=== PATIENT | male | born 1955 | race Caucasian/White ===

== ENCOUNTER → 2016-10-26 | Outpatient (CLI) | payer OTHER ==
[2016-10-26 08:48] LABS: CH 30.7; HCT 38.7 % (39.0-53.0); HDW 3.86; HGB 12.8 gm/dL (13.0-17.5); MCHC 33.1 g/dL (31.0-37.0); MCV 90.8 fL (80.0-100.0); Poikilocytosis Slight; RBC 4.26 m/uL (4.30-5.90); RDW 14.7 % (11.5-15.5); WBC 6.6 k/uL (3.8-10.6)
[2016-10-26 09:04] LABS: ALT 47 U/L (21-72); AST 26 U/L (17-59); Alkaline Phosphatase 46 U/L (38-126); Anion Gap 11 mmol/L; Blood Urea Nitrogen 10 mg/dL (9-20); Calcium 9.3 mg/dL (8.4-10.2); Carbon Dioxide 33 mmol/L (22-30); Chloride 95 mmol/L (98-107); Glucose 134 mg/dL (74-99); INR 1.1 (<1.1); Non-African American GFR(MDRD) >60 (>60 ml/min/1.73 sqM); Partial Thromboplastin Time 26.1 sec (22.0-30.0); Potassium 3.7 mmol/L (3.5-5.1); Prothrombin Time 10.8 sec (9.0-12.0); Sodium 139 mmol/L (137-145); Total Bilirubin 0.7 mg/dL (0.2-1.3); Total Protein 7.4 g/dL (6.3-8.2)
== END | disposition home or self-care (01) ==
LOC: LABWHC1 08:24
PROVIDERS: ATTEND Registered Nurse Critical Care Medicine
DX: Z01.812 Encounter for preprocedural laboratory examination (principal); I35.0 Nonrheumatic aortic (valve) stenosis
CPT/HCPCS: 36415; 80053; 83880; 85027; 85610; 85730

== ENCOUNTER 2016-11-22 06:26 | Day surgery (SDC) | payer OTHER ==
[~2016-11-22 06:26] MED LIST: ALPRAZolam 0.25 MG TAB PO PRN; ALPRAZolam 0.5 MG TAB PO PRN; ASPIRIN 325 MG TAB PO STA; ATORVASTATIN 80 MG TAB PO STA; NITROGLYCERIN SL TABS 0.4 MG TAB SUBLINGUAL PRN; SODIUM CHLORIDE 0.9% 1,000 ML in EMPTY BAG 1 BAG IV ONE
[2016-11-22] MEDS ORDERED: LIDOCAINE 2% INJ 20 MG/ML SQ ONE (08:10)
[2016-11-22] MEDS ORDERED: MIDAZOLAM 2 MG/2 ML VIAL IVP ONE (08:10)
[2016-11-22] MEDS ORDERED: BIVALIRUDIN BOLUS 250 MG/50 ML IV ONE (08:22)
[2016-11-22] MEDS ORDERED: BIVALIRUDIN 250 MG in SODIUM CHLORIDE 0.9% 50 ML IV ONE ×2 (08:22→08:43)
[2016-11-22] MEDS: MIDAZOLAM 2 MG/2 ML VIAL IVP ONE ×2 (09:02→09:31)
[2016-11-22] MEDS ORDERED: NITROGLYCERIN 1000MCG/10ML SYRINGE INTRACORON ONE (09:36)
[2016-11-22] MEDS ORDERED: PRASUGREL 10 MG TAB PO ONE (09:38)
[2016-11-22] MEDS ORDERED: IOHEXOL 350 MG/ML 100 ML BOTTLE INJ ONE (09:49)
[2016-11-22] MEDS ORDERED: ATROPINE SULFATE 0.1 MG/ML 10ML SYRINGE IV PRN (09:54)
[2016-11-22] MEDS ORDERED: ZOLPIDEM 5 MG TAB PO PRN (09:54)
[2016-11-22] MEDS ORDERED: RX INFO: IV CONTRAST WAS GIVEN 1 EACH MISC MISCELLANE PRN (09:54)
[2016-11-22] MEDS ORDERED: NITROGLYCERIN SL TABS 0.4 MG TAB SUBLINGUAL PRN (09:54)
[2016-11-22] MEDS ORDERED: MAG HYDROX/AL HYDROX/SIMETH 30 ML CUP PO PRN (09:54)
[2016-11-22] MEDS ORDERED: SODIUM CHLORIDE 0.9% 1,000 ML IV SCH (10:00)
--- NOTE | 2016-11-22 10:39 | PTCA ---
DATE OF SERVICE: 11/22/2016 PERFORMING PHYSICIAN: Alex Chavez, Broadcast Systems Engineer. PROCEDURE PERFORMED: 1. Selective right coronary angiogram. 2. An atherectomy of the right coronary artery using the CSI orbital atherectomy device. 3. Successful stenting of the right coronary artery using 3.0 x 38 mm Xience JUAN with a good angiographic results. 4. Selective right common femoral artery angiogram. INDICATION: This is a pleasant 61-year-old gentleman who was diagnosed recently with severe aortic stenosis and he was going to have transcutaneous aortic valve replacement. A heart catheterization was performed before the procedure and showed heavy calcified right coronary artery system with critical lesion involving the proximal and mid RCA which was eccentric and calcified. He was brought today to undergo percutaneous coronary intervention on the RCA before the TAVR procedure. APPROACH: Right common femoral artery. COMPLICATIONS: None. LEVEL OF SEDATION: Moderate with a length of sedation of 2 hours. PROCEDURE DESCRIPTION: After obtaining an informed consent, the patient was brought to the Cardiac Health Advisor. Right common femoral artery was cannulated using micropuncture technique. The micropuncture wire passed easily, then I placed a 6 Kyrgyz sheath in the right common femoral artery. Subsequently, I did selective right and left coronary angiogram. Subsequently, anticoagulation was initiated using Angiomax. Then I took a JR4 guide and the right coronary artery was engaged. I wired the right coronary artery using a Whisper wire and then I tried to advance 1.2 mm x 8 mm balloon and I was unable to cross the proximal right coronary artery. I did wire the right coronary artery using a niall wire with another Whisper wire and I was unable to cross the balloon. Then I tried to cross using one of the catheters which was a fine cross catheter, and I was unable to cross the proximal RCA lesion. At that point, I decided to wire the right coronary artery using the Viper atherectomy wire. The wire was advanced to the distal right coronary artery. Subsequently, I did atherectomy of the right coronary artery using the orbital CSI atherectomy device where I did atherectomize the proximal and mid RCA. Then I did balloon angioplasty using 2.5 x 15 mm balloon which was inflated in the mid and proximal RCA under 14 atmospheres for 30 seconds each time. Subsequently, I did stenting of the right coronary artery using 3.0 x 38 mm Xience JUAN, where the stent was positioned under fluoroscopy guidance, then it was deployed under for a 16 atmospheres for 20 seconds. Subsequently, I did post dilatation of the lesion in the proximal portion, where I was able to see some contrast behind the stent struts, which I decided to post-dilate, so I postdilated using 3.0 x 15 mm NC balloon which was inflated under 18 atmospheres for 30 seconds. The following angiogram showed good angiographic result with a good flow in the right coronary artery. The procedure was completed without any complication. Postprocedure management: 1. Dual antiplatelet therapy. 2. Risk factor modifications. 3. Will follow up with the patient.
[2016-11-22 16:24] VITALS: RESP 16
[2016-11-22 17:06] VITALS: BMI 46.9
[2016-11-23 06:34] LABS: Basophils % (A) 0 %; CH 30.5; Eosinophils # (A) 0.1 k/uL (0-0.7); Eosinophils % (A) 2 %; HCT 36.3 % (39.0-53.0); HDW 3.73; HGB 11.8 gm/dL (13.0-17.5); Luc # (Auto) 0.13; Luc % (Auto) 3; Lymphocytes # (A) 1.9 k/uL (1.0-4.8); Lymphocytes % (A) 36 %; MCH 29.4 pg (25.0-35.0); MCHC 32.6 g/dL (31.0-37.0); Mean Platelet Volume 6.8; Monocytes # (A) 0.3 k/uL (0-1.0); Monocytes % (A) 5 %; Neutrophils # (A) 2.9 k/uL (1.3-7.7); Neutrophils % (A) 55 %; Poikilocytosis Slight; RBC 4.03 m/uL (4.30-5.90); WBC 5.3 k/uL (3.8-10.6); WBC (Perox) 5.65
[2016-11-23 06:51] LABS: Anion Gap 10 mmol/L; Blood Urea Nitrogen 12 mg/dL (9-20); Calcium 8.7 mg/dL (8.4-10.2); Carbon Dioxide 32 mmol/L (22-30); Chloride 96 mmol/L (98-107); Glucose 125 mg/dL (74-99); Non-African American GFR(MDRD) >60 (>60 ml/min/1.73 sqM); Potassium 3.1 mmol/L (3.5-5.1); Sodium 138 mmol/L (137-145)
[2016-11-23 08:33] VITALS: BP 109/63; PULSE 95; TEMP 97.4
[2016-11-23] MEDS ORDERED: PRASUGREL 10 MG TAB PO SCH (09:00)
[2016-11-23] MEDS ORDERED: ATENOLOL 50 MG TAB PO SCH (09:00)
[2016-11-23] MEDS ORDERED: HYDROCHLOROTHIAZIDE 25 MG TAB PO SCH (09:00)
[2016-11-23] MEDS ORDERED: ASPIRIN 81 MG CHEW PO SCH (09:00)
[2016-11-23] MEDS ORDERED: ATORVASTATIN 80 MG TAB PO SCH (21:00)
--- NOTE | 2016-11-23 21:14 | DS ---
DATE OF ADMISSION: 11/22/2016 DATE OF DISCHARGE: 11/23/2016 BRIEF HISTORY: This is a pleasant 61-year-old gentleman with known severe aortic stenosis, hypertension, dyslipidemia, and known severe coronary artery disease with critical disease involving the proximal and mid right coronary artery. He was admitted to the hospital yesterday and underwent successful atherectomy and balloon angioplasty as well as stenting of the right coronary artery with placement of 3.0 x 38 mm Xience JUAN with good angiographic results. On followup with the patient today, he is doing well. He denies having any chest pain or discomfort. The right groin is soft and nontender and without any bruises. The patient is going to be discharged home on dual antiplatelet therapy as well as a statin. He is going to be seen in the office next week for followup. After that the patient will be referred back to have his TAVR procedure at [facility].
== END 2016-11-23 10:43 | disposition home or self-care (01) ==
LOC: CATHCVL 06:26 → 6SEL 09:45 → CATHCVL 11-23 10:43
PROVIDERS: ATTEND Internal Medicine Interventional Cardiology
DX: I25.10 Atherosclerotic heart disease of native coronary artery without angina pectoris (principal); I10 Essential (primary) hypertension; I35.0 Nonrheumatic aortic (valve) stenosis; E78.5 Hyperlipidemia, unspecified; Z68.41 Body mass index [BMI] 40.0-44.9, adult; E66.3 Overweight; Z82.49 Family history of ischemic heart disease and other diseases of the circulatory system; Z79.899 Other long term (current) drug therapy
CPT/HCPCS: 80048; 85025; 99152; 99153 ×6; C9602; C1769 ×8; C1760; C1887 ×2; C1725 ×3; C1894; C1874; C1714; J2001; J2250; Q9967; J0583

== ENCOUNTER → 2020-04-12 | Outpatient (CLI) | payer OTHER ==
[2020-04-12 10:44] LABS: Anisocytosis Slight; HCT 31.2 % (39.0-53.0); HGB 10.6 gm/dL (13.0-17.5); Hypochromasia Slight; MCH 31.7 pg (25.0-35.0); MCHC 33.8 g/dL (31.0-37.0); MCV 93.7 fL (80.0-100.0); Mean Platelet Volume 11.2; Poikilocytosis Slight; RBC 3.33 m/uL (4.30-5.90); RDW 19.2 % (11.5-15.5); WBC 3.8 k/uL (3.8-10.6)
[2020-04-12 10:51] LABS: African American GFR (CKD) >90 (>60 ml/min/1.73 sqM); Anion Gap 8 mmol/L; Blood Urea Nitrogen 12 mg/dL (9-20); Carbon Dioxide 32 mmol/L (22-30); Chloride 97 mmol/L (98-107); Non-African American GFR(CKD) >90 (>60 ml/min/1.73 sqM); Sodium 137 mmol/L (137-145)
[2020-04-12 12:08] LABS: Platelet Count 119 k/uL (150-450)
== END | disposition home or self-care (01) ==
LOC: LABWHC1 09:30
PROVIDERS: ATTEND Internal Medicine Interventional Cardiology
DX: Z01.818 Encounter for other preprocedural examination (principal); I25.10 Atherosclerotic heart disease of native coronary artery without angina pectoris
CPT/HCPCS: 36415; 80051; 82565; 84520; 85027

== ENCOUNTER 2020-04-15 08:48 | Day surgery (SDC) | payer OTHER ==
[2020-04-13 16:07] VITALS: BMI 47.7
[~2020-04-15 08:48] MED LIST changes: +ASPIRIN 325 MG TAB PO ONE; -ASPIRIN 325 MG TAB PO STA; +ATORVASTATIN 80 MG TAB PO ONE; -ATORVASTATIN 80 MG TAB PO STA
[2020-04-15] MEDS ORDERED: SODIUM CHLORIDE 0.9% 1,000 ML IV ONE (09:21)
[2020-04-15 09:24] VITALS: RESP 16; TEMP 97.9
[2020-04-15] MEDS ORDERED: LIDOCAINE 1% INJ 10MG/ML (20 ML MDV) ONE (10:18)
[2020-04-15] MEDS ORDERED: MIDAZOLAM 2 MG/2 ML VIAL IVP ONE ×2 (10:30→10:46)
[2020-04-15] MEDS ORDERED: LIDOCAINE 1% INJ 10MG/ML (20 ML MDV) SQ ONE (10:35)
[2020-04-15] MEDS ORDERED: fentaNYL (PF) 50 MCG/ML 2 ML AMP ONE (10:38)
[2020-04-15] MEDS ORDERED: fentaNYL (PF) 50 MCG/ML 2 ML AMP IVP ONE (10:41)
[2020-04-15] MEDS ORDERED: IOPAMIDOL-370 100ML BTL INJ ONE (11:00)
[2020-04-15] MEDS ORDERED: RX INFO: IV CONTRAST WAS GIVEN 1 EACH MISC MISCELLANE PRN (11:10)
[2020-04-15] MEDS ORDERED: SODIUM CHLORIDE 0.9% 1,000 ML IV SCH (11:15)
--- NOTE | 2020-04-15 11:31 | CC ---
CARDIAC CATHETERIZATION REPORT DATE OF SERVICE: 04/15/2020. PERFORMING PHYSICIAN: Markell Arellano MD. PROCEDURE PERFORMED: Selective right and left coronary angiogram. INDICATION: This is a very pleasant 64-year-old gentleman with history of aortic valve replacement using TAVR as well as coronary artery disease and prior atherectomy and balloon angioplasty of the right coronary artery, who was experiencing symptoms of chest discomfort with exertion as well as shortness of breath with exertion concerning for severe underlying coronary artery disease. Because of that, a heart catheterization was advised. Given his history as well as his multiple risk factors. APPROACH: Right common femoral artery. COMPLICATION: None. LEVEL OF SEDATION: Moderate with sedation length of 23 minutes. PROCEDURE DESCRIPTION: After obtaining an informed consent, the patient was brought to the cardiac open hearth laborer. The right common femoral artery was cannulated using micropuncture technique, the micropuncture wire passed easily, then I placed a 6-Yakut sheath at the right common femoral artery. After that, I did selective right and left coronary angiogram. Selective right coronary angiogram was performed using JR4 catheter and selective left coronary angiogram was performed using JL4 catheter. The procedure was completed without any complication. SELECTIVE CORONARY ANGIOGRAM: 1. The right coronary artery is a large caliber vessel and a dominant vessel. The RCA has in the proximal portion a plaque appeared to be in the range of 40% to 50%. seems to be slightly worse compared to before. The mid RCA is stented and the stent is patent and the RCA distally is normal and bifurcates into PDA and PLV branches both appeared to be angiographically normal. 2. The left main has a plaque, the plaque is eccentric and calcified within the range of 30% to 40%. was better seen on the GREEK cranial view. The left main after that bifurcates into LCX and LAD. 3. The LCX is a large caliber vessel, it is a nondominant vessel and appeared to be angiographically normal. It gives rise into first and second obtuse marginal branches, both appeared to be angiographically normal. 4. The LAD, the LAD is angiographically normal. In the proximal portion, it gives rise into a large diagonal branch. CONCLUSION: 1. Calcified right and left coronary system. 2. Patent stent in the mid RCA. Intermediate disease involving the very proximal RCA. 3. Eccentric calcified plaque involving the mid shaft of the left main appeared to be in the range of 30% to 40%.. 4. Normal left circumflex coronary system. 5. Normal left anterior descending artery system. POSTPROCEDURE MANAGEMENT: 1. I did recommend maximized medical treatment at this point. 2. Aggressive cholesterol control. 3. The patient continues to be symptomatic, I would consider doing an intravascular ultrasound IVUS of the left main as well as RCA. TERESSA / ALEXANDERN: [id number] /
[2020-04-15 17:11] VITALS: BP 120/58; PULSE 81
== END 2020-04-15 18:20 | disposition home or self-care (01) ==
LOC: CATHCVL 08:48
PROVIDERS: ATTEND Internal Medicine Interventional Cardiology
DX: I25.110 Atherosclerotic heart disease of native coronary artery with unstable angina pectoris (principal); R07.89 Other chest pain; R06.02 Shortness of breath; I10 Essential (primary) hypertension; E78.5 Hyperlipidemia, unspecified; E78.00 Pure hypercholesterolemia, unspecified; I08.1 Rheumatic disorders of both mitral and tricuspid valves; I27.20 Pulmonary hypertension, unspecified; R60.0 Localized edema; E66.3 Overweight; Z68.42 Body mass index [BMI] 45.0-49.9, adult; Z95.2 Presence of prosthetic heart valve; Z95.5 Presence of coronary angioplasty implant and graft; Z79.82 Long term (current) use of aspirin; Z79.899 Other long term (current) drug therapy; Z82.49 Family history of ischemic heart disease and other diseases of the circulatory system
CPT/HCPCS: 93454; C1894; C1887; C1769 ×2; J2250; J2001; J3010; Q9967

== ENCOUNTER 2020-05-14 05:55 | Inpatient (IN) | payer OTHER ==
[2020-05-14] MEDS ORDERED: SODIUM CHLORIDE 0.9% 1,000 ML IV STA ×2 (06:05)
[2020-05-14] MEDS ORDERED: NITROGLYCERIN SL TABS 0.4 MG TAB SUBLINGUAL STA (06:05)
[2020-05-14] MEDS ORDERED: ASPIRIN 81 MG PO STA (06:05)
[2020-05-14] MEDS ORDERED: MORPHINE SULFATE 4 MG/ML SYRINGE IVP STA (06:06)
[2020-05-14] MEDS ORDERED: HEPARIN SODIUM,PORCINE 5,000 UNIT/ML 1 ML VIAL IV ONE (06:11)
--- NOTE | 2020-05-14 06:13 | ED ---
Chest Pain HPI - General Chief Complaint: Chest Pain Stated Complaint: chest pain Time Seen by Provider: 05/14/20 05:57 Source: RN notes reviewed, old records reviewed - History of Present Illness Initial Comments: This patient's a 64-year-old male with a history of hypertension, coronary disease and a history of aortic stenosis with Swetha. He presents to emergency department today with onset of chest pain, tightness discomfort starting this morning when he woke up. Patient states this woke him from sleep. Patient had a cardiac cath on April 15. At that time he received a stent in the right aretha nary artery. Patient reports that he was told her 30-40% stenosis in the LAD. Patient states that he is not sure if he is on blood thinning medication at this time. Patient states that he is somewhat fatigued denies any significant shortness of breath or coughing. He did not take his at home medication at this time. - Related Data Home Medications Medication Instructions Recorded Confirmed Aspirin [Adult Low Dose Aspirin EC] 81 mg PO DAILY 11/21/16 04/15/20 Atorvastatin Calcium [Lipitor] 80 mg PO HS 11/21/16 04/15/20 Furosemide [Lasix] 40 mg PO DAILY 04/13/20 04/15/20 Metoprolol Tartrate [Lopressor] 50 mg PO BID 04/13/20 04/15/20 lisinopriL [Zestril] 5 mg PO DAILY 04/13/20 04/15/20 Allergies Allergy/AdvReac Type Severity Reaction Status Date / Time No Known Allergies Allergy Verified 05/14/20 06:10 Review of Systems ROS Statement: Those systems with pertinent positive or pertinent negative responses have been documented in the HPI. ROS Other: All systems not noted in ROS Statement are negative. EKG Findings - EKG Comments: EKG Findings:: EKG performed showed sinus tachycardia with ST depression considering sub-endocardial injury. Ventricular rate of 10 9 bpm. Intervals 166 most seconds. QRS duration is 94 ms. QT QTc is 358/482 ms. 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 GATO Past Anesthesia/Blood Transfusion Reactions: Motion Sickness Past Psychological History: No Psychological Hx Reported Past Alcohol Use History: Daily Additional Past Alcohol Use History / Comment(s): drinks 2 beers per day Past Drug Use History: None Reported - Past Family History Father Family Medical History: Myocardial Infarction ([place]) Sister(s) Family Medical History: Cancer Additional Family Medical History / Comment(s): Sister with brain tumor General Exam - General Exam Comments Initial Comments: 64-year-old male. Patient appears in mild to moderate discomfort. Laying in bed. Diaphoresis. General appearance: alert, in no apparent distress Head exam: Present: atraumatic, normocephalic, normal inspection Eye exam: Present: normal appearance, PERRL, EOMI. Absent: scleral icterus, conjunctival injection, periorbital swelling ENT exam: Present: normal exam, mucous membranes moist Neck exam: Present: normal inspection. Absent: tenderness, meningismus, lymphadenopathy Respiratory exam: Present: normal lung sounds bilaterally. Absent: respiratory distress, wheezes, rales, rhonchi, stridor Cardiovascular Exam: Present: tachycardia. Absent: regular rate GI/Abdominal exam: Present: soft, normal bowel sounds. Absent: distended, tenderness, guarding, rebound, rigid Extremities exam: Present: normal inspection, full ROM, normal capillary refill. Absent: tenderness, pedal edema, joint swelling, calf tenderness Back exam: Present: normal inspection Neurological exam: Present: alert, oriented X3, CN II-XII intact Psychiatric exam: Present: normal affect, normal mood Skin exam: Present: warm, dry, intact, normal color. Absent: rash Course Vital Signs 05/14/20 05/14/20 05/14/20 06:06 06:38 07:18 Temperature 98.4 F 98.7 F Pulse Rate 118 H 103 H 108 H Respiratory 20 18 18 Rate Blood Pressure 146/73 130/62 135/65 O2 Sat by Pulse 96 97 100 Oximetry - Reevaluation(s) Reevaluation #1: 05/14/20 07:09 Reevaluated. Patient at this time discussed findings with . I discussed doing further troponin level to return. I asked Patient for his pain milliseconds and 8. He reports initial relief after a dose of nitro but now it is came back, 8/10. Patient will be given nitropaste Chest Pain MDM - [facility] Patient 64-year-old male with onset of chest pain this morning. Had recent cardiac cath. He does have a history of hypertension and hyperlipidemia. Review patient's recent cardiac cath on April 15 conclusions calcified right and left coronary system. Patient stent in the right RCA. His intermittent disease involving the proximal right RCA. His eccentric calcified plaque in the midshaft of the left main appear to be in the range of 34%. Normal circumflex coronary artery system. The left anterior descending artery system. This is reported by Dr. Arellano. Patient reports his pain is a pressure 8 out of 10. He was given nitro and aspirin. He reported initial relief of his pain with nitro. Blood pressures remain stable. EKG did show some changes of ST depression on the lateral leads. Patient's EKG was initially reviewed with Dr. Boateng. Patient was started on heparin Patient is a continued have chest pain when the initial nitroglycerin pill wore off. He was started on heparin. His troponin is noted the elevated at 0.106. Patient's case then discussed with Dr. Armendariz discussed the case with Dr. Landaverde, whom will be in ED to evaluate patient. Critical Care Time Critical Care Time: Yes Total Critical Care Time: 35 Critical Care Time: 35 minutes of critical care time is managing Patient interpreting lab results, and treating patient's chest pain reviewing previous records, and consulting specialist cardiology. Disposition Clinical Impression: NSTEMI (non-ST elevated myocardial infarction), Acute electrocardiogram changes Disposition: ADMITTED IP TO THIS HOSP Condition: Stable Is patient prescribed a controlled substance at d/c from ED?: No Referrals: Adithya Mckeon MD [Primary Care Provider] - 1-2 days Time of Disposition: 07:44
[2020-05-14] MEDS ORDERED: HEPARIN SOD,PORK IN 0.45% NACL 25,000 UNIT in 0.45% NACL 1 250ML.BAG IV SCH (06:15)
[2020-05-14 06:28] LABS: Anisocytosis Slight; Basophils % (A) 1 %; Eosinophils # (A) 0.1 k/uL (0-0.7); Eosinophils % (A) 2 %; HCT 35.5 % (39.0-53.0); HGB 11.8 gm/dL (13.0-17.5); Hypochromasia Slight; Lymphocytes # (A) 3.2 k/uL (1.0-4.8); Lymphocytes % (A) 54 %; MCH 30.7 pg (25.0-35.0); MCHC 33.2 g/dL (31.0-37.0); MCV 92.5 fL (80.0-100.0); Mean Platelet Volume 10.7; Monocytes # (A) 0.3 k/uL (0-1.0); Monocytes % (A) 5 %; Neutrophils % (A) 35 %; Platelet Count 141 k/uL (150-450); Poikilocytosis Moderate; RBC 3.83 m/uL (4.30-5.90); RDW 19.4 % (11.5-15.5); WBC 5.9 k/uL (3.8-10.6)
[2020-05-14 06:35] LABS: Partial Thromboplastin Time 23.1 sec (22.0-30.0); Prothrombin Time 10.3 sec (9.0-12.0)
[2020-05-14 06:37] LABS: ALT 20 U/L (4-49); AST 26 U/L (17-59); African American GFR (CKD) >90 (>60 ml/min/1.73 sqM); Albumin 4.5 g/dL (3.5-5.0); Alkaline Phosphatase 84 U/L (38-126); Anion Gap 14 mmol/L; Blood Urea Nitrogen 11 mg/dL (9-20); Carbon Dioxide 24 mmol/L (22-30); Chloride 99 mmol/L (98-107); Glucose 171 mg/dL (74-99); Magnesium 1.8 mg/dL (1.6-2.3); Non-African American GFR(CKD) >90 (>60 ml/min/1.73 sqM); Potassium 3.2 mmol/L (3.5-5.1); Sodium 137 mmol/L (137-145); Total Bilirubin 1.4 mg/dL (0.2-1.3); Total Protein 7.1 g/dL (6.3-8.2)
[2020-05-14] MEDS ORDERED: NITROGLYCERIN OINT 1 INCH/GM PACKET TOPICAL STA (07:08)
--- NOTE | 2020-05-14 07:34 | XR ---
EXAM: XR Chest, 2 Views CLINICAL HISTORY: Chest pain TECHNIQUE: Frontal and lateral views of the chest. COMPARISON: No relevant prior studies available. FINDINGS: Lungs: No focal consolidation. Generalized prominence of vascular interstitial markings. Pleural space: Unremarkable. No pneumothorax. No pleural fluid. Heart: Stent graft in the region of the aortic valve. Mediastinum: Unremarkable. Bones/joints: Unremarkable. No acute abnormalities. IMPRESSION: Mild generalized prominence of vascular interstitial markings which may represent early pulmonary edema.
[2020-05-14] MEDS ORDERED: NITROGLYCERIN-D5W PMX 50 MG in DEXTROSE/WATER 1 250ML.BAG IV ONE (07:37)
--- NOTE | 2020-05-14 08:41 | P.CRDCN ---
History of Present Illness Consult date: 05/14/20 Requesting physician: Jade Bolanos Consult reason: non-Q-wave [place] Chief complaint: Chest pain History of present illness: History of present illness: This is a 64-year-old male patient of Dr. Arellano with past medical history of coronary artery disease, hypertension, severe aortic stenosis, and status post transcutaneous aortic valve replacement done 3 years ago at [facility]. 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 Prior to TAVR, Dr. Arellano performed performed atherectomy of the right coronary artery and successful stenting of the right coronary artery. Because patient was experiencing shortness of breath with associated chest discomfort with exertion, patient was brought back to [facility] with Dr. Arellano and underwent heart catheterization that revealed calcified right and left coronary system. Patent stent in the mid RCA. Intermediate disease in the very proximal RCA. A centric calcified plaque involving the mid shaft of the left main in the range of 30-40%. Normal circumflex and normal LAD. He recommended medical management if patient continued to be symptomatic we'll recommend intravascular ultrasound IVUS of the left main as well as RCA. Echocardiogram, 03/08/2020, revealed normal LV function, normally functioning transcatheter aortic valve with mild MR, mild TR, severe pulmonary hypertension. Patient presents with chest pain mostly in the left mid chest but across his entire front chest with radiation to the shoulder blades and into his jaw. He states he has been having this pain occasionally since recent heart catheterization but usually with activity. Today he woke up and was resting in bed and developed chest pain. He also complains of some involvement of his arms bilaterally but with some numbness as well. Patient has increased shortness of breath with talking. He did not take any medication at home. He presented to [facility] emergency center where he was found to have a tr oponin of 0.106. Hemoglobin 11.8, creatinine 0.61, potassium 3.2. White count was normal. EKG was a sinus tachycardia with some ST depression. Chest x-ray showed mild generalized prominent vascular interstitial markings possible pulmonary edema. He was given sublingual nitro, aspirin which was reported as some improvement by the ER staff. Patient states nitroglycerin has not really helped. He was also placed on Nitropaste and started on heparin drip and nitroglycerin drip. Social history Patient has been a lifelong nonsmoker. Occasional beer. No street drug or marijuana use. Review Of Systems: Constitutional: No fever, no chills. No weakness, reports generalized fatigue. EENT: No headache. No dizziness. Lungs: Reports shortness of breath, no cough, no sputum production. No wheezing. Cardiovascular: Reports No chest pain, reports lower extremity edema. No palpitations. No paroxysmal nocturnal dyspnea. No orthopnea. No lightheadedness or dizziness. No syncopal episodes. Abdominal: No abdominal pain. No nausea, vomiting. No diarrhea. No constipation. No bloody or tarry stools.. No loss of appetite. Genitourinary: No dysuria, increased frequency, urgency. No urinary retention. Musculoskeletal: No myalgias. No muscle weakness, no gait dysfunction, no frequent falls. No back pain. No neck pain. Integumentary: No wounds, no lesions. No rash or pruritus. No unusual bruising. Neurologic: No aphasia. No facial droop. No change in mentation. No head injury. No headache. No paralysis. No paresthesia. Psychiatric: No depression. No anxiety. Endocrine: No abnormal blood sugars. Physical examination: Gen: This is a 64-year-old male. He is resting in bed and appears to be comfortable. Patient noted to be dyspneic with talking in full sentences. VS: Afebrile, heart rate 108, blood pressure 135/65, pulse ox 100% on 2 L nasal cannula. HEENT: Head is atraumatic, normocephalic. Pupils equal, round. Sclerae is anicteric. NECK: Supple. No JVD. No lymphadenopathy. No thyromegaly. LUNGS: Diminished bilateral bases. Clear to auscultation. No wheezes or rhonchi. Accessory muscle usage with talking. HEART: Regular rate and rhythm. Systolic murmur. Tachycardic ABDOMEN: Soft. Bowel sounds are present. No masses. No tenderness. EXTREMITIES: Trace bilateral pedal edema. No calf tenderness. Dorsalis pedis +1 bilaterally. NEUROLOGICAL: Patient is awake, alert and oriented x3. Cranial nerves 2 through 12 are grossly intact. Assessment: Non-ST elevated myocardial infarction History of coronary artery disease Hypertension Aortic stenosis status post transcutaneous aortic valve replacement Severe pulmonary hypertension Plan: Continue heparin drip and nitroglycerin drip Continue aspirin, resume Lipitor 80 mg at bedtime, Lopressor 50 mg twice daily and lisinopril 5 mg daily Obtain 2-D echocardiogram and Doppler study to assess cardiac structure and function Serial troponins and lipid panel Discussed option of heart catheterization and patient is agreeable to proceed Further recommendations to follow based upon clinical course Thank you kindly for this consultation Nurse practitioner note has been reviewed, I agree with documented findings and plan of care. Patient was seen and examined. 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 GATO Past Anesthesia/Blood Transfusion Reactions: Motion Sickness Past Psychological History: No Psychological Hx Reported Past Alcohol Use History: Daily Additional Past Alcohol Use History / Comment(s): drinks 2 beers per day Past Drug Use History: None Reported - Past Family History Father Family Medical History: Myocardial Infarction ([place]) Sister(s) Family Medical History: Cancer Additional Family Medical History / Comment(s): Sister with brain tumor Medications and Allergies Home Medications Medication Instructions Recorded Confirmed Type Aspirin [Adult Low Dose Aspirin EC] 81 mg PO DAILY 11/21/16 04/15/20 History Atorvastatin Calcium [Lipitor] 80 mg PO HS 11/21/16 04/15/20 History Furosemide [Lasix] 40 mg PO DAILY 04/13/20 04/15/20 History Metoprolol Tartrate [Lopressor] 50 mg PO BID 04/13/20 04/15/20 History lisinopriL [Zestril] 5 mg PO DAILY 04/13/20 04/15/20 History Allergies Allergy/AdvReac Type Severity Reaction Status Date / Time No Known Allergies Allergy Verified 05/14/20 06:10 Physical Exam Vitals: Vital Signs Temp Pulse Resp BP Pulse Ox 05/14/20 07:18 98.7 F 108 H 18 135/65 100 05/14/20 06:38 103 H 18 130/62 97 05/14/20 06:06 98.4 F 118 H 20 146/73 96 Intake and Output 05/13/20 05/14/20 05/14/20 22:59 06:59 14:59 Other: Weight 136.078 kg Results 05/14/20 06:17 05/14/20 06:17 Cardiac Enzymes 05/14/20 05/14/20 Range/Units 06:17 06:17 AST 26 (17-59) U/L Troponin I 0.106 H* (0.000-0.034) ng/mL Coagulation 05/14/20 Range/Units 06:17 PT 10.3 (9.0-12.0) sec APTT 23.1 (22.0-30.0) sec CBC 05/14/20 Range/Units 06:17 WBC 5.9 (3.8-10.6) k/uL RBC 3.83 L (4.30-5.90) m/uL Hgb 11.8 L (13.0-17.5) gm/dL Hct 35.5 L (39.0-53.0) % Plt Count 141 L (150-450) k/uL Comprehensive Metabolic Panel 05/14/20 Range/Units 06:17 Sodium 137 (137-145) mmol/L Potassium 3.2 L (3.5-5.1) mmol/L Chloride 99 (98-107) mmol/L Carbon Dioxide 24 (22-30) mmol/L BUN 11 (9-20) mg/dL Creatinine 0.63 L (0.66-1.25) mg/dL Glucose 171 H (74-99) mg/dL Calcium 9.0 (8.4-10.2) mg/dL AST 26 (17-59) U/L ALT 20 (4-49) U/L Alkaline Phosphatase 84 (38-126) U/L Total Protein 7.1 (6.3-8.2) g/dL Albumin 4.5 (3.5-5.0) g/dL Current Medications Generic Name Dose Route Start Last Admin Trade Name Freq PRN Reason Stop Dose Admin Aspirin 325 mg 05/15/20 09:00 Aspirin PO DAILY JAY Sodium Chloride 1,000 mls @ 100 mls/hr 05/14/20 06:05 05/14/20 07:47 Saline 0.9% IV 05/14/20 16:04 100 mls/hr .Q10H STA Administration Heparin Sodium/Sodium Chloride 250 mls @ 10.006 mls/hr 05/14/20 06:15 05/14/20 06:44 25,000 unit/ Sodium Chloride IV 7.353 units/kg/hr .Q24H JAY 10.006 mls/hr Administration Protocol 7.353 UNITS/KG/HR Nitroglycerin/Dextrose 50 mg/ 250 mls @ 1.5 mls/hr 05/14/20 07:37 05/14/20 07:55 IV Solution IV 05/15/20 07:36 5 mcg/min .Q24H ONE 1.5 mls/hr Administration Protocol 5 MCG/MIN Intake and Output 05/13/20 05/14/20 05/14/20 22:59 06:59 14:59 Other: Weight 136.078 kg 05/14/20 06:17 05/14/20 06:17
[2020-05-14] MEDS ORDERED: ATORVASTATIN 80 MG TAB PO STA (08:50)
[2020-05-14] MEDS ORDERED: ALPRAZolam 0.5 MG TAB PO PRN (08:50)
[2020-05-14] MEDS ORDERED: NITROGLYCERIN SL TABS 0.4 MG TAB SUBLINGUAL PRN ×2 (08:50→17:12)
[2020-05-14] MEDS ORDERED: ALPRAZolam 0.25 MG TAB PO PRN (08:50)
[2020-05-14] MEDS ORDERED: SODIUM CHLORIDE 0.9% 1,000 ML in EMPTY BAG 1 BAG IV ONE (08:50)
[2020-05-14] MEDS: METOPROLOL TARTRATE 50 MG TAB PO SCH ×2 (10:11→20:26)
[2020-05-14] MEDS: lisinopriL 5 MG TAB PO SCH (10:11)
[2020-05-14] MEDS ORDERED: ASPIRIN 325 MG TAB PO ONE (10:30)
[2020-05-14] MEDS ORDERED: IV FLUID CONTINUATION 1,000 ML IV ONE (11:00)
[2020-05-14] MEDS ORDERED: VERAPAMIL 2.5 MG/ML 2 ML AMP ONE (11:03)
[2020-05-14] MEDS ORDERED: LIDOCAINE 1% INJ 10MG/ML (20 ML MDV) ONE ×2 (11:03→11:34)
[2020-05-14] MEDS ORDERED: fentaNYL (PF) 50 MCG/ML 2 ML AMP ONE (11:11)
[2020-05-14] MEDS ORDERED: fentaNYL (PF) 50 MCG/ML 2 ML AMP IV ONE (11:12)
[2020-05-14] MEDS: MIDAZOLAM 2 MG/2 ML VIAL IV ONE ×2 (11:12→12:08)
[2020-05-14] MEDS: LIDOCAINE 1% INJ 10MG/ML (20 ML MDV) SQ ONE ×2 (11:14→11:45)
[2020-05-14] MEDS ORDERED: VERAPAMIL SYRINGE (5 MG/10 ML) INTRAARTER ONE (11:19)
[2020-05-14] MEDS ORDERED: HEPARIN SODIUM 1,000 UN/ML (10ML VL) ONE ×2 (11:20→13:25)
[2020-05-14] MEDS ORDERED: LIDOCAINE 1% INJ 10MG/ML (20 ML MDV) SQ ONE (11:40)
[2020-05-14] MEDS ORDERED: IOPAMIDOL-370 125ML BTL INJ ONE (12:19)
[2020-05-14] MEDS ORDERED: TICAGRELOR 90 MG TAB ONE (12:47)
[2020-05-14] MEDS ORDERED: TICAGRELOR 90 MG TAB PO ONE (12:50)
[2020-05-14] MEDS: NITROGLYCERIN 1000MCG/10ML SYRINGE INTRACORON ONE ×2 (12:56→13:16)
[2020-05-14] MEDS ORDERED: IOPAMIDOL-370 100ML BTL INJ ONE ×2 (13:08→13:22)
[2020-05-14] MEDS ORDERED: ONDANSETRON 4 MG/2 ML VIAL IVP ONE (13:30)
[2020-05-14] MEDS ORDERED: ONDANSETRON 4 MG/2 ML VIAL ONE (13:39)
--- NOTE | 2020-05-14 14:49 | HP ---
HISTORY AND PHYSICAL CHIEF COMPLAINT: Chest pain. HISTORY OF PRESENT ILLNESS: This is another admission for this 64-year-old white male. He is alert and he has a long-standing history of cardiac disease. Several years ago he underwent a TAVR replacement of his aortic valve. He subsequently developed angina and underwent a right coronary artery angioplasty. He recently saw Cardiology and underwent another cardiac cath which demonstrated occlusion above his previous RCA stent and another lesion and possibly in the circumflex. He woke up at 5:00 this morning with fairly severe anterior crushing chest pain radiating into the arms and into the back. He was short of breath and diaphoretic. He was not nauseated. He came to emergency room where his EKG showed some changes and his first troponin was elevated. He is still a little bit short of breath. Pain has subsided. REVIEW OF SYSTEMS: He has had no syncope, neurologic signs or symptoms, change in vision or hearing, cough, hemoptysis, fever, chills, abdominal pain, melena, hematochezia, jaundice, hepatitis, renal failure, frequency, urgency, nocturia, dysuria, or diabetes. Past medical history, family history and personal and social history reveal he is not allergic to any medication. MEDICATIONS: Include isosorbide mononitrate 30 mg once a day, lisinopril 2.5 once a day, vitamin D 50,000 units a month, furosemide 40 mg once a day, aspirin 81 mg a day, atorvastatin 80 mg once a day, metoprolol 50 mg twice a day. He has never been a smoker. He drinks beer occasionally. 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 PHYSICAL EXAMINATION: Blood pressure is 142/58 with a pulse of 88, respirations of 18, he is afebrile. In general, appeared to be slightly overweight and in no acute distress but he was slightly uncomfortable. Skin color was normal. Skin was dry. Head, ears, eyes, nose, mouth, and throat were normal and neck veins are not distended. Carotids normal. Chest is clear. No rales. Cardiac exam demonstrated a faint grade 1/6 systolic murmur probably related to his prosthetic valve. He was in sinus rhythm. The abdomen is soft and slightly protuberant. There are no masses or visceromegaly. Extremities are normal. Neurologically he was intact. He was admitted to the hospital with diagnoses: 1. Acute ST elevation myocardial infarction.. 2. Previous history of coronary artery disease. 3. Previous history of aortic valve replacement with TAVR. 4. History of hypertension. PLAN: 1. Bed rest. 2. IV fluids. 3. Heparin. 4. Analgesia. 5. Cardiology consult. TERESSA / KASSANDRA: [id number] /
[2020-05-14] MEDS: FUROSEMIDE 40 MG TAB PO SCH (15:03)
[2020-05-14] MEDS ORDERED: ATROPINE SULFATE 0.1 MG/ML 10ML SYRINGE IV PRN (17:12)
[2020-05-14] MEDS ORDERED: ZOLPIDEM 5 MG TAB PO PRN (17:12)
[2020-05-14] MEDS ORDERED: MAG HYDROX/AL HYDROX/SIMETH 30 ML CUP PO PRN (17:12)
[2020-05-14] MEDS ORDERED: RX INFO: IV CONTRAST WAS GIVEN 1 EACH MISC MISCELLANE PRN (17:12)
[2020-05-14] MEDS: ATORVASTATIN 80 MG TAB PO SCH (20:26)
[2020-05-14] MEDS: TICAGRELOR 90 MG TAB PO SCH (20:26)
--- NOTE | 2020-05-14 23:12 | P.CARDCATH ---
Date of Procedure: 05/14/20 Preoperative Diagnosis: Non STEMI Postoperative Diagnosis: Non-STEMI Procedure(s) Performed: Bilateral coronary angiography, right radial and left femoral access, PCI of proximal and mid RCA, iFR of RCA Anesthesia: local Condition: stable Description of Procedure: HISTORY: Patient is a pleasant 64-year-old male who routinely sees Dr. Arellano in the office with a past medical history of hypertension, benign mass of his chest status post removal and radiation therapy to his chest, severe aortic stenosis status post Evolute TAVR 3 years ago and coronary artery disease with prior PCI of his proximal to mid RCA who presents to the hospital with chest pain similar to his prior angina. He does admit to chronic angina over the past 6 months which is worse with activities and mowing his lawn. He did have prior heart catheterization 1 month ago which showed moderate left main disease at 30-40%, moderate RCA disease and the decision was made to attempt to optimize his medical therapy. He does have a history of prior radiation to his chest and 3 years ago he was not felt to be the best of surgical candidates for his severe aortic stenosis secondary to prior radiation. He presented this morning with chest pain and EKG showing diffuse ST depressions and mild aVR elevation. He was having persistent chest pain despite nitroglycerin drip and his troponins were noted to be elevated. Therefore the decision was made to take him to the catheterization lab. PROCEDURE: After the risks, benefits and alternatives of the above mentioned procedure explained in detail with the patient, informed consent was obtained. Patient was taken to the catheterization lab and prepped and draped in usual fashion. 1% lidocaine was used to anesthetize the right radial artery. A 6-Nigerien sheath was placed in the right radial artery using modified Seldinger technique. Due to patient's angulation of his aorta including a short aorta and the angulation of the TAVR valve either RCA or left main cannulation was possible with numerous catheters. Therefore the decision was made to go from femoral access. Right femoral access was attempted, 2% Xylocaine was used to anesthetize the area, however venous access was obtained and a 6-Nigerien sheath was placed. Access was switched to the left femoral area and using ultrasound guidance a 6-Nigerien sheath was placed to left femoral artery using modified Seldinger technique. Cannulation was attempted again however patient was noted to have extreme angulation of his abdominal aorta and therefore the left femoral sheath was exchanged for a 25 cm long 6-Nigerien sheath. Next left coronary angiography was performed with a 6-Nigerien JL 4.0 catheter in various views. Next using a 6-Nigerien FR 3.5 guide right coronary angiography was performed in various views. The images appeared similar to patient's prior catheterization for one month prior and therefore the decision was made to iFR the right coronary artery. An iFR wire was advanced into the right coronary artery at the end of the catheter and this was zeroed. The wire was then advanced into the mid to distal RCA, 2 cm distal to the mid RCA lesion. iFR measurement was obtained at 0.61. Both the proximal and mid RCA lesions were predilated with a 3.0 x 15 mm balloon. Next a 3.5 x 15 mm stent was placed in the mid RCA, overlapping with the prior stent. Next a 3.5 x 23 mm Xience stent was placed in the proximal RCA. Both the proximal and mid stents were postdilated with a 3.75 x 12 noncompliant balloon. Final angiograms were performed which showed improvement from pre-60-70% stenosis of both lesions to a post-0% stenosis of both lesions with JELANI-3 flow. A left femoral angiogram was performed which showed access unsuitable for vascular closure device and therefore the sheath was left in place for manual pull. During patient repositioning after the procedure, the sheath was slightly removed and a hematoma began to form and therefore pressure was held. This sheath would not drop back and therefore sheath was removed and pressure was held. The right radial sheath was pulled and a TR band was placed with hemostasis achieved. The patient tolerated the p rocedure well. Patient was transferred to the post catheterization holding area in stable condition. Conscious Sedation: Patient was monitored under the direct supervision of vision of myself for conscious sedation using 2 mg Versed and 50 mcg fentanyl for a total duration of 137 minutes. HEMODYNAMICS: Aortic pressure of 110/65 rate of 80 SELECTIVE CORONARY ARTERIOGRAPHY: LEFT MAIN: The left main is a large caliber vessel which bifurcates into LAD and circumflex. There is a distal 30-40% LEFT ANTERIOR DESCENDING CORONARY ARTERY: LAD is a large caliber vessel which gives off 1 moderate-caliber diagonal branch. There is a mid LAD 40% stenosis. LEFT CIRCUMFLEX CORONARY ARTERY: the left circumflex is a moderate caliber vessel which gives off 2 obtuse marginal branches without significant stenosis RIGHT CORONARY ARTERY: right coronary artery is a large-caliber dominant vessel. It bifurcates into the PLV and PDA. There is a proximal to mid 35mm stent. Just prior to the stent there is a 60-70% ulcerated lesion followed by a 30-40% stenosis at the level of the proximal edge of the stent. At the distal edge of the stent there is a 60-70% stenosis. iFR of the RCA was 0.61 FINAL IMPRESSION: 1. Multivessel coronary artery disease as described above including relatively unchanged left-sided disease with left main distal 30-40% stenosis, mid LAD 40% stenosis. Right coronary artery 60-70% proximal and mid stenosis with iFR of 0.61. Status post PCI of the proximal RCA lesion with a 3.5 x 23 mm Xience drug-eluting stent and the mid RCA with a 3.5 x 15 mm Xience drug-eluting stent. 2. Non-STEMI with culprit vessel RCA PLAN: Patient is left-sided system appears similar to prior catheterization. Monitor patient's symptoms after his intervention to his RCA. Continue dual antiplatelets for 12 months. Check 2-D echo.
[2020-05-15 06:31] LABS: Anisocytosis Slight; HCT 25.1 % (39.0-53.0); Hypochromasia Slight; MCH 30.5 pg (25.0-35.0); MCHC 32.7 g/dL (31.0-37.0); MCV 93.4 fL (80.0-100.0); Macrocytosis Slight; Platelet Count 124 k/uL (150-450); Poikilocytosis Slight; RBC 2.68 m/uL (4.30-5.90); RDW 19.8 % (11.5-15.5); WBC 5.7 k/uL (3.8-10.6)
[2020-05-15 06:53] LABS: HGB 8.2 gm/dL (13.0-17.5)
[2020-05-15 06:56] LABS: ALT 22 U/L (4-49); AST 73 U/L (17-59); African American GFR (CKD) >90 (>60 ml/min/1.73 sqM); Albumin 3.3 g/dL (3.5-5.0); Alkaline Phosphatase 46 U/L (38-126); Anion Gap 10 mmol/L; Blood Urea Nitrogen 16 mg/dL (9-20); Calcium 7.8 mg/dL (8.4-10.2); Carbon Dioxide 25 mmol/L (22-30); Chloride 100 mmol/L (98-107); Cholesterol 79 mg/dL (<200); Glucose 134 mg/dL (74-99); HDL Cholesterol 25 mg/dL (40-60); LDL Cholesterol,Calculated 38 mg/dL (0-99); Non-African American GFR(CKD) >90 (>60 ml/min/1.73 sqM); Potassium 3.9 mmol/L (3.5-5.1); Sodium 135 mmol/L (137-145); Total Bilirubin 1.6 mg/dL (0.2-1.3); Total Protein 5.5 g/dL (6.3-8.2); Triglycerides 82 mg/dL (<150)
[2020-05-15] MEDS: METOPROLOL TARTRATE 50 MG TAB PO SCH ×2 (08:01→21:30)
[2020-05-15] MEDS: ASPIRIN 81 MG PO SCH (08:01)
[2020-05-15] MEDS: TICAGRELOR 90 MG TAB PO SCH ×2 (08:02→21:31)
[2020-05-15] MEDS ORDERED: ASPIRIN 325 MG TAB PO SCH (09:00)
--- NOTE | 2020-05-15 11:05 | P.PN ---
<Anila Burgess - Last Filed: 05/15/20 13:27> Subjective Progress Note Date: 05/15/20 History of present illness: This is a 64-year-old male patient of Dr. Arellano with past medical history of coronary artery disease, hypertension, severe aortic stenosis, and status post transcutaneous aortic valve replacement done 3 years ago at [facility]. 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 Prior to TAVR, Dr. Arellano performed performed atherectomy of the right coronary artery and successful stenting of the right coronary artery. Because patient was experiencing shortness of breath with associated chest discomfort with exertion, patient was brought back to [facility] with Dr. Arellano and underwent heart catheterization that revealed calcified right and left coronary system. Patent stent in the mid RCA. Intermediate disease in the very proximal RCA. A centric calcified plaque involving the mid shaft of the left main in the range of 30-40%. Normal circumflex and normal LAD. He recommended medical management if patient continued to be symptomatic we'll recommend intr avascular ultrasound IVUS of the left main as well as RCA. Echocardiogram, 03/08/2020, revealed normal LV function, normally functioning transcatheter aortic valve with mild MR, mild TR, severe pulmonary hypertension. Patient presents with chest pain mostly in the left mid chest but across his entire front chest with radiation to the shoulder blades and into his jaw. He states he has been having this pain occasionally since recent heart catheterization but usually with activity. Today he woke up and was resting in bed and developed chest pain. He also complains of some involvement of his arms bilaterally but with some numbness as well. Patient has increased shortness of breath with talking. He did not take any medication at home. He presented to [facility] emergency center where he was found to have a troponin of 0.106. Hemoglobin 11.8, creatinine 0.61, potassium 3.2. White count was normal. EKG was a sinus tachycardia with some ST depression. Chest x-ray showed mild generalized prominent vascular interstitial markings possible pulmonary edema. He was given sublingual nitro, aspirin which was reported as some improvement by the ER staff. Patient states nitroglycerin has not really helped. He was also placed on Nitropaste and started on heparin drip and nitroglycerin drip. 05/15: Patient underwent heart catheterization yesterday that found multi-vessel coronary artery disease with unchanged left-sided disease with left main distal 30-40% stenosis, mid LAD 40% stenosis. Right coronary artery 60-70% proximal and mid stenosis with iFR of 0.61. Status post PCI of the proximal RCA lesion with a 3.5 x 23 mm Xience drug-eluting stent and the mid RCA with a 3.5 x 15 mm Xience drug-eluting stent. Patient is seen today in follow-up. He denies hav ing any chest pain or shortness of breath. No lightheadedness or dizziness. Blood pressures have been soft this morning and Lasix and lisinopril were held. Patient is asymptomatic with a low blood pressure. Currently 96/52, pulse ox 94% on room air, heart rate 96, afebrile. Patient has ecchymosis to the left groin site. Hemoglobin has dropped to 8.2. She has been started on Brilinta 90 mg twice daily and continued on aspirin 81 mg daily. Physical examination: Gen: This is a 64-year-old male. He is resting in bed and appears to be comfortable. HEENT: Head is atraumatic, normocephalic. Pupils equal, round. Sclerae is anicteric. NECK: Supple. No JVD. No lymphadenopathy. No thyromegaly. LUNGS: Clear to auscultation. No wheezes or rhonchi. HEART: Regular rate and rhythm. Systolic murmur. ABDOMEN: Soft. Bowel sounds are present. No masses. No tenderness. EXTREMITIES: Trace bilateral pedal edema. No calf tenderness. Dorsalis pedis +1 bilaterally. Ecchymosis to the left groin. Right groin is soft, no ecchymosis. right wrist site is clean and dry, no hematoma or ecchymosis. NEUROLOGICAL: Patient is awake, alert and oriented x3. Cranial nerves 2 through 12 are grossly intact. Assessment: Non-ST elevated myocardial infarction History of coronary artery disease Hypertension Aortic stenosis status post transcutaneous aortic valve replacement Severe pulmonary hypertension Anemia, possible acute blood loss anemia secondary to ecchymosis left groin Plan: Continue Lipitor 80 mg at bedtime, Lopressor 50 mg twice daily Hold lisinopril for today and resume tomorrow at 2.5 mg daily Continue Brilinta 90 mg twice daily, aspirin 81 mg daily Obtain repeat CBC this afternoon and tomorrow morning Echocardiogram report is pending Further recommendations to follow based upon clinical course Anticipate discharge home tomorrow Thank you kindly for this consultation Nurse practitioner note has been reviewed, I agree with documented findings and plan of care. Patient was seen and examined. Objective - Vital Signs Vital signs: Vital Signs Temp 98.7 F 05/15/20 08:00 Pulse 96 05/15/20 08:00 Resp 16 05/15/20 08:00 BP 96/52 05/15/20 08:00 Pulse Ox 94 L 05/15/20 08:00 Intake & Output 05/14/20 05/15/20 05/15/20 18:59 06:59 18:59 Intake Total 740 720 Output Total 100 Balance 640 720 Weight 136.078 kg 135.8 kg Intake: IV 500 Oral 240 720 Output: Urine 100 Other: Voiding Method Toilet Toilet # Voids 1 - Labs CBC & Chem 7: 05/15/20 05:52 05/15/20 05:52 Labs: Abnormal Lab Results - Last 24 Hours (Table) 05/15/20 05/15/20 Range/Units 05:52 05:52 RBC 2.68 L (4.30-5.90) m/uL Hgb 8.2 L D (13.0-17.5) gm/dL Hct 25.1 L (39.0-53.0) % RDW 19.8 H (11.5-15.5) % Plt Count 124 L (150-450) k/uL Sodium 135 L (137-145) mmol/L Creatinine 0.54 L (0.66-1.25) mg/dL Glucose 134 H (74-99) mg/dL Calcium 7.8 L (8.4-10.2) mg/dL Total Bilirubin 1.6 H (0.2-1.3) mg/dL AST 73 H (17-59) U/L Total Protein 5.5 L (6.3-8.2) g/dL Albumin 3.3 L (3.5-5.0) g/dL HDL Cholesterol 25 L (40-60) mg/dL <Anton Landaverde - Last Filed: 08/23/20 16:16> Subjective Patient seen and examined. Patient did admit to an episode of feeling somewhat lightheaded this morning. Patient has had borderline low blood pressures and lisinopril will be held. Patient also admits to some dyspnea. Echo showed preserved ejection fraction with mild inferior hypokinesis. Dyspnea may be related to Brilinta however we will continue to monitor patient and this may be changed outpatient if need be. He does have ecchymosis of the left femoral site however no significant hematoma. Continue to monitor hemoglobin. Hopeful discharge tomorrow if remains stable. Continue with Lopressor for a blockade. Anton Landaverde D.O. Objective - Vital Signs Vital signs: Vital Signs Temp 98.2 F 05/15/20 12:00 Pulse 83 05/15/20 12:00 Resp 16 05/15/20 12:00 BP 97/48 05/15/20 12:00 Pulse Ox 96 05/15/20 12:00 Intake & Output 05/14/20 05/15/20 05/15/20 18:59 06:59 18:59 Intake Total 740 1080 Output Total 100 Balance 640 1080 Weight 136.078 kg 135.8 kg 135.8 kg Intake: IV 500 Oral 240 1080 Output: Urine 100 Other: Voiding Method Toilet Toilet # Voids 1 - Labs CBC & Chem 7: 05/15/20 14:52 05/15/20 05:52 Labs: Abnormal Lab Results - Last 24 Hours (Table) 05/15/20 05/15/20 05/15/20 Range/Units 05:52 05:52 14:52 RBC 2.68 L 2.64 L (4.30-5.90) m/uL Hgb 8.2 L D 8.0 L (13.0-17.5) gm/dL Hct 25.1 L 24.5 L (39.0-53.0) % RDW 19.8 H 20.0 H (11.5-15.5) % Plt Count 124 L 116 L (150-450) k/uL Sodium 135 L (137-145) mmol/L Creatinine 0.54 L (0.66-1.25) mg/dL Glucose 134 H (74-99) mg/dL Calcium 7.8 L (8.4-10.2) mg/dL Total Bilirubin 1.6 H (0.2-1.3) mg/dL AST 73 H (17-59) U/L Total Protein 5.5 L (6.3-8.2) g/dL Albumin 3.3 L (3.5-5.0) g/dL HDL Cholesterol 25 L (40-60) mg/dL
[2020-05-15] MEDS: FUROSEMIDE 40 MG TAB PO SCH (12:27)
[2020-05-15 12:32] VITALS: BMI 46.8
[2020-05-15] MEDS: lisinopriL 5 MG TAB PO SCH (12:40)
[2020-05-15 15:04] LABS: Anisocytosis Slight; HCT 24.5 % (39.0-53.0); Hypochromasia Slight; MCH 30.5 pg (25.0-35.0); MCHC 32.9 g/dL (31.0-37.0); MCV 92.7 fL (80.0-100.0); Mean Platelet Volume 10.6; Platelet Count 116 k/uL (150-450); Poikilocytosis Slight; RBC 2.64 m/uL (4.30-5.90); WBC 5.7 k/uL (3.8-10.6)
[2020-05-15 17:28] VITALS: RESP 18
[2020-05-15] MEDS: ATORVASTATIN 80 MG TAB PO SCH (21:30)
--- NOTE | 2020-05-15 23:02 | PN ---
PROGRESS NOTE DATE OF SERVICE: 05/15/2020 CHIEF COMPLAINT: Acute myocardial infarction. HISTORY OF PRESENT ILLNESS: This gentleman is much more comfortable. He had 2 stents inserted in the right coronary yesterday. He has noticed he is having a little shortness of breath when he is up to the bathroom. He has had no fever, chills, cough, hemoptysis, etc. PHYSICAL EXAMINATION: Chest is clear. Cardiac exam demonstrates his usual aortic murmur. Abdomen is soft and slightly protuberant. IMPRESSION: 1. Acute ST-elevation myocardial infarction. 2. Coronary artery disease. 3. History of hypertension. 4. Shortness of breath. PLAN: Probably home tomorrow, even though he has had some hypotension today along with shortness of breath. MMODL / IJN: [id number] /
[2020-05-16 06:48] LABS: Anisocytosis Slight; HCT 23.6 % (39.0-53.0); HGB 7.6 gm/dL (13.0-17.5); Hypochromasia Slight; MCH 30.4 pg (25.0-35.0); MCHC 32.4 g/dL (31.0-37.0); MCV 93.9 fL (80.0-100.0); Macrocytosis Slight; Mean Platelet Volume 10.4; Platelet Count 103 k/uL (150-450); Poikilocytosis Slight; RBC 2.51 m/uL (4.30-5.90); RDW 19.8 % (11.5-15.5); WBC 5.6 k/uL (3.8-10.6)
[2020-05-16] MEDS: TICAGRELOR 90 MG TAB PO SCH ×2 (08:14→20:54)
[2020-05-16] MEDS: ASPIRIN 81 MG PO SCH (08:14)
[2020-05-16] MEDS: FUROSEMIDE 40 MG TAB PO SCH (08:14)
[2020-05-16] MEDS: METOPROLOL TARTRATE 50 MG TAB PO SCH ×2 (08:14→20:54)
[2020-05-16] MEDS: SPIRONOLACTONE 25 MG TAB PO SCH (10:37)
--- NOTE | 2020-05-16 12:40 | P.PN ---
Subjective Progress Note Date: 05/16/20 CHIEF COMPLAINT: Chest pain HISTORY OF PRESENT ILLNESS: Patient is status post cardiac cath revealing multi-vessel coronary artery disease with unchanged left-sided disease with left main distal 30-40% stenosis, mid LAD 40% stenosis. Right coronary artery 60-70% proximal and mid stenosis with iFR of 0.61. Status post PCI of the proximal RCA lesion with a 3.5 x 23 mm Xience drug-eluting stent and the mid RCA with a 3.5 x 15 mm Xience drug-eluting stent. Patient examined this morning at the bedside. He denies chest pain. He reports becoming short of breath easily when walking to the bathroom. He continues to have some lower extremity edema. Hemoglobin today is 7.6, down from 8.0 yesterday. PHYSICAL EXAM: VITAL SIGNS: Reviewed. GENERAL: Well-developed in no acute distress. NECK: Supple. No JVD or thyromegaly LUNGS: Respirations even and unlabored. Lungs essentially clear to auscultation bilaterally. HEART: Regular rate and rhythm. S1 and S2 heard. EXTREMITIES: Normal range of motion. No clubbing or cyanosis. Peripheral pulses intact. 2+ lower extremity edema ASSESSMENT: Non-ST elevated myocardial infarction History of coronary artery disease Hypertension Aortic stenosis status post transcutaneous aortic valve replacement Severe pulmonary hypertension Anemia PLAN: -Increase lisinopril to 5 mg daily -Add Aldactone 25 mg daily -Continue additional cardiac medications including Lipitor, metoprolol, brilinta, and aspirin -Repeat hemoglobin in a.m. -Echocardiogram has been completed. Await results -Possible discharge home tomorrow Nurse practitioner note has been reviewed by physician. Signing provider agrees with the documented findings, assessment, and plan of care. Objective - Vital Signs Vital signs: Vital Signs Temp 98.4 F 05/16/20 08:16 Pulse 92 05/16/20 08:16 Resp 18 05/16/20 08:16 BP 120/56 05/16/20 08:16 Pulse Ox 96 05/16/20 08:16 Intake & Output 05/15/20 05/16/20 05/16/20 18:59 06:59 18:59 Intake Total 1800 660 Output Total 100 700 Balance 1800 -100 -40 Weight 135.8 kg 135.1 kg Intake: Oral 1800 660 Output: Urine 100 700 Other: Voiding Method Toilet Toilet # Voids 1 1 # Bowel Movements 1 - Labs CBC & Chem 7: 05/16/20 06:28 05/15/20 05:52 Labs: Abnormal Lab Results - Last 24 Hours (Table) 05/15/20 05/16/20 Range/Units 14:52 06:28 RBC 2.64 L 2.51 L (4.30-5.90) m/uL Hgb 8.0 L 7.6 L (13.0-17.5) gm/dL Hct 24.5 L 23.6 L (39.0-53.0) % RDW 20.0 H 19.8 H (11.5-15.5) % Plt Count 116 L 103 L (150-450) k/uL
--- NOTE | 2020-05-16 14:15 | PN ---
PROGRESS NOTE 05/16/2020. CHIEF COMPLAINT: Acute STEMI status post angioplasty. HISTORY OF PRESENT ILLNESS: This gentleman is doing fairly well, but he has noticed some exertional shortness of breath and his hemoglobin has been dropping. It is now down to 7.6. There has been no signs of blood loss in terms of melena, hematochezia, hematuria, etc. There is some swelling in the groin where his catheter was placed. PHYSICAL EXAMINATION: His chest is clear and the cardiac exam demonstrates his usual murmur. Abdomen is soft, nontender. Extremities are normal. IMPRESSION: 1. Acute STEMI. 2. Coronary artery disease. 3. Status post aortic valve replacement. 4. History of hypertension. 5. Anemia. PLAN: He will be watched for any further drop in hemoglobin and any further difficulties will be addressed by Cardiology. MMODL / ALEXANDERN: [id number] /
--- NOTE | 2020-05-16 15:38 | CDI ---
Documentation Clarification Form Date: 05/16/2020 02:40:00 PM From: Aracelis Mccord RN, CCDS Admit Date: 05/14/2020 07:45:00 AM Patient Name: Rafi Haque Visit Number: [id number] Discharge Date: ATTENTION: The Clinical Documentation Specialists (CDI) and [facility] Coding Staff appreciate your assistance in clarifying documentation. Please respond to the clarification below the line at the bottom and electronically sign. The CDI & [facility] Coding staff will review the response and follow-up if needed. Please note: Queries are made part of the Legal Health Record. If you have any questions, please contact the author of this message via ITS. Dr. Adithya Mckeon Conflicting documentation has been found in the medical record: 05/14 Cardiology consultation and subsequent progress notes: non-STEMI. 05/14 H&P and subsequent progress notes: Acute ST elevation myocardial infarction. History/Risk Factors: Coronary artery disease, Hypertension, Aortic Valve replacement with TAVR Clinical Indicators: 64-year-old male present with onset of chest pain. He had a recent cardiac cath on April 15,conclusions calcified right and left coronary system. Patient stent in the right RCA.. His troponin noted to be elevated at 0.106. 05/14 EKG: changes of ST depression on the lateral leads. Treatment: Left heart Cath PTCA JUAN stent proximal and mid RCA, iFR of RCA Heparin drip Nitroglycerin SL then NTG paste, changed to NTG drip ASA 81 mg po daily Lipitor 80 mg hs Lopressor 50 mg daily Lisinopril 2.5 m daily ECHO pending Brilinta 90 mg po bid In your opinion, what is the most clinically appropriate diagnosis for this patient? Non-STEMI Acute STEMI Other explanation of clinical findings Unable to determine (no explanation for clinical findings) (Last Revision: December 2017) MTDD
--- NOTE | 2020-05-16 16:08 | CDI ---
Documentation Clarification Form Date: 05/16/2020 03:41:00 PM From: Aracelis Mccord RN, CCDS Admit Date: 05/14/2020 07:45:00 AM Patient Name: Rafi Haque Visit Number: [id number] Discharge Date: ATTENTION: The Clinical Documentation Specialists (CDI) and [facility] Coding Staff appreciate your assistance in clarifying documentation. Please respond to the clarification below the line at the bottom and electronically sign. The CDI & [facility] Coding staff will review the response and follow-up if needed. Please note: Queries are made part of the Legal Health Record. If you have any questions, please contact the author of this message via ITS. Dr. Anton Landaverde Anemia, possible acute blood loss anemia secondary to ecchymosis left groin. Please provide further clarification of the patient's anemia. Patients Admitting Diagnosis: Non-STEMI Post-Operative Diagnosis: Same Procedure performed: Bilateral coronary angiograph, right radial and left femoral access, PCI of proximal and mid RCA, iFR of RCA. History/Risk Factors: Coronary artery disease, Hypertension, Aortic Valve replacement with TAVR Clinical Indicators: 64-year-old male who on 05/15 is one day post heart catheterization, PTCA drug-eluting stent to proximal RCA and mid RCA. 05/15 Vital signs 96/52 96 18 pulse ox 94% room air. Patient has ecchymosis to the left groin site. His hemoglobin has dropped to 8.2. Treatment: Lipitor 80 mg at hs, Lopressor 50 mg bid Hold Lisinopril 05/15 and resume 05/16 at 2.5 mg daily Continue Brilinta 90 bid daily ASA 81 mg daily 05/15 repeat CBC this after noon and in morning 05/16 In order to accurately reflect this patients severity of illness, please clarify anemia, possible acute blood loss: -is a complication of surgical procedure -is an expected outcome of the surgical procedure -is related to co-morbid condition(s) of specify -Other please specify -Unable to determine (Last Revision: October 2019) Is an unexpected outcome of procedure MTDD
[2020-05-16] MEDS: ATORVASTATIN 80 MG TAB PO SCH (20:54)
[2020-05-17 07:09] LABS: Anisocytosis Moderate; Basophils % (A) 0 %; Eosinophils # (A) 0.1 k/uL (0-0.7); Eosinophils % (A) 1 %; HCT 25.3 % (39.0-53.0); HGB 8.1 gm/dL (13.0-17.5); Hypochromasia Slight; Lymphocytes # (A) 2.1 k/uL (1.0-4.8); Lymphocytes % (A) 34 %; MCH 30.3 pg (25.0-35.0); MCHC 31.9 g/dL (31.0-37.0); MCV 94.9 fL (80.0-100.0); Macrocytosis Slight; Mean Platelet Volume 11.3; Monocytes # (A) 0.3 k/uL (0-1.0); Monocytes % (A) 5 %; Neutrophils # (A) 3.6 k/uL (1.3-7.7); Neutrophils % (A) 57 %; Platelet Count 135 k/uL (150-450); Poikilocytosis Slight; RBC 2.66 m/uL (4.30-5.90); RDW 20.1 % (11.5-15.5); WBC 6.2 k/uL (3.8-10.6)
[2020-05-17 08:41] LABS: Large Platelets Present; Polychromasia Present
[2020-05-17 08:42] LABS: Ovalocytes Present
[2020-05-17 08:50] VITALS: TEMP 98.1
[2020-05-17] MEDS ORDERED: lisinopriL 5 MG TAB PO SCH (09:00)
[2020-05-17] MEDS: METOPROLOL TARTRATE 50 MG TAB PO SCH (09:19)
[2020-05-17] MEDS: ASPIRIN 81 MG PO SCH (09:19)
[2020-05-17] MEDS: TICAGRELOR 90 MG TAB PO SCH (09:19)
[2020-05-17] MEDS: FUROSEMIDE 40 MG TAB PO SCH (09:20)
[2020-05-17] MEDS: SPIRONOLACTONE 25 MG TAB PO SCH (09:20)
--- NOTE | 2020-05-17 11:17 | MISC ---
MISCELLANOUS REPORT QUERY: NSTEMI. MMODL / IJN: [id number] /
--- NOTE | 2020-05-17 13:20 | P.PN ---
Subjective Progress Note Date: 05/17/20 CHIEF COMPLAINT: Chest pain HISTORY OF PRESENT ILLNESS: Patient is status post cardiac cath revealing multi-vessel coronary artery disease with unchanged left-sided disease with left main distal 30-40% stenosis, mid LAD 40% stenosis. Right coronary artery 60-70% proximal and mid stenosis with iFR of 0.61. Status post PCI of the proximal RCA lesion with a 3.5 x 23 mm Xience drug-eluting stent and the mid RCA with a 3.5 x 15 mm Xience drug-eluting stent. Patient examined this morning at the bedside. He denies chest pain or shortness of breath. Hemoglobin remains stable. He is anxious to be discharged home today. PHYSICAL EXAM: VITAL SIGNS: Reviewed. GENERAL: Well-developed in no acute distress. NECK: Supple. No JVD or thyromegaly LUNGS: Respirations even and unlabored. Lungs essentially clear to auscultation bilaterally. HEART: Regular rate and rhythm. S1 and S2 heard. EXTREMITIES: Normal range of motion. No clubbing or cyanosis. Peripheral pulses intact. 2+ lower extremity edema ASSESSMENT: Non-ST elevated myocardial infarction History of coronary artery disease Hypertension Aortic stenosis status post transcutaneous aortic valve replacement Severe pulmonary hypertension Anemia PLAN: Continue current medications including Aldactone, Brilinta, Lipitor, aspirin, lisinopril, Lasix, and Lopressor. Patient is stable for discharge home today from a cardiac standpoint. He is to have a BMP drawn on Saturday. Follow up with Dr. Arellano next week. Nurse practitioner note has been reviewed by physician. Signing provider agrees with the documented findings, assessment, and plan of care. Objective - Vital Signs Vital signs: Vital Signs Temp 98.1 F 05/17/20 08:00 Pulse 90 05/17/20 08:00 Resp 18 05/17/20 08:00 BP 108/61 05/17/20 08:00 Pulse Ox 98 05/17/20 08:00 Intake & Output 05/16/20 05/17/20 05/17/20 18:59 06:59 18:59 Intake Total 780 480 Output Total 700 300 Balance 80 180 Intake: Oral 780 480 Output: Urine 700 300 Other: Voiding Method Toilet # Voids 1 2 # Bowel Movements 1 - Labs CBC & Chem 7: 05/17/20 05:57 05/15/20 05:52 Labs: Abnormal Lab Results - Last 24 Hours (Table) 05/17/20 Range/Units 05:57 RBC 2.66 L (4.30-5.90) m/uL Hgb 8.1 L (13.0-17.5) gm/dL Hct 25.3 L (39.0-53.0) % RDW 20.1 H (11.5-15.5) % Plt Count 135 L (150-450) k/uL
[2020-05-17 13:26] VITALS: PULSE 83
[2020-05-17 13:29] VITALS: BP 107/49
--- NOTE | 2020-05-17 16:48 | ECHOF ---
Referral Reason:LVF MEASUREMENTS -------- HEIGHT: 170.2 cm WEIGHT: 136.1 kg BP: 135/65 IVSd: 1.5 cm (0.6 - 1.1) LVIDd: 5.4 cm (3.9 - 5.3) LVPWd: 1.5 cm (0.6 - 1.1) EDV(Teich): 139 ml IVSs: 2.0 cm LVIDs: 3.9 cm LVPWs: 1.8 cm %IVS Thck: 38 % ESV(Teich): 66 ml EF(Teich): 52 % %FS: 27 % SV(Teich): 73 ml LA Diam: 4.5 cm (2.7 - 3.8) RVIDd: 3.9 cm (< 3.3) LALs A4C: 5.6 cm LAAs A4C: 24.6 cm LAESV A-L A4C: 92 ml LAESV MOD A4C: 86 ml LALs A2C: 5.2 cm LAAs A2C: 19.6 cm LAESV A-L A2C: 62 ml LAESV MOD A2C: 58 ml LAESV(A-L): 78 ml LAESV Index (A-L): 32.51 ml/m Ao Diam: 2.9 cm (2.0 - 3.7) EPSS: 1.7 cm MV DecT: 139 ms MV PHT: 44 ms MVA By PHT: 5.0 cm MV Vmax: 1.91 m/s MV Vmean: 0.96 m/s MV maxP.75 mmHg MV meanP.25 mmHg MV VTI: 37.8 cm LVOT Vmax: 1.18 m/s LVOT maxP.55 mmHg LVOT Vmax: 1.24 m/s LVOT Vmean: 0.87 m/s LVOT maxP.15 mmHg LVOT meanP.37 mmHg LVOT Env.Ti: 314 ms LVOT VTI: 27.2 cm AV Vmax: 1.60 m/s AV maxP.28 mmHg AV Vmax: 1.65 m/s AV Vmean: 1.02 m/s AV maxP.84 mmHg AV meanP.81 mmHg AV Env.Ti: 268 ms AV VTI: 27.2 cm TR Vmax: 3.82 m/s TR maxP.28 mmHg RAP: 5.00 mmHg RVSP: 63.28 mmHg MV EF SLOPE: 52.54 mm/s (70 - 150) MV EXCURSION: 12.49 mm (> 18.000) FINDINGS -------- Resting tachycardia (HR>100bpm). This was a technically difficult study with suboptimal views. The left ventricular size is normal. There is moderate concentric left ventricular hypertrophy. O verall left ventricular systolic function is low-normal with, an EF between 50 - 55 %. Basal inferi or LV wall motion is hypokinetic. Basal inferoseptal LV wall motion is hypokinetic. The right ventricle is mildly enlarged. LA is midly dilated 29-33ml/m2. The right atrium is normal in size. Lumason used Interatrial and interventricular septum intact. Peak/mean gradient across the Aortic Valve is 10.84mmHg / 4.81mmHg. Normally functioning bioprosthe tic valve. TAVR procedure in 2017. The mitral valve leaflets are moderately thickened. Moderate mitral annular calcification present. Mild mitral regurgitation is present. Mild tricuspid regurgitation present. There is severe pulmonary hypertension. The right ventricul ar systolic pressure, as measured by Doppler, is 63.28mmHg. Trace/mild (physiologic) pulmonic regurgitation. The aortic root size is normal. IVC Not well visulized. There is no pericardial effusion. CONCLUSIONS -------- 1. Resting tachycardia (HR>100bpm). 2. This was a technically difficult study with suboptimal views. 3. The left ventricular size is normal. 4. There is moderate concentric left ventricular hypertrophy. 5. Basal inferior LV wall motion is hypokinetic. 6. Basal inferoseptal LV wall motion is hypokinetic. 7. LA is midly dilated 29-33ml/m2. 8. TAVR procedure in 2017 9. Moderate mitral annular calcification present. 10. Lumason used 11. Peak/mean gradient across the Aortic Valve is 10.84mmHg / 4.81mmHg. 12. Normally functioning bioprosthetic valve. 13. Mild mitral regurgitation is present. 14. Mild tricuspid regurgitation present. 15. There is severe pulmonary hypertension. 16. The right ventricular systolic pressure, as measured by Doppler, is 63.28mmHg. 17. Trace/mild (physiologic) pulmonic regurgitation. 18. There is no pericardial effusion. DINING ROOM SERVER: Ingrid Caballero RDCS
--- NOTE | 2020-05-18 16:05 | PN ---
PROGRESS NOTE DATE OF SERVICE: 05/17/2020 CHIEF COMPLAINT: Chest pain. HISTORY OF PRESENT ILLNESS: This gentleman is doing well and expects to go home today. PHYSICAL EXAMINATION: Chest is clear. Cardiac exam is normal. Abdomen is soft, nontender. IMPRESSION: 1. Acute myocardial infarction. 2. Status post angiography and stenting of the right coronary. PLAN: Possibly home today. MMODL / IJN: [id number] /
--- NOTE | 2020-05-18 17:02 | DS ---
DISCHARGE SUMMARY DATE OF SERVICE: 05/16/2020. CHIEF COMPLAINT: NSTEMI. HISTORY OF PRESENT ILLNESS HISTORY AND PHYSICAL EXAM: Details of this man's history and physical can be found in the initial workup. LABORATORY STUDY: While he was in a hospital, he had laboratory studies, details of which can be found in the laboratory section of his chart. COURSE IN THE HOSPITAL: After admission, he was placed on bedrest and started on intravenous fluids and troponins were elevated. He was taken to the [facility] where he received two individual stents to the right coronary. After that, he did well and he had no further chest pain, shortness of breath, etc. It was felt he could go home. He will be discharged and follow up in the office in several days. FINAL DIAGNOSES: 1. Acute non-ST elevation myocardial infarction. 2. History of coronary artery disease. 3. History of aortic valve replacement. 4. Hypertension. 5. Obesity. OPERATIONS: Cardiac cath and stenting of the RCA. CONSULTATION: Cardiology. He is improved. MMODL / ALEXANDERN: [id number] /
== END 2020-05-17 19:08 | disposition home or self-care (01) | DRG 247 ==
LOC: EC 05:55 → 3SCARD 07:45
PROVIDERS: ADMIT Family Medicine; ATTEND Family Medicine
PROC: 4A023N7 Measurement of Cardiac Sampling and Pressure, Left Heart, Percutaneous Approach (ICD-10-PCS; principal; 2020-05-14 10:32)
PROC: 027035Z Dilation of Coronary Artery, One Artery with Two Drug-eluting Intraluminal Devices, Percutaneous Approach (ICD-10-PCS; principal; 2020-05-14 10:32)
PROC: B2111ZZ Fluoroscopy of Multiple Coronary Arteries using Low Osmolar Contrast (ICD-10-PCS; principal; 2020-05-14 10:32)
PROC: 4A033BC Measurement of Arterial Pressure, Coronary, Percutaneous Approach (ICD-10-PCS; principal; 2020-05-14 10:32)
DX: I21.4 Non-ST elevation (NSTEMI) myocardial infarction (principal); D62 Acute posthemorrhagic anemia; I27.20 Pulmonary hypertension, unspecified; I11.9 Hypertensive heart disease without heart failure; I25.118 Atherosclerotic heart disease of native coronary artery with other forms of angina pectoris; E66.9 Obesity, unspecified; I25.84 Coronary atherosclerosis due to calcified coronary lesion; I08.1 Rheumatic disorders of both mitral and tricuspid valves; E78.5 Hyperlipidemia, unspecified; Z79.82 Long term (current) use of aspirin; Z79.899 Other long term (current) drug therapy; Z95.5 Presence of coronary angioplasty implant and graft; Z87.898 Personal history of other specified conditions; Z87.442 Personal history of urinary calculi; Z95.2 Presence of prosthetic heart valve; Z86.79 Personal history of other diseases of the circulatory system; Z92.3 Personal history of irradiation; Z98.890 Other specified postprocedural states; Z68.42 Body mass index [BMI] 45.0-49.9, adult; Z71.3 Dietary counseling and surveillance; Z82.49 Family history of ischemic heart disease and other diseases of the circulatory system; Z80.8 Family history of malignant neoplasm of other organs or systems
CPT/HCPCS: 36415; 71046; 80053; 80061; 82272; 83735; 83880; 84484; 85025; 85027; 85347; 85610; 85730; 93005; 93306; 93454; 93571; 96365; 96366; 96368; 96375; 96376; 99291

== ENCOUNTER 2020-05-18 01:00 | Observation (INO) | payer OTHER ==
[2020-05-18 01:36] LABS: ALT 20 U/L (4-49); AST 29 U/L (17-59); African American GFR (CKD) >90 (>60 ml/min/1.73 sqM); Albumin 3.8 g/dL (3.5-5.0); Alkaline Phosphatase 63 U/L (38-126); Anion Gap 10 mmol/L; Blood Urea Nitrogen 18 mg/dL (9-20); Calcium 8.7 mg/dL (8.4-10.2); Carbon Dioxide 28 mmol/L (22-30); Chloride 99 mmol/L (98-107); Glucose 144 mg/dL (74-99); Non-African American GFR(CKD) >90 (>60 ml/min/1.73 sqM); Potassium 3.3 mmol/L (3.5-5.1); Sodium 137 mmol/L (137-145); Total Protein 6.2 g/dL (6.3-8.2)
[2020-05-18] MEDS ORDERED: POTASSIUM CHLORIDE ER 20 MEQ TAB.ER PO STA (01:57)
[2020-05-18 01:58] LABS: Anisocytosis Moderate; Basophils % (A) 0 %; Eosinophils # (A) 0.1 k/uL (0-0.7); Eosinophils % (A) 2 %; HCT 22.9 % (39.0-53.0); HGB 7.4 gm/dL (13.0-17.5); Hypochromasia Slight; Lymphocytes # (A) 1.5 k/uL (1.0-4.8); Lymphocytes % (A) 25 %; MCH 30.5 pg (25.0-35.0); MCHC 32.5 g/dL (31.0-37.0); MCV 94.1 fL (80.0-100.0); Macrocytosis Slight; Mean Platelet Volume 10.5; Monocytes # (A) 0.2 k/uL (0-1.0); Monocytes % (A) 4 %; Neutrophils % (A) 67 %; Platelet Count 121 k/uL (150-450); Poikilocytosis Moderate; RBC 2.43 m/uL (4.30-5.90); RDW 20.3 % (11.5-15.5)
--- NOTE | 2020-05-18 01:59 | ED ---
General Adult HPI - General Chief complaint: Syncope Stated complaint: near syncope Time Seen by Provider: 05/18/20 01:04 Source: patient, EMS Mode of arrival: EMS Limitations: no limitations - History of Present Illness Initial comments: Rafi is a 64-year-old male with extensive past medical history most significant for recent NSTEMI for which the patient underwent cardiac catheterization with stenting 2 on Saturday, May 14, patient's postinter vention course was complicated by a large femoral hematoma at the femoral artery access site. Patient had some post intervention anemia and was monitored in the hospital until Saturday morning, anemia improved and he was discharged home with a hemoglobin of 8.1. Patient reports that he is feeling fine at home he was in bed he got up and used the restroom he urinated and did not strain at all, upon walking back towards his bed he got very lightheaded and his vision dimmed. Patient reports he realized he was going to pass out and he did not want to fall to the ground so he lowered himself to the ground but most of lost consciousness, he had an episode of bladder incontinence. His witnessed this states that he did not fall did not hit his head but she immediately called 911. Upon waking up patient states that he was drenched in sweat and felt somewhat lightheaded laying on the ground but had no chest pain or palpitations. - Related Data Home Medications Medication Instructions Recorded Confirmed Aspirin [Adult Low Dose Aspirin EC] 81 mg PO DAILY 11/21/16 05/18/20 Atorvastatin Calcium [Lipitor] 80 mg PO HS 11/21/16 05/18/20 Furosemide [Lasix] 40 mg PO DAILY 04/13/20 05/18/20 Metoprolol Tartrate [Lopressor] 50 mg PO BID 04/13/20 05/18/20 lisinopriL [Zestril] 5 mg PO DAILY 04/13/20 05/18/20 Ergocalciferol [Vitamin D2] 50,000 unit PO Q30D 05/14/20 05/18/20 Previous Rx's Medication Instructions Recorded Nitroglycerin Sl Tabs [Nitrostat] 0.4 mg SUBLINGUAL Q5M PRN #30 tab 05/17/20 Spironolactone [Aldactone] 25 mg PO DAILY #30 tab 05/17/20 Ticagrelor [Brilinta] 90 mg PO BID #60 tab 05/17/20 Allergies Allergy/AdvReac Type Severity Reaction Status Date / Time No Known Allergies Allergy Verified 05/18/20 01:07 Review of Systems ROS Statement: Those systems with pertinent positive or pertinent negative responses have been documented in the HPI. ROS Other: All systems not noted in ROS Statement are negative. 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 GATO Past Anesthesia/Blood Transfusion Reactions: Motion Sickness Date of Last Stent Placement:: 11/22/16 Past Psychological History: No Psychological Hx Reported Smoking Status: Never smoker Past Alcohol Use History: Daily Past Drug Use History: None Reported - Past Family History Sister(s) Additional Family Medical History / Comment(s): Sister with brain tumor Mother Family Medical History: COPD, Diabetes Mellitus General Exam - General Exam Comments Initial Comments: Physical Exam GENERAL: Patient is well-developed and well-nourished. Patient is nontoxic and well-hydrated and is in no distress. HENT: Normocephalic, Atraumatic. EYES: PERRL, EOMI Conjunctival pallor PULMONARY: Unlabored respirations. No audible rales rhonchi or wheezing was noted. CARDIOVASCULAR: There is a regular rate and rhythm without any murmurs gallops or rubs. ABDOMEN: Soft and nontender with normal bowel sounds. SKIN: Significant bruising over the right groin from below the umbilicus to the mid thigh including the testicles consistent with postintervention hemorrhage after femoral access : Hematoma noted at testicles NEUROLOGIC: Patient is alert and oriented x3. Moving all extremities spontaneously MUSCULOSKELETAL: Normal extremities with adequate strength and full range of motion. No lower extremity swelling or edema. No calf tenderness. PSYCHIATRIC: Normal psychiatric evaluation. Limitations: no limitations Course Vital Signs 05/18/20 05/18/20 01:01 02:30 Temperature 98.6 F Pulse Rate 82 84 Respiratory 18 20 Rate Blood Pressure 103/47 118/52 O2 Sat by Pulse 98 98 Oximetry EKG Findings - EKG Comments: EKG Findings:: EKG was obtained due to complaint of syncope, EKG was obtained at 1:05 AM, rate is 81 rhythm is sinus there is normal axis, W[place] is 172, QRS 96, QTC prolonged at 471 there are no acute ST elevations, mild ST depressions are noted in V2 through V6. No evidence of acute infarction. Medical Decision Making - Medical Decision Making The patient was seen and evaluated, history is obtained from the patient and review of medical record Patient suffering from post intervention anemia had a syncopal episode without any falls or trauma In addition patient is on multiple oral antihypertensives and diuretics Labs and imaging were obtained, patient's mildly hypokalemic oral potassium replacement was ordered Patient noted to have recurrent worsening anemia, given his recent operative status, worsening anemia, known cardiac disease I do feel the patient would benefit from transfusion, this plan was discussed with the patient who states that he does not have any bleeding systems that would prevent him from receiving transfusion he is agreeable to transfusion. He states that he had spoken briefly with his primary about transfusion during his previous hospitalization but they felt he was improving and it was not necessary. Patient care was discussed with Dr. Mckeon who agrees that at this time the patient does warrant transfusion. 2 unit transfusion was ordered patient will be admitted for further observation and consult to cardiology - Lab Data Result diagrams: 05/18/20 01:41 05/18/20 01:09 Lab Results 05/18/20 05/18/20 05/18/20 Range/Units 01:09 01:15 01:41 WBC 6.0 (3.8-10.6) k/uL RBC 2.43 L (4.30-5.90) m/uL Hgb 7.4 L (13.0-17.5) gm/dL Hct 22.9 L (39.0-53.0) % MCV 94.1 (80.0-100.0) fL MCH 30.5 (25.0-35.0) pg MCHC 32.5 (31.0-37.0) g/dL RDW 20.3 H (11.5-15.5) % Plt Count 121 L (150-450) k/uL Neutrophils % 67 % Lymphocytes % 25 % Monocytes % 4 % Eosinophils % 2 % Basophils % 0 % Neutrophils # 4.0 (1.3-7.7) k/uL Lymphocytes # 1.5 (1.0-4.8) k/uL Monocytes # 0.2 (0-1.0) k/uL Eosinophils # 0.1 (0-0.7) k/uL Basophils # 0.0 (0-0.2) k/uL Manual Slide Review Performed Large Platelets Present Hypochromasia Slight Poikilocytosis Moderate Anisocytosis Moderate Macrocytosis Slight Sodium 137 (137-145) mmol/L Potassium 3.3 L (3.5-5.1) mmol/L Chloride 99 (98-107) mmol/L Carbon Dioxide 28 (22-30) mmol/L Anion Gap 10 mmol/L BUN 18 (9-20) mg/dL Creatinine 0.63 L (0.66-1.25) mg/dL Est GFR (CKD-EPI)AfAm >90 (>60 ml/min/1.73 sqM) Est GFR (CKD-EPI)NonAf >90 (>60 ml/min/1.73 sqM) Glucose 144 H (74-99) mg/dL Calcium 8.7 (8.4-10.2) mg/dL Total Bilirubin 2.0 H (0.2-1.3) mg/dL AST 29 (17-59) U/L ALT 20 (4-49) U/L Alkaline Phosphatase 63 (38-126) U/L Total Protein 6.2 L (6.3-8.2) g/dL Albumin 3.8 (3.5-5.0) g/dL Blood Type A Positive Blood Type Recheck A Pos Bld Type Recheck Status No Antibody Screen NEGATIVE Crossmatch See Detail Spec Expiration Date 05/21/20202314 Disposition Clinical Impression: Postoperative anemia, Syncope and collapse Disposition: ADMITTED IP TO THIS [facility] Condition: Stable Is patient prescribed a controlled substance at d/c from ED?: No
[2020-05-18 02:08] LABS: Large Platelets Present
[2020-05-18] MEDS ORDERED: NALOXONE 0.4 MG/ML 1 ML VIAL IV PRN (02:33)
[2020-05-18] MEDS: FUROSEMIDE 40 MG TAB PO SCH (08:26)
[2020-05-18] MEDS: METOPROLOL TARTRATE 50 MG TAB PO SCH ×2 (08:26→20:22)
[2020-05-18] MEDS: TICAGRELOR 90 MG TAB PO SCH ×2 (08:26→20:21)
[2020-05-18] MEDS: ASPIRIN 81 MG PO SCH (08:26)
[2020-05-18] MEDS: SPIRONOLACTONE 25 MG TAB PO SCH (08:26)
[2020-05-18] MEDS: lisinopriL 5 MG TAB PO SCH (08:26)
[2020-05-18 12:30] LABS: Appearance,Urine Clear (Clear); Bilirubin,Urine Negative (Negative); Blood,Urine Trace (Negative); Color,Urine Yellow; Glucose,Urine (UA) Negative (Negative); Hyaline Casts,Urine 1 /lpf (0-2); Ketones,Urine Negative (Negative); Leukocyte Esterase,Urine Negative (Negative); Mucus,Urine Occasional /hpf; Nitrite,Urine Negative (Negative); Protein,Urine Negative (Negative); RBC,Urine 3 /hpf (0-5); Specific Gravity,Urine 1.013 (1.001-1.035); Urobilinogen,Urine <2.0 mg/dL (<2.0); WBC,Urine 1 /hpf (0-5)
--- NOTE | 2020-05-18 13:24 | P.CRDCN ---
History of Present Illness Consult date: 05/18/20 History of present illness: CHIEF COMPLAINT: Anemia with syncope post cardiac cath HISTORY OF PRESENT ILLNESS: 64 -year-old male who was discharged from the hospital yesterday after undergoing a cardiac cath revealing multi-vessel coronary artery disease with unchanged left-sided disease with left main distal 30-40% stenosis, mid LAD 40% stenosis. Right coronary artery 60-70% proximal and mid stenosis with iFR of 0.61. Status post PCI of the proximal RCA lesion with a 3.5 x 23 mm Xience drug-eluting stent and the mid RCA with a 3.5 x 15 mm Xience drug-eluting stent. Patient was discharged home in stable condition on dual antiplatelet therapy. Patient states he was laying in bed yesterday and got up to use the restroom. On his weight back to bed he states he started feeling sweaty and dizzy and off balance. Patient states he got back into his bed and tried to sit up and then he passed out. He reports that his called EMS. Patient examined as per the bedside. Patient states he is feeling tired today. Denies chest pain. Denies shortness of breath. Patient's hemoglobin was 8.1 on discharge. Hemoglobin upon arrival to the emergency room was found to be 7.4. He is currently receiving RBC transfusion. DIAGNOSTICS: EKG reveals sinus rhythm. Heart rate 81 Laboratory data: WBC 6.0. Hemoglobin 7.4. Platelet count 121. Sodium 137. Potassium 3.3. BUN 18. Creatinine 0.63. Current home cardiac medications include lisinopril 5 mg daily, Nye 90 mg twice a day, Aldactone 25 mg daily, Lopressor 50 mA twice a day, Lasix 40 mg daily, Lipitor 80 mg daily, aspirin 81 mg daily REVIEW OF SYSTEMS: CONSTITUTIONAL: Denies fever or chills. HEENT: Denies blurred vision, vision changes, or eye pain. Denies hemoptysis CARDIOVASCULAR: Denies chest pain, orthopnea, PND or palpitations. Reports syncopal episode at home. RESPIRATORY: No shortness of breath. GASTROINTESTINAL: Denies abdominal pain. Denies nausea or vomiting. HEMATOLOGIC: Denies bleeding disorders. GENITOURINARY: Denies any blood in urine. SKIN: Denies pruitis. Denies rash. PHYSICAL EXAM: VITAL SIGNS: Reviewed. GENERAL: Well-developed in no acute distress. HEENT: Head is normocephalic. Pupils are equal, round. Sclerae anicteric. Mucous membranes of the mouth are moist. Neck supple. No JVD or thyromegaly LUNGS: Respirations even and unlabored. Lungs essentially clear to auscultation bilaterally. HEART: Regular rate and rhythm. S1 and S2 heard. ABDOMEN: Soft. Nontender. EXTREMITIES: Normal range of motion. No clubbing or cyanosis. Peripheral pul ses intact. Trace bilateral lower extremity edema. Patient with ecchymosis to left groin. No palpable hematoma noted. NEUROLOGIC: Awake and alert. Oriented x 3. ASSESSMENT: 1. Anemia 2. Syncope 3. Recent hospitalization secondary to non-ST elevated myocardial infarction, status post cardiac cath with stent placement 4. Coronary artery disease 5. Hypertension 6. Aortic stenosis status post transcutaneous aortic valve replacement 7. Severe pulmonary hypertension PLAN: -Patient receiving RBC transfusion. Monitor hemoglobin -Continue current cardiac medications -Obtain orthostatic pressures -Obtain ultrasound of left groin Nurse practitioner note has been reviewed by physician. Signing provider agrees with the documented findings, assessment, and plan of care. 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 GATO Past Anesthesia/Blood Transfusion Reactions: Motion Sickness Date of Last Stent Placement:: 11/22/16 Past Psychological History: No Psychological Hx Reported Smoking Status: Never smoker Past Alcohol Use History: Daily Past Drug Use History: None Reported - Past Family History Sister(s) Additional Family Medical History / Comment(s): Sister with brain tumor Mother Family Medical History: COPD, Diabetes Mellitus Medications and Allergies Home Medications Medication Instructions Recorded Confirmed Type Aspirin [Adult Low Dose Aspirin EC] 81 mg PO DAILY 11/21/16 05/18/20 History Atorvastatin Calcium [Lipitor] 80 mg PO HS 11/21/16 05/18/20 History Furosemide [Lasix] 40 mg PO DAILY 04/13/20 05/18/20 History Metoprolol Tartrate [Lopressor] 50 mg PO BID 04/13/20 05/18/20 History lisinopriL [Zestril] 5 mg PO DAILY 04/13/20 05/18/20 History Ergocalciferol [Vitamin D2] 50,000 unit PO Q30D 05/14/20 05/18/20 History Nitroglycerin Sl Tabs [Nitrostat] 0.4 mg SUBLINGUAL Q5M PRN #30 tab 05/17/20 05/18/20 Rx Spironolactone [Aldactone] 25 mg PO DAILY #30 tab 05/17/20 05/18/20 Rx Ticagrelor [Brilinta] 90 mg PO BID #60 tab 05/17/20 05/18/20 Rx Allergies Allergy/AdvReac Type Severity Reaction Status Date / Time No Known Allergies Allergy Verified 05/18/20 09:01 Physical Exam Vitals: Vital Signs Temp Pulse Pulse Pulse Resp BP BP 05/18/20 11:31 98.3 F 85 18 140/76 05/18/20 09:00 98.4 F 85 18 106/51 05/18/20 08:30 97.8 F 89 18 120/61 05/18/20 08:28 98.7 F 88 18 111/77 05/18/20 08:20 98.3 F 88 18 111/77 05/18/20 05:46 97.8 F 76 18 104/56 05/18/20 05:16 98.1 F 76 18 112/47 05/18/20 05:15 76 18 05/18/20 05:06 98.1 F 77 16 114/52 05/18/20 05:00 98.1 F 83 18 133/67 05/18/20 04:00 98.4 F 81 18 106/59 05/18/20 02:30 84 20 118/52 05/18/20 01:01 98.6 F 82 18 103/47 Pulse Ox 05/18/20 11:31 98 05/18/20 09:00 05/18/20 08:30 97 05/18/20 08:28 98 05/18/20 08:20 05/18/20 05:46 97 05/18/20 05:16 97 05/18/20 05:15 05/18/20 05:06 96 05/18/20 05:00 99 05/18/20 04:00 97 05/18/20 02:30 98 08/26/20 01:01 98 Intake and Output 05/17/20 05/18/20 05/18/20 22:59 06:59 14:59 Intake Total 0 310 Output Total 600 Balance 0 -290 Intake: Blood Product 0 310 Rc As-1 Unit 0 310 [id number] Rc As-1 Unit 0 [id number] Output: Urine 600 Other: Voiding Method Toilet Toilet Urinal Urinal # Voids 0 1 Weight 113.8 kg Results 05/18/20 01:41 05/18/20 01:09 Cardiac Enzymes 05/18/20 Range/Units 01:09 AST 29 (17-59) U/L CBC 05/18/20 Range/Units 01:41 WBC 6.0 (3.8-10.6) k/uL RBC 2.43 L (4.30-5.90) m/uL Hgb 7.4 L (13.0-17.5) gm/dL Hct 22.9 L (39.0-53.0) % Plt Count 121 L (150-450) k/uL Comprehensive Metabolic Panel 05/18/20 Range/Units 01:09 Sodium 137 (137-145) mmol/L Potassium 3.3 L (3.5-5.1) mmol/L Chloride 99 (98-107) mmol/L Carbon Dioxide 28 (22-30) mmol/L BUN 18 (9-20) mg/dL Creatinine 0.63 L (0.66-1.25) mg/dL Glucose 144 H (74-99) mg/dL Calcium 8.7 (8.4-10.2) mg/dL AST 29 (17-59) U/L ALT 20 (4-49) U/L Alkaline Phosphatase 63 (38-126) U/L Total Protein 6.2 L (6.3-8.2) g/dL Albumin 3.8 (3.5-5.0) g/dL Current Medications Generic Name Dose Route Start Last Admin Trade Name Freq PRN Reason Stop Dose Admin Aspirin 81 mg 05/18/20 09:00 05/18/20 08:26 Aspirin PO 81 mg DAILY JAY Administration Atorvastatin Calcium 80 mg 05/18/20 21:00 Lipitor PO HS [facility] Furosemide 40 mg 05/18/20 09:00 05/18/20 08:26 Lasix PO 40 mg DAILY JAY Administration Lisinopril 5 mg 05/18/20 09:00 05/18/20 08:26 Zestril PO 5 mg DAILY JAY Administration Metoprolol Tartrate 50 mg 05/18/20 09:00 05/18/20 08:26 Lopressor PO 50 mg BID JAY Administration Naloxone HCl 0.2 mg 05/18/20 02:33 Narcan IV Q2M PRN Opioid Reversal Spironolactone 25 mg 05/18/20 09:00 05/18/20 08:26 Aldactone PO 25 mg DAILY JAY Administration Ticagrelor 90 mg 05/18/20 09:00 05/18/20 08:26 Brilinta PO 90 mg BID JAY Administration Intake and Output 05/17/20 05/18/20 05/18/20 22:59 06:59 14:59 Intake Total 0 310 Output Total 600 Balance 0 -290 Intake: Blood Product 0 310 Rc As-1 Unit 0 310 [id number] Rc As-1 Unit 0 [id number] Output: Urine 600 Other: Voiding Method Toilet Toilet Urinal Urinal # Voids 0 1 Weight 113.8 kg 05/18/20 01:41 05/18/20 01:09
[2020-05-18 13:25] LABS: Anisocytosis Slight; Basophils % (A) 0 %; Eosinophils # (A) 0.1 k/uL (0-0.7); Eosinophils % (A) 2 %; HCT 28.6 % (39.0-53.0); Hypochromasia Slight; Lymphocytes # (A) 1.4 k/uL (1.0-4.8); Lymphocytes % (A) 29 %; MCH 30.7 pg (25.0-35.0); MCHC 33.3 g/dL (31.0-37.0); MCV 92.4 fL (80.0-100.0); Mean Platelet Volume 11.3; Monocytes # (A) 0.3 k/uL (0-1.0); Monocytes % (A) 6 %; Neutrophils % (A) 61 %; Platelet Count 127 k/uL (150-450); Poikilocytosis Slight; RBC 3.09 m/uL (4.30-5.90); RDW 19.2 % (11.5-15.5); WBC 4.9 k/uL (3.8-10.6)
[2020-05-18 13:31] LABS: African American GFR (CKD) >90 (>60 ml/min/1.73 sqM); Anion Gap 7 mmol/L; Blood Urea Nitrogen 15 mg/dL (9-20); Calcium 8.6 mg/dL (8.4-10.2); Carbon Dioxide 29 mmol/L (22-30); Chloride 100 mmol/L (98-107); Glucose 134 mg/dL (74-99); HGB 9.5 gm/dL (13.0-17.5); Non-African American GFR(CKD) >90 (>60 ml/min/1.73 sqM); Potassium 3.7 mmol/L (3.5-5.1); Sodium 136 mmol/L (137-145)
[2020-05-18 13:40] LABS: INR 1.1 (<1.2); Partial Thromboplastin Time 21.5 sec (22.0-30.0); Prothrombin Time 11.1 sec (9.0-12.0)
[2020-05-18] MEDS ORDERED: NITROGLYCERIN SL TABS 0.4 MG TAB SUBLINGUAL PRN (13:59)
--- NOTE | 2020-05-18 15:40 | HP ---
HISTORY AND PHYSICAL DATE OF ADMISSION: 05/18/2020 CHIEF COMPLAINT: Syncope. HISTORY OF PRESENT ILLNESS: This is another admission for this 64-year-old white male. He just had a myocardial infarction and had two stents placed in the RCA and went home. He was getting ready to go to bed, went into the bedroom and felt lightheaded and then wound up on the floor. He had no symptoms before this happened, including lightheadedness, chest pain, dizziness, palpitations, shortness of breath, abdominal pain, etc. He woke up immediately and he had no focal neurologic deficits, headache, confusion, etc. He was incontinent of urine. His witnessed this, and there were no tonic-clonic movements. He came to the emergency room, where his hemoglobin was down to around 7.5 again, which was probably related to oozing from the left groin site for his catheterization. He will be readmitted for observation, enzymes, EKGs and cardiac evaluation before he is discharged. REVIEW OF SYSTEMS: He has had no headaches, confusion, neurologic signs or symptoms, change in the vision or the hearing, chest pain, cough, hemoptysis, pleurisy, palpitations, abdominal pain, nausea, vomiting, hematemesis, melena, hematochezia, renal failure, dysuria, frequency, urgency, incontinence, etc. Past medical history, family history, and personal and social histories are all otherwise unremarkable or unchanged. PHYSICAL EXAMINATION: Blood pressure is 101/62 with a pulse of 68, respirations of 15, and he is afebrile. In general, he appears to be slightly pale and in no acute distress. Skin is dry. Head, ears, eyes, nose, mouth and throat are normal and neck veins are not distended. Thyroid is not enlarged. Chest is clear and the cardiac exam is normal. The only abnormality is his usual murmur. The abdomen is protuberant, soft and nontender. Extremities are normal. Neurologically he is intact. He is admitted to the hospital with the diagnoses: 1. Syncopal episode, etiology unknown, but probably related to hypotension and anemia. 2. Coronary artery disease. 3. Status post aortic valve replacement. PLAN: 1. Bed rest. 2. IV fluids. 3. Transfuse. 4. Consult Cardiology. 5. Rule out arrhythmia. MMODL / IJN: [id number] /
--- NOTE | 2020-05-18 18:38 | P.GSCN ---
History of Present Illness Consult date: 05/18/20 Reason for Consult: Urethral bleeding Requesting physician: Jenna Alaniz History of present illness: The patient is a 64-year-old white male who recently underwent PTCA with stenting. He was discharged home on dual antiplatelet therapy. He passed out last night and was incontinent of urine. He therefore returned to the hospital and was readmitted. His hemoglobin level was 7.4, down from 8.1 at the time of his recent discharge. He was transfused earlier today and feels much better. He was noted to have urethral bleeding. I'm consulted for this reason. The patient denies pain at the urethra or meatus. He states that the blood was bright red. He has not noted gross hematuria. Urinalysis obtained at the time of admission showed 3 RBC/hpf. He had an episode of kidney stone several years ago, which did not require treatment. He denies any prior history of UTIs or urolithiasis. He has no history of BPH. 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 GATO Past Anesthesia/Blood Transfusion Reactions: Motion Sickness Date of Last Stent Placement:: 11/22/16 Past Psychological History: No Psychological Hx Reported Smoking Status: Never smoker Past Alcohol Use History: Daily Past Drug Use History: None Reported - Past Family History Sister(s) Additional Family Medical History / Comment(s): Sister with brain tumor Mother Family Medical History: COPD, Diabetes Mellitus Medications and Allergies Home Medications Medication Instructions Recorded Confirmed Type Aspirin [Adult Low Dose Aspirin EC] 81 mg PO DAILY 11/21/16 05/18/20 History Atorvastatin Calcium [Lipitor] 80 mg PO HS 11/21/16 05/18/20 History Furosemide [Lasix] 40 mg PO DAILY 04/13/20 05/18/20 History Metoprolol Tartrate [Lopressor] 50 mg PO BID 04/13/20 05/18/20 History lisinopriL [Zestril] 5 mg PO DAILY 04/13/20 05/18/20 History Ergocalciferol [Vitamin D2] 50,000 unit PO Q30D 05/14/20 05/18/20 History Nitroglycerin Sl Tabs [Nitrostat] 0.4 mg SUBLINGUAL Q5M PRN #30 tab 05/17/20 05/18/20 Rx Spironolactone [Aldactone] 25 mg PO DAILY #30 tab 05/17/20 05/18/20 Rx Ticagrelor [Brilinta] 90 mg PO BID #60 tab 05/17/20 05/18/20 Rx Allergies Allergy/AdvReac Type Severity Reaction Status Date / Time No Known Allergies Allergy Verified 05/18/20 09:01 Surgical - Exam Vital Signs Temp Pulse Resp BP Pulse Ox 98.6 F 82 18 103/47 98 05/18/20 01:01 05/18/20 01:01 05/18/20 01:01 05/18/20 01:01 05/18/20 01:01 - General well developed, well nourished, no distress - Respiratory normal respiratory effort - Abdomen Abdomen: soft, non tender, no guarding, no rigid, no rebound - Genitourinary Ecchymosis of the left groin is noted, extending onto the phallus and scrotum. The penis appears normal, as does urethral meatus. No blood is seen at the me atus. The testes are normal. A moderate-sized right hydrocele is noted. - Psychiatric oriented to time, oriented to person, oriented to place, speech is normal, memory intact Results - Labs 05/18/20 12:53 05/18/20 12:53 Abnormal Lab Results - Last 24 Hours (Table) 05/18/20 05/18/20 05/18/20 Range/Units 01:04 01:09 01:15 RBC (4.30-5.90) m/uL Hgb (13.0-17.5) gm/dL Hct (39.0-53.0) % RDW (11.5-15.5) % Plt Count (150-450) k/uL APTT (22.0-30.0) sec Sodium (137-145) mmol/L Potassium 3.3 L (3.5-5.1) mmol/L Creatinine 0.63 L (0.66-1.25) mg/dL Glucose 144 H (74-99) mg/dL Total Bilirubin 2.0 H (0.2-1.3) mg/dL Total Protein 6.2 L (6.3-8.2) g/dL Urine Blood Trace H (Negative) Urine Mucus Occasional H (None) /hpf Crossmatch See Detail 05/18/20 05/18/20 05/18/20 Range/Units 01:41 12:53 12:53 RBC 2.43 L 3.09 L (4.30-5.90) m/uL Hgb 7.4 L 9.5 L D (13.0-17.5) gm/dL Hct 22.9 L 28.6 L (39.0-53.0) % RDW 20.3 H 19.2 H (11.5-15.5) % Plt Count 121 L 127 L (150-450) k/uL APTT 21.5 L (22.0-30.0) sec Sodium (137-145) mmol/L Potassium (3.5-5.1) mmol/L Creatinine (0.66-1.25) mg/dL Glucose (74-99) mg/dL Total Bilirubin (0.2-1.3) mg/dL Total Protein (6.3-8.2) g/dL Urine Blood (Negative) Urine Mucus (None) /hpf Crossmatch 05/18/20 Range/Units 12:53 RBC (4.30-5.90) m/uL Hgb (13.0-17.5) gm/dL Hct (39.0-53.0) % RDW (11.5-15.5) % Plt Count (150-450) k/uL APTT (22.0-30.0) sec Sodium 136 L (137-145) mmol/L Potassium (3.5-5.1) mmol/L Creatinine 0.60 L (0.66-1.25) mg/dL Glucose 134 H (74-99) mg/dL Total Bilirubin (0.2-1.3) mg/dL Total Protein (6.3-8.2) g/dL Urine Blood (Negative) Urine Mucus (None) /hpf Crossmatch Diabetes panel 05/18/20 05/18/20 Range/Units 01: 12:53 Sodium 137 136 L (137-145) mmol/L Potassium 3.3 L 3.7 (3.5-5.1) mmol/L Chloride 99 100 (98-107) mmol/L Carbon Dioxide 28 29 (22-30) mmol/L BUN 18 15 (9-20) mg/dL Creatinine 0.63 L 0.60 L (0.66-1.25) mg/dL Glucose 144 H 134 H (74-99) mg/dL Calcium 8.7 8.6 (8.4-10.2) mg/dL AST 29 (17-59) U/L ALT 20 (4-49) U/L Alkaline Phosphatase 63 (38-126) U/L Total Protein 6.2 L (6.3-8.2) g/dL Albumin 3.8 (3.5-5.0) g/dL Calcium panel 05/18/20 05/18/20 Range/Units 01: 12:53 Calcium 8.7 8.6 (8.4-10.2) mg/dL Albumin 3.8 (3.5-5.0) g/dL Pituitary panel 05/18/20 05/18/20 Range/Units 01: 12:53 Sodium 137 136 L (137-145) mmol/L Potassium 3.3 L 3.7 (3.5-5.1) mmol/L Chloride 99 100 (98-107) mmol/L Carbon Dioxide 28 29 (22-30) mmol/L BUN 18 15 (9-20) mg/dL Creatinine 0.63 L 0.60 L (0.66-1.25) mg/dL Glucose 144 H 134 H (74-99) mg/dL Calcium 8.7 8.6 (8.4-10.2) mg/dL Adrenal panel 05/18/20 05/18/20 Range/Units 01:09 12:53 Sodium 137 136 L (137-145) mmol/L Potassium 3.3 L 3.7 (3.5-5.1) mmol/L Chloride 99 100 (98-107) mmol/L Carbon Dioxide 28 29 (22-30) mmol/L BUN 18 15 (9-20) mg/dL Creatinine 0.63 L 0.60 L (0.66-1.25) mg/dL Glucose 144 H 134 H (74-99) mg/dL Calcium 8.7 8.6 (8.4-10.2) mg/dL Total Bilirubin 2.0 H (0.2-1.3) mg/dL AST 29 (17-59) U/L ALT 20 (4-49) U/L Alkaline Phosphatase 63 (38-126) U/L Total Protein 6.2 L (6.3-8.2) g/dL Albumin 3.8 (3.5-5.0) g/dL Assessment and Plan (1) Bleeding from urethra in male Current Visit: Yes Status: Acute Code(s): N36.8 - OTHER SPECIFIED DISORDERS OF URETHRA SNOMED Code(s): 032659686 Plan: The patient is asymptomatic and there is no active bleeding. I reassured him that the likelihood of underlying pathology is low. He will be given an appointment to follow up with me upon discharge to confirm that the urethral bleeding has resolved, and that there is no evidence of microhematuria. Regarding the right hydrocele, he is essentially asymptomatic and thus declines treatment for the hydrocele at this time.
[2020-05-18] MEDS ORDERED: ATORVASTATIN 80 MG TAB PO SCH (21:00)
[2020-05-19 06:49] LABS: Anisocytosis Slight; HCT 28.4 % (39.0-53.0); HGB 9.5 gm/dL (13.0-17.5); Hypochromasia Slight; MCH 31.1 pg (25.0-35.0); MCHC 33.4 g/dL (31.0-37.0); MCV 92.9 fL (80.0-100.0); Macrocytosis Slight; Mean Platelet Volume 11.5; Platelet Count 120 k/uL (150-450); Poikilocytosis Moderate; RBC 3.06 m/uL (4.30-5.90); RDW 19.7 % (11.5-15.5); WBC 5.4 k/uL (3.8-10.6)
[2020-05-19 07:01] LABS: African American GFR (CKD) >90 (>60 ml/min/1.73 sqM); Anion Gap 5 mmol/L; Blood Urea Nitrogen 16 mg/dL (9-20); Calcium 8.6 mg/dL (8.4-10.2); Carbon Dioxide 29 mmol/L (22-30); Chloride 99 mmol/L (98-107); Glucose 123 mg/dL (74-99); Non-African American GFR(CKD) >90 (>60 ml/min/1.73 sqM); Potassium 3.6 mmol/L (3.5-5.1); Sodium 133 mmol/L (137-145)
[2020-05-19 07:18] LABS: Band Neutrophils % 2 %; Eosinophils # (M) 0.16 k/uL (0-0.7); Lymphocytes # (M) 1.13 k/uL (1.0-4.8); Monocytes # (M) 0.22 k/uL (0-1.0); Neutrophils % (M) 70 %; Nucleated Red Blood Cells 0 /100 WBC (0-0); Total Cells Counted 100
[2020-05-19 07:19] LABS: Large Platelets Present; Ovalocytes Present
[2020-05-19 07:20] LABS: Basophilic Stippling Present; Polychromasia Present
--- NOTE | 2020-05-19 07:23 | US ---
EXAMINATION TYPE: US lower ext pseudo artery LT DATE OF EXAM: 05/18/2020 COMPARISON: NONE CLINICAL HISTORY: 64-year-old male s/p cath, bruising, possible hematoma. Left groin approach heart c ath 4 days ago EXAM PERFORMED: Grayscale and color Doppler duplex imaging performed of the groin, post cardiac margy ter to assess for pseudoaneurysm. SIDE PERFORMED: left FINDINGS: Color and Waveform Doppler performed to assess for the presence of pseudoaneurysm; Is there ultrasound evidence of a pseudoaneurysm: no Is there evidence of AV shunting: no Is there a fluid collection present: no IMPRESSION: No sonographic evidence for pseudoaneurysm at the left groin.
[2020-05-19] MEDS: TICAGRELOR 90 MG TAB PO SCH (09:49)
[2020-05-19] MEDS: FUROSEMIDE 40 MG TAB PO SCH (09:49)
[2020-05-19] MEDS: SPIRONOLACTONE 25 MG TAB PO SCH (09:49)
[2020-05-19] MEDS: METOPROLOL TARTRATE 50 MG TAB PO SCH (09:49)
[2020-05-19] MEDS: lisinopriL 5 MG TAB PO SCH ×2 (09:49→09:53)
[2020-05-19] MEDS: ASPIRIN 81 MG PO SCH (09:49)
[2020-05-19 10:06] VITALS: BP 107/54; RESP 20; TEMP 97.8
[2020-05-19 11:20] VITALS: PULSE 83
--- NOTE | 2020-05-19 13:05 | P.PN ---
Subjective Progress Note Date: 05/19/20 CHIEF COMPLAINT: Anemia with syncope post cardiac cath HISTORY OF PRESENT ILLNESS: Patient examined this morning at the bedside. Patient denies chest pain or shortness of breath. Left groin ultrasound was negative for pseudoaneurysm. Orthostatic blood pressures were within normal limits. Patient's hemoglobin is 9.5. He received RBC transfusion yesterday. No further episodes of hematuria. PHYSICAL EXAM: VITAL SIGNS: Reviewed. GENERAL: Well-developed in no acute distress. HEENT: Head is normocephalic. Pupils are equal, round. Sclerae anicteric. Mucous membranes of the mouth are moist. Neck supple. No JVD or thyromegaly LUNGS: Respirations even and unlabored. Lungs essentially clear to auscultation bilaterally. HEART: Regular rate and rhythm. S1 and S2 heard. ABDOMEN: Soft. Nontender. EXTREMITIES: Normal range of motion. No clubbing or cyanosis. Peripheral pulses intact. Trace bilateral lower extremity edema. Patient with ecchymosis to left groin. No palpable hematoma noted. NEUROLOGIC: Awake and alert. Oriented x 3. ASSESSMENT: 1. Anemia 2. Syncope 3. Recent hospitalization secondary to non-ST elevated myocardial infarction, status post cardiac cath with stent placement 4. Coronary artery disease 5. Hypertension 6. Aortic stenosis status post transcutaneous aortic valve replacement 7. Severe pulmonary hypertension PLAN: -Continue current cardiac medications -Monitor hemoglobin -Patient stable for discharge home today from a cardiac standpoint Nurse practitioner note has been reviewed by physician. Signing provider agrees with the documented findings, assessment, and plan of care. Objective - Vital Signs Vital signs: Vital Signs Temp 97.8 F 05/19/20 08:00 Pulse 87 05/19/20 08:00 Resp 20 05/19/20 08:00 BP 107/54 05/19/20 08:00 Pulse Ox 94 L 05/19/20 08:00 Intake & Output 05/18/20 05/19/20 05/19/20 18:59 06:59 18:59 Intake Total 550 320 236 Output Total 1100 Balance -550 320 236 Intake: Oral 240 320 236 Blood Product 310 Rc As-1 Unit 310 [id number] Rc As-1 Unit 0 [id number] Output: Urine 1100 Other: Voiding Method Toilet Urinal # Voids 2 1 1 - Labs CBC & Chem 7: 05/19/20 06:23 05/19/20 06:23 Labs: Abnormal Lab Results - Last 24 Hours (Table) 05/18/20 05/18/20 05/18/20 Range/Units 01:04 01:15 12:53 RBC (4.30-5.90) m/uL Hgb (13.0-17.5) gm/dL Hct (39.0-53.0) % RDW (11.5-15.5) % Plt Count (150-450) k/uL APTT 21.5 L (22.0-30.0) sec Sodium (137-145) mmol/L Creatinine (0.66-1.25) mg/dL Glucose (74-99) mg/dL Urine Blood Trace H (Negative) Urine Mucus Occasional H (None) /hpf Crossmatch See Detail 05/18/20 05/18/20 05/19/20 Range/Units 12:53 12:53 06:23 RBC 3.09 L 3.06 L (4.30-5.90) m/uL Hgb 9.5 L D 9.5 L (13.0-17.5) gm/dL Hct 28.6 L 28.4 L (39.0-53.0) % RDW 19.2 H 19.7 H (11.5-15.5) % Plt Count 127 L 120 L (150-450) k/uL APTT (22.0-30.0) sec Sodium 136 L (137-145) mmol/L Creatinine 0.60 L (0.66-1.25) mg/dL Glucose 134 H (74-99) mg/dL Urine Blood (Negative) Urine Mucus (None) /hpf Crossmatch 05/19/20 Range/Units 06:23 RBC (4.30-5.90) m/uL Hgb (13.0-17.5) gm/dL Hct (39.0-53.0) % RDW (11.5-15.5) % Plt Count (150-450) k/uL APTT (22.0-30.0) sec Sodium 133 L (137-145) mmol/L Creatinine 0.62 L (0.66-1.25) mg/dL Glucose 123 H (74-99) mg/dL Urine Blood (Negative) Urine Mucus (None) /hpf Crossmatch
--- NOTE | 2020-05-20 00:15 | DS ---
DISCHARGE SUMMARY CHIEF COMPLAINT: Syncope. HISTORY OF PRESENT ILLNESS AND PHYSICAL EXAM: Details of this man's history and physical can be found in the initial workup. LABORATORY STUDIES: While he was in the hospital he had laboratory studies, details of which can be found in the laboratory section of his chart. COURSE IN THE HOSPITAL: After admission he was placed on bedrest, started on intravenous fluids. He was transfused. He had no evidence of any coronary artery insufficiency, chest pain, shortness of breath, orthopnea, palpitations, arrhythmias, melena, hematochezia, etc. He did well. It was felt he could be discharged on the and he will be followed closely as an outpatient. He will come into the office in several days and we will recheck his hemoglobin. FINAL DIAGNOSES: 1. Syncopal episode. 2. Hypotension. 3. Dehydration. 4. Blood loss anemia. 5. Coronary artery disease. OPERATIONS: None. CONSULTATION: Cardiology. He is improved. MMELVIN / ALEXANDERN: [id number] /
== END 2020-05-19 13:22 | disposition home or self-care (01) ==
LOC: EC 01:00 → 1SOBS 02:36 → 3SCARD 04:44
PROVIDERS: ADMIT Family Medicine; ATTEND Family Medicine
DX: R55 Syncope and collapse (principal); E86.0 Dehydration; I25.10 Atherosclerotic heart disease of native coronary artery without angina pectoris; I35.8 Other nonrheumatic aortic valve disorders; E87.6 Hypokalemia; I27.20 Pulmonary hypertension, unspecified; E78.5 Hyperlipidemia, unspecified; D50.0 Iron deficiency anemia secondary to blood loss (chronic); I10 Essential (primary) hypertension; Z87.442 Personal history of urinary calculi; Z95.5 Presence of coronary angioplasty implant and graft; Z98.890 Other specified postprocedural states; Z80.8 Family history of malignant neoplasm of other organs or systems; Z83.3 Family history of diabetes mellitus; Z82.5 Family history of asthma and other chronic lower respiratory diseases; I25.2 Old myocardial infarction; N36.8 Other specified disorders of urethra; Z79.82 Long term (current) use of aspirin; Z79.02 Long term (current) use of antithrombotics/antiplatelets; Z79.899 Other long term (current) drug therapy
CPT/HCPCS: 93005 ×2; 99285; 36415; 86900; 86901; 80053; 80048; 83735; 85025 ×2; 85610; 85730; 86850; 86920; 81001; 93975; 93926; G0378 ×3; P9016

== ENCOUNTER 2020-06-20 15:25 | Observation (INO) | payer OTHER ==
--- NOTE | 2020-06-20 16:02 | XR ---
EXAMINATION TYPE: XR chest 2V DATE OF EXAM: 06/20/2020 COMPARISON: Chest x-ray May 14, 2020. Chest CT 2016. HISTORY: Shortness of breath with some chest pain. TECHNIQUE: Frontal and lateral views of the chest are obtained. FINDINGS: Low lung volumes and mild chronic parenchymal changes bilaterally are redemonstrated. There is no suspicious new focal air space opacity, pleural effusion, or pneumothorax seen. The cardiac s ilhouette size remains within normal limits. Metallic stent graft in the aortic root redemonstrated. Atherosclerotic change in the thoracic aortic knob redemonstrated The osseous structures are intact. IMPRESSION: Chronic changes without new acute pulmonary process.
[2020-06-20] MEDS ORDERED: NITROGLYCERIN SL TABS 0.4 MG TAB SUBLINGUAL PRN (16:28)
--- NOTE | 2020-06-20 16:28 | ED ---
Chest Pain HPI - General Chief Complaint: Chest Pain Stated Complaint: sent by Time Seen by Provider: 06/20/20 15:40 Source: patient, family, RN notes reviewed Mode of arrival: ambulatory Limitations: no limitations - History of Present Illness Initial Comments: This is a 65-year-old male history of coronary artery disease status post stent placement in the past as well as aortic valve repair who presents from his doctor's office with complaints of intermittent episodes of chest pain with exertional dyspnea for the past several days. He currently is pain-free right now he did take nitroglycerin when the pain was occurring get relief from it. Currently is pain-free symptom free no fevers chills nausea vomiting sweats no other reported problems at this time. MD Complaint: chest pain, other - Related Data Home Medications Medication Instructions Recorded Confirmed Aspirin [Adult Low Dose Aspirin EC] 81 mg PO DAILY 11/21/16 05/18/20 Atorvastatin Calcium [Lipitor] 80 mg PO HS 11/21/16 05/18/20 Furosemide [Lasix] 40 mg PO DAILY 04/13/20 05/18/20 Metoprolol Tartrate [Lopressor] 50 mg PO BID 04/13/20 05/18/20 lisinopriL [Zestril] 2.5 mg PO DAILY 04/13/20 05/19/20 Ergocalciferol [Vitamin D2 50,000 unit PO Q30D 05/14/20 05/18/20 (DRISDMARIZA)] Previous Rx's Medication Instructions Recorded Nitroglycerin Sl Tabs [Nitrostat] 0.4 mg SUBLINGUAL Q5M PRN #30 tab 05/17/20 Spironolactone [Aldactone] 25 mg PO DAILY #30 tab 05/17/20 Ticagrelor [Brilinta] 90 mg PO BID #60 tab 05/17/20 Allergies Allergy/AdvReac Type Severity Reaction Status Date / Time No Known Allergies Allergy Verified 05/18/20 09:01 Review of Systems ROS Statement: Those systems with pertinent positive or pertinent negative responses have been documented in the HPI. ROS Other: All systems not noted in ROS Statement are negative. EKG Findings - EKG Results: EKG: interpreted by ERMFouzia, sinus rhythm (Normal sinus rhythm a 72. 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 GATO Past Anesthesia/Blood Transfusion Reactions: Motion Sickness Date of Last Stent Placement:: 11/22/16 Past Psychological History: No Psychological Hx Reported Smoking Status: Never smoker Past Alcohol Use History: Daily Past Drug Use History: None Reported - Past Family History Sister(s) Additional Family Medical History / Comment(s): Sister with brain tumor Mother Family Medical History: COPD, Diabetes Mellitus General Exam - General Exam Comments Initial Comments: This a well-developed well-nourished awake alert oriented 3 male Limitations: no limitations General appearance: alert, in no apparent distress Head exam: Present: atraumatic, normocephalic, normal inspection Eye exam: Present: normal appearance, PERRL, EOMI. Absent: scleral icterus, conjunctival injection, periorbital swelling ENT exam: Present: normal exam, mucous membranes moist Neck exam: Present: normal inspection. Absent: tenderness, meningismus, lymphadenopathy Respiratory exam: Present: normal lung sounds bilaterally. Absent: respiratory distress, wheezes, rales, rhonchi, stridor Cardiovascular Exam: Present: regular rate, normal rhythm, normal heart sounds. Absent: systolic murmur, diastolic murmur, rubs, gallop, clicks GI/Abdominal exam: Present: soft, normal bowel sounds. Absent: distended, tenderness, guarding, rebound, rigid Extremities exam: Present: normal inspection, full ROM, normal capillary refill. Absent: tenderness, pedal edema, joint swelling, calf tenderness Back exam: Present: normal inspection Neurological exam: Present: alert, oriented X3, CN II-XII intact Psychiatric exam: Present: normal affect, normal mood Skin exam: Present: warm, dry, intact, normal color. Absent: rash Course Vital Signs 06/20/20 15:43 Temperature 97.9 F Pulse Rate 82 Respiratory 20 Rate Blood Pressure 122/70 O2 Sat by Pulse 98 Oximetry Chest Pain MDM - MDM The patient's case is discussed with him and his family as well as with Dr. Tamez and previously with Dr. Martinez. Patient be admitted for further evaluation of chest pain. Disposition Clinical Impression: Chest pain, Unstable angina pectoris Disposition: ADMITTED IP TO THIS HOSP Condition: Stable Referrals: Adithya Mckeon MD [Primary Care Provider] - 1-2 days
[2020-06-20 17:05] LABS: ALT 18 U/L (4-49); AST 24 U/L (17-59); African American GFR (CKD) >90 (>60 ml/min/1.73 sqM); Alkaline Phosphatase 62 U/L (38-126); Anion Gap 6 mmol/L; Blood Urea Nitrogen 14 mg/dL (9-20); Calcium 8.9 mg/dL (8.4-10.2); Carbon Dioxide 29 mmol/L (22-30); Chloride 101 mmol/L (98-107); Creatine Kinase 37 U/L (55-170); Glucose 118 mg/dL (74-99); Magnesium 1.8 mg/dL (1.6-2.3); Non-African American GFR(CKD) >90 (>60 ml/min/1.73 sqM); Potassium 3.5 mmol/L (3.5-5.1); Sodium 136 mmol/L (137-145); Total Bilirubin 1.4 mg/dL (0.2-1.3); Total Protein 6.5 g/dL (6.3-8.2)
[2020-06-20 17:10] LABS: D-Dimer 0.47 mg/L FEU (<0.60); INR 1.1 (<1.2); Partial Thromboplastin Time 24.6 sec (22.0-30.0)
[2020-06-20 17:20] LABS: Anisocytosis Moderate; HGB 9.9 gm/dL (13.0-17.5); Hypochromasia Slight; MCH 30.8 pg (25.0-35.0); MCV 93.4 fL (80.0-100.0); Macrocytosis Slight; Mean Platelet Volume 10.9; Platelet Count 128 k/uL (150-450); Poikilocytosis Slight; RBC 3.21 m/uL (4.30-5.90); RDW 20.9 % (11.5-15.5); WBC 4.3 k/uL (3.8-10.6)
[2020-06-20 17:46] LABS: Anisocytosis (M) Present; Eosinophils # (M) 0.04 k/uL (0-0.7); Lymphocytes # (M) 1.29 k/uL (1.0-4.8); Monocytes # (M) 0.17 k/uL (0-1.0); Neutrophils % (M) 65 %; Nucleated Red Blood Cells 0 /100 WBC (0-0); Ovalocytes Present; Poikilocytosis (M) Present; Total Cells Counted 100
[2020-06-20] MEDS: SODIUM CHLORIDE 0.9% 1,000 ML IV SCH (18:31)
[2020-06-20] MEDS: ATORVASTATIN 80 MG TAB PO SCH (21:24)
[2020-06-20] MEDS: METOPROLOL TARTRATE 50 MG TAB PO SCH (21:25)
[2020-06-20] MEDS: TICAGRELOR 90 MG TAB PO SCH (21:25)
[2020-06-21 03:06] LABS: Cholesterol 80 mg/dL (<200); HDL Cholesterol 27 mg/dL (40-60); LDL Cholesterol,Calculated 36 mg/dL (0-99); Triglycerides 83 mg/dL (<150)
[2020-06-21] MEDS ORDERED: SODIUM CHLORIDE 0.9% 1,000 ML in EMPTY BAG 1 BAG IV ONE (08:37)
[2020-06-21] MEDS ORDERED: NITROGLYCERIN SL TABS 0.4 MG TAB SUBLINGUAL PRN (08:37)
[2020-06-21] MEDS ORDERED: ALPRAZolam 0.5 MG TAB PO PRN (08:37)
[2020-06-21] MEDS ORDERED: ALPRAZolam 0.25 MG TAB PO PRN (08:37)
[2020-06-21] MEDS ORDERED: ATORVASTATIN 80 MG TAB PO STA (08:37)
[2020-06-21] MEDS ORDERED: ASPIRIN 325 MG TAB PO STA (08:37)
[2020-06-21] MEDS ORDERED: NON FORMULARY DRUG (Aspirin [Adult Low Dose Aspirin Ec] 81 MG Tablet.Dr) PO SCH (09:00)
[2020-06-21] MEDS: METOPROLOL TARTRATE 50 MG TAB PO SCH ×2 (09:04→23:09)
[2020-06-21] MEDS: FUROSEMIDE 40 MG TAB PO SCH (09:04)
[2020-06-21] MEDS: ASPIRIN 81 MG PO SCH (09:07)
[2020-06-21] MEDS: TICAGRELOR 90 MG TAB PO SCH ×2 (09:07→20:43)
--- NOTE | 2020-06-21 10:20 | P.CRDCN ---
History of Present Illness Consult date: 06/21/20 Consult reason: chest pain Chief complaint: Chest pain History of present illness: This is a 65-year-old gentleman with documented history of hypertension, hyperlipidemia, severe aortic stenosis status post TAVR, patient also has a documented history of coronary artery disease with prior stenting of the right coronary artery, most recent stenting was performed on May [address] Landaverde. Patient follows with Dr. Martinez in the office. Subsequent to that patient did have an admission with anemia and received a blood transfusion. He had a large hematoma at that time as well. He presents to the hospital on this occasion with symptoms of chest discomfort. According to the patient he's Been experiencing chest pressure and tightness since Saturday, he states that he took a sublingual nitroglycerin with relief of symptoms. On Saturday he overall felt well. Saturday he again developed the same pressure and tightness with associated diaphoresis and shortness of breath. Patient does get exertional shortness of breath, however the symptoms are much worse, he gets the associated tightness and pressure with exertion and also diaphoresis. He went to see Dr. Martinez in the office, and was advised to come to the hospital for further evaluation and treatment. His initial EKG on presentation here showed normal sinus rhythm with no acute changes. His chest x-ray did not show any acute changes. Blood p ressure on arrival 98/50, heart rate in the 80s, respirations 18. White blood cell count 4.3, hemoglobin 9.9, platelet count 128. D-dimer 0.47 sodium 136, potassium 3.5, chloride 101, CO2 29, BUN 14, creatinine 0.6. Magnesium 1.8, BNP 1820, troponin 0.0 2.02 and 0.02. Patient was seen and examined by Dr. Oliver and recommended to undergo cardiac catheterization today by Dr. Martinez. Further recommendations will be based on those findings and the patient's overall clinical course. 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 GATO, aortic valve via TAVR Past Anesthesia/Blood Transfusion Reactions: Motion Sickness Date of Last Stent Placement:: 05/14/2020 Past Psychological History: No Psychological Hx Reported Smoking Status: Never smoker Past Alcohol Use History: None Reported Past Drug Use History: None Reported - Past Family History Sister(s) Additional Family Medical History / Comment(s): Sister with brain tumor Mother Family Medical History: COPD, Diabetes Mellitus Medications and Allergies Home Medications Medication Instructions Recorded Confirmed Type Aspirin [Adult Low Dose Aspirin EC] 81 mg PO DAILY 11/21/16 06/20/20 History Atorvastatin Calcium [Lipitor] 80 mg PO HS 11/21/16 06/20/20 History Furosemide [Lasix] 40 mg PO DAILY 04/13/20 06/20/20 History Metoprolol Tartrate [Lopressor] 50 mg PO BID 04/13/20 06/20/20 History lisinopriL [Zestril] 2.5 mg PO DAILY 04/13/20 06/20/20 History Ergocalciferol [Vitamin D2 50,000 unit PO Q30D 05/14/20 06/20/20 History (DRISDOL)] Nitroglycerin Sl Tabs [Nitrostat] 0.4 mg SUBLINGUAL Q5M PRN #30 tab 05/17/20 06/20/20 Rx Spironolactone [Aldactone] 25 mg PO DAILY #30 tab 05/17/20 06/20/20 Rx Ticagrelor [Brilinta] 90 mg PO BID #60 tab 05/17/20 06/20/20 Rx Allergies Allergy/AdvReac Type Severity Reaction Status Date / Time No Known Allergies Allergy Verified 06/20/20 17:14 Physical Exam Vitals: Vital Signs Temp Pulse Pulse Resp BP BP Pulse Ox 06/21/20 08:50 98.3 F 74 18 117/58 95 06/21/20 03:58 98.1 F 84 17 98/56 95 06/21/20 00:00 98.2 F 78 18 112/63 97 06/20/20 21:05 98.5 F 79 16 127/58 97 06/20/20 17:47 73 18 103/58 95 06/20/20 16:50 71 18 111/57 96 06/20/20 15:43 97.9 F 82 20 122/70 98 Intake and Output 06/20/20 06/21/2020 22:59 06:59 14:59 Output Total 540 0 Balance -540 0 Output: Urine 540 0 Other: Voiding Method Toilet # Voids 2 0 Weight 102.058 kg 132.9 kg PHYSICAL EXAMINATION: GENERAL: 65-year-old gentleman in no acute distress at the time of my examination HEENT: Head is atraumatic, normocephalic. Pupils equal, round. Sclera anicteric. Conjunctiva are clear. Mucous membranes of the mouth are moist. Neck is supple. There is no elevated jugular venous pressure. No carotid bruit is heard. HEART EXAMINATION: Heart S1, S2 normal. No murmur or gallop heard. CHEST EXAMINATION: Lungs are clear to auscultation and precussion. No chest wall tenderness is noted on palpation or with deep breathing. ABDOMEN: Soft, nontender. Bowel sounds are heard. No organomegaly noted. EXTREMITIES: 2+ peripheral pulses with no evidence of peripheral edema and no calf tenderness noted. NEUROLOGIC patient is awake, alert and oriented 3 . Results 06/20/20 16:38 06/20/20 16:38 Cardiac Enzymes 06/20/20 06/20/20 06/20/20 Range/Units 16:38 16:38 19:49 AST 24 (17-59) U/L Troponin I 0.024 0.023 (0.000-0.034) ng/mL 06/20/20 Range/Units 22:16 AST (17-59) U/L Troponin I 0.023 (0.000-0.034) ng/mL Coagulation 06/20/20 Range/Units 16:38 PT 11.0 (9.0-12.0) sec APTT 24.6 (22.0-30.0) sec Lipids 06/20/20 Range/Units 16:38 Triglycerides 83 (<150) mg/dL Cholesterol 80 (<200) mg/dL HDL Cholesterol 27 L (40-60) mg/dL CBC 06/20/20 Range/Units 16:38 WBC 4.3 (3.8-10.6) k/uL RBC 3.21 L (4.30-5.90) m/uL Hgb 9.9 L (13.0-17.5) gm/dL Hct 30.0 L (39.0-53.0) % Plt Count 128 L (150-450) k/uL Comprehensive Metabolic Panel 06/20/20 Range/Units 16:38 Sodium 136 L (137-145) mmol/L Potassium 3.5 (3.5-5.1) mmol/L Chloride 101 (98-107) mmol/L Carbon Dioxide 29 (22-30) mmol/L BUN 14 (9-20) mg/dL Creatinine 0.63 L (0.66-1.25) mg/dL Glucose 118 H (74-99) mg/dL Calcium 8.9 (8.4-10.2) mg/dL AST 24 (17-59) U/L ALT 18 (4-49) U/L Alkaline Phosphatase 62 (38-126) U/L Total Protein 6.5 (6.3-8.2) g/dL Albumin 4.0 (3.5-5.0) g/dL Current Medications Generic Name Dose Route Start Last Admin Trade Name Freq PRN Reason Stop Dose Admin Alprazolam 0.25 mg 06/21/20 08:37 Alprazolam 0.25 Mg Tab PO Q6HR PRN Mild Anxiety Alprazolam 0.5 mg 06/21/20 08:37 Alprazolam 0.5 Mg Tab PO Q6HR PRN Moderate Anxiety Aspirin 81 mg 06/21/20 09:00 06/21/20 09:07 Aspirin 81 Mg PO Not Given DAILY JAY Atorvastatin Calcium 80 mg 06/20/20 21:00 06/20/20 21:24 Atorvastatin 80 Mg Tab PO 80 mg HS JAY Administration Ergocalciferol 50,000 unit 06/23/20 09:00 Ergocalciferol 50,000 Unit Cap PO Q30D JAY Furosemide 40 mg 06/21/20 09:00 06/21/20 09:04 Furosemide 40 Mg Tab PO 40 mg DAILY JAY Administration Sodium Chloride 1,000 mls @ 20 mls/hr 06/20/20 16:30 06/20/20 18:31 Saline 0.9% IV Not Given .Q24H JAY Sodium Chloride 1,000 ml/ IV 1,000 mls @ 132.9 mls/hr 06/21/20 08:37 Solution IV 06/21/20 16:08 .Q7H32M ONE 1 ML/KG/HR Lisinopril 2.5 mg 06/21/20 09:00 06/21/20 09:04 Lisinopril 2.5 Mg Tab PO 2.5 mg DAILY JAY Administration Metoprolol Tartrate 50 mg 06/20/20 21:00 06/21/20 09:04 Metoprolol Tartrate 50 Mg Tab PO 50 mg BID JAY Administration Nitroglycerin 0.4 mg 06/21/20 08:37 Nitroglycerin Sl Tabs 0.4 Mg Tab SUBLINGUAL Q5M PRN Chest Pain Spironolactone 25 mg 06/21/20 09:00 Spironolactone 25 Mg Tab PO DAILY JAY Ticagrelor 90 mg 06/20/20 21:00 06/21/20 09:07 Ticagrelor 90 Mg Tab PO 90 mg BID JAY Administration Intake and Output 06/20/20 06/21/20 06/21/20 22:59 06:59 14:59 Output Total 540 0 Balance -540 0 Output: Urine 540 0 Other: Voiding Method Toilet # Voids 2 0 Weight 102.058 kg 132.9 kg 06/20/20 16:38 06/20/20 16:38 EKG Interpretations (text) EKG shows normal sinus rhythm with no acute changes. Assessment and Plan Plan: Assessment and plan #1 symptoms of exertional chest tightness and pressure with associated diaphoresis, shortness of breath. Possible unstable angina. #2 recent hospitalization with non-STEMI and RCA stenting #3 hypertension #4 hyperlipidemia #5 severe aortic stenosis status post TAVR. #6 admission in April following his PCI with anemia and blood transfusion Plan Patient has been advised to undergo cardiac catheterization, the risks and the benefits again were explained to the patient in detail. This will be performed today by Dr. Martinez. We will continue the dual antiplatelet therapy as well as the statin, beta hector and RAF inhibitor. Further recommendations to follow. DNP note has been reviewed, I agree with a documented findings and plan of care. Patient was seen and examined.
[2020-06-21] MEDS: SPIRONOLACTONE 25 MG TAB PO SCH (11:07)
[2020-06-21 12:10] LABS: African American GFR (CKD) >90 (>60 ml/min/1.73 sqM); Anion Gap 7 mmol/L; Blood Urea Nitrogen 14 mg/dL (9-20); Calcium 8.7 mg/dL (8.4-10.2); Carbon Dioxide 29 mmol/L (22-30); Chloride 102 mmol/L (98-107); Glucose 117 mg/dL (74-99); Magnesium 1.9 mg/dL (1.6-2.3); Non-African American GFR(CKD) >90 (>60 ml/min/1.73 sqM); Potassium 4.3 mmol/L (3.5-5.1); Sodium 138 mmol/L (137-145)
[2020-06-21 12:19] LABS: Anisocytosis Moderate; Basophils % (A) 0 %; Eosinophils # (A) 0.1 k/uL (0-0.7); Eosinophils % (A) 3 %; HCT 27.4 % (39.0-53.0); Hypochromasia Slight; Lymphocytes # (A) 1.3 k/uL (1.0-4.8); Lymphocytes % (A) 39 %; MCH 31.2 pg (25.0-35.0); MCHC 32.8 g/dL (31.0-37.0); MCV 94.9 fL (80.0-100.0); Macrocytosis Slight; Mean Platelet Volume 10.5; Monocytes # (A) 0.2 k/uL (0-1.0); Monocytes % (A) 5 %; Neutrophils # (A) 1.8 k/uL (1.3-7.7); Neutrophils % (A) 51 %; Platelet Count 120 k/uL (150-450); Poikilocytosis Slight; RBC 2.89 m/uL (4.30-5.90); RDW 20.8 % (11.5-15.5); WBC 3.4 k/uL (3.8-10.6)
[2020-06-21] MEDS ORDERED: HEPARIN SODIUM 1,000 UN/ML (10ML VL) ONE (12:44)
[2020-06-21] MEDS ORDERED: fentaNYL (PF) 50 MCG/ML 2 ML AMP ONE (12:44)
[2020-06-21] MEDS ORDERED: MIDAZOLAM 2 MG/2 ML VIAL IVP ONE ×2 (12:58→13:37)
[2020-06-21] MEDS ORDERED: LIDOCAINE 1% INJ 10MG/ML (20 ML MDV) SQ ONE ×2 (13:00→13:03)
[2020-06-21 13:01] LABS: Ovalocytes Present; Poikilocytosis (M) Present; Polychromasia Present
[2020-06-21] MEDS ORDERED: IV FLUID CONTINUATION 1,000 ML IV ONE (13:01)
[2020-06-21] MEDS ORDERED: LIDOCAINE 1% INJ 10MG/ML (20 ML MDV) ONE (13:01)
[2020-06-21] MEDS ORDERED: fentaNYL (PF) 50 MCG/ML 2 ML AMP IVP ONE (13:04)
[2020-06-21] MEDS ORDERED: BIVALIRUDIN BOLUS 250 MG/50 ML IV ONE (13:37)
[2020-06-21] MEDS ORDERED: BIVALIRUDIN 250 MG in SODIUM CHLORIDE 0.9% 50 ML IV ONE (13:37)
[2020-06-21] MEDS ORDERED: IOPAMIDOL-370 125ML BTL INJ ONE (13:38)
[2020-06-21] MEDS ORDERED: IOPAMIDOL-370 100ML BTL INJ ONE (13:55)
[2020-06-21] MEDS ORDERED: ATROPINE SULFATE 0.1 MG/ML 10ML SYRINGE IV PRN (14:24)
[2020-06-21] MEDS ORDERED: RX INFO: IV CONTRAST WAS GIVEN 1 EACH MISC MISCELLANE PRN (14:24)
[2020-06-21] MEDS ORDERED: MAG HYDROX/AL HYDROX/SIMETH 30 ML CUP PO PRN (14:24)
[2020-06-21] MEDS ORDERED: ZOLPIDEM 5 MG TAB PO PRN (14:24)
[2020-06-21] MEDS ORDERED: SODIUM CHLORIDE 0.9% 1,000 ML IV SCH (14:30)
--- NOTE | 2020-06-21 18:23 | HP ---
HISTORY AND PHYSICAL CHIEF COMPLAINT: Extreme exertional shortness of breath. 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 He was just in the hospital recently with chest pain and underwent cardiac cath with stenting. He went home and was apparently doing fairly well until he came into the office on the day of admission saying that he suddenly had absolutely no exercise tolerance. Walking even a few steps made him very short of breath. He denied any chest pain. He has had no arrhythmias and he has had no fever, chills, nausea, vomiting, diarrhea, bleeding, etc. He was seen in the office and was referred over to Cardiology, and they made the determination that he should be admitted. REVIEW OF SYSTEMS: Otherwise unremarkable. He has had no syncope, focal neurologic deficits, difficulty with vision or hearing, urinary complaints, etc. Past medical history, family history, and personal and social histories are all otherwise unremarkable and unchanged from his recent admission. He does not smoke. PHYSICAL EXAMINATION: Blood pressure 120/60, pulse 68 and regular, respirations of 38 and he is afebrile. In general he appeared to be obese. He was slightly pale. Head, ears, eyes, nose, mouth and throat were normal and neck veins were not distended. Thyroid was not enlarged. Chest was quite clear. There were no significant rales or rhonchi. Cardiac exam demonstrated sinus rhythm and no murmurs or extra sounds. The abdomen was protuberant, soft and nontender. Bowel sounds were present. Extremities were normal. Neurologically he was intact. IMPRESSION: 1. Severe exertional shortness of breath. 2. Coronary artery disease. 3. Status post recent stent placement. 4. Possible occluded stent. PLAN: 1. Bed rest. 2. Serial EKGs and enzymes. 3. BNP. 4. Consult Cardiology. MMODL / IJN: [id number] /
--- NOTE | 2020-06-21 18:29 | PN ---
PROGRESS NOTE DATE OF SERVICE: 06/21/2020 CHIEF COMPLAINT: Chest pain, coronary artery disease and CHF. HISTORY OF PRESENT ILLNESS: This gentleman is comfortable. He has had no pain. Cardiology is planning another cardiac cath today. PHYSICAL EXAMINATION: His chest is clear. Cardiac exam is normal. Abdomen is soft, nontender. IMPRESSION: 1. Coronary artery disease. 2. Acute exertional dyspnea. 3. Rule out new coronary artery occlusion. 4. Congestive heart failure. 5. Hypertension. PLAN: Cardiac cath today. MMODL / IJN: [id number] /
[2020-06-21] MEDS: SODIUM CHLORIDE 0.9% 1,000 ML IV SCH (18:49)
--- NOTE | 2020-06-21 19:52 | CC ---
CARDIAC CATHETERIZATION REPORT DATE OF SERVICE: 06/21/2020 PERFORMING PHYSICIAN: Markell Arellano M.D. PROCEDURES PERFORMED: 1. Selective right and left coronary angiogram. 2. Intravascular ultrasound (IVUS) of the left main coronary artery. INDICATION: This is a 65-year-old gentleman with aortic valve disease and status post transcutaneous aortic valve replacement that was performed about 3 years ago at [facility] as well as coronary artery disease and status post multiple stenting of the right coronary artery. He was seen in the office yesterday complaining of symptoms of chest pain and shortness of breath concerning for severe underlying coronary artery disease. He was admitted to the hospital directly through the emergency department. Because his symptoms were concerning for severe CAD, he was scheduled to undergo a heart catheterization today. APPROACH: Right common femoral artery. COMPLICATIONS: None. LEVEL OF SEDATION: Moderate, with sedation length of 51 minutes. PROCEDURE DESCRIPTION: After obtaining informed consent, the patient was brought to the cardiac medical lab tech instructor. The right common femoral artery was cannulated using micropuncture technique. The micropuncture wire passed easily. Then I placed a 23 cm 6-[place] sheath at the right groin. I did predilatation using 5-[place] and 7-[place] dilators before I placed the sheath because the groin was quite fibrotic. Selective right and left coronary angiogram was performed using JR4 and JL4 catheters. Left heart catheterization was not performed. After that I did intravascular ultrasound (IVUS) of the left main coronary artery. Please see separate paragraph for that. SELECTIVE CORONARY ANGIOGRAM: 1. The right coronary artery is a large-caliber vessel and it is a super dominant vessel. The right coronary artery is stented in multiple segments, and all stents seem to be open. The RCA distally is angiographically normal and bifurcates into PDA and PLV branches. Both appeared to be angiographically normal. 2. The left main. The distal left main has eccentric plaque and seems to be extremely calcified and involving the takeoff of the circumflex and LAD. The plaque appeared to be in the range of 60%. We did intravascular ultrasound and that showed minimal luminal area of 5.2 cm and an area of stenosis of 75%. 3. The left circumflex is a medium-caliber vessel. It is a nondominant vessel. The ostial left circumflex is involved in the plaque from the left main. The proximal left circumflex appeared to be angiographically normal and gives rise to the first OM branch which is a small-caliber vessel and seems to be normal. The mid left circumflex is normal and gives rise to a second OM branch which seems to be normal. The circumflex continues after that as a medium-caliber vessel in the AV groove. 4. The ramus intermedius is a large-caliber vessel and appeared to be also involved in the plaque from the left main. 5. The LAD. The ostial LAD appeared to be also involved in the plaque from the left main. The proximal LAD appeared to be calcified with mild disease only and gives rise to the first diagonal branch which seems to be angiographically normal. The mid LAD appeared to have mild disease only and the LAD distally appeared to have mild disease only as well. IVUS OF THE LEFT MAIN: Anticoagulation was achieved with Angiomax. Subsequently after that I did engage the left main using JL4 guide. I did wire the left main all the way to the LAD. I did after that intravascular ultrasound using manual pullback. The intravascular ultrasound revealed a minimal luminal area of 5.2 mm2 with an area stenosis of about 74%. CONCLUSION: 1. Patent stent in the right coronary artery. 2. Intermediate to severe disease involving the distal left main coronary artery. IVUS was done and revealed a minimal luminal area of 5.2 mm2 and an area of stenosis of 74%. POST-PROCEDURE MANAGEMENT: 1. The patient will be scheduled to be seen by a cardiothoracic surgeon. 2. Further recommendations to follow that. MMODL / IJN: [id number] /
[2020-06-21] MEDS: ATORVASTATIN 80 MG TAB PO SCH (20:43)
[2020-06-22 02:18] VITALS: RESP 18
[2020-06-22 08:21] LABS: African American GFR (CKD) >90 (>60 ml/min/1.73 sqM); Non-African American GFR(CKD) >90 (>60 ml/min/1.73 sqM)
[2020-06-22] MEDS: FUROSEMIDE 40 MG TAB PO SCH (09:02)
[2020-06-22] MEDS: TICAGRELOR 90 MG TAB PO SCH (09:02)
[2020-06-22] MEDS: METOPROLOL TARTRATE 50 MG TAB PO SCH (09:02)
[2020-06-22] MEDS: ASPIRIN 81 MG PO SCH (09:02)
[2020-06-22] MEDS: SPIRONOLACTONE 25 MG TAB PO SCH (09:03)
[2020-06-22] MEDS ORDERED: ISOSORBIDE MONONITRATE ER 30 MG TAB.ER.24H PO SCH (09:15)
[2020-06-22 10:58] VITALS: BMI 44.4
--- NOTE | 2020-06-22 12:01 | PN ---
PROGRESS NOTE Mr. Haque is a 65-year-old male with a known history of coronary artery disease who presented with symptoms of chest discomfort, underwent cardiac catheterization by Dr. Arellano yesterday, was found to have patent stent to the RCA with disease in the left main, underwent IVUS evaluation that showed significant left main disease. He is feeling well this morning. He is ambulating without difficulty. He denies any chest pain. No dizziness. No palpitation. No nausea. He continues to be at this time on aspirin once a day, Lipitor 80 mg daily, furosemide 40 mg daily, lisinopril 2.5 mg daily, metoprolol tartrate 50 mg twice a day, spironolactone 25 mg daily and Brilinta 90 mg twice a day. PHYSICAL EXAMINATION: Blood pressure 111/50 with a heart rate in the 80s. LUNGS: Clear. HEART: Regular rate and rhythm. S1, S2. No S3 with a systolic ejection murmur, no diastolic murmur, no rub. ABDOMEN: Soft, nontender, obese. EXTREMITIES: No edema, right groin no hematoma. LAB DATA: Revealed creatinine of 0.65. IMPRESSION: 1. Symptoms of angina pectoris with obstructive disease in left main document by IVUS. 2. Status post stenting of the RCA. 3. Status post TAVR. 4. Hypertension. 5. Hyperlipidemia. RECOMMENDATION: Patient will be discharged home today and followed as an outpatient with Dr. Arellano to further evaluate his left main and make a decision about the next step. In the meantime, I will start him on isosorbide mononitrate 30 mg daily. Depending on his progress, further recommendations will be made. MMODL / IJN: [id number] /
[2020-06-22 13:52] VITALS: BP 99/51; PULSE 72; TEMP 98.2
[2020-06-23] MEDS ORDERED: ERGOCALCIFEROL 50,000 UNIT CAP PO SCH (09:00)
--- NOTE | 2020-06-24 08:44 | DS ---
DISCHARGE SUMMARY CHIEF COMPLAINT: Shortness of breath with exertion and chest pain. HISTORY OF PRESENT ILLNESS AND PHYSICAL EXAMINATION: Details of this man's history and physical can be found in the initial workup. LABORATORY STUDIES: While he was in a hospital he had laboratory studies, details of which can be found in the laboratory section of his chart. COURSE IN THE HOSPITAL: After admission, he was placed on bedrest and had serial EKGs and enzymes and was diuresed. He was seen by Cardiology. He was taken back to the quality assurance/r&d lab technician where his right carotid artery stent was wide open. He was found to have new lesions at the junction of the left main and the LAD and also involving the circumflex. It was felt that this probably would require open-heart surgery. It was planned that he would go home and then see Cardiac Surgery as an outpatient to make preparations for the bypass. FINAL DIAGNOSIS: 1. Acute congestive heart failure. 2. Acute coronary syndrome. 3. Recent placement of a TAVR. 4. Obesity. OPERATIONS: Cardiac cath. CONSULTATIONS: Cardiology. He is improved. MMODL / IJN: [id number] /
== END 2020-06-22 16:07 | disposition home or self-care (01) ==
LOC: EC 15:25 → 3SCARD 16:29
PROVIDERS: ADMIT Family Medicine; ATTEND Family Medicine
DX: I25.110 Atherosclerotic heart disease of native coronary artery with unstable angina pectoris (principal); I25.84 Coronary atherosclerosis due to calcified coronary lesion; I11.0 Hypertensive heart disease with heart failure; I50.9 Heart failure, unspecified; I24.9 Acute ischemic heart disease, unspecified; E66.9 Obesity, unspecified; Z68.41 Body mass index [BMI] 40.0-44.9, adult; E78.00 Pure hypercholesterolemia, unspecified; I25.2 Old myocardial infarction; Z95.2 Presence of prosthetic heart valve; Z95.5 Presence of coronary angioplasty implant and graft; E78.5 Hyperlipidemia, unspecified; Z87.442 Personal history of urinary calculi; Z98.890 Other specified postprocedural states; Z80.8 Family history of malignant neoplasm of other organs or systems; Z83.3 Family history of diabetes mellitus; Z82.5 Family history of asthma and other chronic lower respiratory diseases; Z79.02 Long term (current) use of antithrombotics/antiplatelets; Z79.82 Long term (current) use of aspirin; Z79.899 Other long term (current) drug therapy
CPT/HCPCS: 93005 ×3; 99285; 36415; 92978; 93458; 85379; 83880; 80061; 80053; 80048; 82565; 82550; 83735 ×2; 84484; 85025 ×2; 85610; 85730; 71046; G0378 ×3; C1887; C1769 ×3; C1894 ×2; C1753; J2250; J2001; J3010; J0583; Q9967 ×2

== ENCOUNTER → 2020-07-20 | Outpatient (CLI) | payer OTHER ==
--- NOTE | 2020-07-20 10:28 | CT ---
EXAMINATION TYPE: CT chest wo/w con DATE OF EXAM: 07/20/2020 COMPARISON: Prior chest CT September 21, 2016. HISTORY: Pericarditis and aortic calcification. CT DLP: 1307.2 mGycm. Automated Exposure Control for Dose Reduction was Utilized. TECHNIQUE: CT scan of the thorax is performed following without and with IV Contrast, patient inject ed with 100 mL of Isovue 300. FINDINGS: LUNGS: [id number] parenchymal fibrotic changes greatest in the lower lungs is redemonstrated wi th some progression from 2016 study. No suspicious focal consolidation. No pleural effusion or pneumo thorax seen bilaterally. No suspicious nodules or masses. MEDIASTINUM: There are no greater than 1 cm hilar or mediastinal lymph nodes. No cardiomegaly or pe ricardial effusion is seen. No pericardial calcifications. There is new metallic stent graft in the ascending aorta, patency is identified. Bovine type arch is seen which is normal variant. Right-sided coronary artery stent there is redemonstrated. Some calcification of the mitral annulus redemonstrat ed. No intramural hematoma on noncontrast images. OTHER: Asymmetric left-sided flame-shaped subareolar gynecomastia redemonstrated. [id number] multilevel anterior and lateral spurring in the mid to lower thoracic spine. Some colonic diverticula centered near the hepatic flexure. IMPRESSION: New ascending aortic stent graft which is patent. No acute pulmonary process.
== END | disposition home or self-care (01) ==
LOC: RADCTMAIN 08:57
PROVIDERS: ATTEND Thoracic Surgery (Cardiothoracic Vascular Surgery)
DX: I31.1 Chronic constrictive pericarditis (principal); I70.0 Atherosclerosis of aorta; Z95.828 Presence of other vascular implants and grafts
CPT/HCPCS: 71270; Q9967

== ENCOUNTER → 2020-08-09 | Outpatient (CLI) | payer OTHER ==
[2020-08-09 10:01] LABS: Anisocytosis Slight; HCT 30.7 % (39.0-53.0); HGB 10.1 gm/dL (13.0-17.5); Hypochromasia Slight; MCH 31.1 pg (25.0-35.0); MCHC 33.1 g/dL (31.0-37.0); MCV 93.9 fL (80.0-100.0); Macrocytosis Slight; Mean Platelet Volume 10.7; Platelet Count 118 k/uL (150-450); Poikilocytosis Slight; RBC 3.26 m/uL (4.30-5.90); RDW 19.8 % (11.5-15.5); WBC 3.7 k/uL (3.8-10.6)
[2020-08-09 10:26] LABS: Chloride 99 mmol/L (98-107); Potassium 3.5 mmol/L (3.5-5.1); Sodium 137 mmol/L (137-145)
[2020-08-09 10:28] LABS: INR 1.1 (<1.2); Partial Thromboplastin Time 25.6 sec (22.0-30.0); Prothrombin Time 10.8 sec (9.0-12.0)
[2020-08-09 11:06] LABS: ALT 17 U/L (4-49); AST 22 U/L (17-59); African American GFR (CKD) >90 (>60 ml/min/1.73 sqM); Alkaline Phosphatase 68 U/L (38-126); Anion Gap 4 mmol/L; Blood Urea Nitrogen 11 mg/dL (9-20); Calcium 8.5 mg/dL (8.4-10.2); Carbon Dioxide 34 mmol/L (22-30); Cholesterol 77 mg/dL (<200); Glucose 199 mg/dL (74-99); HDL Cholesterol 29 mg/dL (40-60); LDL Cholesterol,Calculated 29 mg/dL (0-99); Magnesium 1.7 mg/dL (1.6-2.3); Non-African American GFR(CKD) >90 (>60 ml/min/1.73 sqM); Total Bilirubin 1.3 mg/dL (0.2-1.3); Total Protein 6.7 g/dL (6.3-8.2); Triglycerides 97 mg/dL (<150)
[2020-08-09 11:14] LABS: Appearance,Urine Clear (Clear); Bilirubin,Urine Negative (Negative); Blood,Urine Negative (Negative); Color,Urine Light Yellow; Glucose,Urine (UA) Negative (Negative); Ketones,Urine Negative (Negative); Leukocyte Esterase,Urine Negative (Negative); Nitrite,Urine Negative (Negative); Protein,Urine 1+ (Negative); RBC,Urine <1 /hpf (0-5); Specific Gravity,Urine 1.009 (1.001-1.035); Squamous Epithelial Cell,Urine <1 /hpf (0-4); Urobilinogen,Urine <2.0 mg/dL (<2.0); WBC,Urine <1 /hpf (0-5)
--- NOTE | 2020-08-09 12:38 | US ---
EXAMINATION TYPE: US carotid duplex BILAT DATE OF EXAM: 08/09/2020 COMPARISON: NONE CLINICAL HISTORY: OPEN HEART. EXAM MEASUREMENTS: RIGHT: Peak Systolic Velocity (PSV) cm/sec ----- Right CCA: 80.8 ----- Right ICA: 74.4 ----- Right ECA: 54.9 ICA/CCA ratio: 0.9 RIGHT: End Diastole cm/sec ----- Right CCA: 16.2 ----- Right ICA: 22.7 ----- Right ECA: 0.0 LEFT: Peak Systolic Velocity (PSV) cm/sec ----- Left CCA: 91.4 ----- Left ICA: 78.4 ----- Left ECA: 57.0 ICA/CCA ratio: 0.9 LEFT: End Diastole cm/sec ----- Left CCA: 13.7 ----- Left ICA: 14.2 ----- Left ECA: 0.0 VERTEBRALS (direction of flow): Right Vertebral: Antegrade Left Vertebral: Antegrade Rhythm: Normal Large thick neck technically difficult study. No significant stenosis seen. IMPRESSION: 1. No significant flow-limiting stenosis based on ultrasound velocities. Criteria for Assigning % of Stenosis / Diameter reduction (Estimation based on the indirect measurements of the internal carotid artery velocities (ICA PSV). 1. Normal (no stenosis)=ICA PSV < 125 cm/s: ratio < 2.0: ICA EDV<40 cm/s. 2. Less than 50% stenosis=ICA PSV < 125 cm/s: ratio < 2.0: ICA EDV<40 cm/s. 3. 50 to 69% stenosis=ICA PSV of 125 to 230 cm/s: ration 2.0 ? 4.0: ICA EDV 40-100 cm/s. 4. Greater than 70% stenosis to near occlusion= ICA PSV > 230 cm/s: ratio > 4.0: ICA EDV > 100 cm/s. 5. Near occlusion= ICA PSV velocities may be low or undetectable: variable ratio and ICA EDV. 6. Total occlusion=unable to detect flow.
[2020-08-09 17:25] LABS: Hemoglobin A1C 5.7 % (4.0-6.0)
[2020-08-09 17:28] LABS: Hepatitis A Antibody IgM Non-Reactive (Non-Reactive); Hepatitis B Core IgM Non-Reactive (Non-Reactive); Hepatitis B Surface Antigen Non-Reactive (Non-Reactive); Hepatitis C IgG Antibody Non-Reactive (Non-Reactive)
--- NOTE | 2020-08-10 10:56 | P.ARTDOP ---
Arterial Doppler LOWER EXTREMITY ARTERIAL DOPPLER: DATE OF SERVICE: 08/09/2020 Reason for study: Preop CABG. Doppler waveforms: Multiphasic bilaterally throughout. Pulse volume recording: []. Pressure gradients: None. Ankle-brachial indices: Greater than 1 bilaterally. Toe brachial indices: [] on the right, [] on the left Impression: Normal study.
--- NOTE | 2020-08-10 10:58 | P.VSCSTY ---
Greater Saphenous Vein Mapping This is bilateral lower extremity greater saphenous vein mapping. Date of service: 08/09/2020 Vein quality and ultrasound appearance: We see no intraluminal thrombus or wall changes. Vein size groin right : 5.7 x 5.2 groin left: 8.3 x 8.0 High thigh right: 5.4 x 5.5 high thigh left: 8.0 x 5.5 Mid thigh right: 5.5 x 5.1 mid thigh left: 6.5 x 4.6 Above-knee right: 5.1 x 4.7 above-knee left: 4.0 x 3.5 Below knee right: 5.7 x 4.6 below-knee left: 3.4 x 2.8 Mid calf right: 4.1 x 2.6 mid calf left: 1.9 x 1.6 Ankle right: 4.2 x 2.9 ankle left: 1.9 x 1.3 Impression: Usable bilateral greater saphenous vein. The right is more consistent. The left mid calf and below is probably too small for use..
== END | disposition home or self-care (01) ==
LOC: LABPAT 08:41
PROVIDERS: ATTEND Thoracic Surgery (Cardiothoracic Vascular Surgery)
DX: Z01.818 Encounter for other preprocedural examination (principal); I25.110 Atherosclerotic heart disease of native coronary artery with unstable angina pectoris; Z20.828 Contact with and (suspected) exposure to other viral communicable diseases
CPT/HCPCS: 80061; 80053; 80074; 84443; 83735; 85027; 85610; 85730; 81001; 87070; 87086; 83036; 93970; 93922; 93880; 93005; 36415; U0003; C9803; 93923

== ENCOUNTER 2020-08-16 05:38 | Inpatient (IN) | payer OTHER ==
[~2020-08-16 05:38] MED LIST changes: +ALBUMIN HUMAN 25% 50 ML IV ONE; +ALBUMIN HUMAN 5% 500 ML IVPB ONE; -ALPRAZolam 0.25 MG TAB PO PRN; -ALPRAZolam 0.5 MG TAB PO PRN; +ATORVASTATIN 10 MG TAB PO ONE; -ATORVASTATIN 80 MG TAB PO ONE; +CALCIUM CHLORIDE 100 MG/ML 10 ML SYRINGE IV ONE; +CHLORHEXIDINE GLUCONATE 15 ML CUP MUCOUS MEM ONE; +CLEVIDIPINE BUTYRATE 25 MG in EMPTY BAG 1 BAG IV ONE; +DEXTROSE 5% IN WATER 1,000 ML with POTASSIUM CHLORIDE 110 MEQ, MAGNESIUM SULFATE 16 MEQ... IV ONE; +DEXTROSE 5% IN WATER 1,000 ML with POTASSIUM CHLORIDE 25 MEQ, SODIUM CHLORIDE 2.5MEQ/ML... IRRIGATION ONE; +HEPARIN SODIUM 1,000 UN/ML (10ML VL) IV ONE; +HEPARIN SODIUM,PORCINE 5,000 UNIT in SODIUM CHLORIDE 0.9% 500 ML 500 ML IV ONE; +INSULIN REGULAR 100 UNIT in SODIUM CHLORIDE 0.9% 100 ML IV ONE; +LACTATED RINGERS 1,000 ML IV ONE; +MAGNESIUM SULFATE MG 500 MG/ML IV ONE; +MANNITOL 25% 12.5 GM/50 ML VIAL IV ONE; +METOPROLOL TARTRATE 12.5 MG TAB PO ONE; -NITROGLYCERIN SL TABS 0.4 MG TAB SUBLINGUAL PRN; +NITROGLYCERIN-D5W PMX 25 MG/250 ML BTL IV ONE; +NITROGLYCERIN-D5W PMX 50 MG in DEXTROSE/WATER 1 250ML.BAG IV ONE; +NOREPINEPHRINE 4 MG in SODIUM CHLORIDE 0.9% 250 ML IV ONE; +PAPAVERINE 360 MG in SODIUM CHLORIDE 0.9% 90 ML IV ONE; +PHENYLEPHRINE 10 MG/ML VIAL IV ONE; +PHENYLEPHRINE 40 MG in SODIUM CHLORIDE 0.9% 250 ML IV ONE; +PROTAMINE SULFATE 10 MG/ML 25 ML VIAL IV ONE; +PROTAMINE SULFATE 250 MG in EMPTY BAG 1 BAG IV ONE; +SODIUM BICARB 8.4% 50 ML SYR (1 MEQ/ML) IV ONE; +SODIUM CHLORIDE 0.9% 1,000 ML IV ONE; -SODIUM CHLORIDE 0.9% 1,000 ML in EMPTY BAG 1 BAG IV ONE; +TRANEXAMIC ACID 2,000 MG in SODIUM CHLORIDE 0.9% 80 ML IV ONE; +ceFAZolin 3 GM in SODIUM CHLORIDE 0.9% 30 ML IVPB ONE; +propofoL 1,000 MG/100 ML VIAL IV ONE
[2020-08-16] MEDS ORDERED: LIDOCAINE 1% (10MG/ML) FOR IV START INTRADERMA ONE (06:32)
--- NOTE | 2020-08-16 07:13 | P.PN ---
Progress Note - Text Progress Note Date: 08/16/20 5 M walk test completed this morning, time 1: 3.30 seconds, time 2: 3.39 seconds, time 3: 3.87 seconds.
[2020-08-16] MEDS ORDERED: PROPOFOL 10 MG/ML 20 ML VIAL IV ONE (07:51)
[2020-08-16] MEDS ORDERED: HEPARIN SODIUM,PORCINE 10,000 UNIT/ML 1 ML VIAL ONE (07:51)
[2020-08-16] MEDS ORDERED: SODIUM CHLORIDE 0.9% IRRIG 1,000 ML BTL IRRIGATION ONE (07:51)
[2020-08-16] MEDS ORDERED: MIDAZOLAM 2 MG/2 ML VIAL ONE (07:51)
[2020-08-16] MEDS ORDERED: fentaNYL (PF) 50 MCG/ML 2 ML AMP ONE (07:51)
[2020-08-16] MEDS ORDERED: SUCCINYLCHOLINE CHLORIDE VIAL 200 MG/10 ML VIAL IV ONE (07:51)
[2020-08-16] MEDS ORDERED: CALCIUM CHLORIDE 100 MG/ML 10 ML SYRINGE ONE (07:51)
[2020-08-16] MEDS ORDERED: fentaNYL (PF) 50 MCG/ML 50 ML VIAL ONE (07:51)
[2020-08-16] MEDS ORDERED: VECURONIUM 10 MG VIAL IV ONE (07:51)
[2020-08-16] MEDS ORDERED: NITROGLYCERIN-D5W PMX 50 MG/250 ML BOTTLE IV ONE (07:51)
[2020-08-16] MEDS ORDERED: VASOPRESSIN 20 UNIT/ML 1 ML VIAL ONE (07:51)
[2020-08-16] MEDS ORDERED: ALBUMIN HUMAN 5% (25gm) 500 ML VIAL IVPB ONE (07:51)
[2020-08-16] MEDS ORDERED: PROTAMINE SULFATE 10 MG/ML 5 ML VIAL IV ONE (07:51)
[2020-08-16 09:18] LABS: ABG Base Excess 1.5 mmol/L; ABG Glucose Whole Blood 180 mg/dL (75-99); ABG HCO3 28 mmol/L (21-25); ABG Hematocrit 28 % (34.0-46.0); ABG Ionized Calcium 4.6 mg/dL (4.5-5.3); ABG Lactic Acid Whole Blood 1.2 mmol/L (0.5-1.6); ABG PCO2 51 mmHg (35-45); ABG PH 7.35 (7.35-7.45); ABG PO2 297 mmHg (83-108); ABG Potassium Whole Blood 4.3 mmol/L (3.4-4.5); ABG Sodium Whole Blood 139 mmol/L (135-146); ABG TCO2 29 mmol/L (19-24)
[2020-08-16 11:01] LABS: ABG Base Excess 2.2 mmol/L; ABG Glucose Whole Blood 158 mg/dL (75-99); ABG HCO3 28 mmol/L (21-25); ABG Ionized Calcium 4.5 mg/dL (4.5-5.3); ABG Lactic Acid Whole Blood 1.9 mmol/L (0.5-1.6); ABG Oxygen Saturation 99.9 % (94-97); ABG PCO2 51 mmHg (35-45); ABG PH 7.35 (7.35-7.45); ABG PO2 302 mmHg (83-108); ABG Potassium Whole Blood 4.2 mmol/L (3.4-4.5); ABG Sodium Whole Blood 142 mmol/L (135-146); ABG TCO2 30 mmol/L (19-24)
[2020-08-16 11:44] LABS: ABG Base Excess -0.3 mmol/L; ABG Glucose Whole Blood 194 mg/dL (75-99); ABG HCO3 25 mmol/L (21-25); ABG Ionized Calcium 4.2 mg/dL (4.5-5.3); ABG PCO2 46 mmHg (35-45); ABG PH 7.35 (7.35-7.45); ABG PO2 400 mmHg (83-108); ABG Potassium Whole Blood 4.2 mmol/L (3.4-4.5); ABG Sodium Whole Blood 139 mmol/L (135-146); ABG TCO2 27 mmol/L (19-24)
[2020-08-16 12:16] LABS: ABG Base Excess -0.6 mmol/L; ABG Glucose Whole Blood 179 mg/dL (75-99); ABG HCO3 27 mmol/L (21-25); ABG Ionized Calcium 4.7 mg/dL (4.5-5.3); ABG Oxygen Saturation 99.5 % (94-97); ABG PCO2 57 mmHg (35-45); ABG PH 7.27 (7.35-7.45); ABG PO2 171 mmHg (83-108); ABG Potassium Whole Blood 4.2 mmol/L (3.4-4.5); ABG Sodium Whole Blood 139 mmol/L (135-146); ABG TCO2 28 mmol/L (19-24)
[2020-08-16] MEDS ORDERED: Phosphorus Replacement Protoco 1 EACH MISC MISCELLANE PRN (13:05)
[2020-08-16] MEDS ORDERED: AMIODARONE 360 MG in DEXTROSE 5% IN WATER 200 ML IV PRN ×2 (13:05)
[2020-08-16] MEDS ORDERED: BENZOCAINE/MENTHOL LOZENG 1 EACH LOZENGE MUCOUS MEM PRN (13:05)
[2020-08-16] MEDS ORDERED: Magnesium Replacement Protocol 1 EACH MISC MISCELLANE PRN ×2 (13:05→15:19)
[2020-08-16] MEDS ORDERED: DEXTROSE 5% IN WATER 100 ML with AMIODARONE 150 MG IV PRN (13:05)
[2020-08-16] MEDS ORDERED: hydrALAZINE HCL 20 MG/ML 1 ML VIAL IVP PRN (13:05)
[2020-08-16] MEDS ORDERED: AMIODARONE 300 MG in DEXTROSE 5% IN WATER 250 ML IV PRN ×2 (13:05)
[2020-08-16] MEDS ORDERED: CALCIUM GLUCONATE 2 GM in SODIUM CHLORIDE 0.9% 100 ML IVPB PRN (13:05)
[2020-08-16] MEDS ORDERED: ALBUMIN HUMAN 5% 250 ML in EMPTY BAG 1 BAG IVPB PRN (13:05)
[2020-08-16] MEDS ORDERED: ONDANSETRON 4 MG/2 ML VIAL IVP PRN (13:05)
[2020-08-16] MEDS ORDERED: IPRATROPIUM-ALBUTEROL 3 ML NEB INHALATION PRN (13:05)
[2020-08-16] MEDS ORDERED: Potassium Replacement Protocol 1 EACH MISC MISCELLANE PRN (13:05)
[2020-08-16] MEDS ORDERED: CLEVIDIPINE BUTYRATE 25 MG in EMPTY BAG 1 BAG IV SCH (13:05)
[2020-08-16 13:08] LABS: ABG Hematocrit 24 % (34.0-46.0)
[2020-08-16 13:09] LABS: ABG Hematocrit 23 % (34.0-46.0); ABG Lactic Acid Whole Blood 2.6 mmol/L (0.5-1.6)
[2020-08-16 13:09] LABS: ABG Lactic Acid Whole Blood 2.1 mmol/L (0.5-1.6)
[2020-08-16 13:10] LABS: ABG Hematocrit 22 % (34.0-46.0)
[2020-08-16] MEDS ORDERED: NITROGLYCERIN-D5W PMX 50 MG in DEXTROSE/WATER 1 250ML.BAG IV SCH (13:30)
[2020-08-16] MEDS ORDERED: DEXMEDETOMIDINE/0.9% NACL(PMX) 400 MCG in EMPTY BAG 1 BAG IV SCH (14:00)
[2020-08-16 14:09] LABS: Anisocytosis Slight; Basophils % (A) 0 %; Eosinophils % (A) 0 %; HCT 20.6 % (39.0-53.0); Hypochromasia Slight; Lymphocytes # (A) 0.8 k/uL (1.0-4.8); Lymphocytes % (A) 14 %; MCV 94.1 fL (80.0-100.0); Mean Platelet Volume 11.9; Monocytes # (A) 0.3 k/uL (0-1.0); Monocytes % (A) 5 %; Neutrophils # (A) 4.4 k/uL (1.3-7.7); Neutrophils % (A) 79 %; Poikilocytosis Slight; RBC 2.19 m/uL (4.30-5.90); RDW 18.8 % (11.5-15.5); WBC 5.6 k/uL (3.8-10.6)
[2020-08-16 14:12] LABS: ABG HCO3 24 mmol/L (21-25); ABG PCO2 55 mmHg (35-45); ABG PH 7.26 (7.35-7.45); ABG PO2 309 mmHg (83-108); ABG TCO2 26 mmol/L (19-24)
[2020-08-16 14:13] LABS: Allen Test Performed? no
[2020-08-16 14:16] LABS: Platelet Count 108 k/uL (150-450)
[2020-08-16 14:27] LABS: INR 1.4 (<1.2); Partial Thromboplastin Time 28.1 sec (22.0-30.0); Prothrombin Time 13.5 sec (9.0-12.0)
[2020-08-16 14:29] LABS: Ionized Calcium 4.4 mg/dL (4.5-5.3)
[2020-08-16] MEDS ORDERED: MILRINONE-D5W PMX 20 MG in DEXTROSE/WATER 1 100ML.BAG IV SCH (14:30)
[2020-08-16] MEDS: MILRINONE-D5W PMX 20 MG in DEXTROSE/WATER 1 100ML.BAG IV SCH (14:35)
[2020-08-16] MEDS: LACTATED RINGERS 1,000 ML IV SCH (14:37)
[2020-08-16 14:38] LABS: ALT 13 U/L (4-49); AST 19 U/L (17-59); African American GFR (CKD) >90 (>60 ml/min/1.73 sqM); Albumin 3.1 g/dL (3.5-5.0); Alkaline Phosphatase 41 U/L (38-126); Anion Gap 7 mmol/L; Blood Urea Nitrogen 16 mg/dL (9-20); Carbon Dioxide 24 mmol/L (22-30); Chloride 105 mmol/L (98-107); Glucose 184 mg/dL (74-99); Magnesium 1.6 mg/dL (1.6-2.3); Non-African American GFR(CKD) >90 (>60 ml/min/1.73 sqM); Potassium 4.5 mmol/L (3.5-5.1); Sodium 136 mmol/L (137-145); Total Bilirubin 1.8 mg/dL (0.2-1.3)
[2020-08-16] MEDS: NOREPINEPHRINE 4 MG in SODIUM CHLORIDE 0.9% 250 ML IV SCH (14:39)
--- NOTE | 2020-08-16 15:07 | XR ---
EXAMINATION TYPE: XR chest 1V portable DATE OF EXAM: 08/16/2020 Comparison: 06/20/2020 Clinical History: 65-year-old male Post Operative Cardiac Surgery Findings: Median sternotomy wires are present. Heart borderline in size. Mediastinal drain. ET tube tip estimat ed at 2.8 cm from the boni. NG tube courses below the diaphragm. Left basilar and left apical chest tubes are present. No appreciable pneumothorax. Interstitial densities. The left costophrenic angle is excluded from view. Impression: Correlate for mild pulmonary vascular congestion. The left costophrenic angle is cut off on the image .
[2020-08-16] MEDS: METOCLOPRAMIDE 5 MG/ML 2 ML VIAL IVP PRN (15:12)
[2020-08-16 15:49] LABS: Glucose,Whole Blood 225 mg/dL (75-99)
[2020-08-16 15:49] LABS: Glucose,Whole Blood 164 mg/dL (75-99)
[2020-08-16 15:52] LABS: ABG Base Excess -2.4 mmol/L; ABG HCO3 24 mmol/L (21-25); ABG PCO2 49 mmHg (35-45); ABG PO2 164 mmHg (83-108); ABG TCO2 26 mmol/L (19-24)
[2020-08-16 15:54] LABS: Allen Test Performed? no
[2020-08-16 15:58] LABS: Glucose,Whole Blood 213 mg/dL (75-99)
[2020-08-16] MEDS: INSULIN REGULAR 100 UNIT in SODIUM CHLORIDE 0.9% 100 ML IV SCH (15:59)
[2020-08-16] MEDS: MAGNESIUM SULFATE-D5W PMX 1 GM in DEXTROSE/WATER 1 100ML.BAG IVPB SCH ×2 (16:00→16:47)
[2020-08-16] MEDS ORDERED: IPRATROPIUM-ALBUTEROL 3 ML NEB INHALATION SCH (16:00)
--- NOTE | 2020-08-16 16:01 | OP ---
OPERATIVE REPORT DATE OF THE OPERATION: 08/16/2020 ATTENDING SURGEON: Dr. Greta Mendoza. ASSIST: Munir Panchal and Maximo Matias. PREOPERATIVE DIAGNOSIS: Left main coronary arterial disease with history of mediastinal radiation. POSTOPERATIVE DIAGNOSIS: Left main coronary arterial disease with history of mediastinal radiation. PROCEDURE: Coronary bypass grafting x1 with left internal mammary artery to left anterior descending artery off pump with intraoperative GATO and extensive lysis of radiation caused adhesions. ANESTHESIA: General. BLOOD LOSS: About 1000 mL. SUMMARY: The patient brought to the operating room, placed in the supine position. From gnosticism of general endotracheal anesthetic, placement of a [place] catheter arterial line, adequate IV access, Cadet catheter, patient carefully prepped and draped in normal sterile fashion using chlorhexidine paint and sterile towels. A midline incision in the chest made, the sternum was divided. There was extensive scar tissue and venous bleeding from all areas. Extensive amount of time was taken to take down the adhesions from both sides of the sternum as well as control the venous bleeding. Left pleural space was then opened, left internal mammary artery harvested as a pedicle from the xiphoid to the left subclavian vein. It was of 2 mm quality with excellent flow. The patient was then heparinized and ACT of greater than 300. The stay sutures were placed in the pericardium and anterior wall of the heart and the left anterior descending artery was exposed by manipulating the stay sutures. At this point, the SIMS was beveled. The left internal mammary artery in its midportion was opened. A 1.5 mm shunt was placed intracoronary and the anastomosis between the SIMS and the LAD was performed using 8-0 Prolene running suture. At the end, the shunt was removed. The suture tied down and there was no evidence of any bleeding. At this point hemostasis was maintained. Two mediastinal chest tubes, a 36-Thai straight and 36- Thai right angle as well as a 32-Thai left pleural chest tube were placed. The sternum was then closed with three #6 sternal wires and three [id number] [place] sternal cable closure devices. Skin, subcutaneous tissue, fascia closed in 3 layers. No complications. Patient tolerated the procedure well and was taken to the cardiovascular intensive care unit in critical but stable condition. MMODL / IJN: [id number] /
[2020-08-16] MEDS: ceFAZolin 3 GM in SODIUM CHLORIDE 0.9% 100 ML IVPB SCH ×2 (16:51→23:54)
[2020-08-16 17:04] LABS: Glucose,Whole Blood 185 mg/dL (75-99)
[2020-08-16 17:07] LABS: Anisocytosis Slight; Basophils % (A) 0 %; Eosinophils % (A) 0 %; HCT 23.7 % (39.0-53.0); HGB 7.9 gm/dL (13.0-17.5); Hypochromasia Slight; Lymphocytes # (A) 0.9 k/uL (1.0-4.8); Lymphocytes % (A) 12 %; MCH 31.2 pg (25.0-35.0); MCHC 33.6 g/dL (31.0-37.0); MCV 93.1 fL (80.0-100.0); Mean Platelet Volume 10.8; Monocytes # (A) 0.3 k/uL (0-1.0); Monocytes % (A) 4 %; Neutrophils # (A) 6.2 k/uL (1.3-7.7); Neutrophils % (A) 84 %; Platelet Count 109 k/uL (150-450); Poikilocytosis Slight; RBC 2.54 m/uL (4.30-5.90); RDW 18.7 % (11.5-15.5); WBC 7.4 k/uL (3.8-10.6)
[2020-08-16] MEDS: ACETAMINOPHEN IV (For NPO) 1,000 MG in EMPTY BAG 1 BAG IVPB SCH ×2 (17:21→23:12)
[2020-08-16 17:22] LABS: Ovalocytes Present; Poikilocytosis (M) Present
--- NOTE | 2020-08-16 17:30 | P.CNPUL ---
History of Present Illness Consult date: 08/16/20 Requesting physician: Anjel Mendoza Reason for consult: other Chief complaint: Coronary artery disease History of present illness: This is a 55-year-old white male patient with history of hypertension, hyperlipidemia, severe aortic stenosis status post TAPVR in the 2017, CAD with previous stenting of the RCA, the most recent one performed on 05/14/[address] Landaverde. Patient had been experiencing chest pressure and tightness on and off, and shortness of breath. Had a recent non-ST elevated myocardial infarction and RCA stenting in April 2020. Patient underwent cardiac catheterization on 06/12/2020 which showed distal left main eccentric plaque, calcification, urinalysis was in the range of 60%. His RCA was stented and multiple segments and all statins were open. LAD had mild disease. His echocardiogram from April 2020 showed the EF between 50-55%, normally functioning bioprosthetic aortic valve, mild mitral regurgitation, severe pulmonary hypertension, with mild tricuspid regurgitation, PA pressure of was 63 mmHg. Surgical intervention was recommended, and today on 08/16/2020 patient underwent a single-vessel bypass grafting with SIMS to the LAD and this was done off pump. 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 He seen in the postoperative period in the intensive care unit, he is sedated, intubated on mechanical ventilator current vent settings are assist control mode of ventilation with the rate of 16, tidal lungs 500, FiO2 is 50% and PEEP of 5. Postoperative blood gases were reviewed, necessary adjustments were made. Patient is hemodynamically stable, he had some mild bleeding Intra-Op, he received 2 units of packed red blood cells, 1 units of fresh frozen plasma and 1 unit of platelets, she is on small amount of norepinephrine currently at 0.08 mics per kilo per minute, lactated Ringer's at 50 ML per hour, Precedex is a 0.4 mics per kilo per minute, nitroglycerin at 5 mics per kilo per minute and insulin drip is at 3 units per hour. In his him, with a rate of 86, PA pressures 54/29, CVP is 27, cardiac output is 4.9, and 2.1 respectively. Mediastianal chest tubes with a total of 140 ML of sanguinous output in the Pleur-evac, no evidence of air leak, left pleural chest tube with 30 mL of sanguinous output. Patient is calm and comfortable, resting comfortably on the ventilator. Postoperative chest x-ray shows a mild pulmonary vascular congestion. Catheters and ET tube in appropriate positions. Review of Systems All systems: negative Constitutional: Denies chills, Denies fever Eyes: denies blurred vision, denies pain Ears, nose, mouth and throat: Denies headache, Denies sore throat Cardiovascular: Reports chest pain, Denies shortness of breath Respiratory: Reports dyspnea, Denies cough Gastrointestinal: Denies abdominal pain, Denies diarrhea, Denies nausea, Denies vomiting Musculoskeletal: Denies myalgias Integumentary: Denies pruritus, Denies rash Neurological: Denies numbness, Denies weakness Psychiatric: Denies anxiety, Denies depression Endocrine: Denies fatigue, Denies weight change Past Medical History Past Medical History: Coronary Artery Disease (CAD), Chest Pain / Angina, Hyperlipidemia, Hypertension Additional Past Medical History / Comment(s): hx kidney stones, had blood transfusion after cardiac cath done end april, 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 anemia, hx. 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 GATO, aortic valve replaced via TAVR Past Anesthesia/Blood Transfusion Reactions: Motion Sickness Additional Past Anesthesia/Blood Transfusion Reaction / Comment(s): no blood transfusion reactions Date of Last Stent Placement:: 05/14/2020 Smoking Status: Never smoker - Past Family History Father Family Medical History: Myocardial Infarction ([place]) Sister(s) Family Medical History: Cancer Additional Family Medical History / Comment(s): Sister with brain tumor Mother Family Medical History: COPD, Diabetes Mellitus Medications and Allergies Home Medications Medication Instructions Recorded Confirmed Type Aspirin [Adult Low Dose Aspirin EC] 81 mg PO DAILY 11/21/16 08/16/20 History Atorvastatin Calcium [Lipitor] 80 mg PO HS 11/21/16 08/16/20 History Furosemide [Lasix] 40 mg PO DAILY 04/13/20 08/16/20 History Metoprolol Tartrate [Lopressor] 50 mg PO BID 04/13/20 08/16/20 History lisinopriL [Zestril] 2.5 mg PO DAILY 04/13/20 08/16/20 History Nitroglycerin Sl Tabs [Nitrostat] 0.4 mg SUBLINGUAL Q5M PRN #30 tab 05/17/20 08/16/20 Rx Spironolactone [Aldactone] 25 mg PO DAILY #30 tab 05/17/20 08/16/20 Rx Ticagrelor [Brilinta] 90 mg PO BID #60 tab 05/17/20 08/16/20 Rx Isosorbide Mononitrate ER [Imdur] 30 mg PO DAILY #30 tab.er.24h 06/22/20 08/16/20 Rx Allergies Allergy/AdvReac Type Severity Reaction Status Date / Time No Known Allergies Allergy Verified 08/16/20 06:21 Physical Exam Vitals: Vital Signs Temp Pulse Pulse Resp BP BP BP 08/16/20 17:00 80 20 99/58 08/16/20 16:45 83 21 101/60 08/16/20 16:30 84 18 08/16/20 16:20 87 19 99/60 08/16/20 16:10 85 19 99/59 08/16/20 16:00 85 18 08/16/20 15:50 88 16 95/58 08/16/20 15:40 87 16 100/61 08/16/20 15:30 93 10 L 08/16/20 15:20 85 16 83/54 08/16/20 15:13 82 08/16/20 15:10 81 16 08/16/20 15:03 37.0 F L 86 16 95/46 08/16/20 15:00 87 16 08/16/20 14:50 90 16 93/61 08/16/20 14:40 87 16 104/66 08/16/20 14:30 89 16 08/16/20 14:20 84 16 93/57 08/16/20 14:10 79 12 103/53 08/16/20 14:00 80 12 84/48 08/16/20 13:50 76 12 80/46 08/16/20 13:40 97.7 F 77 12 95/61 08/16/20 13:32 73 14 08/16/20 13:31 37 F L 85 16 92/46 11/24/20 12:56 36.6 F L 79 12 85/58 08/16/20 12:24 98.4 F 76 12 78/62 08/16/20 06:05 97.0 F L 82 16 114/63 144/70 Pulse Ox 08/16/20 17:00 96 08/16/20 16:45 96 08/16/20 16:30 96 08/16/20 16:20 96 08/16/20 16:10 96 08/16/20 16:00 97 08/16/20 15:50 98 08/16/20 15:40 98 08/16/20 15:30 98 08/16/20 15:20 98 08/16/20 15:13 08/16/20 15:10 99 08/16/20 15:03 99 08/16/20 15:00 98 08/16/20 14:50 97 08/16/20 14:40 97 08/16/20 14:30 99 08/16/20 14:20 100 08/16/20 14:10 100 08/16/20 14:00 99 08/16/20 13:50 99 08/16/20 13:40 99 08/16/20 13:32 08/16/20 13:31 99 08/16/20 12:56 99 08/16/20 12:24 99 08/16/20 06:05 96 Intake and Output 08/16/20 08/16/20 08/16/20 06:59 14:59 22:59 Intake Total 100 1636 1093.666 Output Total 2295 147 Balance 100 -659 946.666 Intake: IV 677 400 7469 Albumin Human 5% 250 ml 250 250 In Empty Bag 1 bag @ 250 mls/hr IVPB Q1HR PRN Rx#: [id number] CO/CI 90 360 Calcium Gluconate 2 gm In 100 Sodium Chloride 0.9% 100 ml @ 100 mls/hr IVPB ONCE PRN Rx#:[id number] Lactated Ringers 1,000 ml 50 150 @ 50 mls/hr IV .Q20H JAY Rx#:[id number] Magnesium Sulfate-D5w Pmx 200 1 gm In Dextrose/Water 1 100ml.bag @ 100 mls/hr IVPB Q1H JAY Rx#: [id number] PRESSURE BAGS 9 27 Intake, IV Titration 6.666 Amount Insulin Regular 100 unit 6.666 In Sodium Chloride 0.9% 100 ml @ Per Protocol IV .Q0M [facility] Rx#:[id number] Blood Product 1205 0 Ffp 24 Cp2d Unit 316 [id number] Ffp 24 Cpd Unit 290 [id number] Platelet Irr Pheresis 2 289 Acda Unit [id number] Rc As-1 Unit 0 [id number] Rc As-1 Unit 310 [id number] Output: Chest Tube Drainage 65 105 Left plural 0 30 Mediastinal X2 65 75 Urine 230 42 Estimated Blood Loss 1999 Other: Weight 132 kg ABP, PAP, CO, CI - Last 8 Hours Arterial Blood Pressure 112/53 Arterial Blood Pressure 113/54 Arterial Blood Pressure 112/55 Arterial Blood Pressure 114/57 Arterial Blood Pressure 112/55 Arterial Blood Pressure 110/55 Arterial Blood Pressure 114/58 Arterial Blood Pressure 101/51 Arterial Blood Pressure 111/56 Arterial Blood Pressure 96/49 Arterial Blood Pressure 95/47 Arterial Blood Pressure 103/50 Arterial Blood Pressure 109/48 Arterial Blood Pressure 103/46 Arterial Blood Pressure 121/57 Arterial Blood Pressure 113/51 Arterial Blood Pressure 105/52 Arterial Blood Pressure 80/35 Pulmonary Artery Pressure 50/30 Pulmonary Artery Pressure 52/30 Pulmonary Artery Pressure 56/30 Pulmonary Artery Pressure 53/30 Pulmonary Artery Pressure 53/30 Pulmonary Artery Pressure 55/31 Pulmonary Artery Pressure 57/33 Pulmonary Artery Pressure 58/33 Pulmonary Artery Pressure 51/31 Pulmonary Artery Pressure 55/33 Pulmonary Artery Pressure 56/32 Pulmonary Artery Pressure 54/31 Pulmonary Artery Pressure 60/36 Pulmonary Artery Pressure 57/32 Pulmonary Artery Pressure 53/33 Pulmonary Artery Pressure 56/33 Pulmonary Artery Pressure 50/31 Pulmonary Artery Pressure 53/32 Cardiac Output 4.9 Cardiac Output 5.4 Cardiac Output 5.9 Cardiac Output 6.2 Cardiac Output 4.4 Cardiac Output 4.9 Cardiac Index 2.1 Cardiac Index 2.3 Cardiac Index 2.5 Cardiac Index 2.6 Cardiac Index 1.9 Cardiac Index 2.1 GENERAL EXAM: Sedated, intubated, 65-year-old white male, on assist-control mode of ventilation, comfortable in no apparent distress. HEAD: Normocephalic/atraumatic. EYES: Normal reaction of pupils, equal size. Conjunctiva pink, sclera white. NOSE: Clear with pink turbinates. THROAT: No erythema or exudates. NECK: No masses, no JVD, no thyroid enlargement, no adenopathy. CHEST: No chest wall deformity. Symmetrical expansion. Midsternal incision is clean dry and intact, covered with surgical dressing, 2 mediastinal chest tubes and left pleural chest tube with a small amount of single is output in the Pleur-evac no evidence of air leak LUNGS: Equal air entry with no crackles, wheeze, rhonchi or dullness. CVS: Regular rate and rhythm, normal S1 and S2, no gallops, no murmurs, no rubs ABDOMEN: Soft, nontender. No hepatosplenomegaly, normal bowel sounds, no guarding or rigidity. EXTREMITIES: No clubbing, no edema, no cyanosis, 2+ pulses and upper and lower extremities. MUSCULOSKELETAL: Muscle strength and tone normal. SPINE: No scoliosis or deformity SKIN: No rashes CENTRAL NERVOUS SYSTEM: Sedated, intubated. No focal deficits, tone is normal in all 4 extremities. Results - Laboratory Findings CBC and BMP: 08/16/20 16:35 08/16/20 13:51 ABG ABG pH 7.30 (7.35-7.45) L 08/16/20 15:43 ABG pCO2 49 mmHg (35-45) H 08/16/20 15:43 ABG pO2 164 mmHg (83-108) H 08/16/20 15:43 ABG O2 Saturation 100.0 % (94-97) H 08/16/20 15:43 PT/INR, D-dimer PT 13.5 sec (9.0-12.0) H 08/16/20 13:51 INR 1.4 (<1.2) H 08/16/20 13:51 Abnormal lab findings: Abnormal Labs 08/15/20 08/16/20 08/16/20 07:12 09:17 11:01 RBC Hgb Hct RDW Plt Count Lymphocytes # PT INR ABG pH ABG pCO2 51 H 51 H ABG pO2 297 H 302 H ABG HCO3 28 H 28 H ABG Total CO2 29 H 30 H ABG O2 Saturation 100.0 H 99.9 H ABG Hematocrit 28 L 24 L ABG Ionized Calcium ABG Glucose 180 H 158 H ABG Lactic Acid 1.9 H Hemoglobin 9.1 L 7.8 L Sodium Glucose POC Glucose (mg/dL) Calcium Ionized Calcium Naseem Total Bilirubin Total Protein Albumin Arterial Blood Glucose 180 H 158 H Crossmatch See Detail 08/16/20 08/16/20 08/16/20 11:44 12:16 13:51 RBC 2.19 L Hgb 7.0 L D Hct 20.6 L RDW 18.8 H Plt Count 108 L Lymphocytes # 0.8 L PT INR ABG pH 7.27 L ABG pCO2 46 H 57 H ABG pO2 400 H 171 H ABG HCO3 27 H ABG Total CO2 27 H 28 H ABG O2 Saturation 100.0 H 99.5 H ABG Hematocrit 23 L 22 L ABG Ionized Calcium 4.2 L ABG Glucose 194 H 179 H ABG Lactic Acid 2.6 H* 2.1 H Hemoglobin 7.3 L 7.0 L* Sodium Glucose POC Glucose (mg/dL) Calcium Ionized Calcium Naseem Total Bilirubin Total Protein Albumin Arterial Blood Glucose 194 H 179 H Crossmatch 08/16/20 08/16/20 08/16/20 13:51 13:51 13:52 RBC Hgb Hct RDW Plt Count Lymphocytes # PT 13.5 H INR 1.4 H ABG pH ABG pCO2 ABG pO2 ABG HCO3 ABG Total CO2 ABG O2 Saturation ABG Hematocrit ABG Ionized Calcium ABG Glucose ABG Lactic Acid Hemoglobin Sodium 136 L Glucose 184 H POC Glucose (mg/dL) 225 H Calcium 8.0 L Ionized Calcium Naseem 4.4 L Total Bilirubin 1.8 H Total Protein 5.0 L Albumin 3.1 L Arterial Blood Glucose Crossmatch 08/16/20 08/16/20 08/16/20 14:10 14:18 14:31 RBC Hgb Hct RDW Plt Count Lymphocytes # PT INR ABG pH 7.26 L ABG pCO2 55 H ABG pO2 309 H ABG HCO3 ABG Total CO2 26 H ABG O2 Saturation 100.0 H ABG Hematocrit ABG Ionized Calcium ABG Glucose ABG Lactic Acid 3.3 H* Hemoglobin Sodium Glucose POC Glucose (mg/dL) 164 H Calcium Ionized Calcium Naseem Total Bilirubin Total Protein Albumin Arterial Blood Glucose Crossmatch 08/16/20 08/16/20 08/16/20 15:43 15:57 16:35 RBC 2.54 L Hgb 7.9 L Hct 23.7 L RDW 18.7 H Plt Count 109 L Lymphocytes # PT INR ABG pH 7.30 L ABG pCO2 49 H ABG pO2 164 H ABG HCO3 ABG Total CO2 26 H ABG O2 Saturation 100.0 H ABG Hematocrit ABG Ionized Calcium ABG Glucose ABG Lactic Acid Hemoglobin Sodium Glucose POC Glucose (mg/dL) 213 H Calcium Ionized Calcium Naseem Total Bilirubin Total Protein Albumin Arterial Blood Glucose Crossmatch 08/16/20 17:03 RBC Hgb Hct RDW Plt Count Lymphocytes # PT INR ABG pH ABG pCO2 ABG pO2 ABG HCO3 ABG Total CO2 ABG O2 Saturation ABG Hematocrit ABG Ionized Calcium ABG Glucose ABG Lactic Acid Hemoglobin Sodium Glucose POC Glucose (mg/dL) 185 H Calcium Ionized Calcium Naseem Total Bilirubin Total Protein Albumin Arterial Blood Glucose Crossmatch - Diagnostic Findings Chest x-ray: report reviewed, image reviewed Assessment and Plan Plan: Assessment: #1. Coronary artery disease, with the 60% stenosis in the left main coronary artery, with heavy calcification, status post single-vessel bypass surgery with a SIMS to LAD, off pump, on 08/16/2020, postoperative day 0 #2. Routine postoperative ventilator management, postoperative blood gases showed acute hypercapnic respiratory failure, necessary vent adjustments have been made #3. Acute and chronic anemia related to acute blood loss anemia, patient was transfused with 2 units of packed red blood cells, 1 unit of fresh frozen plasma and 1 unit of platelets in the OR #4. Coronary artery disease with previous stenting, most recent heart catheterization showed the above-mentioned stenosis in the left main, and multiple segments of the RCA previously stented were open #5. Recent history of non-ST elevated myocardial infarction in April 2020 #6. Hypertension #7. Hyperlipidemia #9. Severe pulmonary hypertension #10. History of severe aortic stenosis, status post TAVR in 2017 #11. 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 Lifetime nonsmoker Plan: Necessary vent adjustments have been made, currently on assist control mode of ventilation with a rate of 18, tidal lines 500, FiO2 is 50% and PEEP of 5. Hemodynamically patient is stable, on small amount of norepinephrine, will continue weaning FiO2, was a patient is awake and remains hemodynamically stable we'll proceed with the spontaneous breathing trials. GI and DVT prophylaxis per CT surgery, and tinea monitoring the amount of bleeding, continue monitoring hemodynamic status, nebulized treatments every 4 hours around the clock while on a ventilator, 4 times a day and when necessary once extubated, incentive spirometer to the bedside once extubated, follow-up blood work and chest x-ray per protocol. We'll continue to closely follow with CT surgery I performed a history & physical examination of the patient and discussed their management with my nurse practitioner, Ute Nielson. I reviewed the nurse practitioner's note and agree with the documented findings and plan of care. Lung sounds are positive for diminished breath sounds. The findings and the impression was discussed with the patient. I attest to the documentation by the nurse practitioner. Time with Patient: Greater than 30
[2020-08-16 18:07] LABS: Glucose,Whole Blood 177 mg/dL (75-99)
[2020-08-16 19:03] LABS: Glucose,Whole Blood 166 mg/dL (75-99)
[2020-08-16 19:17] LABS: ABG Base Excess -1.6 mmol/L; ABG HCO3 24 mmol/L (21-25); ABG Oxygen Saturation 99.3 % (94-97); ABG PCO2 44 mmHg (35-45); ABG PH 7.34 (7.35-7.45); ABG PO2 117 mmHg (83-108); ABG TCO2 26 mmol/L (19-24)
[2020-08-16 19:38] LABS: Anisocytosis Slight; Basophils % (A) 0 %; Eosinophils % (A) 0 %; HCT 24.2 % (39.0-53.0); HGB 8.1 gm/dL (13.0-17.5); Hypochromasia Slight; Lymphocytes # (A) 0.8 k/uL (1.0-4.8); Lymphocytes % (A) 13 %; MCH 30.8 pg (25.0-35.0); MCHC 33.5 g/dL (31.0-37.0); MCV 91.9 fL (80.0-100.0); Mean Platelet Volume 12.1; Monocytes # (A) 0.2 k/uL (0-1.0); Monocytes % (A) 3 %; Neutrophils # (A) 5.1 k/uL (1.3-7.7); Neutrophils % (A) 82 %; Poikilocytosis Slight; RBC 2.64 m/uL (4.30-5.90); WBC 6.3 k/uL (3.8-10.6)
[2020-08-16 19:39] LABS: Platelet Count 88 k/uL (150-450)
[2020-08-16 20:16] LABS: Glucose,Whole Blood 161 mg/dL (75-99)
[2020-08-16] MEDS: IPRATROPIUM-ALBUTEROL 3 ML NEB INHALATION SCH ×2 (20:25→20:26)
[2020-08-16] MEDS ORDERED: MUPIROCIN 2% OINT 22 GM TUBE NASAL ONE (21:00)
[2020-08-16] MEDS: HEPARIN SODIUM,PORCINE 5,000 UNIT/ML 1 ML VIAL SQ SCH (21:06)
[2020-08-16 21:16] LABS: Glucose,Whole Blood 159 mg/dL (75-99)
[2020-08-16 21:59] LABS: Glucose,Whole Blood 156 mg/dL (75-99)
[2020-08-16 23:10] LABS: Glucose,Whole Blood 150 mg/dL (75-99)
[2020-08-17] MEDS ORDERED: HYDROcodone/APAP 5-325MG 1 EACH TAB PO PRN (01:01)
[2020-08-17 01:04] LABS: Glucose,Whole Blood 141 mg/dL (75-99)
[2020-08-17] MEDS: MILRINONE-D5W PMX 20 MG in DEXTROSE/WATER 1 100ML.BAG IV SCH (01:40)
[2020-08-17] MEDS: NOREPINEPHRINE 4 MG in SODIUM CHLORIDE 0.9% 250 ML IV SCH (02:05)
[2020-08-17 02:10] LABS: Glucose,Whole Blood 136 mg/dL (75-99)
[2020-08-17 03:33] LABS: Glucose,Whole Blood 132 mg/dL (75-99)
[2020-08-17] MEDS: HYDROcodone/APAP 5-325MG 1 EACH TAB PO PRN ×2 (04:05→20:06)
[2020-08-17 04:34] LABS: Anisocytosis Slight; HCT 24.4 % (39.0-53.0); Hypochromasia Slight; MCH 30.6 pg (25.0-35.0); MCHC 32.9 g/dL (31.0-37.0); MCV 92.8 fL (80.0-100.0); Mean Platelet Volume 11.7; Poikilocytosis Slight; RBC 2.63 m/uL (4.30-5.90); RDW 19.2 % (11.5-15.5); WBC 7.4 k/uL (3.8-10.6)
[2020-08-17 06:02] LABS: Glucose,Whole Blood 149 mg/dL (75-99)
[2020-08-17] MEDS: INSULIN REGULAR 100 UNIT in SODIUM CHLORIDE 0.9% 100 ML IV SCH (06:05)
[2020-08-17 06:07] LABS: Band Neutrophils % 18 %; Lymphocytes # (M) 0.74 k/uL (1.0-4.8); Neutrophils % (M) 69 %; Nucleated Red Blood Cells 0 /100 WBC (0-0); Ovalocytes Present; Total Cells Counted 200
[2020-08-17 06:08] LABS: Large Platelets Present; Polychromasia Present
[2020-08-17 06:09] LABS: Basophilic Stippling Present
[2020-08-17 06:10] LABS: Platelet Count 85 k/uL (150-450)
[2020-08-17 06:20] LABS: Ionized Calcium 4.8 mg/dL (4.5-5.3)
[2020-08-17 06:32] LABS: ALT 111 U/L (4-49); AST 126 U/L (17-59); African American GFR (CKD) >90 (>60 ml/min/1.73 sqM); Albumin 3.3 g/dL (3.5-5.0); Alkaline Phosphatase 38 U/L (38-126); Anion Gap 6 mmol/L; Blood Urea Nitrogen 17 mg/dL (9-20); Calcium 8.4 mg/dL (8.4-10.2); Carbon Dioxide 27 mmol/L (22-30); Chloride 105 mmol/L (98-107); Glucose 123 mg/dL (74-99); Non-African American GFR(CKD) >90 (>60 ml/min/1.73 sqM); Sodium 138 mmol/L (137-145); Total Bilirubin 1.7 mg/dL (0.2-1.3); Total Protein 5.3 g/dL (6.3-8.2)
[2020-08-17 07:01] LABS: Glucose,Whole Blood 141 mg/dL (75-99)
--- NOTE | 2020-08-17 07:10 | XR ---
EXAMINATION TYPE: XR chest 1V portable DATE OF EXAM: 08/17/2020 COMPARISON: 08/16/2020 HISTORY: SOB, Follow Up FINDINGS: Endotracheal and NG tubes have been removed. [place] catheter, left-sided chest tube and mediastina l drains remain in place. Tiny left apical pneumothorax estimated at less than 5%. Perihilar and basilar linear opacities may reflect atelectasis. Small effusions noted. Stable appearance of the cardio-mediastinal structures at this time. IMPRESSION: 1. Scattered pleural-parenchymal opacities. Tiny left apical pneumothorax.
[2020-08-17] MEDS ORDERED: METOPROLOL TARTRATE 5 MG/5 ML VIAL IVP ONE (07:25)
[2020-08-17] MEDS: METOCLOPRAMIDE 5 MG/ML 2 ML VIAL IVP PRN (07:35)
[2020-08-17] MEDS: IPRATROPIUM-ALBUTEROL 3 ML NEB INHALATION SCH ×4 (07:54→22:01)
[2020-08-17 08:02] LABS: Glucose,Whole Blood 159 mg/dL (75-99)
[2020-08-17] MEDS: HEPARIN SODIUM,PORCINE 5,000 UNIT/ML 1 ML VIAL SQ SCH ×3 (08:24→22:50)
[2020-08-17] MEDS: ATORVASTATIN 80 MG TAB PO SCH (08:25)
[2020-08-17] MEDS: CLOPIDOGREL 75 MG TAB PO SCH (08:25)
[2020-08-17] MEDS: ASPIRIN 325 MG TAB PO SCH (08:25)
[2020-08-17] MEDS: LACTATED RINGERS 1,000 ML IV SCH (08:26)
--- NOTE | 2020-08-17 08:55 | P.PN ---
Subjective Progress Note Date: 08/17/20 Principal diagnosis: Left Main coronary artery disease. 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 He was successfully extubated last night at 19:25. States pain is controlled on current medication regimen, denies shortness of breath, although he does state it is difficult to take a deep breath. Remains in sinus rhythm to sinus tach on telemetry, hemodynamically stable although a bit hypertensive. Currently on no inotropes or pressors. He did receive 2 units packed red blood cells, 1 unit platelets, and one unit fresh frozen plasma yesterday. Mediastinal and left pleural chest tubes, right internal jugular [place]/Cordis, and right radial arterial lines all remain present. Objective - Vital Signs Vital signs: Vital Signs Temp 98.6 F 08/17/20 00:00 Pulse 99 08/17/20 07:00 Resp 26 H 08/17/20 07:00 BP 97/59 08/17/20 07:00 Pulse Ox 96 08/17/20 07:00 Intake & Output 08/16/20 08/17/20 08/17/20 18:59 06:59 18:59 Intake Total 3350.685 1325.357 109.171 Output Total 2602 926 59 Balance 748.685 399.357 50.171 Weight 136.8 kg Intake: IV 5887 918 79 ACETAMINOPHEN IV (For NPO 100 100 ) 1,000 mg In Empty Bag 1 bag @ 400 mls/hr IVPB Q6HR [facility] Rx#:[id number] Albumin Human 5% 250 ml 500 In Empty Bag 1 bag @ 250 mls/hr IVPB Q1HR PRN Rx#: [id number] CO/CI 490 160 20 Calcium Gluconate 2 gm In 100 Sodium Chloride 0.9% 100 ml @ 100 mls/hr IVPB ONCE PRN Rx#:[id number] Lactated Ringers 1,000 ml 250 550 50 @ 20 mls/hr IV .Q24H [facility] Rx#:[id number] Magnesium Sulfate-D5w Pmx 200 1 gm In Dextrose/Water 1 100ml.bag @ 100 mls/hr IVPB Q1H [facility] Rx#: [id number] PRESSURE BAGS 45 108 9 Intake, IV Titration 118.685 207.357 30.171 Amount Dexmedetomidine/0.9% NaCl 53.68 6.27 (Pmx) 400 mcg In Empty Bag 1 bag @ Titrate IV . Q0M [facility] Rx#:[id number] Insulin Regular 100 unit 6.666 65.608 6.346 In Sodium Chloride 0.9% 100 ml @ Per Protocol IV .Q0M [facility] Rx#:[id number] Milrinone-D5w Pmx 20 mg 34.98 In Dextrose/Water 1 100ml .bag @ 0.2 MCG/KG/MIN 7. 92 mls/hr IV .[id number] [facility] Rx#:[id number] Nitroglycerin-D5w Pmx 50 23.825 mg In Dextrose/Water 1 250ml.bag @ 5 MCG/MIN 1.5 mls/hr IV .Q24H [facility] Rx#: [id number] Norepinephrine 4 mg In 58.339 100.499 Sodium Chloride 0.9% 250 ml @ 0.05 MCG/KG/MIN 25. 146 mls/hr IV .Q10H7M [facility] Rx#:[id number] Oral 200 Blood Product 1515 Ffp 24 Cp2d Unit 316 [id number] Ffp 24 Cpd Unit 290 [id number] Platelet Irr Pheresis 2 289 Acda Unit [id number] Rc As-1 Unit 310 [id number] Rc As-1 Unit 310 [id number] Output: Chest Tube Drainage 245 501 34 Left plural 55 141 14 Mediastinal X2 190 360 20 Urine 357 425 25 Estimated Blood Loss 1999 Other: Voiding Method Indwelling Catheter Indwelling Catheter ABP, PAP, CO, CI - Last Documented Arterial Blood Pressure 141/52 Pulmonary Artery Pressure 35/15 Cardiac Output 6.9 Cardiac Index 2.9 - Constitutional General appearance: Present: cooperative, morbidly obese, no acute distress - Respiratory Details: Lungs sounds diminished bilaterally. Respirations even, nonlabored. Currently on 4 L nasal cannula with oxygen saturation 94%. Only able to achieve 500 mL on his incentive spirometry. Weak cough. Mediastinal chest tubes present to continuous wall suction, 230 mL serosanguineous drainage overnight, 580 mL since surgery. Left pleural chest tube present to continuous wall suction, 100 mL serosanguineous drainage overnight, 210 mL since surgery. No air leaks present. - Cardiovascular Details: S1, S2 present. Tachycardic but regular rate and rhythm, sinus tach on telemetry with heart rate in the low 100s. Sternum stable. Palpable peripheral pulses bilaterally. Generalized trace edema present. No calf pain or tenderness noted. Antiembolism stockings, SCDs present. Heart hugger in place with patient demonstrating appropriate use. Right internal jugular [place]/Cordis, right radial arterial line present. Last CO/CI 6.9/2.9 with CVP 13 and PA pressures 35/19 on no inotropes or pressors. - Gastrointestinal Gastrointestinal Comment(s): Abdomen soft, nontender, nondistended. Hypoactive bowel sounds present 4 quadrants. Tolerating some clear liquids. Positive belching, negative flatus. Large gastric bubble noted on chest x-ray. - Genitourinary Genitourinary Comment(s): Cadet present draining clear, yellow urine. Output 30-40 mL/h overnight. - Integumentary Integumentary Comment(s): Skin is warm and dry with evidence of good perfusion. Anterior chest incision well approximated and covered with dry intact dressing. - Neurologic Neurologic: Present: CNII-XII intact - Musculoskeletal Musculoskeletal: Present: strength equal bilaterally - Psychiatric Psychiatric: Present: A&O x's 3, appropriate affect, intact judgment & insight - Allied health notes Allied health notes reviewed: nursing - Labs CBC & Chem 7: 08/17/20 03:30 08/17/20 03:30 Labs: Abnormal Lab Results - Last 24 Hours (Table) 08/15/20 08/16/20 08/16/20 Range/Units 07:12 09:17 11:01 RBC (4.30-5.90) m/uL Hgb (13.0-17.5) gm/dL Hct (39.0-53.0) % RDW (11.5-15.5) % Plt Count (150-450) k/uL Lymphocytes # (1.0-4.8) k/uL Lymphocytes # (Manual) (1.0-4.8) k/uL PT (9.0-12.0) sec INR (<1.2) ABG pH (7.35-7.45) ABG pCO2 51 H 51 H (35-45) mmHg ABG pO2 297 H 302 H (83-108) mmHg ABG HCO3 28 H 28 H (21-25) mmol/L ABG Total CO2 29 H 30 H (19-24) mmol/L ABG O2 Saturation 100.0 H 99.9 H (94-97) % ABG Hematocrit 28 L 24 L (34.0-46.0) % ABG Ionized Calcium (4.5-5.3) mg/dL ABG Glucose 180 H 158 H (75-99) mg/dL ABG Lactic Acid 1.9 H (0.5-1.6) mmol/L Hemoglobin 9.1 L 7.8 L (13.0-17.5) gm/dL Sodium (137-145) mmol/L Creatinine (0.66-1.25) mg/dL Glucose (74-99) mg/dL POC Glucose (mg/dL) (75-99) mg/dL Plasma Lactic Acid Leandro (0.7-2.0) mmol/L Calcium (8.4-10.2) mg/dL Ionized Calcium Naseem (4.5-5.3) mg/dL Total Bilirubin (0.2-1.3) mg/dL AST (17-59) U/L ALT (4-49) U/L Total Protein (6.3-8.2) g/dL Albumin (3.5-5.0) g/dL Arterial Blood Glucose 180 H 158 H (75-99) mg/dL Crossmatch See Detail 08/16/20 08/16/20 08/16/20 Range/Units 11:44 12:16 13:51 RBC 2.19 L (4.30-5.90) m/uL Hgb 7.0 L D (13.0-17.5) gm/dL Hct 20.6 L (39.0-53.0) % RDW 18.8 H (11.5-15.5) % Plt Count 108 L (150-450) k/uL Lymphocytes # 0.8 L (1.0-4.8) k/uL Lymphocytes # (Manual) (1.0-4.8) k/uL PT (9.0-12.0) sec INR (<1.2) ABG pH 7.27 L (7.35-7.45) ABG pCO2 46 H 57 H (35-45) mmHg ABG pO2 400 H 171 H (83-108) mmHg ABG HCO3 27 H (21-25) mmol/L ABG Total CO2 27 H 28 H (19-24) mmol/L ABG O2 Saturation 100.0 H 99.5 H (94-97) % ABG Hematocrit 23 L 22 L (34.0-46.0) % ABG Ionized Calcium 4.2 L (4.5-5.3) mg/dL ABG Glucose 194 H 179 H (75-99) mg/dL ABG Lactic Acid 2.6 H* 2.1 H (0.5-1.6) mmol/L Hemoglobin 7.3 L 7.0 L* (13.0-17.5) gm/dL Sodium (137-145) mmol/L Creatinine (0.66-1.25) mg/dL Glucose (74-99) mg/dL POC Glucose (mg/dL) (75-99) mg/dL Plasma Lactic Acid Leandro (0.7-2.0) mmol/L Calcium (8.4-10.2) mg/dL Ionized Calcium Naseem (4.5-5.3) mg/dL Total Bilirubin (0.2-1.3) mg/dL AST (17-59) U/L ALT (4-49) U/L Total Protein (6.3-8.2) g/dL Albumin (3.5-5.0) g/dL Arterial Blood Glucose 194 H 179 H (75-99) mg/dL Crossmatch 08/16/20 08/16/20 08/16/20 Range/Units 13:51 13:51 13:52 RBC (4.30-5.90) m/uL Hgb (13.0-17.5) gm/dL Hct (39.0-53.0) % RDW (11.5-15.5) % Plt Count (150-450) k/uL Lymphocytes # (1.0-4.8) k/uL Lymphocytes # (Manual) (1.0-4.8) k/uL PT 13.5 H (9.0-12.0) sec INR 1.4 H (<1.2) ABG pH (7.35-7.45) ABG pCO2 (35-45) mmHg ABG pO2 (83-108) mmHg ABG HCO3 (21-25) mmol/L ABG Total CO2 (19-24) mmol/L ABG O2 Saturation (94-97) % ABG Hematocrit (34.0-46.0) % ABG Ionized Calcium (4.5-5.3) mg/dL ABG Glucose (75-99) mg/dL ABG Lactic Acid (0.5-1.6) mmol/L Hemoglobin (13.0-17.5) gm/dL Sodium 136 L (137-145) mmol/L Creatinine (0.66-1.25) mg/dL Glucose 184 H (74-99) mg/dL POC Glucose (mg/dL) 225 H (75-99) mg/dL Plasma Lactic Acid Leandro (0.7-2.0) mmol/L Calcium 8.0 L (8.4-10.2) mg/dL Ionized Calcium Naseem 4.4 L (4.5-5.3) mg/dL Total Bilirubin 1.8 H (0.2-1.3) mg/dL AST (17-59) U/L ALT (4-49) U/L Total Protein 5.0 L (6.3-8.2) g/dL Albumin 3.1 L (3.5-5.0) g/dL Arterial Blood Glucose (75-99) mg/dL Crossmatch 08/16/20 08/16/20 08/16/20 Range/Units 14:10 14:18 14:31 RBC (4.30-5.90) m/uL Hgb (13.0-17.5) gm/dL Hct (39.0-53.0) % RDW (11.5-15.5) % Plt Count (150-450) k/uL Lymphocytes # (1.0-4.8) k/uL Lymphocytes # (Manual) (1.0-4.8) k/uL PT (9.0-12.0) sec INR (<1.2) ABG pH 7.26 L (7.35-7.45) ABG pCO2 55 H (35-45) mmHg ABG pO2 309 H (83-108) mmHg ABG HCO3 (21-25) mmol/L ABG Total CO2 26 H (19-24) mmol/L ABG O2 Saturation 100.0 H (94-97) % ABG Hematocrit (34.0-46.0) % ABG Ionized Calcium (4.5-5.3) mg/dL ABG Glucose (75-99) mg/dL ABG Lactic Acid 3.3 H* (0.5-1.6) mmol/L Hemoglobin (13.0-17.5) gm/dL Sodium (137-145) mmol/L Creatinine (0.66-1.25) mg/dL Glucose (74-99) mg/dL POC Glucose (mg/dL) 164 H (75-99) mg/dL Plasma Lactic Acid Leandro (0.7-2.0) mmol/L Calcium (8.4-10.2) mg/dL Ionized Calcium Naseem (4.5-5.3) mg/dL Total Bilirubin (0.2-1.3) mg/dL AST (17-59) U/L ALT (4-49) U/L Total Protein (6.3-8.2) g/dL Albumin (3.5-5.0) g/dL Arterial Blood Glucose (75-99) mg/dL Crossmatch 08/16/20 08/16/20 08/16/20 Range/Units 15:43 15:57 16:35 RBC 2.54 L (4.30-5.90) m/uL Hgb 7.9 L (13.0-17.5) gm/dL Hct 23.7 L (39.0-53.0) % RDW 18.7 H (11.5-15.5) % Plt Count 109 L (150-450) k/uL Lymphocytes # 0.9 L (1.0-4.8) k/uL Lymphocytes # (Manual) (1.0-4.8) k/uL PT (9.0-12.0) sec INR (<1.2) ABG pH 7.30 L (7.35-7.45) ABG pCO2 49 H (35-45) mmHg ABG pO2 164 H (83-108) mmHg ABG HCO3 (21-25) mmol/L ABG Total CO2 26 H (19-24) mmol/L ABG O2 Saturation 100.0 H (94-97) % ABG Hematocrit (34.0-46.0) % ABG Ionized Calcium (4.5-5.3) mg/dL ABG Glucose (75-99) mg/dL ABG Lactic Acid (0.5-1.6) mmol/L Hemoglobin (13.0-17.5) gm/dL Sodium (137-145) mmol/L Creatinine (0.66-1.25) mg/dL Glucose (74-99) mg/dL POC Glucose (mg/dL) 213 H (75-99) mg/dL Plasma Lactic Acid Leandro (0.7-2.0) mmol/L Calcium (8.4-10.2) mg/dL Ionized Calcium Naseem (4.5-5.3) mg/dL Total Bilirubin (0.2-1.3) mg/dL AST (17-59) U/L ALT (4-49) U/L Total Protein (6.3-8.2) g/dL Albumin (3.5-5.0) g/dL Arterial Blood Glucose (75-99) mg/dL Crossmatch 08/16/20 08/16/20 08/16/20 Range/Units 17:03 17:10 18:05 RBC (4.30-5.90) m/uL Hgb (13.0-17.5) gm/dL Hct (39.0-53.0) % RDW (11.5-15.5) % Plt Count (150-450) k/uL Lymphocytes # (1.0-4.8) k/uL Lymphocytes # (Manual) (1.0-4.8) k/uL PT (9.0-12.0) sec INR (<1.2) ABG pH (7.35-7.45) ABG pCO2 (35-45) mmHg ABG pO2 (83-108) mmHg ABG HCO3 (21-25) mmol/L ABG Total CO2 (19-24) mmol/L ABG O2 Saturation (94-97) % ABG Hematocrit (34.0-46.0) % ABG Ionized Calcium (4.5-5.3) mg/dL ABG Glucose (75-99) mg/dL ABG Lactic Acid (0.5-1.6) mmol/L Hemoglobin (13.0-17.5) gm/dL Sodium (137-145) mmol/L Creatinine (0.66-1.25) mg/dL Glucose (74-99) mg/dL POC Glucose (mg/dL) 185 H 177 H (75-99) mg/dL Plasma Lactic Acid Leandro 2.5 H* (0.7-2.0) mmol/L Calcium (8.4-10.2) mg/dL Ionized Calcium Naseem (4.5-5.3) mg/dL Total Bilirubin (0.2-1.3) mg/dL AST (17-59) U/L ALT (4-49) U/L Total Protein (6.3-8.2) g/dL Albumin (3.5-5.0) g/dL Arterial Blood Glucose (75-99) mg/dL Crossmatch 08/16/20 08/16/20 08/16/20 Range/Units 19:02 19:14 19:30 RBC 2.64 L (4.30-5.90) m/uL Hgb 8.1 L (13.0-17.5) gm/dL Hct 24.2 L (39.0-53.0) % RDW 19.0 H (11.5-15.5) % Plt Count 88 L (150-450) k/uL Lymphocytes # 0.8 L (1.0-4.8) k/uL Lymphocytes # (Manual) (1.0-4.8) k/uL PT (9.0-12.0) sec INR (<1.2) ABG pH 7.34 L (7.35-7.45) ABG pCO2 (35-45) mmHg ABG pO2 117 H (83-108) mmHg ABG HCO3 (21-25) mmol/L ABG Total CO2 26 H (19-24) mmol/L ABG O2 Saturation 99.3 H (94-97) % ABG Hematocrit (34.0-46.0) % ABG Ionized Calcium (4.5-5.3) mg/dL ABG Glucose (75-99) mg/dL ABG Lactic Acid (0.5-1.6) mmol/L Hemoglobin (13.0-17.5) gm/dL Sodium (137-145) mmol/L Creatinine (0.66-1.25) mg/dL Glucose (74-99) mg/dL POC Glucose (mg/dL) 166 H (75-99) mg/dL Plasma Lactic Acid Leandro (0.7-2.0) mmol/L Calcium (8.4-10.2) mg/dL Ionized Calcium Naseem (4.5-5.3) mg/dL Total Bilirubin (0.2-1.3) mg/dL AST (17-59) U/L ALT (4-49) U/L Total Protein (6.3-8.2) g/dL Albumin (3.5-5.0) g/dL Arterial Blood Glucose (75-99) mg/dL Crossmatch 08/16/20 08/16/20 08/16/20 Range/Units 20:15 20:29 21:15 RBC (4.30-5.90) m/uL Hgb (13.0-17.5) gm/dL Hct (39.0-53.0) % RDW (11.5-15.5) % Plt Count (150-450) k/uL Lymphocytes # (1.0-4.8) k/uL Lymphocytes # (Manual) (1.0-4.8) k/uL PT (9.0-12.0) sec INR (<1.2) ABG pH (7.35-7.45) ABG pCO2 (35-45) mmHg ABG pO2 (83-108) mmHg ABG HCO3 (21-25) mmol/L ABG Total CO2 (19-24) mmol/L ABG O2 Saturation (94-97) % ABG Hematocrit (34.0-46.0) % ABG Ionized Calcium (4.5-5.3) mg/dL ABG Glucose (75-99) mg/dL ABG Lactic Acid (0.5-1.6) mmol/L Hemoglobin (13.0-17.5) gm/dL Sodium (137-145) mmol/L Creatinine (0.66-1.25) mg/dL Glucose (74-99) mg/dL POC Glucose (mg/dL) 161 H 159 H (75-99) mg/dL Plasma Lactic Acid Leandro 2.2 H* (0.7-2.0) mmol/L Calcium (8.4-10.2) mg/dL Ionized Calcium Naseem (4.5-5.3) mg/dL Total Bilirubin (0.2-1.3) mg/dL AST (17-59) U/L ALT (4-49) U/L Total Protein (6.3-8.2) g/dL Albumin (3.5-5.0) g/dL Arterial Blood Glucose (75-99) mg/dL Crossmatch 08/16/20 08/16/20 08/17/20 Range/Units 21:57 23:08 01:02 RBC (4.30-5.90) m/uL Hgb (13.0-17.5) gm/dL Hct (39.0-53.0) % RDW (11.5-15.5) % Plt Count (150-450) k/uL Lymphocytes # (1.0-4.8) k/uL Lymphocytes # (Manual) (1.0-4.8) k/uL PT (9.0-12.0) sec INR (<1.2) ABG pH (7.35-7.45) ABG pCO2 (35-45) mmHg ABG pO2 (83-108) mmHg ABG HCO3 (21-25) mmol/L ABG Total CO2 (19-24) mmol/L ABG O2 Saturation (94-97) % ABG Hematocrit (34.0-46.0) % ABG Ionized Calcium (4.5-5.3) mg/dL ABG Glucose (75-99) mg/dL ABG Lactic Acid (0.5-1.6) mmol/L Hemoglobin (13.0-17.5) gm/dL Sodium (137-145) mmol/L Creatinine (0.66-1.25) mg/dL Glucose (74-99) mg/dL POC Glucose (mg/dL) 156 H 150 H 141 H (75-99) mg/dL Plasma Lactic Acid Leandro (0.7-2.0) mmol/L Calcium (8.4-10.2) mg/dL Ionized Calcium Naseem (4.5-5.3) mg/dL Total Bilirubin (0.2-1.3) mg/dL AST (17-59) U/L ALT (4-49) U/L Total Protein (6.3-8.2) g/dL Albumin (3.5-5.0) g/dL Arterial Blood Glucose (75-99) mg/dL Crossmatch 08/17/20 08/17/20 08/17/20 Range/Units 02:08 03:30 03:30 RBC 2.63 L (4.30-5.90) m/uL Hgb 8.0 L (13.0-17.5) gm/dL Hct 24.4 L (39.0-53.0) % RDW 19.2 H (11.5-15.5) % Plt Count 85 L (150-450) k/uL Lymphocytes # (1.0-4.8) k/uL Lymphocytes # (Manual) 0.74 L (1.0-4.8) k/uL PT (9.0-12.0) sec INR (<1.2) ABG pH (7.35-7.45) ABG pCO2 (35-45) mmHg ABG pO2 (83-108) mmHg ABG HCO3 (21-25) mmol/L ABG Total CO2 (19-24) mmol/L ABG O2 Saturation (94-97) % ABG Hematocrit (34.0-46.0) % ABG Ionized Calcium (4.5-5.3) mg/dL ABG Glucose (75-99) mg/dL ABG Lactic Acid (0.5-1.6) mmol/L Hemoglobin (13.0-17.5) gm/dL Sodium (137-145) mmol/L Creatinine 0.59 L (0.66-1.25) mg/dL Glucose 123 H (74-99) mg/dL POC Glucose (mg/dL) 136 H (75-99) mg/dL Plasma Lactic Acid Leandro (0.7-2.0) mmol/L Calcium (8.4-10.2) mg/dL Ionized Calcium Nsaeem (4.5-5.3) mg/dL Total Bilirubin 1.7 H (0.2-1.3) mg/dL AST 126 H (17-59) U/L ALT 111 H (4-49) U/L Total Protein 5.3 L (6.3-8.2) g/dL Albumin 3.3 L (3.5-5.0) g/dL Arterial Blood Glucose (75-99) mg/dL Crossmatch 08/17/20 08/17/20 08/17/20 Range/Units 03:31 06:01 07:00 RBC (4.30-5.90) m/uL Hgb (13.0-17.5) gm/dL Hct (39.0-53.0) % RDW (11.5-15.5) % Plt Count (150-450) k/uL Lymphocytes # (1.0-4.8) k/uL Lymphocytes # (Manual) (1.0-4.8) k/uL PT (9.0-12.0) sec INR (<1.2) ABG pH (7.35-7.45) ABG pCO2 (35-45) mmHg ABG pO2 (83-108) mmHg ABG HCO3 (21-25) mmol/L ABG Total CO2 (19-24) mmol/L ABG O2 Saturation (94-97) % ABG Hematocrit (34.0-46.0) % ABG Ionized Calcium (4.5-5.3) mg/dL ABG Glucose (75-99) mg/dL ABG Lactic Acid (0.5-1.6) mmol/L Hemoglobin (13.0-17.5) gm/dL Sodium (137-145) mmol/L Creatinine (0.66-1.25) mg/dL Glucose (74-99) mg/dL POC Glucose (mg/dL) 132 H 149 H 141 H (75-99) mg/dL Plasma Lactic Acid Leandro (0.7-2.0) mmol/L Calcium (8.4-10.2) mg/dL Ionized Calcium Naseem (4.5-5.3) mg/dL Total Bilirubin (0.2-1.3) mg/dL AST (17-59) U/L ALT (4-49) U/L Total Protein (6.3-8.2) g/dL Albumin (3.5-5.0) g/dL Arterial Blood Glucose (75-99) mg/dL Crossmatch - Imaging and Cardiology Chest x-ray: report reviewed, image reviewed Assessment and Plan Assessment: 1. Left main coronary artery disease, status post single vessel off-pump CABG, SIMS to the LAD 2. History of coronary artery disease with non-STEMI in April 2020 status post drug-eluting stent placement to the proximal and mid RCA 3. Hypertension 4. History of severe aortic stenosis status post transcatheter aortic valve replacement in 2016 5. Syncopal episode in April 2020 secondary to anemia 6. Lifelong nonsmoker with mild restrictive lung disease with preoperative FEV1 70% of predicted 7. Severe pulmonary hypertension 8. 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 Morbid obesity 10. Preoperative chronic anemia and thrombocytopenia 11. Postoperative acute blood loss anemia and thrombocytopenia, expected, status post packed red blood cell transfusion as well as platelet transfusion Plan: 1. Continue aspirin, statin, Plavix, beta hector therapy. Will increase beta hector therapy as tolerated, was increased to 25 mg twice daily today, IV push Lopressor given this morning with improvement in heart rate and blood pressure. 2. Wean O2 as tolerated. Encourage incentive spirometry use 10 times every hour while awake. Bronchodilators per pulmonology 3. Increase activity, ambulate as tolerated. PT/OT/cardiac rehab consulted 4. Will monitor daily labs and x-rays. Electrolyte replacement per protocol. No further transfusion at this time 5. GI/DVT prophylaxis 6. Pain control with current medication regimen 7. Discontinue [place]. Connect Cordis to continuous CVP monitoring 8. Continue mediastinal, left pleural chest tubes for another 24 hours. Monitor output and consistency 9. Continue Cadet catheter for another 24 hours. Strict accurate intake and output. Daily weight with standup scale, not bed scale 10. Insulin management per Dr. Mckeon. Patient is not diabetic, hemoglobin A1c preoperatively 5.7%. 11. More recommendations to follow based on patient's progress. I have seen and examined the patient and agree with the assessment and plan as dictated by my nurse practitioner. Time with Patient: Greater than 30
[2020-08-17] MEDS ORDERED: MAGNESIUM HYDROXIDE 2,400 MG/10 ML CUP PO PRN (09:00)
[2020-08-17] MEDS ORDERED: bisacodyL 10 MG SUPP RECTAL PRN (09:00)
[2020-08-17] MEDS ORDERED: PANTOPRAZOLE 40 MG/10 ML VIAL IVP SCH (09:00)
[2020-08-17] MEDS ORDERED: METOPROLOL TARTRATE 12.5 MG TAB PO ONE (09:00)
[2020-08-17] MEDS ORDERED: METOPROLOL TARTRATE 12.5 MG TAB PO SCH (09:00)
[2020-08-17 09:04] LABS: Glucose,Whole Blood 136 mg/dL (75-99)
[2020-08-17] MEDS: ceFAZolin 3 GM in SODIUM CHLORIDE 0.9% 100 ML IVPB SCH (09:42)
[2020-08-17 10:03] LABS: Glucose,Whole Blood 128 mg/dL (75-99)
[2020-08-17 11:06] LABS: Glucose,Whole Blood 117 mg/dL (75-99)
[2020-08-17 11:15] VITALS: BMI 47.2
[2020-08-17 11:57] LABS: Glucose,Whole Blood 112 mg/dL (75-99)
[2020-08-17 13:10] LABS: Glucose,Whole Blood 169 mg/dL (75-99)
[2020-08-17 14:01] LABS: Glucose,Whole Blood 178 mg/dL (75-99)
--- NOTE | 2020-08-17 14:04 | PN ---
PROGRESS NOTE DATE OF SERVICE: 08/17/2020. CHIEF COMPLAINT: Postop coronary artery bypass graft. HISTORY OF PRESENT ILLNESS: This gentleman is doing fairly well. He is not having particular difficult time with pain or shortness of breath. He is fully awake and alert and without any [employer]IP[employer] issues. PHYSICAL EXAM: Breath sounds are heard bilaterally. His vital signs are normal. He is afebrile. IMPRESSION: 1. Status post CABG. 2. Coronary artery disease. 3. Status post aortic valve replacement. PLAN: Follow with Cardiology and Cardiac Surgery. MMODL / IJN: [id number] /
[2020-08-17 15:35] LABS: Glucose,Whole Blood 138 mg/dL (75-99)
--- NOTE | 2020-08-17 15:53 | P.PN ---
Subjective Progress Note Date: 08/17/20 Principal diagnosis: Status post CABG 1, SIMS to LAD off pump. Postoperative day #1. This is a 55-year-old white male patient with history of hypertension, hyperlipidemia, severe aortic stenosis status post TAPVR in the 2017, CAD with previous stenting of the RCA, the most recent one performed on 05/14/[address] Landaverde. Patient had been experiencing chest pressure and tightness on and off, and shortness of breath. Had a recent non-ST elevated myocardial infarction and RCA stenting in April 2020. Patient underwent cardiac catheterization on 06/12/2020 which showed distal left main eccentric plaque, calcification, urinalysis was in the range of 60%. His RCA was stented and multiple segments and all statins were open. LAD had mild disease. His echocardiogram from April 2020 showed the EF between 50-55%, normally functioning bioprosthetic aortic valve, mild mitral regurgitation, severe pulmonary hypertension, with mild tricuspid regurgitation, PA pressure of was 63 mmHg. Surgical intervention was recommended, and today on 08/16/2020 patient underwent a single-vessel bypass grafting with SIMS to the LAD and this was done off pump. 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 He seen in the postoperative period in the intensive care u nit, he is sedated, intubated on mechanical ventilator current vent settings are assist control mode of ventilation with the rate of 16, tidal lungs 500, FiO2 is 50% and PEEP of 5. Postoperative blood gases were reviewed, necessary adjustments were made. Patient is hemodynamically stable, he had some mild bleeding Intra-Op, he received 2 units of packed red blood cells, 1 units of fresh frozen plasma and 1 unit of platelets, she is on small amount of norepinephrine currently at 0.08 mics per kilo per minute, lactated Ringer's at 50 ML per hour, Precedex is a 0.4 mics per kilo per minute, nitroglycerin at 5 mics per kilo per minute and insulin drip is at 3 units per hour. In his him, with a rate of 86, PA pressures 54/29, CVP is 27, cardiac output is 4.9, and 2.1 respectively. Mediastianal chest tubes with a total of 140 ML of sanguinous output in the Pleur-evac, no evidence of air leak, left pleural chest tube with 30 mL of sanguinous output. Patient is calm and comfortable, resting comfortably on the ventilator. Postoperative chest x-ray shows a mild pulmonary vascular congestion. Catheters and ET tube in appropriate positions. Patient was reevaluated today on 08/17/20, patient remains in the ICU, patient was extubated uneventfully at 19:25 p.m. and his post extubation course has been relatively uneventful. Patient is now sitting up in a recliner, in no distress, he is on 4 L nasal cannula, with O2 saturation 96%. Most recent hemodynamic parameters showed cardiac output of 4.3 cardiac index of 1.8 pulmonary artery pressure 40/21 CVP is 17. Patient is on insulin at 7 units per hour, he is not requiring any inotropes or any pressors. Not requiring any antiarrhythmic medications. Chest x-ray showed postoperative changes, and minimal bibasilar atelectasis, expected. Tiny left apical pneumothorax noted. Scattered pleural parenchymal opacities noted Objective - Vital Signs Vital signs: Vital Signs Temp 98.1 F 08/17/20 12:00 Pulse 88 08/17/20 15:15 Resp 21 08/17/20 15:15 BP 104/56 08/17/20 15:15 Pulse Ox 94 L 08/17/20 15:15 Intake & Output 08/16/20 08/17/20 08/17/20 18:59 06:59 18:59 Intake Total 3350.685 1325.357 882.917 Output Total 2602 926 428 Balance 748.685 399.357 454.917 Weight 136.8 kg 136.8 kg Intake: IV 1717 918 680 ACETAMINOPHEN IV (For NPO 100 100 ) 1,000 mg In Empty Bag 1 bag @ 400 mls/hr IVPB Q6HR JAY Rx#:[id number] Albumin Human 5% 250 ml 500 250 In Empty Bag 1 bag @ 250 mls/hr IVPB Q1HR PRN Rx#: [id number] CO/CI 490 160 180 Calcium Gluconate 2 gm In 100 Sodium Chloride 0.9% 100 ml @ 100 mls/hr IVPB ONCE PRN Rx#:[id number] Lactated Ringers 1,000 ml 250 550 190 @ 20 mls/hr IV .Q24H JAY Rx#:[id number] Magnesium Sulfate-D5w Pmx 200 1 gm In Dextrose/Water 1 100ml.bag @ 100 mls/hr IVPB Q1H JAY Rx#: [id number] PRESSURE BAGS 45 108 60 Intake, IV Titration 118.685 207.357 82.917 Amount Dexmedetomidine/0.9% NaCl 53.68 6.27 (Pmx) 400 mcg In Empty Bag 1 bag @ Titrate IV . Q0M JAY Rx#:[id number] Insulin Regular 100 unit 6.666 65.608 59.092 In Sodium Chloride 0.9% 100 ml @ Per Protocol IV .Q0M JAY Rx#:[id number] Milrinone-D5w Pmx 20 mg 34.98 In Dextrose/Water 1 100ml .bag @ 0.2 MCG/KG/MIN 7. 92 mls/hr IV .[id number] JAY Rx#:[id number] Nitroglycerin-D5w Pmx 50 23.825 mg In Dextrose/Water 1 250ml.bag @ 5 MCG/MIN 1.5 mls/hr IV .Q24H JAY Rx#: [id number] Norepinephrine 4 mg In 58.339 100.499 Sodium Chloride 0.9% 250 ml @ 0.05 MCG/KG/MIN 25. 146 mls/hr IV .Q10H7M JAY Rx#:[id number] Oral 200 120 Blood Product 1515 Ffp 24 Cp2d Unit 316 [id number] Ffp 24 Cpd Unit 290 [id number] Platelet Irr Pheresis 2 289 Acda Unit [id number] Rc As-1 Unit 310 [id number] Rc As-1 Unit 310 [id number] Output: Chest Tube Drainage 245 501 288 Left plural 55 141 118 Mediastinal X2 190 360 170 Urine 357 425 140 Estimated Blood Loss 1999 Other: Voiding Method Indwelling Catheter Indwelling Catheter ABP, PAP, CO, CI - Last Documented Arterial Blood Pressure 119/44 Pulmonary Artery Pressure 38/20 Cardiac Output 5.7 Cardiac Index 2.4 - Exam General appearance: Revealed a 65-year-old white male, very pleasant, in no distress. Head: Atraumatic, normocephalic. HEENT: PERRLA, EOMI, no icterus, masses, no JVD, no stridor. - Respiratory Details: Symmetrical chest expansion, clear throughout, minimal crackles at the bases, no rhonchi no wheezes, patient is doing poorly with incentive spirometry, Mediastinal chest tubes present to continuous wall suction, 230 mL serosanguineous drainage overnight, 580 mL since surgery. Left pleural chest tube present to continuous wall suction, 100 mL serosanguineous drainage overnight, 210 mL since surgery. No air leaks present. - Cardiovascular Details: Normal S1 and S2, no S3 gallop, positive pericardial rub. - Gastrointestinal Gastrointestinal Comment(s): Abdomen is soft, nontender, no megaly, no rebound, no guarding.- Genitourinary Genitourinary Comment(s): Cadet present draining clear - Integumentary Integumentary Comment(s): Skin is warm, no rashes. Anterior chest incision well approximated and covered with dry intact dressing. - Neurologic Neurologic: Alert and oriented 3, no gross focal neurologic deficits. - Musculoskeletal Musculoskeletal: No limitations in range of motion, no deformities. - Psychiatric Psychiatric: Normal mood, affect and normal mental status examination. - Labs CBC & Chem 7: 08/17/20 03:30 08/17/20 03:30 Labs: Abnormal Lab Results - Last 24 Hours (Table) 08/15/20 08/16/20 08/16/20 Range/Units 07:12 13:52 14:31 RBC (4.30-5.90) m/uL Hgb (13.0-17.5) gm/dL Hct (39.0-53.0) % RDW (11.5-15.5) % Plt Count (150-450) k/uL Lymphocytes # (1.0-4.8) k/uL Lymphocytes # (Manual) (1.0-4.8) k/uL ABG pH (7.35-7.45) ABG pCO2 (35-45) mmHg ABG pO2 (83-108) mmHg ABG Total CO2 (19-24) mmol/L ABG O2 Saturation (94-97) % Creatinine (0.66-1.25) mg/dL Glucose (74-99) mg/dL POC Glucose (mg/dL) 225 H 164 H (75-99) mg/dL Plasma Lactic Acid Leandro (0.7-2.0) mmol/L Total Bilirubin (0.2-1.3) mg/dL AST (17-59) U/L ALT (4-49) U/L Total Protein (6.3-8.2) g/dL Albumin (3.5-5.0) g/dL Crossmatch See Detail 08/16/20 08/16/20 08/16/20 Range/Units 15:43 15:57 16:35 RBC 2.54 L (4.30-5.90) m/uL Hgb 7.9 L (13.0-17.5) gm/dL Hct 23.7 L (39.0-53.0) % RDW 18.7 H (11.5-15.5) % Plt Count 109 L (150-450) k/uL Lymphocytes # 0.9 L (1.0-4.8) k/uL Lymphocytes # (Manual) (1.0-4.8) k/uL ABG pH 7.30 L (7.35-7.45) ABG pCO2 49 H (35-45) mmHg ABG pO2 164 H (83-108) mmHg ABG Total CO2 26 H (19-24) mmol/L ABG O2 Saturation 100.0 H (94-97) % Creatinine (0.66-1.25) mg/dL Glucose (74-99) mg/dL POC Glucose (mg/dL) 213 H (75-99) mg/dL Plasma Lactic Acid Leandro (0.7-2.0) mmol/L Total Bilirubin (0.2-1.3) mg/dL AST (17-59) U/L ALT (4-49) U/L Total Protein (6.3-8.2) g/dL Albumin (3.5-5.0) g/dL Crossmatch 08/16/20 08/16/20 08/16/20 Range/Units 17:03 17:10 18:05 RBC (4.30-5.90) m/uL Hgb (13.0-17.5) gm/dL Hct (39.0-53.0) % RDW (11.5-15.5) % Plt Count (150-450) k/uL Lymphocytes # (1.0-4.8) k/uL Lymphocytes # (Manual) (1.0-4.8) k/uL ABG pH (7.35-7.45) ABG pCO2 (35-45) mmHg ABG pO2 (83-108) mmHg ABG Total CO2 (19-24) mmol/L ABG O2 Saturation (94-97) % Creatinine (0.66-1.25) mg/dL Glucose (74-99) mg/dL POC Glucose (mg/dL) 185 H 177 H (75-99) mg/dL Plasma Lactic Acid Leandro 2.5 H* (0.7-2.0) mmol/L Total Bilirubin (0.2-1.3) mg/dL AST (17-59) U/L ALT (4-49) U/L Total Protein (6.3-8.2) g/dL Albumin (3.5-5.0) g/dL Crossmatch 08/16/20 08/16/20 08/16/20 Range/Units 19:02 19:14 19:30 RBC 2.64 L (4.30-5.90) m/uL Hgb 8.1 L (13.0-17.5) gm/dL Hct 24.2 L (39.0-53.0) % RDW 19.0 H (11.5-15.5) % Plt Count 88 L (150-450) k/uL Lymphocytes # 0.8 L (1.0-4.8) k/uL Lymphocytes # (Manual) (1.0-4.8) k/uL ABG pH 7.34 L (7.35-7.45) ABG pCO2 (35-45) mmHg ABG pO2 117 H (83-108) mmHg ABG Total CO2 26 H (19-24) mmol/L ABG O2 Saturation 99.3 H (94-97) % Creatinine (0.66-1.25) mg/dL Glucose (74-99) mg/dL POC Glucose (mg/dL) 166 H (75-99) mg/dL Plasma Lactic Acid Leandro (0.7-2.0) mmol/L Total Bilirubin (0.2-1.3) mg/dL AST (17-59) U/L ALT (4-49) U/L Total Protein (6.3-8.2) g/dL Albumin (3.5-5.0) g/dL Crossmatch 08/16/20 08/16/20 08/16/20 Range/Units 20:15 20:29 21:15 RBC (4.30-5.90) m/uL Hgb (13.0-17.5) gm/dL Hct (39.0-53.0) % RDW (11.5-15.5) % Plt Count (150-450) k/uL Lymphocytes # (1.0-4.8) k/uL Lymphocytes # (Manual) (1.0-4.8) k/uL ABG pH (7.35-7.45) ABG pCO2 (35-45) mmHg ABG pO2 (83-108) mmHg ABG Total CO2 (19-24) mmol/L ABG O2 Saturation (94-97) % Creatinine (0.66-1.25) mg/dL Glucose (74-99) mg/dL POC Glucose (mg/dL) 161 H 159 H (75-99) mg/dL Plasma Lactic Acid Leandro 2.2 H* (0.7-2.0) mmol/L Total Bilirubin (0.2-1.3) mg/dL AST (17-59) U/L ALT (4-49) U/L Total Protein (6.3-8.2) g/dL Albumin (3.5-5.0) g/dL Crossmatch 08/16/20 08/16/20 08/17/20 Range/Units 21:57 23:08 01:02 RBC (4.30-5.90) m/uL Hgb (13.0-17.5) gm/dL Hct (39.0-53.0) % RDW (11.5-15.5) % Plt Count (150-450) k/uL Lymphocytes # (1.0-4.8) k/uL Lymphocytes # (Manual) (1.0-4.8) k/uL ABG pH (7.35-7.45) ABG pCO2 (35-45) mmHg ABG pO2 (83-108) mmHg ABG Total CO2 (19-24) mmol/L ABG O2 Saturation (94-97) % Creatinine (0.66-1.25) mg/dL Glucose (74-99) mg/dL POC Glucose (mg/dL) 156 H 150 H 141 H (75-99) mg/dL Plasma Lactic Acid Leandro (0.7-2.0) mmol/L Total Bilirubin (0.2-1.3) mg/dL AST (17-59) U/L ALT (4-49) U/L Total Protein (6.3-8.2) g/dL Albumin (3.5-5.0) g/dL Crossmatch 08/17/20 08/17/20 08/17/20 Range/Units 02:08 03:30 03:30 RBC 2.63 L (4.30-5.90) m/uL Hgb 8.0 L (13.0-17.5) gm/dL Hct 24.4 L (39.0-53.0) % RDW 19.2 H (11.5-15.5) % Plt Count 85 L (150-450) k/uL Lymphocytes # (1.0-4.8) k/uL Lymphocytes # (Manual) 0.74 L (1.0-4.8) k/uL ABG pH (7.35-7.45) ABG pCO2 (35-45) mmHg ABG pO2 (83-108) mmHg ABG Total CO2 (19-24) mmol/L ABG O2 Saturation (94-97) % Creatinine 0.59 L (0.66-1.25) mg/dL Glucose 123 H (74-99) mg/dL POC Glucose (mg/dL) 136 H (75-99) mg/dL Plasma Lactic Acid Leandro (0.7-2.0) mmol/L Total Bilirubin 1.7 H (0.2-1.3) mg/dL AST 126 H (17-59) U/L ALT 111 H (4-49) U/L Total Protein 5.3 L (6.3-8.2) g/dL Albumin 3.3 L (3.5-5.0) g/dL Crossmatch 08/17/20 08/17/20 08/17/20 Range/Units 03:31 06:01 07:00 RBC (4.30-5.90) m/uL Hgb (13.0-17.5) gm/dL Hct (39.0-53.0) % RDW (11.5-15.5) % Plt Count (150-450) k/uL Lymphocytes # (1.0-4.8) k/uL Lymphocytes # (Manual) (1.0-4.8) k/uL ABG pH (7.35-7.45) ABG pCO2 (35-45) mmHg ABG pO2 (83-108) mmHg ABG Total CO2 (19-24) mmol/L ABG O2 Saturation (94-97) % Creatinine (0.66-1.25) mg/dL Glucose (74-99) mg/dL POC Glucose (mg/dL) 132 H 149 H 141 H (75-99) mg/dL Plasma Lactic Acid Leandro (0.7-2.0) mmol/L Total Bilirubin (0.2-1.3) mg/dL AST (17-59) U/L ALT (4-49) U/L Total Protein (6.3-8.2) g/dL Albumin (3.5-5.0) g/dL Crossmatch 08/17/20 08/17/20 08/17/20 Range/Units 08:01 09:03 10:02 RBC (4.30-5.90) m/uL Hgb (13.0-17.5) gm/dL Hct (39.0-53.0) % RDW (11.5-15.5) % Plt Count (150-450) k/uL Lymphocytes # (1.0-4.8) k/uL Lymphocytes # (Manual) (1.0-4.8) k/uL ABG pH (7.35-7.45) ABG pCO2 (35-45) mmHg ABG pO2 (83-108) mmHg ABG Total CO2 (19-24) mmol/L ABG O2 Saturation (94-97) % Creatinine (0.66-1.25) mg/dL Glucose (74-99) mg/dL POC Glucose (mg/dL) 159 H 136 H 128 H (75-99) mg/dL Plasma Lactic Acid Leandro (0.7-2.0) mmol/L Total Bilirubin (0.2-1.3) mg/dL AST (17-59) U/L ALT (4-49) U/L Total Protein (6.3-8.2) g/dL Albumin (3.5-5.0) g/dL Crossmatch 08/17/20 08/17/20 08/17/20 Range/Units 11:04 11:56 13:08 RBC (4.30-5.90) m/uL Hgb (13.0-17.5) gm/dL Hct (39.0-53.0) % RDW (11.5-15.5) % Plt Count (150-450) k/uL Lymphocytes # (1.0-4.8) k/uL Lymphocytes # (Manual) (1.0-4.8) k/uL ABG pH (7.35-7.45) ABG pCO2 (35-45) mmHg ABG pO2 (83-108) mmHg ABG Total CO2 (19-24) mmol/L ABG O2 Saturation (94-97) % Creatinine (0.66-1.25) mg/dL Glucose (74-99) mg/dL POC Glucose (mg/dL) 117 H 112 H 169 H (75-99) mg/dL Plasma Lactic Acid Leandro (0.7-2.0) mmol/L Total Bilirubin (0.2-1.3) mg/dL AST (17-59) U/L ALT (4-49) U/L Total Protein (6.3-8.2) g/dL Albumin (3.5-5.0) g/dL Crossmatch 08/17/20 08/17/20 Range/Units 13:59 15:33 RBC (4.30-5.90) m/uL Hgb (13.0-17.5) gm/dL Hct (39.0-53.0) % RDW (11.5-15.5) % Plt Count (150-450) k/uL Lymphocytes # (1.0-4.8) k/uL Lymphocytes # (Manual) (1.0-4.8) k/uL ABG pH (7.35-7.45) ABG pCO2 (35-45) mmHg ABG pO2 (83-108) mmHg ABG Total CO2 (19-24) mmol/L ABG O2 Saturation (94-97) % Creatinine (0.66-1.25) mg/dL Glucose (74-99) mg/dL POC Glucose (mg/dL) 178 H 138 H (75-99) mg/dL Plasma Lactic Acid Leandro (0.7-2.0) mmol/L Total Bilirubin (0.2-1.3) mg/dL AST (17-59) U/L ALT (4-49) U/L Total Protein (6.3-8.2) g/dL Albumin (3.5-5.0) g/dL Crossmatch Assessment and Plan Assessment: Impression: Status post single-vessel off-pump CABG, SIMS to LAD postoperative day #1. Single-vessel coronary artery disease. History of severe aortic stenosis. History of severe pulmonary hypertension. 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 Benign essential hypertension. History of non-ST elevation myocardial infarction, status post stent placement in proximal and mid RCA. Recommendation: Continue beta blockers, Plavix aspirin and statin. Continue incentive spirometry. Wean oxygen as tolerated. Early ambulation and pulmonary toileting. GI and DVT prophylaxis. Continue insulin for blood sugar control. Pain control management. Discontinue unnecessary tubes and catheters. We'll continue to follow. Time with Patient: Less than 30
[2020-08-17 16:19] LABS: Glucose,Whole Blood 132 mg/dL (75-99)
[2020-08-17 17:10] LABS: Glucose,Whole Blood 118 mg/dL (75-99)
--- NOTE | 2020-08-17 18:00 | CONS ---
CONSULTATION CHIEF COMPLAINT: Coronary artery disease. HISTORY OF PRESENT ILLNESS: This gentleman was admitted for an elective coronary artery bypass graft. He has had continual difficulty with coronary artery disease. He also has had an aortic valve replacement. REVIEW OF SYSTEMS: He is currently doing fairly well. He is not particularly short of breath and he has not had any chest pain. Past medical history, family history, and personal and social histories can all be found in his previous admitting and discharge summaries as well as his admitting note. PHYSICAL EXAMINATION: Blood pressure is 128/82 with a pulse 73, respirations of 15, and he is afebrile. In general he appeared to be in no acute distress. His skin color is normal. Skin is warm and dry. Head, ears, eyes, nose, mouth and throat are otherwise normal. Neck veins are not distended. Chest demonstrates occasional rales at the bases. Cardiac exam demonstrates sinus rhythm with no murmur. Bowel sounds are heard. The abdomen is slightly protuberant, soft and nontender without masses. Extremities are normal. Neurologically he is intact. He is admitted to the hospital with diagnoses: 1. Coronary artery disease. 2. History of hypertension. 3. History of aortic valve replacement. PLAN: Follow with Thoracic Surgery and Cardiology. MMODL / IJN: [id number] /
--- NOTE | 2020-08-17 18:03 | P.CRDCN ---
History of Present Illness History of present illness: History of present illness: This is a 64-year-old male patient of Dr. Arellano with past medical history of coronary artery disease, hypertension, severe aortic stenosis, s/p TAVR, syncope secondary to anemia, benign mass in his chest removed 1978 with radiation therapy. Patient had a recent NSTEMI in 04/2020 with PCI of the RCA however has still been having angina and was found to have obstructive left main disease. He was evaluated by cardiothroacic surgery with recommendations for CABG. 08/16/2020 patient underwent off pump SIMS to LAD with lysis of adhesions from his prior radiation therapy. Patient tolerated the procedure well however did have some anemia and required blood transfusions. He was extubated yesterday and currently sitting up in chair. He admits to some discomfort around the incision, however denies any angina type sensation, no significant SOB at this time. Remains in sinus rhythm. Platelets noted to be 85. Social history Occasional beer. No street drug or marijuana use. Review Of Systems: Constitutional: No fever, no chills. No weakness. EENT: No headache. No dizziness. Lungs: Reports shortness of breath, no cough, no sputum production. No wheezing. Cardiovascular: No chest pain, no lower extremity edema. No palpitations. No paroxysmal nocturnal dyspnea. No lightheadedness or dizziness. No syncopal episodes. Abdominal: No abdominal pain. No nausea, vomiting. No diarrhea. No constipation. No bloody or tarry stools.. No loss of appetite. Genitourinary: No dysuria, increased frequency, urgency. No urinary retention. Musculoskeletal: No myalgias. No muscle weakness, no gait dysfunction, no frequent falls. No back pain. No neck pain. Integumentary: No wounds, no lesions. No rash or pruritus. No unusual bruising. Neurologic: No aphasia. No facial droop. No change in mentation. No head injury. No headache. No paralysis. No paresthesia. Psychiatric: No depression. No anxiety. Endocrine: No abnormal blood sugars. Physical examination: Gen: Alert and oriented, sitting up in chair in ICU, no distress VS: Afebrile, heart rate 108, blood pressure 135/65, pulse ox 100% on 2 L nasal cannula. HEENT: Head is atraumatic, normocephalic. Pupils equal, round. Sclerae is anicteric. NECK: Supple. No JVD. No lymphadenopathy. No thyromegaly. LUNGS: Diminished bilateral bases. Clear to auscultation. No wheezes or rhonc hi. Accessory muscle usage with talking. HEART: Regular rate and rhythm. Systolic murmur. Tachycardic ABDOMEN: Soft. Bowel sounds are present. No masses. No tenderness. EXTREMITIES: Trace bilateral pedal edema. No calf tenderness. Dorsalis pedis +1 bilaterally. NEUROLOGICAL: Patient is awake, alert and oriented x3. Cranial nerves 2 through 12 are grossly intact. Assessment: POD #1 CABG with SIMS to LAD 08/16/2020 CAD with history of NSTEMI and PCI of RCA 04/2020 Hypertension Aortic stenosis status post transcutaneous aortic valve replacement Severe pulmonary hypertension Anemia Thrombocytopenia Obesity Plan: Continue dual antiplatelets for 12 months from NSTEMI Continue Lopressor 25 mg bid Transfuse as needed If patient has recurrent angina, may consider hybrid PCI of left main into circumflex, given SIMS to LAD now however would attempt medical therapy first at this time. 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 anemia, hx. 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 GATO, aortic valve replaced via TAVR Past Anesthesia/Blood Transfusion Reactions: Motion Sickness Additional Past Anesthesia/Blood Transfusion Reaction / Comment(s): no blood transfusion reactions Date of Last Stent Placement:: 05/14/2020 Smoking Status: Never smoker - Past Family History Father Family Medical History: Myocardial Infarction (NE) Sister(s) Family Medical History: Cancer Additional Family Medical History / Comment(s): Sister with brain tumor Mother Family Medical History: COPD, Diabetes Mellitus Medications and Allergies Home Medications Medication Instructions Recorded Confirmed Type Aspirin [Adult Low Dose Aspirin EC] 81 mg PO DAILY 11/21/16 08/16/20 History Atorvastatin Calcium [Lipitor] 80 mg PO HS 11/21/16 08/16/20 History Furosemide [Lasix] 40 mg PO DAILY 04/13/20 08/16/20 History Metoprolol Tartrate [Lopressor] 50 mg PO BID 04/13/20 08/16/20 History lisinopriL [Zestril] 2.5 mg PO DAILY 04/13/20 08/16/20 History Nitroglycerin Sl Tabs [Nitrostat] 0.4 mg SUBLINGUAL Q5M PRN #30 tab 05/17/20 08/16/20 Rx Spironolactone [Aldactone] 25 mg PO DAILY #30 tab 05/17/20 08/16/20 Rx Ticagrelor [Brilinta] 90 mg PO BID #60 tab 05/17/20 08/16/20 Rx Isosorbide Mononitrate ER [Imdur] 30 mg PO DAILY #30 tab.er.24h 06/22/20 08/16/20 Rx Allergies Allergy/AdvReac Type Severity Reaction Status Date / Time No Known Allergies Allergy Verified 08/16/20 06:21 Physical Exam Vitals: Vital Signs Temp Pulse Resp BP Pulse Ox 08/17/20 17:00 97 16 93 L 08/17/20 16:30 89 24 105/54 96 08/17/20 16:00 89 22 97 08/17/20 15:30 85 20 93 L 08/17/20 15:15 88 21 104/56 94 L 08/17/20 15:00 94 22 94 L 08/17/20 14:45 95 23 95 08/17/20 14:30 96 21 95 08/17/20 14:15 92 23 102/61 96 08/17/20 14:00 92 22 96 08/17/20 13:45 89 20 96 08/17/20 13:30 90 21 95 08/17/20 13:15 95 26 H 90/52 97 08/17/20 13:00 87 18 96 08/17/20 12:45 90 23 95 08/17/20 12:30 90 17 96 08/17/20 12:15 93 25 H 93/65 96 08/17/20 12:00 98.1 F 98 31 H 95 08/17/20 11:45 87 17 97 08/17/20 11:30 92 21 95 08/17/20 11:15 95 25 H 97/56 94 L 08/17/20 11:08 89 08/17/20 11:00 85 15 98 08/17/20 10:56 90 08/17/20 10:45 86 17 96 08/17/20 10:30 89 17 95 08/17/20 10:15 91 22 108/55 97 08/17/20 10:00 95 26 H 102/59 96 08/17/20 09:45 92 24 101/52 95 08/17/20 09:30 89 18 99/58 95 08/17/20 09:15 92 19 97/53 97 08/17/20 09:00 89 20 97/56 95 08/17/20 08:45 89 21 98/70 96 08/17/20 08:30 92 20 100/53 96 08/17/20 08:15 89 20 86/59 95 08/17/20 08:00 98.1 F 87 23 90/66 95 08/17/20 07:45 90 24 116/65 95 08/17/20 07:30 110 H 33 H 123/63 94 L 08/17/20 07:15 114 H 27 H 112/60 93 L 08/17/20 07:00 99 26 H 97/59 96 08/17/20 06:45 98 24 109/56 95 08/17/20 06:30 98 23 115/60 94 L 08/17/20 06:15 98 25 H 114/57 94 L 08/17/20 06:00 106 H 16 113/62 93 L 08/17/20 05:45 106 H 30 H 114/66 93 L 08/17/20 05:30 104 H 28 H 114/66 94 L 08/17/20 05:15 101 H 29 H 114/66 92 L 08/17/20 05:00 111 H 29 H 114/66 93 L 08/17/20 04:45 103 H 24 116/59 93 L 08/17/20 04:30 93 20 100/59 93 L 08/17/20 04:15 94 21 108/58 93 L 08/17/20 04:00 98 19 114/57 93 L 08/17/20 03:45 96 20 121/61 94 L 08/17/20 03:30 97 22 107/55 93 L 08/17/20 03:15 94 20 100/57 93 L 08/17/20 03:00 92 19 98/56 93 L 08/17/20 02:45 91 18 94/58 94 L 08/17/20 02:30 90 21 99/55 93 L 08/17/20 02:15 93 19 97/57 93 L 08/17/20 02:00 93 21 111/64 94 L 08/17/20 01:45 92 24 98/59 95 08/17/20 01:30 87 18 97/55 95 08/17/20 01:15 88 18 100/60 95 08/17/20 01:00 93 20 100/57 95 08/17/20 00:45 87 17 92/58 96 08/17/20 00:30 90 17 97/57 95 08/17/20 00:15 88 16 97/62 95 08/17/20 00:00 98.6 F 92 17 92/65 95 08/16/20 23:45 90 17 95/55 96 08/16/20 23:30 92 18 106/71 95 08/16/20 23:18 93 19 106/71 94 L 08/16/20 23:15 95 23 94 L 08/16/20 23:00 90 16 101/60 94 L 08/16/20 22:45 92 19 91/57 95 08/16/20 22:30 87 15 92/58 96 08/16/20 22:15 87 16 95/63 95 08/16/20 22:00 87 16 98/58 96 08/16/20 21:45 87 16 89/55 96 08/16/20 21:30 87 17 88/56 96 08/16/20 21:15 87 18 94/55 96 08/16/20 21:00 87 15 96/55 96 08/16/20 20:45 87 18 91/50 96 08/16/20 20:30 86 18 87/53 96 08/16/20 20:15 87 16 78/50 95 08/16/20 20:00 98.6 F 87 16 83/52 96 08/16/20 19:45 89 16 85/51 95 08/16/20 19:37 95 08/16/20 19:30 93 17 87/51 95 08/16/20 19:15 87 15 97/57 97 08/16/20 19:00 87 15 99/56 97 08/16/20 18:45 94 17 103/61 96 08/16/20 18:30 90 14 87/56 96 08/16/20 18:15 83 21 90/57 96 08/16/20 18:00 84 21 93/60 96 Intake and Output 08/17/20 08/17/20 08/17/20 06:59 14:59 22:59 Intake Total 921.745 869.467 194.734 Output Total 606 428 105 Balance 315.745 441.467 89.734 Intake: IV 642 680 52 ACETAMINOPHEN IV (For NPO 100 ) 1,000 mg In Empty Bag 1 bag @ 400 mls/hr IVPB Q6HR JAY Rx#:[id number] Albumin Human 5% 250 ml 250 In Empty Bag 1 bag @ 250 mls/hr IVPB Q1HR PRN Rx#: [id number] CO/CI 70 180 Lactated Ringers 1,000 ml 400 190 40 @ 20 mls/hr IV .Q24H JAY Rx#:[id number] PRESSURE BAGS 72 60 12 Intake, IV Titration 79.745 69.467 22.734 Amount Insulin Regular 100 unit 46.973 45.642 22.734 In Sodium Chloride 0.9% 100 ml @ Per Protocol IV .Q0M JAY Rx#:[id number] Nitroglycerin-D5w Pmx 50 23.825 mg In Dextrose/Water 1 250ml.bag @ 5 MCG/MIN 1.5 mls/hr IV .Q24H JAY Rx#: [id number] Norepinephrine 4 mg In 32.772 Sodium Chloride 0.9% 250 ml @ 0.05 MCG/KG/MIN 25. 146 mls/hr IV .Q10H7M JAY Rx#:[id number] Oral 200 120 120 Output: Chest Tube Drainage 331 288 30 Left plural 101 118 0 Mediastinal X2 230 170 30 Urine 275 140 75 Other: Voiding Method Indwelling Catheter Indwelling Catheter Indwelling Catheter Weight 136.8 kg 136.8 kg ABP, PAP, CO, CI - Last 8 Hours Arterial Blood Pressure 126/56 Arterial Blood Pressure 140/54 Arterial Blood Pressure 129/48 Arterial Blood Pressure 117/44 Arterial Blood Pressure 119/44 Arterial Blood Pressure 128/47 Arterial Blood Pressure 135/49 Arterial Blood Pressure 128/48 Arterial Blood Pressure 123/47 Arterial Blood Pressure 129/49 Arterial Blood Pressure 124/48 Arterial Blood Pressure 120/48 Arterial Blood Pressure 132/57 Arterial Blood Pressure 116/47 Arterial Blood Pressure 113/47 Arterial Blood Pressure 118/47 Arterial Blood Pressure 135/53 Arterial Blood Pressure 131/53 Arterial Blood Pressure 115/47 Arterial Blood Pressure 124/49 Arterial Blood Pressure 132/50 Arterial Blood Pressure 123/49 Arterial Blood Pressure 116/46 Arterial Blood Pressure 118/47 Arterial Blood Pressure 134/54 Arterial Blood Pressure 128/52 Pulmonary Artery Pressure 38/20 Cardiac Output 5.7 Cardiac Output 5.7 Cardiac Output 5.7 Cardiac Index 2.4 Cardiac Index 2.4 Cardiac Index 2.4 Results 08/17/20 03:30 08/17/20 03:30 Cardiac Enzymes 08/17/20 Range/Units 03:30 AST 126 H (17-59) U/L CBC 08/16/20 08/17/20 Range/Units 19:30 03:30 WBC 6.3 7.4 (3.8-10.6) k/uL RBC 2.64 L 2.63 L (4.30-5.90) m/uL Hgb 8.1 L 8.0 L (13.0-17.5) gm/dL Hct 24.2 L 24.4 L (39.0-53.0) % Plt Count 88 L 85 L (150-450) k/uL Comprehensive Metabolic Panel 08/17/20 Range/Units 03:30 Sodium 138 (137-145) mmol/L Potassium 4.0 (3.5-5.1) mmol/L Chloride 105 (98-107) mmol/L Carbon Dioxide 27 (22-30) mmol/L BUN 17 (9-20) mg/dL Creatinine 0.59 L (0.66-1.25) mg/dL Glucose 123 H (74-99) mg/dL Calcium 8.4 (8.4-10.2) mg/dL AST 126 H (17-59) U/L ALT 111 H (4-49) U/L Alkaline Phosphatase 38 (38-126) U/L Total Protein 5.3 L (6.3-8.2) g/dL Albumin 3.3 L (3.5-5.0) g/dL Current Medications Generic Name Dose Route Start Last Admin Trade Name Freq PRN Reason Stop Dose Admin Hydrocodone Bitart/Acetaminophen 2 each 08/17/20 01:01 08/17/20 04:05 Hydrocodone/Apap 5-325mg 1 Each Tab PO 2 each Q4HR PRN Administration Severe Pain Hydrocodone Bitart/Acetaminophen 1 each 08/17/20 01:01 Hydrocodone/Apap 5-325mg 1 Each Tab PO Q4HR PRN Moderate Pain Albuterol/Ipratropium 3 ml 08/16/20 13:05 Ipratropium-Albuterol 3 Ml Neb INHALATION RT-Q2H PRN Shortness Of Breath Or Wheezing Albuterol/Ipratropium 3 ml 08/16/20 19:02 08/17/20 16:40 Ipratropium-Albuterol 3 Ml Neb INHALATION Not Given RT-QID JAY Aspirin 325 mg 08/17/20 09:00 08/17/20 08:25 Aspirin 325 Mg Tab PO 325 mg DAILY JAY Administration Atorvastatin Calcium 80 mg 08/17/20 09:00 08/17/20 08:25 Atorvastatin 80 Mg Tab PO 80 mg DAILY JAY Administration Benzocaine/Menthol 1 each 08/16/20 13:05 Benzocaine/Menthol Lozeng 1 Each Lozenge MUCOUS MEM Q2H PRN Sore Throat Bisacodyl 10 mg 08/17/20 09:00 Bisacodyl 10 Mg Supp RECTAL DAILY PRN Constipation Clopidogrel Bisulfate 75 mg 08/17/20 09:00 08/17/20 08:25 Clopidogrel 75 Mg Tab PO 75 mg DAILY JAY Administration Heparin Sodium (Porcine) 5,000 unit 08/16/20 21:02 08/17/20 16:24 Heparin Sodium,Porcine 5,000 Unit/Ml 1 Ml Vial SQ 5,000 unit Q8HR JAY Administration Amiodarone HCl 150 mg/ 103 mls @ 618 mls/hr 08/16/20 13:05 Dextrose/Water IV .Q10M PRN A.FIB/FLUTTER Protocol Amiodarone HCl 360 mg/ 200 mls @ 33.333 mls/hr 08/16/20 13:05 Dextrose/Water IV .Q6H PRN A.FIB/FLUTTER Protocol 1 MG/MIN Amiodarone HCl 300 mg/ 250 mls @ 25 mls/hr 08/16/20 13:05 Dextrose/Water IV .Q10H PRN A.FIB/FLUTTER Protocol 0.5 MG/MIN Albumin Human 250 ml/ IV 250 mls @ 250 mls/hr 08/16/20 13:05 08/17/20 08:24 Solution IVPB 08/18/20 13:06 250 mls/hr Q1HR PRN Administration For Volume Lactated Ringer's 1,000 mls @ 20 mls/hr 08/16/20 13:05 08/17/20 08:26 Lactated Ringers IV 20 mls/hr .Q24H JAY Administration Insulin Human Regular 100 unit 101 mls @ 0 mls/hr 08/16/20 14:00 08/17/20 17: 09 / Sodium Chloride IV 5 units/hr .Q0M JAY 5.05 mls/hr Titration Protocol Per Protocol Magnesium Hydroxide 2,400 mg 08/17/20 09:00 Magnesium Hydroxide 2,400 Mg/10 Ml Cup PO BID PRN Constipation Metoclopramide HCl 10 mg 08/16/20 13:05 08/17/20 07:35 Metoclopramide 5 Mg/Ml 2 Ml Vial IVP 10 mg Q4H PRN Administration Nausea And Vomiting Metoprolol Tartrate 25 mg 08/17/20 21:00 Metoprolol Tartrate 25 Mg Tab PO BID JAY Miscellaneous Information 1 each 08/16/20 13:05 Potassium Replacement Protocol 1 Each Misc MISCELLANE DAILY PRN Per Protocol Protocol Miscellaneous Information 1 each 08/16/20 13:05 Magnesium Replacement Protocol 1 Each Misc MISCELLANE DAILY PRN Per Protocol Protocol Miscellaneous Information 1 each 08/16/20 13:05 Phosphorus Replacement Protoco 1 Each Misc MISCELLANE DAILY PRN Per Protocol Protocol Miscellaneous Information 1 each 08/16/20 15:19 Magnesium Replacement Protocol 1 Each Misc MISCELLANE DAILY PRN Per Protocol Protocol Ondansetron HCl 4 mg 08/16/20 13:05 08/17/20 05:11 Ondansetron 4 Mg/2 Ml Vial IVP 4 mg Q6HR PRN Administration Nausea And Vomiting Pantoprazole Sodium 40 mg 08/18/20 07:30 Pantoprazole 40 Mg Tablet PO [id number] JAY Senna/Docusate Sodium 2 each 08/17/20 21:00 Sennosides-Docusate Sodium 1 Each Tab PO HS JAY Sodium Chloride 10 ml 08/16/20 21:00 08/17/20 08:25 Sodium Chloride 0.9% Flush 10 Ml Syringe IV 10 ml BID JAY Administration Intake and Output 08/17/20 08/17/20 08/17/20 06:59 14:59 22:59 Intake Total 921.745 869.467 194.734 Output Total 606 428 105 Balance 315.745 441.467 89.734 Intake: IV 642 680 52 ACETAMINOPHEN IV (For NPO 100 ) 1,000 mg In Empty Bag 1 bag @ 400 mls/hr IVPB Q6HR JAY Rx#:[id number] Albumin Human 5% 250 ml 250 In Empty Bag 1 bag @ 250 mls/hr IVPB Q1HR PRN Rx#: [id number] CO/CI 70 180 Lactated Ringers 1,000 ml 400 190 40 @ 20 mls/hr IV .Q24H JAY Rx#:[id number] PRESSURE BAGS 72 60 12 Intake, IV Titration 79.745 69.467 22.734 Amount Insulin Regular 100 unit 46.973 45.642 22.734 In Sodium Chloride 0.9% 100 ml @ Per Protocol IV .Q0M JAY Rx#:[id number] Nitroglycerin-D5w Pmx 50 23.825 mg In Dextrose/Water 1 250ml.bag @ 5 MCG/MIN 1.5 mls/hr IV .Q24H JAY Rx#: [id number] Norepinephrine 4 mg In 32.772 Sodium Chloride 0.9% 250 ml @ 0.05 MCG/KG/MIN 25. 146 mls/hr IV .Q10H7M JAY Rx#:[id number] Oral 200 120 120 Output: Chest Tube Drainage 331 288 30 Left plural 101 118 0 Mediastinal X2 230 170 30 Urine 275 140 75 Other: Voiding Method Indwelling Catheter Indwelling Catheter Indwelling Catheter Weight 136.8 kg 136.8 kg Patient Weight 08/18/20 06:59 Weight 136.8 kg 08/17/20 03:30 08/17/20 03:30
[2020-08-17 18:17] LABS: Glucose,Whole Blood 137 mg/dL (75-99)
[2020-08-17 19:02] LABS: Glucose,Whole Blood 138 mg/dL (75-99)
[2020-08-17] MEDS: METOPROLOL TARTRATE 25 MG TAB PO SCH (19:49)
[2020-08-17] MEDS: SENNOSIDES-DOCUSATE SODIUM 1 EACH TAB PO SCH (19:50)
[2020-08-17 20:01] LABS: Glucose,Whole Blood 136 mg/dL (75-99)
[2020-08-17 21:02] LABS: Glucose,Whole Blood 117 mg/dL (75-99)
[2020-08-17 21:57] LABS: Glucose,Whole Blood 124 mg/dL (75-99)
[2020-08-17] MEDS ORDERED: FUROSEMIDE 10 MG/ML 4 ML VIAL IV STA (22:21)
[2020-08-17 22:59] LABS: Glucose,Whole Blood 120 mg/dL (75-99)
[2020-08-18] MEDS: INSULIN REGULAR 100 UNIT in SODIUM CHLORIDE 0.9% 100 ML IV SCH (00:08)
[2020-08-18 00:15] LABS: Glucose,Whole Blood 122 mg/dL (75-99)
[2020-08-18 01:02] LABS: Glucose,Whole Blood 119 mg/dL (75-99)
[2020-08-18 01:57] LABS: Glucose,Whole Blood 121 mg/dL (75-99)
[2020-08-18 03:03] LABS: Glucose,Whole Blood 122 mg/dL (75-99)
[2020-08-18 04:03] LABS: Glucose,Whole Blood 126 mg/dL (75-99)
[2020-08-18 04:35] LABS: Anisocytosis Slight; HGB 7.8 gm/dL (13.0-17.5); Hypochromasia Slight; MCHC 32.4 g/dL (31.0-37.0); MCV 95.6 fL (80.0-100.0); Macrocytosis Slight; Mean Platelet Volume 12.6; Platelet Count 101 k/uL (150-450); Poikilocytosis Moderate; RBC 2.51 m/uL (4.30-5.90); RDW 19.9 % (11.5-15.5)
[2020-08-18 04:58] LABS: Glucose,Whole Blood 124 mg/dL (75-99)
[2020-08-18 05:52] LABS: Band Neutrophils % 3 %; Neutrophils % (M) 78 %; Nucleated Red Blood Cells 1 /100 WBC (0-0); Total Cells Counted 200
[2020-08-18 05:53] LABS: Anisocytosis (M) Present; Lymphocytes # (M) 1.47 k/uL (1.0-4.8); Monocytes # (M) 0.39 k/uL (0-1.0); Ovalocytes Present; Poikilocytosis (M) Present; Polychromasia Present; WBC 9.8 k/uL (3.8-10.6)
[2020-08-18 06:06] LABS: Glucose,Whole Blood 118 mg/dL (75-99)
[2020-08-18] MEDS: PANTOPRAZOLE 40 MG TABLET PO SCH (06:10)
[2020-08-18 06:13] LABS: Ionized Calcium 4.9 mg/dL (4.5-5.3)
[2020-08-18 06:36] LABS: ALT 166 U/L (4-49); AST 151 U/L (17-59); African American GFR (CKD) >90 (>60 ml/min/1.73 sqM); Albumin 3.3 g/dL (3.5-5.0); Alkaline Phosphatase 41 U/L (38-126); Anion Gap 4 mmol/L; Blood Urea Nitrogen 28 mg/dL (9-20); Calcium 8.5 mg/dL (8.4-10.2); Carbon Dioxide 27 mmol/L (22-30); Chloride 104 mmol/L (98-107); Glucose 118 mg/dL (74-99); Magnesium 2.2 mg/dL (1.6-2.3); Non-African American GFR(CKD) >90 (>60 ml/min/1.73 sqM); Potassium 4.2 mmol/L (3.5-5.1); Sodium 135 mmol/L (137-145); Total Bilirubin 1.2 mg/dL (0.2-1.3); Total Protein 5.4 g/dL (6.3-8.2)
[2020-08-18 06:59] LABS: Glucose,Whole Blood 124 mg/dL (75-99)
--- NOTE | 2020-08-18 07:14 | XR ---
EXAMINATION TYPE: XR chest 1V portable DATE OF EXAM: 08/18/2020 COMPARISON: 08/17/2020 HISTORY: SOB, Follow Up FINDINGS: The left-sided chest tube is now identified. Previously noted tiny left apical pneumothorax is not re demonstrated. Overlying soft tissues from the patient's jaw Limited evaluation. Increasing basilar atelectasis and/or effusions. Underlying infiltrates difficult to exclude. Stable appearance of the cardio-mediastinal structures at this time. Pleural effusion unchanged. IMPRESSION: 1. Increasing basilar atelectasis and/or effusions. Underlying infiltrates difficult to exclude. No sizable pneumothorax identified at this time. Clinical correlation and follow up until resolution is recommended.
[2020-08-18] MEDS: METOPROLOL TARTRATE 25 MG TAB PO SCH (08:13)
[2020-08-18] MEDS: HEPARIN SODIUM,PORCINE 5,000 UNIT/ML 1 ML VIAL SQ SCH ×3 (08:13→23:59)
[2020-08-18] MEDS: ATORVASTATIN 80 MG TAB PO SCH (08:13)
[2020-08-18] MEDS: CLOPIDOGREL 75 MG TAB PO SCH (08:13)
[2020-08-18] MEDS: ASPIRIN 325 MG TAB PO SCH (08:13)
[2020-08-18] MEDS: IPRATROPIUM-ALBUTEROL 3 ML NEB INHALATION SCH ×4 (08:21→21:28)
[2020-08-18 08:24] LABS: Glucose,Whole Blood 131 mg/dL (75-99)
[2020-08-18] MEDS ORDERED: ATORVASTATIN 40 MG TAB PO SCH (09:00)
--- NOTE | 2020-08-18 09:31 | P.PN ---
Subjective Progress Note Date: 08/18/20 Principal diagnosis: Left Main coronary artery disease. 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 POD #2 coronary artery bypass grafting 1 with the left internal mammary artery to the left anterior descending artery, off pump, with intraoperative transesophageal echocardiogram and extensive lysis of radiation caused adhesions. Postoperative acute blood loss anemia and thrombocytopenia, expected given hemodilution and patient's preoperative anemia and thrombocytopenia. Postoperative elevation of his transaminase enzymes, unexpected. The patient was seen in follow-up today at his bedside in the intensive care unit. Currently sitting up to the bedside chair, is awake, alert and oriented 3 and is in no acute apparent distress. Denies any complaints of shortness of breath, although was complaining of some surgical type pain to his chest tube insertion sites with taking a deep breath. He remains hemodynamically stable and is currently on no inotropic or pressor support. Left IJ cordis remains to continuous CVP monitoring, current CVP pressure 14 mmHg. Bedside telemetry showing normal sinus rhythm heart rate 98 BPM. Mediastinal pleural chest tubes remain in place to continuous low wall suction -20 cm H2O. No air leak is pre sent. Draining thin serosanguineous drainage with 70 mL output in the last 8 hours and 140 mL output the last 24 hours from his left pleural chest tube and 120 mL output in the last 8 hours and 320 mL output in the last 24 hours from his mediastinal chest tubes. Objective - Vital Signs Vital signs: Vital Signs Temp 98.1 F 08/18/20 04:00 Pulse 97 08/18/20 08:22 Resp 20 08/18/20 07:00 BP 118/67 08/18/20 07:00 Pulse Ox 94 L 08/18/20 07:00 Intake & Output 08/17/20 08/18/20 08/18/20 18:59 06:59 18:59 Intake Total 1122.177 479.664 50.812 Output Total 588 615 80 Balance 534.177 -135.336 -29.188 Weight 136.8 kg 137.9 kg Intake: IV 784 312 26 Albumin Human 5% 250 ml 250 In Empty Bag 1 bag @ 250 mls/hr IVPB Q1HR PRN Rx#: [id number] CO/CI 180 Lactated Ringers 1,000 ml 270 240 20 @ 20 mls/hr IV .Q24H JAY Rx#:[id number] PRESSURE BAGS 84 72 6 Intake, IV Titration 98.177 47.664 24.812 Amount Insulin Regular 100 unit 74.352 47.664 24.812 In Sodium Chloride 0.9% 100 ml @ Per Protocol IV .Q0M JAY Rx#:[id number] Nitroglycerin-D5w Pmx 50 23.825 mg In Dextrose/Water 1 250ml.bag @ 5 MCG/MIN 1.5 mls/hr IV .Q24H JAY Rx#: [id number] Oral 240 120 Output: Chest Tube Drainage 338 180 50 Left plural 118 50 20 Mediastinal X2 220 130 30 Urine 250 435 30 Other: Voiding Method Indwelling Catheter Indwelling Catheter ABP, PAP, CO, CI - Last Documented Arterial Blood Pressure 120/43 Pulmonary Artery Pressure 38/20 Cardiac Output 5.7 Cardiac Index 2.4 - Constitutional General appearance: Present: cooperative, morbidly obese, no acute distress - EENT Eyes: Present: normal appearance. Absent: scleral icterus ENT: Present: hearing grossly normal - Neck Details: Neck is supple, left Cordis in place to continue CVP monitoring. - Respiratory Details: Lung sounds essentially clear to his bilateral upper lobes, diminished to his bilateral bases. Respirations are symmetrical and nonlabored. Oxygen saturation is 94% on 2 L nasal cannula. Achieving 750 mL on his incentive spirometry with encouragement. Mediastinal and left pleural chest tubes remain in place to low continuous wall suction -20 cm H2O. No air leak is present. Mediastinal chest tubes drained 120 mL output in the last 8 hours and 320 mL output last 24 hours. Left pleural chest tubes drained 70 mL output in the last 8 hours at 140 mL output in the last 24 hours. - Cardiovascular Details: Regular rhythm and rate. S1 and S2 present, negative for S3, gallop or murmur. Sternum is stable. Bedside telemetry showing normal sinus rhythm heart rate 98 PPM. Left IJ Cordis in place with continuous CVP monitoring, current CVP pressure 14 mmHg. Heart hugger is in place and he is demonstrating appropriate use. Knee-high NATALIA hose and sequential compression devices in place to his bilateral lower extremities. - Gastrointestinal Gastrointestinal Comment(s): Abdomen is soft, nontender and nondistended distended. Hypoactive bowel sounds present in all 4 abdominal quadrants. No guarding or rigidity. Negative flatus. Tolerating clear liquid diet. - Genitourinary Genitourinary Comment(s): Cadet catheter for accurate I&O. Draining clear [place] urine. 370 mL output in the last 8 hours. - Integumentary Integumentary Comment(s): Skin is warm and dry. No clubbing or cyanosis is present. Midline sternal incision is clean, dry and approximated. No drainage or redness present. Dressing clean, dry and in place. - Neurologic Neurologic: Present: CNII-XII intact - Musculoskeletal Musculoskeletal: Present: gait normal, generalized weakness, strength equal bilaterally - Psychiatric Psychiatric: Present: A&O x's 3, appropriate affect, intact judgment & insight - Allied health notes Allied health notes reviewed: nursing - Labs CBC & Chem 7: 08/18/20 04:00 08/18/20 04:00 Labs: Abnormal Lab Results - Last 24 Hours (Table) 08/17/20 08/17/20 08/17/20 Range/Units 09:03 10:02 11:04 RBC (4.30-5.90) m/uL Hgb (13.0-17.5) gm/dL Hct (39.0-53.0) % RDW (11.5-15.5) % Plt Count (150-450) k/uL Neutrophils # (Manual) (1.3-7.7) k/uL Nucleated RBCs (0-0) /100 WBC Sodium (137-145) mmol/L BUN (9-20) mg/dL Glucose (74-99) mg/dL POC Glucose (mg/dL) 136 H 128 H 117 H (75-99) mg/dL AST (17-59) U/L ALT (4-49) U/L Total Protein (6.3-8.2) g/dL Albumin (3.5-5.0) g/dL 08/17/20 08/17/20 08/17/20 Range/Units 11:56 13:08 13:59 RBC (4.30-5.90) m/uL Hgb (13.0-17.5) gm/dL Hct (39.0-53.0) % RDW (11.5-15.5) % Plt Count (150-450) k/uL Neutrophils # (Manual) (1.3-7.7) k/uL Nucleated RBCs (0-0) /100 WBC Sodium (137-145) mmol/L BUN (9-20) mg/dL Glucose (74-99) mg/dL POC Glucose (mg/dL) 112 H 169 H 178 H (75-99) mg/dL AST (17-59) U/L ALT (4-49) U/L Total Protein (6.3-8.2) g/dL Albumin (3.5-5.0) g/dL 08/17/20 08/17/20 08/17/20 Range/Units 15:33 16:17 17:08 RBC (4.30-5.90) m/uL Hgb (13.0-17.5) gm/dL Hct (39.0-53.0) % RDW (11.5-15.5) % Plt Count (150-450) k/uL Neutrophils # (Manual) (1.3-7.7) k/uL Nucleated RBCs (0-0) /100 WBC Sodium (137-145) mmol/L BUN (9-20) mg/dL Glucose (74-99) mg/dL POC Glucose (mg/dL) 138 H 132 H 118 H (75-99) mg/dL AST (17-59) U/L ALT (4-49) U/L Total Protein (6.3-8.2) g/dL Albumin (3.5-5.0) g/dL 08/17/20 08/17/20 08/17/20 Range/Units 18:16 19:00 20:00 RBC (4.30-5.90) m/uL Hgb (13.0-17.5) gm/dL Hct (39.0-53.0) % RDW (11.5-15.5) % Plt Count (150-450) k/uL Neutrophils # (Manual) (1.3-7.7) k/uL Nucleated RBCs (0-0) /100 WBC Sodium (137-145) mmol/L BUN (9-20) mg/dL Glucose (74-99) mg/dL POC Glucose (mg/dL) 137 H 138 H 136 H (75-99) mg/dL AST (17-59) U/L ALT (4-49) U/L Total Protein (6.3-8.2) g/dL Albumin (3.5-5.0) g/dL 08/17/20 08/17/20 08/17/20 Range/Units 21:00 21:56 22:58 RBC (4.30-5.90) m/uL Hgb (13.0-17.5) gm/dL Hct (39.0-53.0) % RDW (11.5-15.5) % Plt Count (150-450) k/uL Neutrophils # (Manual) (1.3-7.7) k/uL Nucleated RBCs (0-0) /100 WBC Sodium (137-145) mmol/L BUN (9-20) mg/dL Glucose (74-99) mg/dL POC Glucose (mg/dL) 117 H 124 H 120 H (75-99) mg/dL AST (17-59) U/L ALT (4-49) U/L Total Protein (6.3-8.2) g/dL Albumin (3.5-5.0) g/dL 08/18/20 08/18/20 08/18/20 Range/Units 00:13 01:01 01:55 RBC (4.30-5.90) m/uL Hgb (13.0-17.5) gm/dL Hct (39.0-53.0) % RDW (11.5-15.5) % Plt Count (150-450) k/uL Neutrophils # (Manual) (1.3-7.7) k/uL Nucleated RBCs (0-0) /100 WBC Sodium (137-145) mmol/L BUN (9-20) mg/dL Glucose (74-99) mg/dL POC Glucose (mg/dL) 122 H 119 H 121 H (75-99) mg/dL AST (17-59) U/L ALT (4-49) U/L Total Protein (6.3-8.2) g/dL Albumin (3.5-5.0) g/dL 08/18/20 08/18/20 08/18/20 Range/Units 03:02 04:00 04:00 RBC 2.51 L (4.30-5.90) m/uL Hgb 7.8 L (13.0-17.5) gm/dL Hct 24.0 L (39.0-53.0) % RDW 19.9 H (11.5-15.5) % Plt Count 101 L (150-450) k/uL Neutrophils # (Manual) 7.90 H (1.3-7.7) k/uL Nucleated RBCs 1 H (0-0) /100 WBC Sodium 135 L (137-145) mmol/L BUN 28 H (9-20) mg/dL Glucose 118 H (74-99) mg/dL POC Glucose (mg/dL) 122 H (75-99) mg/dL AST 151 H (17-59) U/L ALT 166 H (4-49) U/L Total Protein 5.4 L (6.3-8.2) g/dL Albumin 3.3 L (3.5-5.0) g/dL 08/18/20 08/18/20 08/18/20 Range/Units 04:02 04:57 06:04 RBC (4.30-5.90) m/uL Hgb (13.0-17.5) gm/dL Hct (39.0-53.0) % RDW (11.5-15.5) % Plt Count (150-450) k/uL Neutrophils # (Manual) (1.3-7.7) k/uL Nucleated RBCs (0-0) /100 WBC Sodium (137-145) mmol/L BUN (9-20) mg/dL Glucose (74-99) mg/dL POC Glucose (mg/dL) 126 H 124 H 118 H (75-99) mg/dL AST (17-59) U/L ALT (4-49) U/L Total Protein (6.3-8.2) g/dL Albumin (3.5-5.0) g/dL 08/18/20 08/18/20 Range/Units 06:58 08:22 RBC (4.30-5.90) m/uL Hgb (13.0-17.5) gm/dL Hct (39.0-53.0) % RDW (11.5-15.5) % Plt Count (150-450) k/uL Neutrophils # (Manual) (1.3-7.7) k/uL Nucleated RBCs (0-0) /100 WBC Sodium (137-145) mmol/L BUN (9-20) mg/dL Glucose (74-99) mg/dL POC Glucose (mg/dL) 124 H 131 H (75-99) mg/dL AST (17-59) U/L ALT (4-49) U/L Total Protein (6.3-8.2) g/dL Albumin (3.5-5.0) g/dL - Imaging and Cardiology Chest x-ray: report reviewed, image reviewed Assessment and Plan Assessment: 1. Left main coronary artery disease, status post single vessel off-pump coronary artery bypass grafting surgery, SIMS to the LAD 2. History of coronary artery disease with non-STEMI in April 2020 status post drug-eluting stent placement to the proximal and mid RCA 3. Hypertension 4. History of severe aortic stenosis status post transcatheter aortic valve replacement in 2016 5. Syncopal episode in April 2020 secondary to anemia 6. Lifelong nonsmoker with mild restrictive lung disease with preoperative FEV1 70% of predicted 7. Severe pulmonary hypertension 8. History of Seminoma with excision followed by mediastinal radiation in 1978, status post extensive lysis of radiation caused adhesions 9. Morbid obesity with a BMI of 47.6 kg/m 10. Preoperative chronic anemia and thrombocytopenia 11. Postoperative acute blood loss anemia and thrombocytopenia, expected, status post packed red blood cell transfusion as well as platelet transfusion 12. Postoperative elevation of his transaminitis enzymes, unexpected Plan: 1. Continue aspirin, statin, Plavix, and beta hector. Will increase metoprolol tartrate to 50 mg by mouth twice a day. 2. Wean O2 as tolerated. Encourage incentive spirometry use 10 times every hour while awake. Bronchodilators per pulmonology. 3. Increase activity, ambulate as tolerated. PT/OT/cardiac rehab following. 4. Will monitor daily labs and x-rays. Electrolyte replacement per protocol. No further transfusion at this time. 5. GI/DVT prophylaxis. 6. Pain control with current medication regimen. Toradol 15 mg IV every 6 hours added for pain control. 7. Discontinue left IJ Cordis. 8. Remove mediastinal chest tubes, we will keep left pleural chest tube for another 24 hours. Monitor output and consistency 9. Remove Cadet catheter, continue to record strict accurate intake and output. Daily weight with standup scale, not bed scale 10. Insulin management per Dr. Mckeon. Patient is not diabetic, hemoglobin A1c preoperatively 5.7%. 11. Decrease Lipitor to 40 mg by mouth daily due to his elevation in transaminases enzymes. 12. We will place transfer orders to the cardiac stepdown unit today when bed available. 13. More recommendations to follow based on patient's clinical course. I have seen and examined the patient and agree with the assessment and plan as dictated by my nurse practitioner. Time with Patient: Greater than 30
[2020-08-18 10:07] LABS: Glucose,Whole Blood 145 mg/dL (75-99)
[2020-08-18] MEDS: INSULN ASP PRT/INSULIN ASPART 100 UNIT/ML 10 ML VIAL SQ SCH (10:41)
[2020-08-18] MEDS: METOPROLOL TARTRATE 50 MG TAB PO SCH ×2 (10:41→22:09)
[2020-08-18] MEDS ORDERED: METOPROLOL TARTRATE 25 MG TAB PO STA (10:42)
[2020-08-18 11:54] LABS: Glucose,Whole Blood 125 mg/dL (75-99)
[2020-08-18] MEDS: KETOROLAC 15 MG/ML 1 ML VIAL IVP SCH ×3 (12:00→23:59)
[2020-08-18] MEDS: INSULIN ASPART (NovoLOG) 100 UNIT/ML VIAL SQ SCH ×3 (12:01→21:21)
--- NOTE | 2020-08-18 12:48 | P.PN ---
Subjective Progress Note Date: 08/18/20 This is a 65-year-old gentleman with history of coronary artery disease with non-STEMI in April 2020 status post drug-eluting stent placed in the proximal and mid RCA, hypertension, severe aortic stenosis, status post aortic valve replacement who underwent a coronary bypass surgery for the left main disease. Patient had off-pump bypass with the SIMS graft to the LAD. Patient is sitting up in the chair and seems to be doing well. Denies any significant chest pain. No arrhythmias are detected. Vital signs are stable. Patient has postoperative anemia and thrombocytopenia. CVP is 14. Mediastinal chest tube is still present. Overall patient seemed to be clinically progressing well. No chest p ain suggestive of angina Objective - Vital Signs Vital signs: Vital Signs Temp 98.2 F 08/18/20 12:00 Pulse 81 08/18/20 12:00 Resp 22 08/18/20 12:00 BP 91/53 08/18/20 12:00 Pulse Ox 96 08/18/20 12:00 Intake & Output 08/17/20 08/18/20 08/18/20 18:59 06:59 18:59 Intake Total 1122.177 479.664 239.215 Output Total 588 615 255 Balance 534.177 -135.336 -15.785 Weight 136.8 kg 137.9 kg Intake: IV 784 312 104 Albumin Human 5% 250 ml 250 In Empty Bag 1 bag @ 250 mls/hr IVPB Q1HR PRN Rx#: [id number] CO/CI 180 Lactated Ringers 1,000 ml 270 240 80 @ 20 mls/hr IV .Q24H JAY Rx#:[id number] PRESSURE BAGS 84 72 24 Intake, IV Titration 98.177 47.664 35.215 Amount Insulin Regular 100 unit 74.352 47.664 35.215 In Sodium Chloride 0.9% 100 ml @ Per Protocol IV .Q0M JAY Rx#:[id number] Nitroglycerin-D5w Pmx 50 23.825 mg In Dextrose/Water 1 250ml.bag @ 5 MCG/MIN 1.5 mls/hr IV .Q24H JAY Rx#: [id number] Oral 240 120 100 Output: Chest Tube Drainage 338 180 150 Left plural 118 50 90 Mediastinal X2 220 130 60 Urine 250 435 105 Other: Voiding Method Indwelling Catheter Indwelling Catheter Indwelling Catheter ABP, PAP, CO, CI - Last Documented Arterial Blood Pressure 123/48 Pulmonary Artery Pressure 38/20 Cardiac Output 5.7 Cardiac Index 2.4 - Exam GENERAL EXAM: Patient is alert and oriented and doesn't appear to be in any acute distress HEENT: Normocephalic. Normal reaction of pupils, equal size, normal range of extraocular motion. No erythema or exudates in the throat. NECK: No masses, no nuchal rigidity. CHEST: No chest wall deformity. LUNGS: Equal air entry with no crackles or wheeze. HEART: S1 and S2 normal . Soft No hepatosplenomegaly, normal bowel sounds, no guarding or rigidity. SKIN: No rashes CENTRAL NERVOUS SYSTEM: No focal deficits. EXTREMITIES: No cyanosis, clubbing or edema. - Labs CBC & Chem 7: 08/18/20 04:00 08/18/20 04:00 Labs: Abnormal Lab Results - Last 24 Hours (Table) 08/17/20 08/17/20 08/17/20 Range/Units 13:08 13:59 15:33 RBC (4.30-5.90) m/uL Hgb (13.0-17.5) gm/dL Hct (39.0-53.0) % RDW (11.5-15.5) % Plt Count (150-450) k/uL Neutrophils # (Manual) (1.3-7.7) k/uL Nucleated RBCs (0-0) /100 WBC Sodium (137-145) mmol/L BUN (9-20) mg/dL Glucose (74-99) mg/dL POC Glucose (mg/dL) 169 H 178 H 138 H (75-99) mg/dL AST (17-59) U/L ALT (4-49) U/L Total Protein (6.3-8.2) g/dL Albumin (3.5-5.0) g/dL 08/17/20 08/17/20 08/17/20 Range/Units 16:17 17:08 18:16 RBC (4.30-5.90) m/uL Hgb (13.0-17.5) gm/dL Hct (39.0-53.0) % RDW (11.5-15.5) % Plt Count (150-450) k/uL Neutrophils # (Manual) (1.3-7.7) k/uL Nucleated RBCs (0-0) /100 WBC Sodium (137-145) mmol/L BUN (9-20) mg/dL Glucose (74-99) mg/dL POC Glucose (mg/dL) 132 H 118 H 137 H (75-99) mg/dL AST (17-59) U/L ALT (4-49) U/L Total Protein (6.3-8.2) g/dL Albumin (3.5-5.0) g/dL 08/17/20 08/17/20 08/17/20 Range/Units 19:00 20:00 21:00 RBC (4.30-5.90) m/uL Hgb (13.0-17.5) gm/dL Hct (39.0-53.0) % RDW (11.5-15.5) % Plt Count (150-450) k/uL Neutrophils # (Manual) (1.3-7.7) k/uL Nucleated RBCs (0-0) /100 WBC Sodium (137-145) mmol/L BUN (9-20) mg/dL Glucose (74-99) mg/dL POC Glucose (mg/dL) 138 H 136 H 117 H (75-99) mg/dL AST (17-59) U/L ALT (4-49) U/L Total Protein (6.3-8.2) g/dL Albumin (3.5-5.0) g/dL 08/17/20 08/17/20 08/18/20 Range/Units 21:56 22:58 00:13 RBC (4.30-5.90) m/uL Hgb (13.0-17.5) gm/dL Hct (39.0-53.0) % RDW (11.5-15.5) % Plt Count (150-450) k/uL Neutrophils # (Manual) (1.3-7.7) k/uL Nucleated RBCs (0-0) /100 WBC Sodium (137-145) mmol/L BUN (9-20) mg/dL Glucose (74-99) mg/dL POC Glucose (mg/dL) 124 H 120 H 122 H (75-99) mg/dL AST (17-59) U/L ALT (4-49) U/L Total Protein (6.3-8.2) g/dL Albumin (3.5-5.0) g/dL 08/18/20 08/18/20 08/18/20 Range/Units 01:01 01:55 03:02 RBC (4.30-5.90) m/uL Hgb (13.0-17.5) gm/dL Hct (39.0-53.0) % RDW (11.5-15.5) % Plt Count (150-450) k/uL Neutrophils # (Manual) (1.3-7.7) k/uL Nucleated RBCs (0-0) /100 WBC Sodium (137-145) mmol/L BUN (9-20) mg/dL Glucose (74-99) mg/dL POC Glucose (mg/dL) 119 H 121 H 122 H (75-99) mg/dL AST (17-59) U/L ALT (4-49) U/L Total Protein (6.3-8.2) g/dL Albumin (3.5-5.0) g/dL 08/18/20 08/18/20 08/18/20 Range/Units 04:00 04:00 04:02 RBC 2.51 L (4.30-5.90) m/uL Hgb 7.8 L (13.0-17.5) gm/dL Hct 24.0 L (39.0-53.0) % RDW 19.9 H (11.5-15.5) % Plt Count 101 L (150-450) k/uL Neutrophils # (Manual) 7.90 H (1.3-7.7) k/uL Nucleated RBCs 1 H (0-0) /100 WBC Sodium 135 L (137-145) mmol/L BUN 28 H (9-20) mg/dL Glucose 118 H (74-99) mg/dL POC Glucose (mg/dL) 126 H (75-99) mg/dL AST 151 H (17-59) U/L ALT 166 H (4-49) U/L Total Protein 5.4 L (6.3-8.2) g/dL Albumin 3.3 L (3.5-5.0) g/dL 08/18/20 08/18/20 08/18/20 Range/Units 04:57 06:04 06:58 RBC (4.30-5.90) m/uL Hgb (13.0-17.5) gm/dL Hct (39.0-53.0) % RDW (11.5-15.5) % Plt Count (150-450) k/uL Neutrophils # (Manual) (1.3-7.7) k/uL Nucleated RBCs (0-0) /100 WBC Sodium (137-145) mmol/L BUN (9-20) mg/dL Glucose (74-99) mg/dL POC Glucose (mg/dL) 124 H 118 H 124 H (75-99) mg/dL AST (17-59) U/L ALT (4-49) U/L Total Protein (6.3-8.2) g/dL Albumin (3.5-5.0) g/dL 08/18/20 08/18/20 08/18/20 Range/Units 08:22 10:05 11:50 RBC (4.30-5.90) m/uL Hgb (13.0-17.5) gm/dL Hct (39.0-53.0) % RDW (11.5-15.5) % Plt Count (150-450) k/uL Neutrophils # (Manual) (1.3-7.7) k/uL Nucleated RBCs (0-0) /100 WBC Sodium (137-145) mmol/L BUN (9-20) mg/dL Glucose (74-99) mg/dL POC Glucose (mg/dL) 131 H 145 H 125 H (75-99) mg/dL AST (17-59) U/L ALT (4-49) U/L Total Protein (6.3-8.2) g/dL Albumin (3.5-5.0) g/dL Assessment and Plan (1) Status post aorto-coronary artery bypass graft Current Visit: Yes Status: Acute Code(s): Z95.1 - PRESENCE OF AORTOCORONARY BYPASS GRAFT SNOMED Code(s): 106653400 (2) NSTEMI (non-ST elevated myocardial infarction) Current Visit: No Status: Acute Code(s): I21.4 - NON-ST ELEVATION (NSTEMI) MYOCARDIAL INFARCTION SNOMED Code(s): 67713437 (3) History of aortic valve replacement Current Visit: Yes Status: Acute Code(s): Z95.2 - PRESENCE OF PROSTHETIC HEART VALVE SNOMED Code(s): 4488803638389 Plan: Continue current medical therapy. Incentive spirometry. Will follow patient along with you
[2020-08-18] MEDS: LACTATED RINGERS 1,000 ML IV SCH (13:55)
--- NOTE | 2020-08-18 15:39 | P.PN ---
Subjective Progress Note Date: 08/18/20 Principal diagnosis: Status post CABG 1, SIMS to LAD off pump. Postoperative day #2 This is a 55-year-old white male patient with history of hypertension, hyperlipidemia, severe aortic stenosis status post TAPVR in the 2017, CAD with previous stenting of the RCA, the most recent one performed on 05/14/[address] Landaverde. Patient had been experiencing chest pressure and tightness on and off, and shortness of breath. Had a recent non-ST elevated myocardial infarction and RCA stenting in April 2020. Patient underwent cardiac catheterization on 06/12/2020 which showed distal left main eccentric plaque, calcification, urinalysis was in the range of 60%. His RCA was stented and multiple segments and all statins were open. LAD had mild disease. His echocardiogram from April 2020 showed the EF between 50-55%, normally functioning bioprosthetic aortic valve, mild mitral regurgitation, severe pulmonary hypertension, with mild tricuspid regurgitation, PA pressure of was 63 mmHg. Surgical intervention was recommended, and today on 08/16/2020 patient underwent a single-vessel bypass grafting with SIMS to the LAD and this was done off pump. 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 He seen in the postoperative period in the intensive care un it, he is sedated, intubated on mechanical ventilator current vent settings are assist control mode of ventilation with the rate of 16, tidal lungs 500, FiO2 is 50% and PEEP of 5. Postoperative blood gases were reviewed, necessary adjustments were made. Patient is hemodynamically stable, he had some mild bleeding Intra-Op, he received 2 units of packed red blood cells, 1 units of fresh frozen plasma and 1 unit of platelets, she is on small amount of norepinephrine currently at 0.08 mics per kilo per minute, lactated Ringer's at 50 ML per hour, Precedex is a 0.4 mics per kilo per minute, nitroglycerin at 5 mics per kilo per minute and insulin drip is at 3 units per hour. In his him, with a rate of 86, PA pressures 54/29, CVP is 27, cardiac output is 4.9, and 2.1 respectively. Mediastianal chest tubes with a total of 140 ML of sanguinous output in the Pleur-evac, no evidence of air leak, left pleural chest tube with 30 mL of sanguinous output. Patient is calm and comfortable, resting comfortably on the ventilator. Postoperative chest x-ray shows a mild pulmonary vascular congestion. Catheters and ET tube in appropriate positions. Patient was reevaluated today on 08/17/20, patient remains in the ICU, patient was extubated uneventfully at 19:25 p.m. and his post extubation course has been relatively uneventful. Patient is now sitting up in a recliner, in no distress, he is on 4 L nasal cannula, with O2 saturation 96%. Most recent hemodynamic parameters showed cardiac output of 4.3 cardiac index of 1.8 pulmonary artery pressure 40/21 CVP is 17. Patient is on insulin at 7 units per hour, he is not requiring any inotropes or any pressors. Not requiring any antiarrhythmic medications. Chest x-ray showed postoperative changes, and minimal bibasilar atelectasis, expected. Tiny left apical pneumothorax noted. Scattered pleural parenchymal opacities noted Reevaluated today on 08/18/20, patient remains in the ICU, he is postoperative day #2. Patient is sitting at bedside, alert and oriented 3, patient is doing great, relatively asymptomatic, on few liters nasal cannula, he is in sinus rhythm, hemodynamically stable, not requiring any pressors or any inotropes. Chest tubes and mediastinal tubes were noted. Serosanguineous drainage noted. Patient continues to do poorly with incentive spirometry. Chest x-ray showed mostly atelectasis, and no sizable pneumothorax hemoglobin today is 7.8 WBC count is 9.8. Electrolytes and renal profile are normal Objective - Vital Signs Vital signs: Vital Signs Temp 98.2 F 08/18/20 12:00 Pulse 81 08/18/20 12:00 Resp 22 08/18/20 12:00 BP 91/53 08/18/20 12:00 Pulse Ox 96 08/18/20 12:00 Intake & Output 08/17/20 08/18/20 08/18/20 18:59 06:59 18:59 Intake Total 1122.177 479.664 239.215 Output Total 588 615 255 Balance 534.177 -135.336 -15.785 Weight 136.8 kg 137.9 kg Intake: IV 784 312 104 Albumin Human 5% 250 ml 250 In Empty Bag 1 bag @ 250 mls/hr IVPB Q1HR PRN Rx#: [id number] CO/CI 180 Lactated Ringers 1,000 ml 270 240 80 @ 20 mls/hr IV .Q24H JAY Rx#:[id number] PRESSURE BAGS 84 72 24 Intake, IV Titration 98.177 47.664 35.215 Amount Insulin Regular 100 unit 74.352 47.664 35.215 In Sodium Chloride 0.9% 100 ml @ Per Protocol IV .Q0M JAY Rx#:[id number] Nitroglycerin-D5w Pmx 50 23.825 mg In Dextrose/Water 1 250ml.bag @ 5 MCG/MIN 1.5 mls/hr IV .Q24H JAY Rx#: [id number] Oral 240 120 100 Output: Chest Tube Drainage 338 180 150 Left plural 118 50 90 Mediastinal X2 220 130 60 Urine 250 435 105 Other: Voiding Method Indwelling Catheter Indwelling Catheter Urinal ABP, PAP, CO, CI - Last Documented Arterial Blood Pressure 123/48 Pulmonary Artery Pressure 38/20 Cardiac Output 5.7 Cardiac Index 2.4 - Exam Physical Exam: Revealed a 65-year-old white male in no distress, Head: Atraumatic, normocephalic. HEENT:[Neck is supple.] [No neck masses.] [No thyromegaly.] [No JVD.] PERRLA, EOMI, no icterus. Chest: [Symmetrical chest expansion, minimal crackles at the bases..]Mediastinal and left pleural chest tubes remain in place to low continuous wall suction -20 cm H2O. No air leak is present. Mediastinal chest tubes drained 120 mL output in the last 8 hours and 320 mL output last 24 hours. Left pleural chest tubes drained 70 mL output in the last 8 hours at 140 mL output in the last 24 hours. Cardiac Exam: [Normal S1 and S2, no S3 gallop, no murmur.] Abdomen: [Soft, nontender, no megaly, no rebound, no guarding, normal bowel sounds.] Extremities: [No clubbing, no edema, no cyanosis.] Neurological Exam: [No focal neurologic deficit.] Alert and oriented 3. Psychiatric: Normal mood, affect and normal mental status examination. - Labs CBC & Chem 7: 08/18/20 04:00 08/18/20 04:00 Labs: Abnormal Lab Results - Last 24 Hours (Table) 08/17/20 08/17/20 08/17/20 Range/Units 15:33 16:17 17:08 RBC (4.30-5.90) m/uL Hgb (13.0-17.5) gm/dL Hct (39.0-53.0) % RDW (11.5-15.5) % Plt Count (150-450) k/uL Neutrophils # (Manual) (1.3-7.7) k/uL Nucleated RBCs (0-0) /100 WBC Sodium (137-145) mmol/L BUN (9-20) mg/dL Glucose (74-99) mg/dL POC Glucose (mg/dL) 138 H 132 H 118 H (75-99) mg/dL AST (17-59) U/L ALT (4-49) U/L Total Protein (6.3-8.2) g/dL Albumin (3.5-5.0) g/dL 08/17/20 08/17/20 08/17/20 Range/Units 18:16 19:00 20:00 RBC (4.30-5.90) m/uL Hgb (13.0-17.5) gm/dL Hct (39.0-53.0) % RDW (11.5-15.5) % Plt Count (150-450) k/uL Neutrophils # (Manual) (1.3-7.7) k/uL Nucleated RBCs (0-0) /100 WBC Sodium (137-145) mmol/L BUN (9-20) mg/dL Glucose (74-99) mg/dL POC Glucose (mg/dL) 137 H 138 H 136 H (75-99) mg/dL AST (17-59) U/L ALT (4-49) U/L Total Protein (6.3-8.2) g/dL Albumin (3.5-5.0) g/dL 08/17/20 08/17/20 08/17/20 Range/Units 21:00 21:56 22:58 RBC (4.30-5.90) m/uL Hgb (13.0-17.5) gm/dL Hct (39.0-53.0) % RDW (11.5-15.5) % Plt Count (150-450) k/uL Neutrophils # (Manual) (1.3-7.7) k/uL Nucleated RBCs (0-0) /100 WBC Sodium (137-145) mmol/L BUN (9-20) mg/dL Glucose (74-99) mg/dL POC Glucose (mg/dL) 117 H 124 H 120 H (75-99) mg/dL AST (17-59) U/L ALT (4-49) U/L Total Protein (6.3-8.2) g/dL Albumin (3.5-5.0) g/dL 08/18/20 08/18/20 08/18/20 Range/Units 00:13 01:01 01:55 RBC (4.30-5.90) m/uL Hgb (13.0-17.5) gm/dL Hct (39.0-53.0) % RDW (11.5-15.5) % Plt Count (150-450) k/uL Neutrophils # (Manual) (1.3-7.7) k/uL Nucleated RBCs (0-0) /100 WBC Sodium (137-145) mmol/L BUN (9-20) mg/dL Glucose (74-99) mg/dL POC Glucose (mg/dL) 122 H 119 H 121 H (75-99) mg/dL AST (17-59) U/L ALT (4-49) U/L Total Protein (6.3-8.2) g/dL Albumin (3.5-5.0) g/dL 08/18/20 08/18/20 08/18/20 Range/Units 03:02 04:00 04:00 RBC 2.51 L (4.30-5.90) m/uL Hgb 7.8 L (13.0-17.5) gm/dL Hct 24.0 L (39.0-53.0) % RDW 19.9 H (11.5-15.5) % Plt Count 101 L (150-450) k/uL Neutrophils # (Manual) 7.90 H (1.3-7.7) k/uL Nucleated RBCs 1 H (0-0) /100 WBC Sodium 135 L (137-145) mmol/L BUN 28 H (9-20) mg/dL Glucose 118 H (74-99) mg/dL POC Glucose (mg/dL) 122 H (75-99) mg/dL AST 151 H (17-59) U/L ALT 166 H (4-49) U/L Total Protein 5.4 L (6.3-8.2) g/dL Albumin 3.3 L (3.5-5.0) g/dL 08/18/20 08/18/20 08/18/20 Range/Units 04:02 04:57 06:04 RBC (4.30-5.90) m/uL Hgb (13.0-17.5) gm/dL Hct (39.0-53.0) % RDW (11.5-15.5) % Plt Count (150-450) k/uL Neutrophils # (Manual) (1.3-7.7) k/uL Nucleated RBCs (0-0) /100 WBC Sodium (137-145) mmol/L BUN (9-20) mg/dL Glucose (74-99) mg/dL POC Glucose (mg/dL) 126 H 124 H 118 H (75-99) mg/dL AST (17-59) U/L ALT (4-49) U/L Total Protein (6.3-8.2) g/dL Albumin (3.5-5.0) g/dL 08/18/20 08/18/20 08/18/20 Range/Units 06:58 08:22 10:05 RBC (4.30-5.90) m/uL Hgb (13.0-17.5) gm/dL Hct (39.0-53.0) % RDW (11.5-15.5) % Plt Count (150-450) k/uL Neutrophils # (Manual) (1.3-7.7) k/uL Nucleated RBCs (0-0) /100 WBC Sodium (137-145) mmol/L BUN (9-20) mg/dL Glucose (74-99) mg/dL POC Glucose (mg/dL) 124 H 131 H 145 H (75-99) mg/dL AST (17-59) U/L ALT (4-49) U/L Total Protein (6.3-8.2) g/dL Albumin (3.5-5.0) g/dL 08/18/20 Range/Units 11:50 RBC (4.30-5.90) m/uL Hgb (13.0-17.5) gm/dL Hct (39.0-53.0) % RDW (11.5-15.5) % Plt Count (150-450) k/uL Neutrophils # (Manual) (1.3-7.7) k/uL Nucleated RBCs (0-0) /100 WBC Sodium (137-145) mmol/L BUN (9-20) mg/dL Glucose (74-99) mg/dL POC Glucose (mg/dL) 125 H (75-99) mg/dL AST (17-59) U/L ALT (4-49) U/L Total Protein (6.3-8.2) g/dL Albumin (3.5-5.0) g/dL Assessment and Plan Assessment: Impression: Status post single-vessel off-pump CABG, SIMS to LAD postoperative day #2 Single-vessel coronary artery disease. History of severe aortic stenosis. History of severe pulmonary hypertension. 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 Benign essential hypertension. History of non-ST elevation myocardial infarction, status post stent placement in proximal and mid RCA. Recommendation: Continue beta blockers, Plavix aspirin and statin. Continue incentive spirometry. Wean oxygen as tolerated. Early ambulation and pulmonary toileting. GI and DVT prophylaxis. Continue insulin for blood sugar control. Pain control management. Discontinue Cadet catheter. And discontinue IJ catheter. Chest tubes and mediastinal tubes to be removed by surgery when felt adelso ropriate. We'll continue to follow. Time with Patient: Less than 30
[2020-08-18 17:40] LABS: Glucose,Whole Blood 140 mg/dL (75-99)
[2020-08-18] MEDS ORDERED: FUROSEMIDE 10 MG/ML 2 ML VIAL IV STA (18:31)
--- NOTE | 2020-08-18 20:42 | P.CONS ---
History of Present Illness - History of Present Illness Patient has recent history of non-STEMI on last April area That time stent was placed in the proximal and and RCA. He also with history of aortic valve replacement. He was admitted for coronary artery bypass grafting to the left anterior descending artery. Today is postoperative day #2 Patient was seen today in select unit where he was transferred from ICU. He is sitting in chair comfortable, no distress, no chest pain or dyspnea, left chest tube is in place No other new complaints Vitas looks stable. Hemoglobin is 7.8, rest of CBC and BMP is unremarkable. Liver enzymes slightly elevated with normal bilirubin Chest x-ray showing increasing bibasilar atelectasis Review of Systems CONSTITUTIONAL: No fever, no malaise, no fatigue. HEENT: No recent visual problems or hearing problems. Denied any sore throat. CARDIOVASCULAR: No orthopnea, PND, no palpitations, no syncope. PULMONARY: No shortness of breath, no cough, no hemoptysis. GASTROINTESTINAL: No diarrhea, no nausea, no vomiting, no abdominal pain. Normoactive bowel sounds. NEUROLOGICAL: No headaches, no weakness, no numbness. HEMATOLOGICAL: Denies any bleeding or petechiae. GENITOURINARY: Denies any burning micturition, frequency, or urgency. MUSCULOSKELETAL/RHEUMATOLOGICAL: Denies any joint pain, swelling, or any muscle pain. ENDOCRINE: Denies any polyuria or polydipsia. 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 anemia, hx. 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 GATO, aortic valve replaced via TAVR Past Anesthesia/Blood Transfusion Reactions: Motion Sickness Additional Past Anesthesia/Blood Transfusion Reaction / Comm: no blood transfu salvador reactions Date of Last Stent Placement:: 05/14/2020 Smoking Status: Never smoker - Past Family History Father Family Medical History: Myocardial Infarction (VT) Sister(s) Family Medical History: Cancer Additional Family Medical History / Comment(s): Sister with brain tumor Mother Family Medical History: COPD, Diabetes Mellitus Medications and Allergies Home Medications Medication Instructions Recorded Confirmed Type Aspirin [Adult Low Dose Aspirin EC] 81 mg PO DAILY 11/21/16 08/16/20 History Atorvastatin Calcium [Lipitor] 80 mg PO HS 11/21/16 08/16/20 History Furosemide [Lasix] 40 mg PO DAILY 04/13/20 08/16/20 History Metoprolol Tartrate [Lopressor] 50 mg PO BID 04/13/20 08/16/20 History lisinopriL [Zestril] 2.5 mg PO DAILY 04/13/20 08/16/20 History Nitroglycerin Sl Tabs [Nitrostat] 0.4 mg SUBLINGUAL Q5M PRN #30 tab 05/17/20 08/16/20 Rx Spironolactone [Aldactone] 25 mg PO DAILY #30 tab 05/17/20 08/16/20 Rx Ticagrelor [Brilinta] 90 mg PO BID #60 tab 05/17/20 08/16/20 Rx Isosorbide Mononitrate ER [Imdur] 30 mg PO DAILY #30 tab.er.24h 06/22/20 08/16/20 Rx Allergies Allergy/AdvReac Type Severity Reaction Status Date / Time No Known Allergies Allergy Verified 08/16/20 06:21 Physical Exam Vitals: Vital Signs Temp Pulse Pulse Resp BP BP BP 08/18/20 20:00 98.3 F 92 18 98/63 08/18/20 17:47 94 16 114/66 08/18/20 17:10 95 08/18/20 16:58 94 08/18/20 16:29 98.5 F 86 16 91/54 08/18/20 12:00 98.2 F 81 22 91/53 08/18/20 11:00 84 20 115/65 08/18/20 10:00 96 24 124/65 08/18/20 09:00 97 27 H 100/64 08/18/20 08:28 96 08/18/20 08:22 97 08/18/20 08:00 98.3 F 104 H 22 120/68 08/18/20 07:00 97 20 118/67 08/18/20 06:00 89 21 111/63 08/18/20 05:00 99 18 110/66 08/18/20 04:00 98.1 F 89 22 115/62 08/18/20 03:00 91 23 08/18/20 02:00 86 19 08/18/20 01:00 92 22 08/18/20 00:00 98.4 F 91 22 104/61 08/17/20 23:00 87 22 08/17/20 22:37 83 18 08/17/20 22:00 87 22 08/17/20 21:00 87 20 93/60 Pulse Ox 08/18/20 20:00 100 08/18/20 17:47 97 08/18/20 17:10 08/18/20 16:58 08/18/20 16:29 96 08/18/20 12:00 96 08/18/20 11:00 96 08/18/20 10:00 97 08/18/20 09:00 97 08/18/20 08:28 08/18/20 08:22 08/18/20 08:00 94 L 08/18/20 07:00 94 L 08/18/20 06:00 93 L 08/18/20 05:00 94 L 08/18/20 04:00 94 L 08/18/20 03:00 93 L 08/18/20 02:00 93 L 08/18/20 01:00 93 L 08/18/20 00:00 93 L 08/17/20 23:00 93 L 08/17/20 22:37 94 L 08/17/20 22:00 94 L 08/17/20 21:00 94 L Intake and Output 08/18/20 08/18/20 08/18/20 06:59 14:59 22:59 Intake Total 229.016 239.215 222 Output Total 500 255 195 Balance -270.984 -15.785 27 Intake: IV 208 104 Lactated Ringers 1,000 ml 160 80 @ 20 mls/hr IV .Q24H JAY Rx#:[id number] PRESSURE BAGS 48 24 Intake, IV Titration 21.016 35.215 Amount Insulin Regular 100 unit 21.016 35.215 In Sodium Chloride 0.9% 100 ml @ Per Protocol IV .Q0M JAY Rx#:[id number] Oral 100 222 Output: Chest Tube Drainage 130 150 70 Left plural 20 90 70 Mediastinal X2 110 60 Urine 370 105 125 Uretheral (Cadet) 125 Other: Voiding Method Indwelling Catheter Urinal Weight 137.9 kg GENERAL: The patient is alert and oriented x3, not in any acute distress. Well developed, well nourished. HEENT: Pupils are round and equally reacting to light. EOMI. No scleral icterus. No conjunctival pallor. Normocephalic, atraumatic. No pharyngeal erythema. No thyromegaly. CARDIOVASCULAR: S1 and S2 present. No murmurs, rubs, or gallops. -PULMONARY: Chest is clear to auscultation, no wheezing or crackles. Surgical wound with a dressing ABDOMEN: Soft, nontender, nondistended, normoactive bowel sounds. No palpable organomegaly. MUSCULOSKELETAL: No joint swelling or deformity. EXTREMITIES: No cyanosis, clubbing, or pedal edema. NEUROLOGICAL: Gross neurological examination did not reveal any focal deficits. SKIN: No rashes. No petechiae Results CBC & Chem 7: 08/18/20 04:00 08/18/20 04:00 Labs: Abnormal Lab Results - Last 24 Hours (Table) 08/17/20 08/17/20 08/17/20 Range/Units 21:00 21:56 22:58 RBC (4.30-5.90) m/uL Hgb (13.0-17.5) gm/dL Hct (39.0-53.0) % RDW (11.5-15.5) % Plt Count (150-450) k/uL Neutrophils # (Manual) (1.3-7.7) k/uL Nucleated RBCs (0-0) /100 WBC Sodium (137-145) mmol/L BUN (9-20) mg/dL Glucose (74-99) mg/dL POC Glucose (mg/dL) 117 H 124 H 120 H (75-99) mg/dL AST (17-59) U/L ALT (4-49) U/L Total Protein (6.3-8.2) g/dL Albumin (3.5-5.0) g/dL 08/18/20 08/18/20 08/18/20 Range/Units 00:13 01:01 01:55 RBC (4.30-5.90) m/uL Hgb (13.0-17.5) gm/dL Hct (39.0-53.0) % RDW (11.5-15.5) % Plt Count (150-450) k/uL Neutrophils # (Manual) (1.3-7.7) k/uL Nucleated RBCs (0-0) /100 WBC Sodium (137-145) mmol/L BUN (9-20) mg/dL Glucose (74-99) mg/dL POC Glucose (mg/dL) 122 H 119 H 121 H (75-99) mg/dL AST (17-59) U/L ALT (4-49) U/L Total Protein (6.3-8.2) g/dL Albumin (3.5-5.0) g/dL 08/18/20 08/18/20 08/18/20 Range/Units 03:02 04:00 04:00 RBC 2.51 L (4.30-5.90) m/uL Hgb 7.8 L (13.0-17.5) gm/dL Hct 24.0 L (39.0-53.0) % RDW 19.9 H (11.5-15.5) % Plt Count 101 L (150-450) k/uL Neutrophils # (Manual) 7.90 H (1.3-7.7) k/uL Nucleated RBCs 1 H (0-0) /100 WBC Sodium 135 L (137-145) mmol/L BUN 28 H (9-20) mg/dL Glucose 118 H (74-99) mg/dL POC Glucose (mg/dL) 122 H (75-99) mg/dL AST 151 H (17-59) U/L ALT 166 H (4-49) U/L Total Protein 5.4 L (6.3-8.2) g/dL Albumin 3.3 L (3.5-5.0) g/dL 08/18/20 08/18/20 08/18/20 Range/Units 04:02 04:57 06:04 RBC (4.30-5.90) m/uL Hgb (13.0-17.5) gm/dL Hct (39.0-53.0) % RDW (11.5-15.5) % Plt Count (150-450) k/uL Neutrophils # (Manual) (1.3-7.7) k/uL Nucleated RBCs (0-0) /100 WBC Sodium (137-145) mmol/L BUN (9-20) mg/dL Glucose (74-99) mg/dL POC Glucose (mg/dL) 126 H 124 H 118 H (75-99) mg/dL AST (17-59) U/L ALT (4-49) U/L Total Protein (6.3-8.2) g/dL Albumin (3.5-5.0) g/dL 08/18/20 08/18/20 08/18/20 Range/Units 06:58 08:22 10:05 RBC (4.30-5.90) m/uL Hgb (13.0-17.5) gm/dL Hct (39.0-53.0) % RDW (11.5-15.5) % Plt Count (150-450) k/uL Neutrophils # (Manual) (1.3-7.7) k/uL Nucleated RBCs (0-0) /100 WBC Sodium (137-145) mmol/L BUN (9-20) mg/dL Glucose (74-99) mg/dL POC Glucose (mg/dL) 124 H 131 H 145 H (75-99) mg/dL AST (17-59) U/L ALT (4-49) U/L Total Protein (6.3-8.2) g/dL Albumin (3.5-5.0) g/dL 08/18/20 08/18/20 Range/Units 11:50 17:38 RBC (4.30-5.90) m/uL Hgb (13.0-17.5) gm/dL Hct (39.0-53.0) % RDW (11.5-15.5) % Plt Count (150-450) k/uL Neutrophils # (Manual) (1.3-7.7) k/uL Nucleated RBCs (0-0) /100 WBC Sodium (137-145) mmol/L BUN (9-20) mg/dL Glucose (74-99) mg/dL POC Glucose (mg/dL) 125 H 140 H (75-99) mg/dL AST (17-59) U/L ALT (4-49) U/L Total Protein (6.3-8.2) g/dL Albumin (3.5-5.0) g/dL Assessment and Plan Assessment: Coronary artery disease, with recent non-STEMI on 04/2020 status post CABG Hypertension Hyperlipidemia History of severe aortic valve stenosis status post transcatheter aortic valve replacement in 2017 History of right coronary artery stenosis status post stent placement in the proximal and mid RCA Morbid obesity Plan: This is a pleasant 65 years old male who presents with CABG. Continue with aspirin and Plavix. He is also on metoprolol, Cipro consult is on the case including pulmonary and cardiology teams Labs and medication were reviewed.. Continue same treatment. Continue with symptomatic treatment. Resume home medication. Monitor lytes and vitals. DVT and GI prophylaxis. Further recommendations depends on the clinical course of the patient DVT prophylaxis: Subcutaneous heparin GI Prophylaxis: Ppi Thank you for consulting us
[2020-08-18 20:57] LABS: Glucose,Whole Blood 156 mg/dL (75-99)
[2020-08-18] MEDS: INSULIN NPH 300 UNIT/3 ML VIAL SQ SCH (21:20)
[2020-08-18] MEDS: SENNOSIDES-DOCUSATE SODIUM 1 EACH TAB PO SCH (21:21)
[2020-08-19 02:14] LABS: Glucose,Whole Blood 154 mg/dL (75-99)
[2020-08-19] MEDS: INSULIN ASPART (NovoLOG) 100 UNIT/ML VIAL SQ SCH ×5 (02:28→21:28)
[2020-08-19 06:25] LABS: Glucose,Whole Blood 160 mg/dL (75-99)
[2020-08-19] MEDS: PANTOPRAZOLE 40 MG TABLET PO SCH (06:49)
[2020-08-19] MEDS: KETOROLAC 15 MG/ML 1 ML VIAL IVP SCH (06:49)
--- NOTE | 2020-08-19 07:44 | XR ---
EXAMINATION TYPE: XR chest 1V portable DATE OF EXAM: 08/19/2020 COMPARISON: 08/18/2020 INDICATION: Postop CABG TECHNIQUE: Single frontal view of the chest is obtained. FINDINGS: The heart size is normal. The pulmonary vasculature is normal. No pneumothorax is evident. Left-sided chest tube remains stable. Sternotomy wires are present from p revious cardiac surgery IMPRESSION: 1. Continued improving chest x-ray. 2. Left-sided chest tube remains in position. No pneumothorax is evident
[2020-08-19 08:15] LABS: Albumin 3.3 g/dL (3.5-5.0); Total Protein 5.5 g/dL (6.3-8.2)
[2020-08-19] MEDS: IPRATROPIUM-ALBUTEROL 3 ML NEB INHALATION SCH ×4 (08:22→21:20)
[2020-08-19 08:23] LABS: Calcium 8.4 mg/dL (8.4-10.2); Potassium 4.2 mmol/L (3.5-5.1); Total Bilirubin 1.5 mg/dL (0.2-1.3)
[2020-08-19 08:30] LABS: Anisocytosis Slight; Basophils % (A) 0 %; Eosinophils % (A) 0 %; HGB 7.8 gm/dL (13.0-17.5); Hypochromasia Slight; Lymphocytes # (A) 1.8 k/uL (1.0-4.8); Lymphocytes % (A) 20 %; MCH 31.7 pg (25.0-35.0); MCHC 33.7 g/dL (31.0-37.0); MCV 94.2 fL (80.0-100.0); Macrocytosis Slight; Mean Platelet Volume 12.9; Monocytes # (A) 0.5 k/uL (0-1.0); Monocytes % (A) 5 %; Neutrophils # (A) 6.4 k/uL (1.3-7.7); Neutrophils % (A) 73 %; Platelet Count 126 k/uL (150-450); Poikilocytosis Slight; RBC 2.44 m/uL (4.30-5.90); RDW 19.4 % (11.5-15.5); WBC 8.8 k/uL (3.8-10.6)
[2020-08-19 08:49] LABS: Large Platelets Present; Ovalocytes Present
[2020-08-19] MEDS: INSULN ASP PRT/INSULIN ASPART 100 UNIT/ML 10 ML VIAL SQ SCH (08:53)
[2020-08-19] MEDS: CLOPIDOGREL 75 MG TAB PO SCH (09:00)
[2020-08-19] MEDS: HEPARIN SODIUM,PORCINE 5,000 UNIT/ML 1 ML VIAL SQ SCH ×2 (09:01→16:22)
[2020-08-19] MEDS: METOPROLOL TARTRATE 50 MG TAB PO SCH ×2 (09:01→21:28)
[2020-08-19] MEDS: ASPIRIN 325 MG TAB PO SCH (09:01)
[2020-08-19] MEDS: SODIUM CHLORIDE 0.9% 1,000 ML IV SCH (09:01)
[2020-08-19] MEDS ORDERED: ALBUMIN HUMAN 5% 500 ML in EMPTY BAG 1 BAG IVPB ONE (09:15)
[2020-08-19] MEDS ORDERED: ACETAMINOPHEN TAB 500 MG TAB PO PRN (11:46)
--- NOTE | 2020-08-19 11:49 | P.PN ---
Subjective Progress Note Date: 08/19/20 Principal diagnosis: Left Main coronary artery disease. 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 POD #3 coronary artery bypass grafting 1 with the left internal mammary artery to the left anterior descending artery, off pump, with intraoperative transesophageal echocardiogram and extensive lysis of radiation caused adhesions. Postoperative acute blood loss anemia and thrombocytopenia, expected given hemodilution and patient's preoperative anemia and thrombocytopenia. Postoperative elevation of his transaminase enzymes, unexpected. The patient was seen in follow-up today 08/19/2020 at his bedside on the cardiac stepdown unit. Currently sitting up to the bedside chair, is awake, alert and oriented 3 and is in no acute apparent distress. Denies any complaints of shortness of breath or pain. He remains hemodynamically stable and is currently on no inotropic or pressor support. Left pleural chest tube remains in place to low continuous wall suction -20 cm H2O. No air leaks present. Draining thin serosanguineous drainage. The patient has had marginal urine output last night with 200 mL of dark jericho urine with in the last 8 hours. Oxygen saturations are 96% on room air. Achieving 1000 mL on his incentive spirometry. Remote telemetry showing normal sinus rhythm heart rate 88 BPM. Complaining of lack of appetite. Objective - Vital Signs Vital signs: Vital Signs Temp 99 F 08/19/20 08:00 Pulse 92 08/19/20 11:37 Resp 18 08/18/20 20:00 BP 93/56 08/19/20 08:00 Pulse Ox 100 08/18/20 20:00 Intake & Output 08/18/20 08/19/20 08/19/20 18:59 06:59 18:59 Intake Total 461.215 540 Output Total 450 140 20 Balance 11.215 400 -20 Weight 134.5 kg Intake: IV 104 Lactated Ringers 1,000 ml 80 @ 20 mls/hr IV .Q24H [facility] Rx#:[id number] PRESSURE BAGS 24 Intake, IV Titration 35.215 Amount Insulin Regular 100 unit 35.215 In Sodium Chloride 0.9% 100 ml @ Per Protocol IV .Q0M [facility] Rx#:[id number] Oral 322 540 Output: Chest Tube Drainage 220 140 20 Left plural 160 140 20 Mediastinal X2 60 Urine 230 Uretheral (Cadet) 125 Other: Voiding Method Urinal Urinal Urinal ABP, PAP, CO, CI - Last Documented Arterial Blood Pressure 123/48 Pulmonary Artery Pressure 38/20 Cardiac Output 5.7 Cardiac Index 2.4 - Constitutional General appearance: Present: cooperative, morbidly obese, no acute distress - EENT Eyes: Present: normal appearance. Absent: scleral icterus ENT: Present: hearing grossly normal - Neck Details: Neck is supple, no JVD. - Respiratory Details: Lung sounds essentially clear throughout, diminished to his bilateral bases. Respirations are symmetrical and nonlabored. No wheezes, rhonchi or crackles. Oxygen saturation are 96% on room air. Achieving 1000 mL on his incentive spirometry. Left pleural chest tube remains in place to low continuous wall suction -20 cm H2O. No air leak is present. Draining thin serous drainage. - Cardiovascular Details: Regular rhythm and rate. S1 and S2 present, negative for S3, gallop or murmur. Sternum is stable. Remote telemetry showing normal sinus rhythm heart rate 88 B PM. Heart hugger is in place and he is demonstrating appropriate use. Knee- high NATALIA hose and sequential compression devices in place to his bilateral lower extremities. - Gastrointestinal Gastrointestinal Comment(s): Abdomen soft, nontender and nondistended. Active bowel sounds present in all 4 abdominal quadrants. No guarding or rigidity. No organomegaly appreciated. Tolerating oral intake. - Genitourinary Genitourinary Comment(s): Voiding clear jericho urine. Marginal urine output in the last 8 hours with 200 mL of urine. - Integumentary Integumentary Comment(s): Skin is warm and dry. No clubbing or cyanosis is present. Midline sternal incision is clean, dry and approximated. No drainage or redness present. Dressing is clean, dry and intact. - Neurologic Neurologic: Present: CNII-XII intact - Musculoskeletal Musculoskeletal: Present: gait normal, strength equal bilaterally - Psychiatric Psychiatric: Present: A&O x's 3, appropriate affect, intact judgment & insight - Allied health notes Allied health notes reviewed: nursing - Labs CBC & Chem 7: 08/19/20 07:50 08/19/20 07:50 Labs: Abnormal Lab Results - Last 24 Hours (Table) 08/18/20 08/18/20 08/18/20 Range/Units 11:50 17:38 20:55 RBC (4.30-5.90) m/uL Hgb (13.0-17.5) gm/dL Hct (39.0-53.0) % RDW (11.5-15.5) % Plt Count (150-450) k/uL BUN (9-20) mg/dL Glucose (74-99) mg/dL POC Glucose (mg/dL) 125 H 140 H 156 H (75-99) mg/dL Total Bilirubin (0.2-1.3) mg/dL AST (17-59) U/L ALT (4-49) U/L Total Protein (6.3-8.2) g/dL Albumin (3.5-5.0) g/dL 08/19/20 08/19/20 08/19/20 Range/Units 02:12 06:24 07:50 RBC 2.44 L (4.30-5.90) m/uL Hgb 7.8 L (13.0-17.5) gm/dL Hct 23.0 L (39.0-53.0) % RDW 19.4 H (11.5-15.5) % Plt Count 126 L (150-450) k/uL BUN (9-20) mg/dL Glucose (74-99) mg/dL POC Glucose (mg/dL) 154 H 160 H (75-99) mg/dL Total Bilirubin (0.2-1.3) mg/dL AST (17-59) U/L ALT (4-49) U/L Total Protein (6.3-8.2) g/dL Albumin (3.5-5.0) g/dL 08/19/20 Range/Units 07:50 RBC (4.30-5.90) m/uL Hgb (13.0-17.5) gm/dL Hct (39.0-53.0) % RDW (11.5-15.5) % Plt Count (150-450) k/uL BUN 47 H (9-20) mg/dL Glucose 149 H (74-99) mg/dL POC Glucose (mg/dL) (75-99) mg/dL Total Bilirubin 1.5 H (0.2-1.3) mg/dL AST 195 H (17-59) U/L ALT 252 H (4-49) U/L Total Protein 5.5 L (6.3-8.2) g/dL Albumin 3.3 L (3.5-5.0) g/dL - Imaging and Cardiology Chest x-ray: report reviewed, image reviewed Assessment and Plan Assessment: 1. Left main coronary artery disease, status post single vessel off-pump coronary artery bypass grafting surgery, SIMS to the LAD 2. History of coronary artery disease with non-STEMI in April 2020 status post drug-eluting stent placement to the proximal and mid RCA 3. Hypertension 4. History of severe aortic stenosis status post transcatheter aortic valve replacement in 2016 5. Syncopal episode in April 2020 secondary to anemia 6. Lifelong nonsmoker with mild restrictive lung disease with preoperative FEV1 70% of predicted 7. Severe pulmonary hypertension 8. History of Seminoma with excision followed by mediastinal radiation in 1978, status post extensive lysis of radiation caused adhesions 9. Morbid obesity with a BMI of 47.6 kg/m 10. Preoperative chronic anemia and thrombocytopenia 11. Postoperative acute blood loss anemia and thrombocytopenia, expected, status post packed red blood cell transfusion as well as platelet transfusion 12. Postoperative elevation of his transaminitis enzymes, unexpected Plan: 1. Continue aspirin, Plavix, and beta hector. Will increase metoprolol tartrate as tolerated. 2. Encourage incentive spirometry use 10 times every hour while awake. Bronchodilators per pulmonology. 3. Increase activity, ambulate as tolerated. PT/OT/cardiac rehab following. 4. Will monitor daily labs and x-rays. Electrolyte replacement per protocol. No further transfusion at this time. 5. GI/DVT prophylaxis. 6. Pain control with current medication regimen. Toradol discontinued as his BUN and creatinine are trending up. Acetaminophen 1000 mg every 6 hours when necessary pain added. 7. Discontinue Lipitor as his transaminases enzymes are trending up. We will continue to monitor and restart statin when transaminase enzymes have normalized. 8. Left pleural chest tube removed without incident. Vaseline impregnated gauze to cover, 4 x 4 gauze to cover and secured with tape. 9. Continue to record strict accurate intake and output. Daily weight with standup scale, not bed scale 10. Insulin management per Dr. Mckeon. Patient is not diabetic, hemoglobin A1c preoperatively 5.7%. 11. Give 5% albumin 500 mL IVPB back 1 now for decreased urine output and start 0.9% normal saline at 50 mL per hour. Encourage oral intake. 12. More recommendations to follow based on patient's clinical course. I have seen and examined the patient and agree with the assessment and plan as dictated by my nurse practitioner. Time with Patient: Greater than 30
[2020-08-19 12:08] LABS: Glucose,Whole Blood 124 mg/dL (75-99)
--- NOTE | 2020-08-19 12:36 | P.PN ---
Subjective Patient has recent history of non-STEMI on last April area That time stent was placed in the proximal and and RCA. He also with history of aortic valve replacement. He was admitted for coronary artery bypass grafting to the left anterior descending artery. Today is postoperative day #2 Patient was seen today in select unit where he was transferred from ICU. He is sitting in chair comfortable, no distress, no chest pain or dyspnea, left chest tube is in place No other new complaints Vitas looks stable. Hemoglobin is 7.8, rest of CBC and BMP is unremarkable. Liver enzymes slightly elevated with normal bilirubin Chest x-ray showing increasing bibasilar atelectasis 08/19/2020 Patient is looking comfortable with no chest pain or dyspnea. He is eating well, he is voiding with no difficulty and this morning he could void 200 mL with no issue. Hemodynamically stable. CBC and hemoglobin is stable at 7.8 which is similar to yesterday. His BMP is unremarkable except for mild increase in his liver enzymes. Chest x-ray showing improving with left-sided chest tube in position He was placed on normal saline at 50 mL per hour.and albumin is given for concerns of decreased urine output. We will check bladder scan And discussed with staff Continue with aspirin and Plavix and close monitoring Objective - Vital Signs Vital signs: Vital Signs Temp 98.6 F 08/19/20 11:34 Pulse 92 08/19/20 11:37 Resp 16 08/19/20 11:34 BP 96/63 08/19/20 11:34 Pulse Ox 96 08/19/20 11:34 Intake & Output 08/18/20 08/19/20 08/19/20 18:59 06:59 18:59 Intake Total 461.215 540 Output Total 450 140 20 Balance 11.215 400 -20 Weight 134.5 kg Intake: IV 104 Lactated Ringers 1,000 ml 80 @ 20 mls/hr IV .Q24H [facility] Rx#:[id number] PRESSURE BAGS 24 Intake, IV Titration 35.215 Amount Insulin Regular 100 unit 35.215 In Sodium Chloride 0.9% 100 ml @ Per Protocol IV .Q0M [facility] Rx#:[id number] Oral 322 540 Output: Chest Tube Drainage 220 140 20 Left plural 160 140 20 Mediastinal X2 60 Urine 230 Uretheral (Cadet) 125 Other: Voiding Method Urinal Urinal Urinal ABP, PAP, CO, CI - Last Documented Arterial Blood Pressure 123/48 Pulmonary Artery Pressure 38/20 Cardiac Output 5.7 Cardiac Index 2.4 - Exam GENERAL: The patient is alert and oriented x3, not in any acute distress. Well developed, well nourished. HEENT: Pupils are round and equally reacting to light. EOMI. No scleral icterus. No conjunctival pallor. Normocephalic, atraumatic. No pharyngeal erythema. No thyromegaly. CARDIOVASCULAR: S1 and S2 present. No murmurs, rubs, or gallops. PULMONARY: Chest is clear to auscultation, no wheezing or crackles. ABDOMEN: Soft, nontender, nondistended, normoactive bowel sounds. No palpable organomegaly. MUSCULOSKELETAL: No joint swelling or deformity. EXTREMITIES: No cyanosis, clubbing, or pedal edema. NEUROLOGICAL: Gross neurological examination did not reveal any focal deficits. SKIN: No rashes. no petechiae. - Labs CBC & Chem 7: 08/19/20 07:50 08/19/20 07:50 Labs: Abnormal Lab Results - Last 24 Hours (Table) 08/18/20 08/18/20 08/19/20 Range/Units 17:38 20:55 02:12 RBC (4.30-5.90) m/uL Hgb (13.0-17.5) gm/dL Hct (39.0-53.0) % RDW (11.5-15.5) % Plt Count (150-450) k/uL BUN (9-20) mg/dL Glucose (74-99) mg/dL POC Glucose (mg/dL) 140 H 156 H 154 H (75-99) mg/dL Total Bilirubin (0.2-1.3) mg/dL AST (17-59) U/L ALT (4-49) U/L Total Protein (6.3-8.2) g/dL Albumin (3.5-5.0) g/dL 08/19/20 08/19/20 08/19/20 Range/Units 06:24 07:50 07:50 RBC 2.44 L (4.30-5.90) m/uL Hgb 7.8 L (13.0-17.5) gm/dL Hct 23.0 L (39.0-53.0) % RDW 19.4 H (11.5-15.5) % Plt Count 126 L (150-450) k/uL BUN 47 H (9-20) mg/dL Glucose 149 H (74-99) mg/dL POC Glucose (mg/dL) 160 H (75-99) mg/dL Total Bilirubin 1.5 H (0.2-1.3) mg/dL AST 195 H (17-59) U/L ALT 252 H (4-49) U/L Total Protein 5.5 L (6.3-8.2) g/dL Albumin 3.3 L (3.5-5.0) g/dL 08/19/20 Range/Units 11:53 RBC (4.30-5.90) m/uL Hgb (13.0-17.5) gm/dL Hct (39.0-53.0) % RDW (11.5-15.5) % Plt Count (150-450) k/uL BUN (9-20) mg/dL Glucose (74-99) mg/dL POC Glucose (mg/dL) 124 H (75-99) mg/dL Total Bilirubin (0.2-1.3) mg/dL AST (17-59) U/L ALT (4-49) U/L Total Protein (6.3-8.2) g/dL Albumin (3.5-5.0) g/dL Assessment and Plan Assessment: Coronary artery disease, with recent non-STEMI on 04/2020 status post CABG Hypertension Hyperlipidemia History of severe aortic valve stenosis status post transcatheter aortic valve replacement in 2017 History of right coronary artery stenosis status post stent placement in the proximal and mid RCA Morbid obesity Plan: This is a pleasant 65 years old male who presents with CABG. Continue with aspirin and Plavix. He is also on metoprolol, Cipro consult is on the case including pulmonary and cardiology teams Labs and medication were reviewed.. Continue same treatment. Continue with symptomatic treatment. Resume home medication. Monitor lytes and vitals. DVT and GI prophylaxis. Further recommendations depends on the clinical course of the patient DVT prophylaxis: Subcutaneous heparin GI Prophylaxis: Ppi Thank you for consulting us
--- NOTE | 2020-08-19 12:57 | P.PN ---
Subjective Progress Note Date: 08/19/20 HISTORY OF PRESENT ILLNESS: Patient is status post CABG 1 with SIMS to the LAD. Patient examined this morning at the bedside. Patient denies chest pain or pressure. He denies shortness of breath. Patient is maintaining oxygen saturations greater than 92% on room air. He remains in sinus rhythm. LFTs remain elevated today. PHYSICAL EXAM: VITAL SIGNS: Reviewed. GENERAL: Well-developed in no acute distress. NECK: Supple. No JVD or thyromegaly LUNGS: Respirations even and unlabored. Lungs diminished. HEART: Regular rate and rhythm. S1 and S2 heard. Heart hugger in place. EXTREMITIES: Normal range of motion. No clubbing or cyanosis. Peripheral p ulses intact. No lower extremity edema ASSESSMENT: Coronary artery disease, status post CABG 1 SIMS to LAD History of an STEMI with PCI to proximal and mid RCA, April 2020 History of severe aortic stenosis, status post TAVR 2016 Severe pulmonary hypertension Hypertension Transaminitis PLAN: Continue postoperative management per CTS Continue current cardiac medications Agreeable to holding lipitor secondary to elevated LFTs Increased activity as tolerated Continue incentive spirometer 10 times an hour Nurse practitioner note has been reviewed by physician. Signing provider agrees with the documented findings, assessment, and plan of care. Objective - Vital Signs Vital signs: Vital Signs Temp 98.6 F 08/19/20 11:34 Pulse 92 08/19/20 11:37 Resp 16 08/19/20 11:34 BP 96/63 08/19/20 11:34 Pulse Ox 96 08/19/20 11:34 Intake & Output 08/18/20 08/19/20 08/19/20 18:59 06:59 18:59 Intake Total 461.215 540 Output Total 450 140 20 Balance 11.215 400 -20 Weight 134.5 kg Intake: IV 104 Lactated Ringers 1,000 ml 80 @ 20 mls/hr IV .Q24H [facility] Rx#:[id number] PRESSURE BAGS 24 Intake, IV Titration 35.215 Amount Insulin Regular 100 unit 35.215 In Sodium Chloride 0.9% 100 ml @ Per Protocol IV .Q0M [facility] Rx#:[id number] Oral 322 540 Output: Chest Tube Drainage 220 140 20 Left plural 160 140 20 Mediastinal X2 60 Urine 230 Uretheral (Cadet) 125 Other: Voiding Method Urinal Urinal Urinal ABP, PAP, CO, CI - Last Documented Arterial Blood Pressure 123/48 Pulmonary Artery Pressure 38/20 Cardiac Output 5.7 Cardiac Index 2.4 - Labs CBC & Chem 7: 08/19/20 07:50 08/19/20 07:50 Labs: Abnormal Lab Results - Last 24 Hours (Table) 08/18/20 08/18/20 08/19/20 Range/Units 17:38 20:55 02:12 RBC (4.30-5.90) m/uL Hgb (13.0-17.5) gm/dL Hct (39.0-53.0) % RDW (11.5-15.5) % Plt Count (150-450) k/uL BUN (9-20) mg/dL Glucose (74-99) mg/dL POC Glucose (mg/dL) 140 H 156 H 154 H (75-99) mg/dL Total Bilirubin (0.2-1.3) mg/dL AST (17-59) U/L ALT (4-49) U/L Total Protein (6.3-8.2) g/dL Albumin (3.5-5.0) g/dL 08/19/20 08/19/20 08/19/20 Range/Units 06:24 07:50 07:50 RBC 2.44 L (4.30-5.90) m/uL Hgb 7.8 L (13.0-17.5) gm/dL Hct 23.0 L (39.0-53.0) % RDW 19.4 H (11.5-15.5) % Plt Count 126 L (150-450) k/uL BUN 47 H (9-20) mg/dL Glucose 149 H (74-99) mg/dL POC Glucose (mg/dL) 160 H (75-99) mg/dL Total Bilirubin 1.5 H (0.2-1.3) mg/dL AST 195 H (17-59) U/L ALT 252 H (4-49) U/L Total Protein 5.5 L (6.3-8.2) g/dL Albumin 3.3 L (3.5-5.0) g/dL 08/19/20 Range/Units 11:53 RBC (4.30-5.90) m/uL Hgb (13.0-17.5) gm/dL Hct (39.0-53.0) % RDW (11.5-15.5) % Plt Count (150-450) k/uL BUN (9-20) mg/dL Glucose (74-99) mg/dL POC Glucose (mg/dL) 124 H (75-99) mg/dL Total Bilirubin (0.2-1.3) mg/dL AST (17-59) U/L ALT (4-49) U/L Total Protein (6.3-8.2) g/dL Albumin (3.5-5.0) g/dL
--- NOTE | 2020-08-19 14:21 | P.PN ---
Subjective Progress Note Date: 08/19/20 Principal diagnosis: Left main coronary artery disease status post single-vessel off-pump coronary bypass grafting, SIMS to the LAD This is a 55-year-old white male patient with history of hypertension, hyperlipidemia, severe aortic stenosis status post TAPVR in the 2017, CAD with previous stenting of the RCA, the most recent one performed on 05/14/[address] Landaverde. Patient had been experiencing chest pressure and tightness on and off, and shortness of breath. Had a recent non-ST elevated myocardial infarction and RCA stenting in April 2020. Patient underwent cardiac catheterization on 06/12/2020 which showed distal left main eccentric plaque, calcification, urinalysis was in the range of 60%. His RCA was stented and multiple segments and all statins were open. LAD had mild disease. His echocardiogram from April 2020 showed the EF between 50-55%, normally functioning bioprosthetic aortic valve, mild mitral regurgitation, severe pulmonary hypertension, with mild tricuspid regurgitation, PA pressure of was 63 mmHg. Surgical intervention was recommended, and today on 08/16/2020 patient underwent a single-vessel bypass grafting with SIMS to the LAD and this was done off pump. 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 He seen in the postoperative period in the intensive care unit, he is sedated, intubated on mechanical ventilator current vent settings are assist control mode of ventilation with the rate of 16, tidal lungs 500, FiO2 is 50% and PEEP of 5. Postoperative blood gases were reviewed, necessary adjustments were made. Patient is hemodynamically stable, he had some mild bleeding Intra-Op, he received 2 units of packed red blood cells, 1 units of fresh frozen plasma and 1 unit of platelets, she is on small amount of norepinephrine currently at 0.08 mics per kilo per minute, lactated Ringer's at 50 ML per hour, Precedex is a 0.4 mics per kilo per minute, nitroglycerin at 5 mics per kilo per minute and insulin drip is at 3 units per hour. In his him, with a rate of 86, PA pressures 54/29, CVP is 27, cardiac output is 4.9, and 2.1 respectively. Mediastianal chest tubes with a total of 140 ML of sanguinous o utput in the Pleur-evac, no evidence of air leak, left pleural chest tube with 30 mL of sanguinous output. Patient is calm and comfortable, resting comfortably on the ventilator. Postoperative chest x-ray shows a mild pulmonary vascular congestion. Catheters and ET tube in appropriate positions. Patient was reevaluated today on 08/17/20, patient remains in the ICU, patient was extubated uneventfully at 19:25 p.m. and his post extubation course has been relatively uneventful. Patient is now sitting up in a recliner, in no distress, he is on 4 L nasal cannula, with O2 saturation 96%. Most recent hemodynamic parameters showed cardiac output of 4.3 cardiac index of 1.8 pulmonary artery pressure 40/21 CVP is 17. Patient is on insulin at 7 units per hour, he is not requiring any inotropes or any pressors. Not requiring any antiarrhythmic medications. Chest x-ray showed postoperative changes, and minimal bibasilar atelectasis, expected. Tiny left apical pneumothorax noted. Scattered pleural parenchymal opacities noted Reevaluated today on 08/18/20, patient remains in the ICU, he is postoperative day #2. Patient is sitting at bedside, alert and oriented 3, patient is doing great, relatively asymptomatic, on few liters nasal cannula, he is in sinus rhythm, hemodynamically stable, not requiring any pressors or any inotropes. Chest tubes and mediastinal tubes were noted. Serosanguineous drainage noted. Patient continues to do poorly with incentive spirometry. Chest x-ray showed mostly atelectasis, and no sizable pneumothorax hemoglobin today is 7.8 WBC count is 9.8. Electrolytes and renal profile are normal The patient is seen today 08/19/2020 in follow-up on the selective care unit. He is currently up ambulating in his room with assistance. This is postopera tive day #3 of coronary artery bypass grafting 1 with a SIMS to the LAD. He denies any worsening shortness of breath, cough or congestion. Maintaining O2 saturations in the mid 90s on room air. He's afebrile. Hemodynamically stable. He is status post 2 units of packed red blood cells, 2 units of fresh frozen plasma one unit of platelets this admission. Current hemoglobin 7.8. Platelet count 126,000. White count 8.8. Sodium 138. Potassium 4.2. Creatinine 1.25. AST 195. ALT 252. He remains on bronchodilators. Still pulling approximately 750 MLS on his incentive spirometer. His chest x-ray continues to show improvement. He is having some issues with trouble urinating today. Otherwise no complaints. Objective - Vital Signs Vital signs: Vital Signs Temp 98.6 F 08/19/20 11:34 Pulse 92 08/19/20 11:37 Resp 16 08/19/20 11:34 BP 96/63 08/19/20 11:34 Pulse Ox 96 08/19/20 11:34 Intake & Output 08/18/20 08/19/20 08/19/20 18:59 06:59 18:59 Intake Total 461.215 540 Output Total 450 140 184 Balance 11.215 400 -184 Weight 134.5 kg Intake: IV 104 Lactated Ringers 1,000 ml 80 @ 20 mls/hr IV .Q24H JAY Rx#:[id number] PRESSURE BAGS 24 Intake, IV Titration 35.215 Amount Insulin Regular 100 unit 35.215 In Sodium Chloride 0.9% 100 ml @ Per Protocol IV .Q0M JAY Rx#:[id number] Oral 322 540 Output: Chest Tube Drainage 220 140 20 Left plural 160 140 20 Mediastinal X2 60 Urine 230 100 Uretheral (Cadet) 125 Post Void Residual 64 Other: Voiding Method Urinal Urinal Urinal ABP, PAP, CO, CI - Last Documented Arterial Blood Pressure 123/48 Pulmonary Artery Pressure 38/20 Cardiac Output 5.7 Cardiac Index 2.4 - Exam Physical Exam: Revealed a 65-year-old male patient, up ambulating in the room, on room air, no distress. Head: Atraumatic, normocephalic. HEENT:[Neck is supple.] [No neck masses.] [No thyromegaly.] [No JVD.] PERRLA, EOMI, no icterus. Chest: [Symmetrical chest expansion, minimal crackles at the bases..] Cardiac Exam: [Normal S1 and S2, no S3 gallop, no murmur.] Abdomen: [Soft, nontender, no megaly, no rebound, no guarding, normal bowel sounds.] Extremities: [No clubbing, no edema, no cyanosis.] Neurological Exam: [No focal neurologic deficit.] Alert and oriented 3. Psychiatric: Normal mood, affect and normal mental status examination. - Labs CBC & Chem 7: 11/27/20 07:50 08/19/20 07:50 Labs: Abnormal Lab Results - Last 24 Hours (Table) 08/18/20 08/18/20 08/19/20 Range/Units 17:38 20:55 02:12 RBC (4.30-5.90) m/uL Hgb (13.0-17.5) gm/dL Hct (39.0-53.0) % RDW (11.5-15.5) % Plt Count (150-450) k/uL BUN (9-20) mg/dL Glucose (74-99) mg/dL POC Glucose (mg/dL) 140 H 156 H 154 H (75-99) mg/dL Total Bilirubin (0.2-1.3) mg/dL AST (17-59) U/L ALT (4-49) U/L Total Protein (6.3-8.2) g/dL Albumin (3.5-5.0) g/dL 08/19/20 08/19/20 08/19/20 Range/Units 06:24 07:50 07:50 RBC 2.44 L (4.30-5.90) m/uL Hgb 7.8 L (13.0-17.5) gm/dL Hct 23.0 L (39.0-53.0) % RDW 19.4 H (11.5-15.5) % Plt Count 126 L (150-450) k/uL BUN 47 H (9-20) mg/dL Glucose 149 H (74-99) mg/dL POC Glucose (mg/dL) 160 H (75-99) mg/dL Total Bilirubin 1.5 H (0.2-1.3) mg/dL AST 195 H (17-59) U/L ALT 252 H (4-49) U/L Total Protein 5.5 L (6.3-8.2) g/dL Albumin 3.3 L (3.5-5.0) g/dL 08/19/20 Range/Units 11:53 RBC (4.30-5.90) m/uL Hgb (13.0-17.5) gm/dL Hct (39.0-53.0) % RDW (11.5-15.5) % Plt Count (150-450) k/uL BUN (9-20) mg/dL Glucose (74-99) mg/dL POC Glucose (mg/dL) 124 H (75-99) mg/dL Total Bilirubin (0.2-1.3) mg/dL AST (17-59) U/L ALT (4-49) U/L Total Protein (6.3-8.2) g/dL Albumin (3.5-5.0) g/dL Assessment and Plan Assessment: Status post single-vessel off-pump CABG, SIMS to LAD postoperative day #3 Single-vessel coronary artery disease. History of severe aortic stenosis . History of severe pulmonary hypertension. 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 Benign essential hypertension. History of non-ST elevation myocardial infarction, status post stent placement in proximal and mid RCA. Plan: The patient was seen and evaluated by Dr. Stubbs Chest x-ray and labs reviewed Continue to increase his activity as tolerated Continue to work with the incentive spirometer Continue bronchodilators We'll continue to follow I, the cosigning physician, performed a history & physical examination of the patient. Lungs sounds with crackles in the bilateral posterior bases. Maintaining good O2 saturations in the 90s on room air. I discussed the assessment and plan of care with my nurse practitioner, Leanna Mckeon. I attest to the above note as dictated by her.
[2020-08-19 17:03] LABS: Glucose,Whole Blood 167 mg/dL (75-99)
[2020-08-19 20:52] LABS: Glucose,Whole Blood 140 mg/dL (75-99)
[2020-08-19] MEDS: INSULIN NPH 300 UNIT/3 ML VIAL SQ SCH (21:28)
[2020-08-19] MEDS: SENNOSIDES-DOCUSATE SODIUM 1 EACH TAB PO SCH (21:28)
[2020-08-20] MEDS: HEPARIN SODIUM,PORCINE 5,000 UNIT/ML 1 ML VIAL SQ SCH ×3 (00:56→15:00)
[2020-08-20 02:03] LABS: Glucose,Whole Blood 137 mg/dL (75-99)
[2020-08-20] MEDS: INSULIN ASPART (NovoLOG) 100 UNIT/ML VIAL SQ SCH ×5 (02:18→21:11)
[2020-08-20 06:24] LABS: Glucose,Whole Blood 138 mg/dL (75-99)
[2020-08-20] MEDS: PANTOPRAZOLE 40 MG TABLET PO SCH (06:50)
[2020-08-20] MEDS: SODIUM CHLORIDE 0.9% 1,000 ML IV SCH (06:51)
--- NOTE | 2020-08-20 06:57 | XR ---
EXAMINATION TYPE: XR chest 2V DATE OF EXAM: 08/20/2020 COMPARISON: Chest x-ray from yesterday and older studies. HISTORY: Postoperative CABG. TECHNIQUE: Frontal and lateral views of the chest are obtained. FINDINGS: Interval removal of left-sided chest tube. Overlying sternal wires and mediastinal clips redemonstrated. Persistent low lung volumes. Persistent cardiomegaly with small bilateral pleural effusions and associated left basilar atelectasis and/or i nfiltrate. Upper lungs remain clear without pneumothorax. Multilevel spurring in the spine seen best on lateral view. IMPRESSION: No pneumothorax after left-sided chest tube removal. Low lung volumes and cardiomegaly w ith small bilateral pleural effusions and associated left basilar atelectasis and/or infiltrate. No s ignificant change from one day earlier.
[2020-08-20 08:11] LABS: Anisocytosis Moderate; HCT 24.1 % (39.0-53.0); HGB 7.7 gm/dL (13.0-17.5); Hypochromasia Slight; MCH 30.8 pg (25.0-35.0); MCHC 32.1 g/dL (31.0-37.0); Macrocytosis Slight; Mean Platelet Volume 13.4; Poikilocytosis Slight; RBC 2.51 m/uL (4.30-5.90); RDW 20.1 % (11.5-15.5); WBC 9.4 k/uL (3.8-10.6)
[2020-08-20] MEDS: IPRATROPIUM-ALBUTEROL 3 ML NEB INHALATION SCH ×5 (08:21→19:52)
[2020-08-20 08:24] LABS: ALT 336 U/L (4-49); AST 228 U/L (17-59); African American GFR (CKD) >90 (>60 ml/min/1.73 sqM); Albumin 3.3 g/dL (3.5-5.0); Alkaline Phosphatase 77 U/L (38-126); Anion Gap 7 mmol/L; Blood Urea Nitrogen 53 mg/dL (9-20); Calcium 8.3 mg/dL (8.4-10.2); Carbon Dioxide 26 mmol/L (22-30); Chloride 104 mmol/L (98-107); Glucose 147 mg/dL (74-99); Non-African American GFR(CKD) 82 (>60 ml/min/1.73 sqM); Potassium 4.4 mmol/L (3.5-5.1); Sodium 137 mmol/L (137-145); Total Bilirubin 2.4 mg/dL (0.2-1.3); Total Protein 5.6 g/dL (6.3-8.2)
[2020-08-20] MEDS ORDERED: bisacodyL 10 MG SUPP RECTAL STA (08:43)
[2020-08-20] MEDS: ASPIRIN 325 MG TAB PO SCH (08:56)
[2020-08-20] MEDS: METOPROLOL TARTRATE 50 MG TAB PO SCH ×2 (08:56→21:12)
[2020-08-20] MEDS: CLOPIDOGREL 75 MG TAB PO SCH (08:56)
[2020-08-20 09:01] LABS: Platelet Count 149 k/uL (150-450)
--- NOTE | 2020-08-20 09:18 | P.PN ---
Subjective Progress Note Date: 08/20/20 Principal diagnosis: Left Main coronary artery disease. 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 POD #4 coronary artery bypass grafting 1 with the left internal mammary artery to the left anterior descending artery, off pump, with intraoperative transesophageal echocardiogram and extensive lysis of radiation caused adhesions. Postoperative acute blood loss anemia and thrombocytopenia, expected given hemodilution and patient's preoperative anemia and thrombocytopenia. Postoperative elevation of his transaminase enzymes, unexpected. The patient was seen in follow-up today 08/20/2020 at his bedside on the cardiac stepdown unit. Currently sitting up to the bedside chair, is awake, alert and oriented 3 and is in no acute apparent distress. Denies any complaints of shortness of breath or pain. He remains hemodynamically stable and is currently on no inotropic or pressor support. He reports that he is feeling much improved today from yesterday. He has been urinating without difficulty, and has urinated around 700 mL in the last 8 hours. Due to decreased urine output yesterday morning he was given 500 mL of 5% albumin and was started on 0.9% normal saline at 50 mL per hour. T-max temperature in the last 24 hours was 99.5F and he was encouraged to use his incentive spirometry 10 times every hour while awake. He reports that he has been ambulating in the cardiac stepdown unit hallway with minimal assistance from nursing staff and therapy staff. Oxygen saturation are 95% on room air. Remote telemetry showing normal sinus rhythm heart rate 91 BPM. Labs this morning show a WBC count 9.4, hemoglobin 7.7, BUN 53, creatinine 0.98, AST 228 and ALT 336. Objective - Vital Signs Vital signs: Vital Signs Temp 98.2 F 08/20/20 04:00 Pulse 83 08/20/20 04:00 Resp 18 08/20/20 04:00 BP 121/76 08/20/20 04:00 Pulse Ox 95 08/20/20 04:00 Intake & Output 08/19/20 08/20/20 08/20/20 18:59 06:59 18:59 Intake Total 180 750 Output Total 708 810 Balance -528 -60 Weight 135.7 kg Intake: Intake, IV Titration 450 Amount Sodium Chloride 0.9% 1, 450 000 ml @ 50 mls/hr IV . Q20H JAY Rx#:[id number] Oral 180 300 Output: Chest Tube Drainage 20 Left plural 20 Urine 360 810 Post Void Residual 328 Other: Voiding Method Urinal Urinal # Voids 1 ABP, PAP, CO, CI - Last Documented Arterial Blood Pressure 123/48 Pulmonary Artery Pressure 38/20 Cardiac Output 5.7 Cardiac Index 2.4 - Constitutional General appearance: Present: cooperative, morbidly obese, no acute distress - EENT Eyes: Present: normal appearance. Absent: scleral icterus ENT: Present: hearing grossly normal - Neck Details: Neck is supple, no JVD, no lymphadenopathy. 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 No wheezes, crackles or rhonchi. Respirations are symmetrical and nonlabored. Oxygen saturation are 95% on room air. Achieving 1000 mL on his incentive spirometry with encouragement. - Cardiovascular Details: Regular rhythm and rate. S1 and S2 present, negative for S3, gallop or murmur. Sternum is stable. Remote telemetry showing normal sinus rhythm heart rate 91 BPM. Heart hugger is in place and he is demonstrating appropriate use. Knee- high NATALIA hose and sequential compression devices in place to his bilateral lower extremities. +1 edema to his bilateral lower extremities. - Gastrointestinal Gastrointestinal Comment(s): Abdomen is soft, nontender and nondistended. - Genitourinary Genitourinary Comment(s): Voiding clear [place] urine. 700 mL of urine output in the last 8 hours. - Integumentary Integumentary Comment(s): Skin is warm and dry. No clubbing or cyanosis is present. Midline sternal incision is clean, dry and approximated. No drainage or redness is present. - Neurologic Neurologic: Present: CNII-XII intact - Musculoskeletal Musculoskeletal: Present: gait normal, strength equal bilaterally - Psychiatric Psychiatric: Present: A&O x's 3, appropriate affect, intact judgment & insight - Allied health notes Allied health notes reviewed: nursing - Labs CBC & Chem 7: 08/20/20 07:54 08/20/20 07:54 Labs: Abnormal Lab Results - Last 24 Hours (Table) 08/19/20 08/19/20 08/19/20 Range/Units 07:50 07:50 11:53 RBC 2.44 L (4.30-5.90) m/uL Hgb 7.8 L (13.0-17.5) gm/dL Hct 23.0 L (39.0-53.0) % RDW 19.4 H (11.5-15.5) % Plt Count 126 L (150-450) k/uL BUN 47 H (9-20) mg/dL Glucose 149 H (74-99) mg/dL POC Glucose (mg/dL) 124 H (75-99) mg/dL Total Bilirubin 1.5 H (0.2-1.3) mg/dL AST 195 H (17-59) U/L ALT 252 H (4-49) U/L Total Protein 5.5 L (6.3-8.2) g/dL Albumin 3.3 L (3.5-5.0) g/dL 08/19/20 08/19/20 08/20/20 Range/Units 17:01 20:41 02:02 RBC (4.30-5.90) m/uL Hgb (13.0-17.5) gm/dL Hct (39.0-53.0) % RDW (11.5-15.5) % Plt Count (150-450) k/uL BUN (9-20) mg/dL Glucose (74-99) mg/dL POC Glucose (mg/dL) 167 H 140 H 137 H (75-99) mg/dL Total Bilirubin (0.2-1.3) mg/dL AST (17-59) U/L ALT (4-49) U/L Total Protein (6.3-8.2) g/dL Albumin (3.5-5.0) g/dL 08/20/20 Range/Units 06:14 RBC (4.30-5.90) m/uL Hgb (13.0-17.5) gm/dL Hct (39.0-53.0) % RDW (11.5-15.5) % Plt Count (150-450) k/uL BUN (9-20) mg/dL Glucose (74-99) mg/dL POC Glucose (mg/dL) 138 H (75-99) mg/dL Total Bilirubin (0.2-1.3) mg/dL AST (17-59) U/L ALT (4-49) U/L Total Protein (6.3-8.2) g/dL Albumin (3.5-5.0) g/dL - Imaging and Cardiology Chest x-ray: report reviewed, image reviewed Assessment and Plan Assessment: 1. Left main coronary artery disease, status post single vessel off-pump coronary artery bypass grafting surgery, SIMS to the LAD 2. History of coronary artery disease with non-STEMI in April 2020 status post drug-eluting stent placement to the proximal and mid RCA 3. Hypertension 4. History of severe aortic stenosis status post transcatheter aortic valve replacement in 2016 5. Syncopal episode in April 2020 secondary to anemia 6. Lifelong nonsmoker with mild restrictive lung disease with preoperative FEV1 70% of predicted 7. Severe pulmonary hypertension 8. History of Seminoma with excision followed by mediastinal radiation in 1978, status post extensive lysis of radiation caused adhesions 9. Morbid obesity with a BMI of 47.6 kg/m 10. Preoperative chronic anemia and thrombocytopenia 11. Postoperative acute blood loss anemia and thrombocytopenia, expected, status post packed red blood cell transfusion as well as platelet transfusion 12. Postoperative elevation of his transaminitis enzymes, unexpected Plan: 1. Continue aspirin, Plavix, and beta hector. Will increase metoprolol tartrate as tolerated. 2. Encourage incentive spirometry use 10 times every hour while awake. Bronchodilators per pulmonology. 3. Increase activity, ambulate as tolerated. PT/OT/cardiac rehab following. 4. Will monitor daily labs and x-rays. Electrolyte replacement per protocol. 5. GI/DVT prophylaxis. 6. Pain control with current medication regimen. 7. Continue to hold Lipitor as his transaminases enzymes continue trending up. We will continue to monitor and restart statin when transaminase enzymes have normalized. Obtain ultrasound abdomen focused right upper quadrant due to the elevated liver enzymes. 8. Insulin management per Dr. Mckeon. Patient is not diabetic, hemoglobin A1c preoperatively 5.7%. 9. Continue to record strict accurate intake and output. Daily weight with standup scale, not bed scale 10. Discharge planning is in place, anticipate discharge home within the next 24-48 hours with home health care. 11. First postoperative shower today. 12. Discontinue IV fluids 0.9% normal saline. 13. More recommendations to follow based on patient's clinical course. I have seen and examined the patient and agree with the assessment and plan as dictated by my nurse practitioner. Time with Patient: Greater than 30
[2020-08-20] MEDS ORDERED: FUROSEMIDE 10 MG/ML 4 ML VIAL IV STA (09:31)
[2020-08-20] MEDS ORDERED: ALBUMIN HUMAN 25% 50 ML in EMPTY BAG 1 BAG IVPB ONE (10:00)
[2020-08-20 11:29] LABS: Glucose,Whole Blood 140 mg/dL (75-99)
[2020-08-20] MEDS: INSULN ASP PRT/INSULIN ASPART 100 UNIT/ML 10 ML VIAL SQ SCH (11:48)
--- NOTE | 2020-08-20 13:59 | P.PN ---
Subjective Progress Note Date: 08/20/20 HISTORY OF PRESENT ILLNESS: Patient is status post CABG 1 with SIMS to the LAD. Patient examined this morning at the bedside. Patient denies chest pain or pressure. He denies shortness of breath at rest. He reports mild shortness of breath with exertion. Patient is maintaining oxygen saturations greater than 92% on room air. He remains in sinus rhythm. PHYSICAL EXAM: VITAL SIGNS: Reviewed. GENERAL: Well-developed in no acute distress. NECK: Supple. No JVD or thyromegaly LUNGS: Respirations even and unlabored. Lungs diminished. HEART: Regular rate and rhythm. S1 and S2 heard. Systolic murmur noted. Heart hugger in place. EXTREMITIES: Normal range of motion. No clubbing or cyanosis. Peripheral pulses intact. No lower extremity edema ASSESSMENT: Coronary artery disease, status post CABG 1 SIMS to LAD History of an STEMI with PCI to proximal and mid RCA, April 2020 History of severe aortic stenosis, status post TAVR 2016 Severe pulmonary hypertension Hypertension Transaminitis PLAN: Continue postoperative management per CTS Continue current cardiac medications Agreeable to holding lipitor secondary to elevated LFTs. Liver ultrasound ordered. Await results Increased activity as tolerated Continue incentive spirometer 10 times an hour Further recommendations pending patient course Nurse practitioner note has been reviewed by physician. Signing provider agrees with the documented findings, assessment, and plan of care. Objective - Vital Signs Vital signs: Vital Signs Temp 98.5 F 08/20/20 08:58 Pulse 86 08/20/20 08:58 Resp 18 08/20/20 08:58 BP 101/53 08/20/20 08:58 Pulse Ox 96 08/20/20 08:58 Intake & Output 08/19/20 08/20/20 08/20/20 18:59 06:59 18:59 Intake Total 180 750 Output Total 708 810 Balance -528 -60 Weight 135.7 kg Intake: Intake, IV Titration 450 Amount Sodium Chloride 0.9% 1, 450 000 ml @ 50 mls/hr IV . Q20H JAY Rx#:[id number] Oral 180 300 Output: Chest Tube Drainage 20 Left plural 20 Urine 360 810 Post Void Residual 328 Other: Voiding Method Urinal Urinal # Voids 1 ABP, PAP, CO, CI - Last Documented Arterial Blood Pressure 123/48 Pulmonary Artery Pressure 38/20 Cardiac Output 5.7 Cardiac Index 2.4 - Labs CBC & Chem 7: 08/20/20 07:54 08/20/20 07:54 Labs: Abnormal Lab Results - Last 24 Hours (Table) 08/19/20 08/19/20 08/20/20 Range/Units 17:01 20:41 02:02 RBC (4.30-5.90) m/uL Hgb (13.0-17.5) gm/dL Hct (39.0-53.0) % RDW (11.5-15.5) % Plt Count (150-450) k/uL BUN (9-20) mg/dL Glucose (74-99) mg/dL POC Glucose (mg/dL) 167 H 140 H 137 H (75-99) mg/dL Calcium (8.4-10.2) mg/dL Total Bilirubin (0.2-1.3) mg/dL AST (17-59) U/L ALT (4-49) U/L Total Protein (6.3-8.2) g/dL Albumin (3.5-5.0) g/dL 08/20/20 08/20/20 08/20/20 Range/Units 06:14 07:54 07:54 RBC 2.51 L (4.30-5.90) m/uL Hgb 7.7 L (13.0-17.5) gm/dL Hct 24.1 L (39.0-53.0) % RDW 20.1 H (11.5-15.5) % Plt Count 149 L (150-450) k/uL BUN 53 H (9-20) mg/dL Glucose 147 H (74-99) mg/dL POC Glucose (mg/dL) 138 H (75-99) mg/dL Calcium 8.3 L (8.4-10.2) mg/dL Total Bilirubin 2.4 H (0.2-1.3) mg/dL AST 228 H (17-59) U/L ALT 336 H (4-49) U/L Total Protein 5.6 L (6.3-8.2) g/dL Albumin 3.3 L (3.5-5.0) g/dL 08/20/20 Range/Units 11:28 RBC (4.30-5.90) m/uL Hgb (13.0-17.5) gm/dL Hct (39.0-53.0) % RDW (11.5-15.5) % Plt Count (150-450) k/uL BUN (9-20) mg/dL Glucose (74-99) mg/dL POC Glucose (mg/dL) 140 H (75-99) mg/dL Calcium (8.4-10.2) mg/dL Total Bilirubin (0.2-1.3) mg/dL AST (17-59) U/L ALT (4-49) U/L Total Protein (6.3-8.2) g/dL Albumin (3.5-5.0) g/dL
--- NOTE | 2020-08-20 15:14 | US ---
EXAMINATION TYPE: US abdomen limited DATE OF EXAM: 08/20/2020 COMPARISON: NONE CLINICAL HISTORY: elevated liver enzymes. loss of appetite. patient states having open heart sx on . Scanned through ribs due to surgery site. EXAM MEASUREMENTS: Liver Length: 16.0 cm Gallbladder Wall: 0.1 cm Right Kidney: 12.6 x 5.9 x 6.0 cm Scanned patient in upright chair Limited due to overlying bowel gas Pancreas: Obscured by bowel gas Liver: wnl Gallbladder: Possible stone seen - 0.6 cm Evidence for sonographic Monzon's sign: neg CBD: Obscured by overlying bowel gas Right Kidney: No hydronephrosis or masses seen Possible right pleural effusion IMPRESSION: There is evidence of right pleural effusion. No focal liver defect. No evidence of dilate d ducts. No sign of ascites. Limited exam.
[2020-08-20 16:42] LABS: Glucose,Whole Blood 133 mg/dL (75-99)
--- NOTE | 2020-08-20 17:27 | P.PN ---
Subjective Progress Note Date: 08/20/20 Principal diagnosis: Status post CABG 1, SIMS to LAD off pump. Postoperative day #4 This is a 55-year-old white male patient with history of hypertension, hyperlipidemia, severe aortic stenosis status post TAPVR in the 2017, CAD with previous stenting of the RCA, the most recent one performed on 05/14/[address] Landaverde. Patient had been experiencing chest pressure and tightness on and off, and shortness of breath. Had a recent non-ST elevated myocardial infarction and RCA stenting in April 2020. Patient underwent cardiac catheterization on 06/12/2020 which showed distal left main eccentric plaque, calcification, urinalysis was in the range of 60%. His RCA was stented and multiple segments and all statins were open. LAD had mild disease. His echocardiogram from April 2020 showed the EF between 50-55%, normally functioning bioprosthetic aortic valve, mild mitral regurgitation, severe pulmonary hypertension, with mild tricuspid regurgitation, PA pressure of was 63 mmHg. Surgical intervention was recommended, and today on 08/16/2020 patient underwent a single-vessel bypass grafting with SIMS to the LAD and this was done off pump. 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 He seen in the postoperative period in the intensive care un it, he is sedated, intubated on mechanical ventilator current vent settings are assist control mode of ventilation with the rate of 16, tidal lungs 500, FiO2 is 50% and PEEP of 5. Postoperative blood gases were reviewed, necessary adjustments were made. Patient is hemodynamically stable, he had some mild bleeding Intra-Op, he received 2 units of packed red blood cells, 1 units of fresh frozen plasma and 1 unit of platelets, she is on small amount of norepinephrine currently at 0.08 mics per kilo per minute, lactated Ringer's at 50 ML per hour, Precedex is a 0.4 mics per kilo per minute, nitroglycerin at 5 mics per kilo per minute and insulin drip is at 3 units per hour. In his him, with a rate of 86, PA pressures 54/29, CVP is 27, cardiac output is 4.9, and 2.1 respectively. Mediastianal chest tubes with a total of 140 ML of sanguinous output in the Pleur-evac, no evidence of air leak, left pleural chest tube with 30 mL of sanguinous output. Patient is calm and comfortable, resting comfortably on the ventilator. Postoperative chest x-ray shows a mild pulmonary vascular congestion. Catheters and ET tube in appropriate positions. Patient was reevaluated today on 08/17/20, patient remains in the ICU, patient was extubated uneventfully at 19:25 p.m. and his post extubation course has been relatively uneventful. Patient is now sitting up in a recliner, in no distress, he is on 4 L nasal cannula, with O2 saturation 96%. Most recent hemodynamic parameters showed cardiac output of 4.3 cardiac index of 1.8 pulmonary artery pressure 40/21 CVP is 17. Patient is on insulin at 7 units per hour, he is not requiring any inotropes or any pressors. Not requiring any antiarrhythmic medications. Chest x-ray showed postoperative changes, and minimal bibasilar atelectasis, expected. Tiny left apical pneumothorax noted. Scattered pleural parenchymal opacities noted Reevaluated today on 08/18/20, patient remains in the ICU, he is postoperative day #2. Patient is sitting at bedside, alert and oriented 3, patient is doing great, relatively asymptomatic, on few liters nasal cannula, he is in sinus rhythm, hemodynamically stable, not requiring any pressors or any inotropes. Chest tubes and mediastinal tubes were noted. Serosanguineous drainage noted. Patient continues to do poorly with incentive spirometry. Chest x-ray showed mostly atelectasis, and no sizable pneumothorax hemoglobin today is 7.8 WBC count is 9.8. Electrolytes and renal profile are normal Reevaluated today on 08/20/20, patient is now postoperative day #4, doing well, relatively asymptomatic, patient is sitting at a bedside chair, on room air, and again he has no active pulmonary symptoms or cardiac symptoms whatsoever. Labs were reviewed, chest x-ray was reviewed, patient is doing better with his incentive spirometer. He is already ambulating down the hallway. Objective - Vital Signs Vital signs: Vital Signs Temp 98.5 F 08/20/20 08:58 Pulse 82 08/20/20 15:16 Resp 18 08/20/20 12:00 BP 132/60 08/20/20 12:00 Pulse Ox 96 08/20/20 12:00 Intake & Output 08/19/20 08/20/20 08/20/20 18:59 06:59 18:59 Intake Total 180 750 Output Total 708 810 Balance -528 -60 Weight 135.7 kg Intake: Intake, IV Titration 450 Amount Sodium Chloride 0.9% 1, 450 000 ml @ 50 mls/hr IV . Q20H [facility] Rx#:[id number] Oral 180 300 Output: Chest Tube Drainage 20 Left plural 20 Urine 360 810 Post Void Residual 328 Other: Voiding Method Urinal Urinal # Voids 1 ABP, PAP, CO, CI - Last Documented Arterial Blood Pressure 123/48 Pulmonary Artery Pressure 38/20 Cardiac Output 5.7 Cardiac Index 2.4 - Exam Physical Exam: Revealed a 65-year-old white male in no distress, on room air. Head: Atraumatic, normocephalic. HEENT:[Neck is supple.] [No neck masses.] [No thyromegaly.] [No JVD.] PERRLA, EOMI, no icterus. Chest: [Symmetrical chest expansion, minimal crackles at the bases..] Cardiac Exam: [Normal S1 and S2, no S3 gallop, no murmur.] Abdomen: [Soft, nontender, no megaly, no rebound, no guarding, normal bowel sounds.] Extremities: [No clubbing, no edema, no cyanosis.] Neurological Exam: [No focal neurologic deficit.] Alert and oriented 3. Psychiatric: Normal mood, affect and normal mental status examination. - Labs CBC & Chem 7: 08/20/20 07:54 08/20/20 07:54 Labs: Abnormal Lab Results - Last 24 Hours (Table) 08/19/20 08/20/20 08/20/20 Range/Units 20:41 02:02 06:14 RBC (4.30-5.90) m/uL Hgb (13.0-17.5) gm/dL Hct (39.0-53.0) % RDW (11.5-15.5) % Plt Count (150-450) k/uL BUN (9-20) mg/dL Glucose (74-99) mg/dL POC Glucose (mg/dL) 140 H 137 H 138 H (75-99) mg/dL Calcium (8.4-10.2) mg/dL Total Bilirubin (0.2-1.3) mg/dL AST (17-59) U/L ALT (4-49) U/L Total Protein (6.3-8.2) g/dL Albumin (3.5-5.0) g/dL 08/20/20 08/20/20 08/20/20 Range/Units 07:54 07:54 11:28 RBC 2.51 L (4.30-5.90) m/uL Hgb 7.7 L (13.0-17.5) gm/dL Hct 24.1 L (39.0-53.0) % RDW 20.1 H (11.5-15.5) % Plt Count 149 L (150-450) k/uL BUN 53 H (9-20) mg/dL Glucose 147 H (74-99) mg/dL POC Glucose (mg/dL) 140 H (75-99) mg/dL Calcium 8.3 L (8.4-10.2) mg/dL Total Bilirubin 2.4 H (0.2-1.3) mg/dL AST 228 H (17-59) U/L ALT 336 H (4-49) U/L Total Protein 5.6 L (6.3-8.2) g/dL Albumin 3.3 L (3.5-5.0) g/dL 08/20/20 Range/Units 16:41 RBC (4.30-5.90) m/uL Hgb (13.0-17.5) gm/dL Hct (39.0-53.0) % RDW (11.5-15.5) % Plt Count (150-450) k/uL BUN (9-20) mg/dL Glucose (74-99) mg/dL POC Glucose (mg/dL) 133 H (75-99) mg/dL Calcium (8.4-10.2) mg/dL Total Bilirubin (0.2-1.3) mg/dL AST (17-59) U/L ALT (4-49) U/L Total Protein (6.3-8.2) g/dL Albumin (3.5-5.0) g/dL Assessment and Plan Assessment: Impression: Status post single-vessel off-pump CABG, SIMS to LAD postoperative day #4 Single-vessel coronary artery disease. History of severe aortic stenosis. History of severe pulmonary hypertension. 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 Benign essential hypertension. History of non-ST elevation myocardial infarction, status post stent placement in proximal and mid RCA. Recommendation: Continue beta blockers, Plavix aspirin and statin. Continue incentive spirometry. Continue ambulation GI and DVT prophylaxis. Pain control management. Chest tubes and mediastinal tubes to be removed by surgery when felt appropri ate. We'll continue to follow. Time with Patient: Less than 30
--- NOTE | 2020-08-20 19:36 | P.PN ---
Subjective Patient has recent history of non-STEMI on last April area That time stent was placed in the proximal and and RCA. He also with history of aortic valve replacement. He was admitted for coronary artery bypass grafting to the left anterior descending artery. Today is postoperative day #2 Patient was seen today in select unit where he was transferred from ICU. He is sitting in chair comfortable, no distress, no chest pain or dyspnea, left chest tube is in place No other new complaints Vitas looks stable. Hemoglobin is 7.8, rest of CBC and BMP is unremarkable. Liver enzymes slightly elevated with normal bilirubin Chest x-ray showing increasing bibasilar atelectasis 08/19/2020 Patient is looking comfortable with no chest pain or dyspnea. He is eating well, he is voiding with no difficulty and this morning he could void 200 mL with no issue. Hemodynamically stable. CBC and hemoglobin is stable at 7.8 which is similar to yesterday. His BMP is unremarkable except for mild increase in his liver enzymes. Chest x-ray showing improving with left-sided chest tube in position He was placed on normal saline at 50 mL per hour.and albumin is given for concerns of decreased urine output. We will check bladder scan And discussed with staff Continue with aspirin and Plavix and close monitoring 08/20/2020 Patient today with no new complaints. Hemodynamically stable. Labs showing trending up liver enzymes. Liver ultrasound showing no dilated bile ducts. No focal liver disease, no signs of ascites but there is an evidence of right pleural effusion. Chest tube was discontinued, also started is on hold for elevated liver enzymes. Patient remains on aspirin and Plavix. IV fluids started yesterday by surgery were discontinued and they gave one dose of Lasix today. Objective - Vital Signs Vital signs: Vital Signs Temp 98.5 F 08/20/20 08:58 Pulse 86 08/20/20 08:58 Resp 18 08/20/20 08:58 BP 101/53 08/20/20 08:58 Pulse Ox 96 08/20/20 08:58 Intake & Output 08/19/20 08/20/20 08/20/20 18:59 06:59 18:59 Intake Total 180 750 Output Total 708 810 Balance -528 -60 Weight 135.7 kg Intake: Intake, IV Titration 450 Amount Sodium Chloride 0.9% 1, 450 000 ml @ 50 mls/hr IV . Q20H [facility] Rx#:[id number] Oral 180 300 Output: Chest Tube Drainage 20 Left plural 20 Urine 360 810 Post Void Residual 328 Other: Voiding Method Urinal Urinal # Voids 1 ABP, PAP, CO, CI - Last Documented Arterial Blood Pressure 123/48 Pulmonary Artery Pressure 38/20 Cardiac Output 5.7 Cardiac Index 2.4 - Exam GENERAL: The patient is alert and oriented x3, not in any acute distress. Well developed, well nourished. HEENT: Pupils are round and equally reacting to light. EOMI. No scleral icterus. No conjunctival pallor. Normocephalic, atraumatic. No pharyngeal erythema. No thyromegaly. CARDIOVASCULAR: S1 and S2 present. No murmurs, rubs, or gallops. PULMONARY: Chest is clear to auscultation, no wheezing or crackles. ABDOMEN: Soft, nontender, nondistended, normoactive bowel sounds. No palpable organomegaly. MUSCULOSKELETAL: No joint swelling or deformity. EXTREMITIES: No cyanosis, clubbing, or pedal edema. NEUROLOGICAL: Gross neurological examination did not reveal any focal deficits. SKIN: No rashes. no petechiae. - Labs CBC & Chem 7: 08/20/20 07:54 08/20/20 07:54 Labs: Abnormal Lab Results - Last 24 Hours (Table) 08/19/20 08/19/20 08/20/20 Range/Units 17:01 20:41 02:02 RBC (4.30-5.90) m/uL Hgb (13.0-17.5) gm/dL Hct (39.0-53.0) % RDW (11.5-15.5) % Plt Count (150-450) k/uL BUN (9-20) mg/dL Glucose (74-99) mg/dL POC Glucose (mg/dL) 167 H 140 H 137 H (75-99) mg/dL Calcium (8.4-10.2) mg/dL Total Bilirubin (0.2-1.3) mg/dL AST (17-59) U/L ALT (4-49) U/L Total Protein (6.3-8.2) g/dL Albumin (3.5-5.0) g/dL 08/20/20 08/20/20 08/20/20 Range/Units 06:14 07:54 07:54 RBC 2.51 L (4.30-5.90) m/uL Hgb 7.7 L (13.0-17.5) gm/dL Hct 24.1 L (39.0-53.0) % RDW 20.1 H (11.5-15.5) % Plt Count 149 L (150-450) k/uL BUN 53 H (9-20) mg/dL Glucose 147 H (74-99) mg/dL POC Glucose (mg/dL) 138 H (75-99) mg/dL Calcium 8.3 L (8.4-10.2) mg/dL Total Bilirubin 2.4 H (0.2-1.3) mg/dL AST 228 H (17-59) U/L ALT 336 H (4-49) U/L Total Protein 5.6 L (6.3-8.2) g/dL Albumin 3.3 L (3.5-5.0) g/dL 08/20/ Range/Units 11:28 RBC (4.30-5.90) m/uL Hgb (13.0-17.5) gm/dL Hct (39.0-53.0) % RDW (11.5-15.5) % Plt Count (150-450) k/uL BUN (9-20) mg/dL Glucose (74-99) mg/dL POC Glucose (mg/dL) 140 H (75-99) mg/dL Calcium (8.4-10.2) mg/dL Total Bilirubin (0.2-1.3) mg/dL AST (17-59) U/L ALT (4-49) U/L Total Protein (6.3-8.2) g/dL Albumin (3.5-5.0) g/dL Assessment and Plan Assessment: Coronary artery disease, with recent non-STEMI on 04/2020 status post CABG Hypertension Hyperlipidemia History of severe aortic valve stenosis status post transcatheter aortic valve replacement in 2017 History of right coronary artery stenosis status post stent placement in the proximal and mid RCA Morbid obesity Plan: This is a pleasant 65 years old male who presents with CABG. Continue with aspirin and Plavix. He is also on metoprolol, Cipro consult is on the case including pulmonary and cardiology teams Labs and medication were reviewed.. Continue same treatment. Continue with symptomatic treatment. Resume home medication. Monitor lytes and vitals. DVT and GI prophylaxis. Further recommendations depends on the clinical course of the patient DVT prophylaxis: Subcutaneous heparin GI Prophylaxis: Ppi Thank you for consulting us
[2020-08-20 20:24] LABS: Glucose,Whole Blood 136 mg/dL (75-99)
[2020-08-20] MEDS: INSULIN NPH 300 UNIT/3 ML VIAL SQ SCH ×2 (21:10→22:43)
[2020-08-20] MEDS: SENNOSIDES-DOCUSATE SODIUM 1 EACH TAB PO SCH (21:12)
[2020-08-21] MEDS: HEPARIN SODIUM,PORCINE 5,000 UNIT/ML 1 ML VIAL SQ SCH ×4 (00:02→23:37)
[2020-08-21 02:02] LABS: Glucose,Whole Blood 121 mg/dL (75-99)
[2020-08-21] MEDS: INSULIN ASPART (NovoLOG) 100 UNIT/ML VIAL SQ SCH ×5 (02:05→20:43)
[2020-08-21 06:27] LABS: Glucose,Whole Blood 148 mg/dL (75-99)
[2020-08-21] MEDS: PANTOPRAZOLE 40 MG TABLET PO SCH (06:38)
[2020-08-21] MEDS: INSULN ASP PRT/INSULIN ASPART 100 UNIT/ML 10 ML VIAL SQ SCH (07:39)
[2020-08-21] MEDS: ASPIRIN 325 MG TAB PO SCH (08:06)
[2020-08-21] MEDS: CLOPIDOGREL 75 MG TAB PO SCH (08:06)
[2020-08-21] MEDS: METOPROLOL TARTRATE 50 MG TAB PO SCH ×2 (08:07→20:43)
[2020-08-21 08:29] LABS: Sodium 137 mmol/L (137-145)
[2020-08-21 08:32] LABS: ALT 358 U/L (4-49); AST 182 U/L (17-59); African American GFR (CKD) >90 (>60 ml/min/1.73 sqM); Albumin 3.4 g/dL (3.5-5.0); Alkaline Phosphatase 90 U/L (38-126); Anion Gap 7 mmol/L; Blood Urea Nitrogen 49 mg/dL (9-20); Calcium 8.1 mg/dL (8.4-10.2); Carbon Dioxide 27 mmol/L (22-30); Chloride 103 mmol/L (98-107); Glucose 132 mg/dL (74-99); Non-African American GFR(CKD) >90 (>60 ml/min/1.73 sqM); Potassium 3.8 mmol/L (3.5-5.1); Total Bilirubin 3.1 mg/dL (0.2-1.3); Total Protein 5.8 g/dL (6.3-8.2)
--- NOTE | 2020-08-21 08:32 | XR ---
EXAMINATION TYPE: XR chest 1V portable DATE OF EXAM: 08/21/2020 CLINICAL HISTORY: Difficulty breathing progress study. Postoperative CABG. TECHNIQUE: Single AP portable upright view of the chest is obtained. COMPARISON: Chest x-ray from one day earlier and older studies. FINDINGS: Overlying sternal wires and mediastinal clips redemonstrated. Persistent low lung volumes. Persistent cardiomegaly with small bilateral pleural effusions and associated left basilar atelectasis and/or i nfiltrate. Upper lungs remain clear without pneumothorax. Osseous structures are intact. IMPRESSION: Low lung volumes and cardiomegaly with small bilateral pleural effusions and associated left basilar atelectasis and/or infiltrate all redemonstrated. No significant change from one day ear lier.
[2020-08-21 08:49] LABS: Anisocytosis Slight; Basophils % (A) 0 %; Eosinophils # (A) 0.1 k/uL (0-0.7); Eosinophils % (A) 1 %; HCT 24.5 % (39.0-53.0); HGB 8.1 gm/dL (13.0-17.5); Hypochromasia Slight; Lymphocytes % (A) 23 %; MCH 31.5 pg (25.0-35.0); MCV 95.3 fL (80.0-100.0); Macrocytosis Slight; Mean Platelet Volume 12.2; Monocytes # (A) 0.5 k/uL (0-1.0); Monocytes % (A) 5 %; Neutrophils # (A) 6.2 k/uL (1.3-7.7); Neutrophils % (A) 70 %; Platelet Count 158 k/uL (150-450); Poikilocytosis Moderate; RBC 2.57 m/uL (4.30-5.90); RDW 19.7 % (11.5-15.5); WBC 8.9 k/uL (3.8-10.6)
[2020-08-21] MEDS: IPRATROPIUM-ALBUTEROL 3 ML NEB INHALATION SCH ×4 (08:54→19:55)
[2020-08-21] MEDS ORDERED: FUROSEMIDE 10 MG/ML 4 ML VIAL IV STA (08:56)
[2020-08-21] MEDS ORDERED: Potassium Replacement Protocol 1 EACH MISC MISCELLANE PRN (08:57)
[2020-08-21] MEDS ORDERED: POTASSIUM CHLORIDE ER 20 MEQ TAB.ER PO SCH (09:00)
[2020-08-21 09:14] LABS: Amylase 33 U/L (30-110); Lipase 341 U/L (23-300)
--- NOTE | 2020-08-21 10:05 | P.PN ---
Subjective Progress Note Date: 08/21/20 Principal diagnosis: Left Main coronary artery disease. 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 POD #5 coronary artery bypass grafting 1 with the left internal mammary artery to the left anterior descending artery, off pump, with intraoperative transesophageal echocardiogram and extensive lysis of radiation caused adhesions. Postoperative acute blood loss anemia and thrombocytopenia, expected given hemodilution and patient's preoperative anemia and thrombocytopenia. Postoperative elevation of his transaminase enzymes, unexpected. The patient was seen in follow-up today 08/21/2020 at his bedside on the cardiac stepdown unit. Currently sitting up to the bedside chair, is awake, alert and oriented 3 and is in no acute apparent distress. Denies any complaints of shortness of breath or pain. He reports this is the best he has felt since his surgery. He reports he has been ambulating in his room and in the cardiac stepdown unit hallway with minimal assistance from nursing staff and physical therapy. Postoperative shower yesterday. Oxygen saturation is 96% on room air, achieving 4013-5673 mL on his incentive spirometry, remains afebrile, remote telemetry showing normal sinus rhythm heart rate 77 BPM. An ultrasound of his right upper quadrant abdomen was completed yesterday due to his elevated liver enzymes, the ultrasound showed evidence of a right pleural effusion, no focal liver defect and no evidence of dilated ducts, signs of ascites and did show a possible gallbladder stone measuring 0.6 cm. Labs today show a total bilirubin of 3.1, AST 182, ALT 358, amylase 33 and lipase 341. Objective - Vital Signs Vital signs: Vital Signs Temp 98.2 F 08/21/20 07:30 Pulse 80 08/21/20 09:04 Resp 16 08/21/20 07:30 BP 123/54 08/21/20 07:30 Pulse Ox 96 08/21/20 07:30 Intake & Output 08/20/20 08/21/20 08/21/20 18:59 06:59 18:59 Intake Total 60 540 Output Total 820 Balance 60 -280 Weight 134.6 kg Intake: Oral 60 540 Output: Urine 820 Other: Voiding Method Urinal Urinal Urinal # Voids 2 1 ABP, PAP, CO, CI - Last Documented Arterial Blood Pressure 123/48 Pulmonary Artery Pressure 38/20 Cardiac Output 5.7 Cardiac Index 2.4 - Constitutional General appearance: Present: cooperative, morbidly obese, no acute distress - EENT Eyes: Present: normal appearance. Absent: scleral icterus ENT: Present: hearing grossly normal - Neck Details: Neck is supple, no JVD, no lymphadenopathy. - Respiratory Details: Lung sounds essentially clear throughout, diminished was bilateral bases. No wheezes, rhonchi or crackles. Respirations are symmetrical and nonlabored. Oxygen saturation is 96% on room air. Achieving 2803-0958 mL on his incentive spirometry. - Cardiovascular Details: Regular rhythm and rate. S1 and S2 present, negative for S3, gallop or murmur. Sternum is stable. Remote telemetry showing normal sinus rhythm heart rate 77 BPM. +1 edema to his bilateral lower extremities. Knee-high NATALIA hose and sequ ential compression devices in place to his bilateral lower extremities. Heart hugger is in place and is demonstrating appropriate use. - Gastrointestinal Gastrointestinal Comment(s): Abdomen is soft, nontender and nondistended. No guarding or rigidity. Active bowel sounds present all 4 abdominal quadrants. Tolerating oral intake. - Genitourinary Genitourinary Comment(s): Continues to void. 520 mL urine output in the last 8 hours. - Integumentary Integumentary Comment(s): Skin is warm and dry. No clubbing or cyanosis is present. Midline sternal incision is clean, dry and approximated. No drainage or redness present. - Neurologic Neurologic: Present: CNII-XII intact - Musculoskeletal Musculoskeletal: Present: gait normal, generalized weakness, strength equal bilaterally - Psychiatric Psychiatric: Present: A&O x's 3, appropriate affect, intact judgment & insight - Allied health notes Allied health notes reviewed: nursing - Labs CBC & Chem 7: 08/21/20 07:59 08/21/20 07:59 Labs: Abnormal Lab Results - Last 24 Hours (Table) 08/20/20 08/20/20 08/20/20 Range/Units 11:28 16:41 20:22 RBC (4.30-5.90) m/uL Hgb (13.0-17.5) gm/dL Hct (39.0-53.0) % RDW (11.5-15.5) % BUN (9-20) mg/dL Glucose (74-99) mg/dL POC Glucose (mg/dL) 140 H 133 H 136 H (75-99) mg/dL Calcium (8.4-10.2) mg/dL Total Bilirubin (0.2-1.3) mg/dL AST (17-59) U/L ALT (4-49) U/L Total Protein (6.3-8.2) g/dL Albumin (3.5-5.0) g/dL Lipase (23-300) U/L 08/21/20 08/21/20 08/21/20 Range/Units 02:01 06:21 07:59 RBC (4.30-5.90) m/uL Hgb (13.0-17.5) gm/dL Hct (39.0-53.0) % RDW (11.5-15.5) % BUN 49 H (9-20) mg/dL Glucose 132 H (74-99) mg/dL POC Glucose (mg/dL) 121 H 148 H (75-99) mg/dL Calcium 8.1 L (8.4-10.2) mg/dL Total Bilirubin 3.1 H (0.2-1.3) mg/dL AST 182 H (17-59) U/L ALT 358 H (4-49) U/L Total Protein 5.8 L (6.3-8.2) g/dL Albumin 3.4 L (3.5-5.0) g/dL Lipase (23-300) U/L 08/21/20 08/21/20 Range/Units 07:59 07:59 RBC 2.57 L (4.30-5.90) m/uL Hgb 8.1 L (13.0-17.5) gm/dL Hct 24.5 L (39.0-53.0) % RDW 19.7 H (11.5-15.5) % BUN (9-20) mg/dL Glucose (74-99) mg/dL POC Glucose (mg/dL) (75-99) mg/dL Calcium (8.4-10.2) mg/dL Total Bilirubin (0.2-1.3) mg/dL AST (17-59) U/L ALT (4-49) U/L Total Protein (6.3-8.2) g/dL Albumin (3.5-5.0) g/dL Lipase 341 H (23-300) U/L - Imaging and Cardiology Chest x-ray: report reviewed, image reviewed Assessment and Plan Assessment: 1. Left main coronary artery disease, status post single vessel off-pump coronary artery bypass grafting surgery, SIMS to the LAD 2. History of coronary artery disease with non-STEMI in April 2020 status post drug-eluting stent placement to the proximal and mid RCA 3. Hypertension 4. History of severe aortic stenosis status post transcatheter aortic valve replacement in 2016 5. Syncopal episode in April 2020 secondary to anemia 6. Lifelong nonsmoker with mild restrictive lung disease with preoperative FEV1 70% of predicted 7. Severe pulmonary hypertension 8. History of Seminoma with excision followed by mediastinal radiation in 1978, status post extensive lysis of radiation caused adhesions 9. Morbid obesity with a BMI of 47.6 kg/m 10. Preoperative chronic anemia and thrombocytopenia 11. Postoperative acute blood loss anemia and thrombocytopenia, expected, status post packed red blood cell transfusion as well as platelet transfusion 12. Postoperative elevation of his transaminitis enzymes, unexpected Plan: 1. Continue aspirin, Plavix, and beta hector. Will increase metoprolol tartrate as tolerated. 2. Encourage incentive spirometry use 10 times every hour while awake. Bronchodilators per pulmonology. 3. Increase activity, ambulate as tolerated. PT/OT/cardiac rehab following. 4. Will monitor daily labs and chest x-rays. Electrolyte replacement per protocol. 5. GI/DVT prophylaxis. 6. Pain control with current medication regimen. Acetaminophen discontinued due to elevated liver enzymes. 7. Continue to hold Lipitor as his transaminases enzymes continue trending up. We will continue to monitor and restart statin when transaminase enzymes have normalized. Send bilirubin fractions. 8. Insulin management per Dr. Mckeon. Patient is not diabetic, hemoglobin A1c preoperatively 5.7%. 9. Continue to record strict accurate intake and output. Daily weight with standup scale, not bed scale 10. Discharge planning is in place, anticipate discharge home within the next 24 hours with home health care. 11. Lasix 40 mg IV 1 now. 12. More recommendations to follow based on patient's clinical course. I have seen and examined the patient and agree with the assessment and plan as dictated by my nurse practitioner. Time with Patient: Greater than 30
[2020-08-21 10:08] LABS: Bilirubin, Delta 1.4 mg/dL (0.0-0.2); Bilirubin,Unconjugated 1.7 mg/dL (0.0-1.1)
[2020-08-21 10:11] LABS: Ovalocytes Present; Polychromasia Present
[2020-08-21 10:14] LABS: Basophilic Stippling Present; Large Platelets Present
[2020-08-21 11:21] LABS: Glucose,Whole Blood 132 mg/dL (75-99)
--- NOTE | 2020-08-21 14:52 | P.PN ---
Subjective Progress Note Date: 08/21/20 HISTORY OF PRESENT ILLNESS: Patient is status post CABG 1 with SIMS to the LAD. Patient examined this morning at the bedside. Patient denies chest pain or pressure. He denies shortness of breath. Patient is maintaining oxygen saturations greater than 92% on room air. He remains in sinus rhythm. AST 182. ALT 358. Abdominal ultrasound did not reveal any focal liver defect. No evidence of dilated ducts. No sign of ascites. PHYSICAL EXAM: VITAL SIGNS: Reviewed. GENERAL: Well-developed in no acute distress. NECK: Supple. No JVD or thyromegaly LUNGS: Respirations even and unlabored. Lungs diminished. HEART: Regular rate and rhythm. S1 and S2 heard. Systolic murmur noted. Heart hugger in place. EXTREMITIES: Normal range of motion. No clubbing or cyanosis. Peripheral pulses intact. No lower extremity edema ASSESSMENT: Coronary artery disease, status post CABG 1 SIMS to LAD History of an STEMI with PCI to proximal and mid RCA, April 2020 History of severe aortic stenosis, status post TAVR 2016 Severe pulmonary hypertension Hypertension Transaminitis PLAN: Continue postoperative management per CTS Continue current cardiac medications Agreeable to holding lipitor secondary to elevated LFTs Increased activity as tolerated Continue incentive spirometer 10 times an hour Further recommendations pending patient course Nurse practitioner note has been reviewed by physician. Signing provider agrees with the documented findings, assessment, and plan of care. Objective - Vital Signs Vital signs: Vital Signs Temp 98.6 F 08/21/20 11:20 Pulse 80 08/21/20 13:00 Resp 16 08/21/20 11:20 BP 116/44 08/21/20 11:20 Pulse Ox 95 08/21/20 11:20 Intake & Output 08/20/20 08/21/20 08/21/20 18:59 06:59 18:59 Intake Total 60 540 310 Output Total 820 300 Balance 60 -280 10 Weight 134.6 kg Intake: IV 10 Invasive Line 6 10 Oral 60 540 300 Output: Urine 820 300 Other: Voiding Method Urinal Urinal Urinal # Voids 2 1 ABP, PAP, CO, CI - Last Documented Arterial Blood Pressure 123/48 Pulmonary Artery Pressure 38/20 Cardiac Output 5.7 Cardiac Index 2.4 - Labs CBC & Chem 7: 08/21/20 07:59 08/21/20 07:59 Labs: Abnormal Lab Results - Last 24 Hours (Table) 08/20/20 08/20/20 08/21/20 Range/Units 16:41 20:22 02:01 RBC (4.30-5.90) m/uL Hgb (13.0-17.5) gm/dL Hct (39.0-53.0) % RDW (11.5-15.5) % BUN (9-20) mg/dL Glucose (74-99) mg/dL POC Glucose (mg/dL) 133 H 136 H 121 H (75-99) mg/dL Calcium (8.4-10.2) mg/dL Total Bilirubin (0.2-1.3) mg/dL Unconjugated Bilirubin (0.0-1.1) mg/dL Delta Bilirubin (0.0-0.2) mg/dL AST (17-59) U/L ALT (4-49) U/L Total Protein (6.3-8.2) g/dL Albumin (3.5-5.0) g/dL Lipase (23-300) U/L 08/21/20 08/21/20 08/21/20 Range/Units 06:21 07:59 07:59 RBC 2.57 L (4.30-5.90) m/uL Hgb 8.1 L (13.0-17.5) gm/dL Hct 24.5 L (39.0-53.0) % RDW 19.7 H (11.5-15.5) % BUN 49 H (9-20) mg/dL Glucose 132 H (74-99) mg/dL POC Glucose (mg/dL) 148 H (75-99) mg/dL Calcium 8.1 L (8.4-10.2) mg/dL Total Bilirubin 3.1 H (0.2-1.3) mg/dL Unconjugated Bilirubin 1.7 H (0.0-1.1) mg/dL Delta Bilirubin 1.4 H (0.0-0.2) mg/dL AST 182 H (17-59) U/L ALT 358 H (4-49) U/L Total Protein 5.8 L (6.3-8.2) g/dL Albumin 3.4 L (3.5-5.0) g/dL Lipase (23-300) U/L 08/21/20 08/21/20 Range/Units 07:59 11:20 RBC (4.30-5.90) m/uL Hgb (13.0-17.5) gm/dL Hct (39.0-53.0) % RDW (11.5-15.5) % BUN (9-20) mg/dL Glucose (74-99) mg/dL POC Glucose (mg/dL) 132 H (75-99) mg/dL Calcium (8.4-10.2) mg/dL Total Bilirubin (0.2-1.3) mg/dL Unconjugated Bilirubin (0.0-1.1) mg/dL Delta Bilirubin (0.0-0.2) mg/dL AST (17-59) U/L ALT (4-49) U/L Total Protein (6.3-8.2) g/dL Albumin (3.5-5.0) g/dL Lipase 341 H (23-300) U/L
--- NOTE | 2020-08-21 15:31 | P.PN ---
Subjective Progress Note Date: 08/21/20 Principal diagnosis: Status post CABG 1, SIMS to LAD off pump. Postoperative day #5 This is a 55-year-old white male patient with history of hypertension, hyperlipidemia, severe aortic stenosis status post TAPVR in the 2017, CAD with previous stenting of the RCA, the most recent one performed on 05/14/[address] Landaverde. Patient had been experiencing chest pressure and tightness on and off, and shortness of breath. Had a recent non-ST elevated myocardial infarction and RCA stenting in April 2020. Patient underwent cardiac catheterization on 06/12/2020 which showed distal left main eccentric plaque, calcification, urinalysis was in the range of 60%. His RCA was stented and multiple segments and all statins were open. LAD had mild disease. His echocardiogram from April 2020 showed the EF between 50-55%, normally functioning bioprosthetic aortic valve, mild mitral regurgitation, severe pulmonary hypertension, with mild tricuspid regurgitation, PA pressure of was 63 mmHg. Surgical intervention was recommended, and today on 08/16/2020 patient underwent a single-vessel bypass grafting with SIMS to the LAD and this was done off pump. 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 He seen in the postoperative period in the intensive care un it, he is sedated, intubated on mechanical ventilator current vent settings are assist control mode of ventilation with the rate of 16, tidal lungs 500, FiO2 is 50% and PEEP of 5. Postoperative blood gases were reviewed, necessary adjustments were made. Patient is hemodynamically stable, he had some mild bleeding Intra-Op, he received 2 units of packed red blood cells, 1 units of fresh frozen plasma and 1 unit of platelets, she is on small amount of norepinephrine currently at 0.08 mics per kilo per minute, lactated Ringer's at 50 ML per hour, Precedex is a 0.4 mics per kilo per minute, nitroglycerin at 5 mics per kilo per minute and insulin drip is at 3 units per hour. In his him, with a rate of 86, PA pressures 54/29, CVP is 27, cardiac output is 4.9, and 2.1 respectively. Mediastianal chest tubes with a total of 140 ML of sanguinous output in the Pleur-evac, no evidence of air leak, left pleural chest tube with 30 mL of sanguinous output. Patient is calm and comfortable, resting comfortably on the ventilator. Postoperative chest x-ray shows a mild pulmonary vascular congestion. Catheters and ET tube in appropriate positions. Patient was reevaluated today on 08/17/20, patient remains in the ICU, patient was extubated uneventfully at 19:25 p.m. and his post extubation course has been relatively uneventful. Patient is now sitting up in a recliner, in no distress, he is on 4 L nasal cannula, with O2 saturation 96%. Most recent hemodynamic parameters showed cardiac output of 4.3 cardiac index of 1.8 pulmonary artery pressure 40/21 CVP is 17. Patient is on insulin at 7 units per hour, he is not requiring any inotropes or any pressors. Not requiring any antiarrhythmic medications. Chest x-ray showed postoperative changes, and minimal bibasilar atelectasis, expected. Tiny left apical pneumothorax noted. Scattered pleural parenchymal opacities noted Reevaluated today on 08/18/20, patient remains in the ICU, he is postoperative day #2. Patient is sitting at bedside, alert and oriented 3, patient is doing great, relatively asymptomatic, on few liters nasal cannula, he is in sinus rhythm, hemodynamically stable, not requiring any pressors or any inotropes. Chest tubes and mediastinal tubes were noted. Serosanguineous drainage noted. Patient continues to do poorly with incentive spirometry. Chest x-ray showed mostly atelectasis, and no sizable pneumothorax hemoglobin today is 7.8 WBC count is 9.8. Electrolytes and renal profile are normal Reevaluated today on 08/20/20, patient is now postoperative day #4, doing well, relatively asymptomatic, patient is sitting at a bedside chair, on room air, and again he has no active pulmonary symptoms or cardiac symptoms whatsoever. Labs were reviewed, chest x-ray was reviewed, patient is doing better with his incentive spirometer. He is already ambulating down the hallway. Patient was reevaluated today on 08/21/20, he is postoperative day #5. Doing well, no active pulmonary issues, continues to have slightly elevated transaminases, and I believe that's mostly likely drug induced, likely secondary to Lipitor. Presently on hold. Patient has been ambulating in the hallway, and no active pulmonary issues. CBC is relatively normal hemoglobin is 8.1 lites are normal renal profile is normal, AST is 182 ALT is 358. Baseline was 13 prior to his surgery. Objective - Vital Signs Vital signs: Vital Signs Temp 97.6 F 08/21/20 15:02 Pulse 78 08/21/20 15:02 Resp 16 08/21/20 15:02 BP 132/59 08/21/20 15:02 Pulse Ox 97 08/21/20 15:02 Intake & Output 08/20/20 08/21/20 08/21/20 18:59 06:59 18:59 Intake Total 60 540 310 Output Total 820 300 Balance 60 -280 10 Weight 134.6 kg Intake: IV 10 Invasive Line 6 10 Oral 60 540 300 Output: Urine 820 300 Other: Voiding Method Urinal Urinal Urinal # Voids 2 1 ABP, PAP, CO, CI - Last Documented Arterial Blood Pressure 123/48 Pulmonary Artery Pressure 38/20 Cardiac Output 5.7 Cardiac Index 2.4 - Exam Physical Exam: Revealed a 65-year-old white male in no distress, on room air. Head: Atraumatic, normocephalic. HEENT:[Neck is supple.] [No neck masses.] [No thyromegaly.] [No JVD.] PERRLA, EOMI, no icterus. Chest: [Symmetrical chest expansion, minimal crackles at the bases..] Cardiac Exam: [Normal S1 and S2, no S3 gallop, no murmur.] Abdomen: [Soft, nontender, no megaly, no rebound, no guarding, normal bowel sounds.] Extremities: [No clubbing, no edema, no cyanosis.] Neurological Exam: [No focal neurologic deficit.] Alert and oriented 3. Psychiatric: Normal mood, affect and normal mental status examination. - Labs CBC & Chem 7: 08/21/20 07:59 08/21/20 07:59 Labs: Abnormal Lab Results - Last 24 Hours (Table) 08/20/20 08/20/20 08/21/20 Range/Units 16:41 20:22 02:01 RBC (4.30-5.90) m/uL Hgb (13.0-17.5) gm/dL Hct (39.0-53.0) % RDW (11.5-15.5) % BUN (9-20) mg/dL Glucose (74-99) mg/dL POC Glucose (mg/dL) 133 H 136 H 121 H (75-99) mg/dL Calcium (8.4-10.2) mg/dL Total Bilirubin (0.2-1.3) mg/dL Unconjugated Bilirubin (0.0-1.1) mg/dL Delta Bilirubin (0.0-0.2) mg/dL AST (17-59) U/L ALT (4-49) U/L Total Protein (6.3-8.2) g/dL Albumin (3.5-5.0) g/dL Lipase (23-300) U/L 08/21/20 08/21/20 08/21/20 Range/Units 06:21 07:59 07:59 RBC 2.57 L (4.30-5.90) m/uL Hgb 8.1 L (13.0-17.5) gm/dL Hct 24.5 L (39.0-53.0) % RDW 19.7 H (11.5-15.5) % BUN 49 H (9-20) mg/dL Glucose 132 H (74-99) mg/dL POC Glucose (mg/dL) 148 H (75-99) mg/dL Calcium 8.1 L (8.4-10.2) mg/dL Total Bilirubin 3.1 H (0.2-1.3) mg/dL Unconjugated Bilirubin 1.7 H (0.0-1.1) mg/dL Delta Bilirubin 1.4 H (0.0-0.2) mg/dL AST 182 H (17-59) U/L ALT 358 H (4-49) U/L Total Protein 5.8 L (6.3-8.2) g/dL Albumin 3.4 L (3.5-5.0) g/dL Lipase (23-300) U/L 08/21/20 08/21/20 Range/Units 07:59 11:20 RBC (4.30-5.90) m/uL Hgb (13.0-17.5) gm/dL Hct (39.0-53.0) % RDW (11.5-15.5) % BUN (9-20) mg/dL Glucose (74-99) mg/dL POC Glucose (mg/dL) 132 H (75-99) mg/dL Calcium (8.4-10.2) mg/dL Total Bilirubin (0.2-1.3) mg/dL Unconjugated Bilirubin (0.0-1.1) mg/dL Delta Bilirubin (0.0-0.2) mg/dL AST (17-59) U/L ALT (4-49) U/L Total Protein (6.3-8.2) g/dL Albumin (3.5-5.0) g/dL Lipase 341 H (23-300) U/L Assessment and Plan Assessment: Impression: Status post single-vessel off-pump CABG, SIMS to LAD postoperative day #5 Single-vessel coronary artery disease. History of severe aortic stenosis. History of severe pulmonary hypertension. 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 Benign essential hypertension. History of non-ST elevation myocardial infarction, status post stent placement in proximal and mid RCA. Elevated liver enzymes/transaminases most likely medication induced/statin related. Recommendation: Continue beta blockers, Plavix aspirin hold statins Continue incentive spirometry. Continue ambulation GI and DVT prophylaxis. Pain control management. Hospital discharge home tomorrow. Time with Patient: Less than 30
[2020-08-21 16:53] LABS: Glucose,Whole Blood 118 mg/dL (75-99)
--- NOTE | 2020-08-21 18:49 | P.PN ---
Subjective Patient has recent history of non-STEMI on last April area That time stent was placed in the proximal and and RCA. He also with history of aortic valve replacement. He was admitted for coronary artery bypass grafting to the left anterior descending artery. Today is postoperative day #2 Patient was seen today in select unit where he was transferred from ICU. He is sitting in chair comfortable, no distress, no chest pain or dyspnea, left chest tube is in place No other new complaints Vitas looks stable. Hemoglobin is 7.8, rest of CBC and BMP is unremarkable. Liver enzymes slightly elevated with normal bilirubin Chest x-ray showing increasing bibasilar atelectasis 08/19/2020 Patient is looking comfortable with no chest pain or dyspnea. He is eating well, he is voiding with no difficulty and this morning he could void 200 mL with no issue. Hemodynamically stable. CBC and hemoglobin is stable at 7.8 which is similar to yesterday. His BMP is unremarkable except for mild increase in his liver enzymes. Chest x-ray showing improving with left-sided chest tube in position He was placed on normal saline at 50 mL per hour.and albumin is given for concerns of decreased urine output. We will check bladder scan And discussed with staff Continue with aspirin and Plavix and close monitoring 08/20/2020 Patient today with no new complaints. Hemodynamically stable. Labs showing trending up liver enzymes. Liver ultrasound showing no dilated bile ducts. No focal liver disease, no signs of ascites but there is an evidence of right pleural effusion. Chest tube was discontinued, also started is on hold for elevated liver enzymes. Patient remains on aspirin and Plavix. IV fluids started yesterday by surgery were discontinued and they gave one dose of Lasix today. 08/21/2020 Patient clinically the same, sitting in bed comfortable denies any pain, no dyspnea eating well no dysuria, no problem urinating, no other new complaint His hemodynamically stable. Chest x-ray showed low volume with left basilar atelectasis Liver enzymes are trending down significantly today, bilirubin slightly high, is aware of this problem and management plan Liver ultrasound showing no liver defect, no evidence of dilated ducts, no as cites Objective - Vital Signs Vital signs: Vital Signs Temp 97.6 F 08/21/20 15:02 Pulse 78 08/21/20 15:02 Resp 16 08/21/20 15:02 BP 132/59 08/21/20 15:02 Pulse Ox 97 11/29/20 15:02 Intake & Output 08/20/20 08/21/20 08/21/20 18:59 06:59 18:59 Intake Total 60 540 310 Output Total 820 300 Balance 60 -280 10 Weight 134.6 kg Intake: IV 10 Invasive Line 6 10 Oral 60 540 300 Output: Urine 820 300 Other: Voiding Method Urinal Urinal Urinal # Voids 2 1 ABP, PAP, CO, CI - Last Documented Arterial Blood Pressure 123/48 Pulmonary Artery Pressure 38/20 Cardiac Output 5.7 Cardiac Index 2.4 - Exam GENERAL: The patient is alert and oriented x3, not in any acute distress. Well developed, well nourished. HEENT: Pupils are round and equally reacting to light. EOMI. No scleral icterus. No conjunctival pallor. Normocephalic, atraumatic. No pharyngeal erythema. No thyromegaly. CARDIOVASCULAR: S1 and S2 present. No murmurs, rubs, or gallops. PULMONARY: Chest is clear to auscultation, no wheezing or crackles. ABDOMEN: Soft, nontender, nondistended, normoactive bowel sounds. No palpable organomegaly. MUSCULOSKELETAL: No joint swelling or deformity. EXTREMITIES: No cyanosis, clubbing, or pedal edema. NEUROLOGICAL: Gross neurological examination did not reveal any focal deficits. SKIN: No rashes. no petechiae. - Labs CBC & Chem 7: 08/21/20 07:59 08/21/20 07:59 Labs: Abnormal Lab Results - Last 24 Hours (Table) 08/20/20 08/21/20 08/21/20 Range/Units 20:22 02:01 06:21 RBC (4.30-5.90) m/uL Hgb (13.0-17.5) gm/dL Hct (39.0-53.0) % RDW (11.5-15.5) % BUN (9-20) mg/dL Glucose (74-99) mg/dL POC Glucose (mg/dL) 136 H 121 H 148 H (75-99) mg/dL Calcium (8.4-10.2) mg/dL Total Bilirubin (0.2-1.3) mg/dL Unconjugated Bilirubin (0.0-1.1) mg/dL Delta Bilirubin (0.0-0.2) mg/dL AST (17-59) U/L ALT (4-49) U/L Total Protein (6.3-8.2) g/dL Albumin (3.5-5.0) g/dL Lipase (23-300) U/L 08/21/20 08/21/20 08/21/20 Range/Units 07:59 07:59 07:59 RBC 2.57 L (4.30-5.90) m/uL Hgb 8.1 L (13.0-17.5) gm/dL Hct 24.5 L (39.0-53.0) % RDW 19.7 H (11.5-15.5) % BUN 49 H (9-20) mg/dL Glucose 132 H (74-99) mg/dL POC Glucose (mg/dL) (75-99) mg/dL Calcium 8.1 L (8.4-10.2) mg/dL Total Bilirubin 3.1 H (0.2-1.3) mg/dL Unconjugated Bilirubin 1.7 H (0.0-1.1) mg/dL Delta Bilirubin 1.4 H (0.0-0.2) mg/dL AST 182 H (17-59) U/L ALT 358 H (4-49) U/L Total Protein 5.8 L (6.3-8.2) g/dL Albumin 3.4 L (3.5-5.0) g/dL Lipase 341 H (23-300) U/L 08/21/20 08/21/20 Range/Units 11:20 16:52 RBC (4.30-5.90) m/uL Hgb (13.0-17.5) gm/dL Hct (39.0-53.0) % RDW (11.5-15.5) % BUN (9-20) mg/dL Glucose (74-99) mg/dL POC Glucose (mg/dL) 132 H 118 H (75-99) mg/dL Calcium (8.4-10.2) mg/dL Total Bilirubin (0.2-1.3) mg/dL Unconjugated Bilirubin (0.0-1.1) mg/dL Delta Bilirubin (0.0-0.2) mg/dL AST (17-59) U/L ALT (4-49) U/L Total Protein (6.3-8.2) g/dL Albumin (3.5-5.0) g/dL Lipase (23-300) U/L Assessment and Plan Assessment: Coronary artery disease, with recent non-STEMI on 04/2020 status post CABG Hypertension Hyperlipidemia History of severe aortic valve stenosis status post transcatheter aortic valve replacement in 2017 History of right coronary artery stenosis status post stent placement in the proximal and mid RCA Morbid obesity Plan: This is a pleasant 65 years old male who presents with CABG. Continue with aspirin and Plavix. He is also on metoprolol, Cipro consult is on the case including pulmonary and cardiology teams Labs and medication were reviewed.. Continue same treatment. Continue with symptomatic treatment. Resume home medication. Monitor lytes and vitals. DVT and GI prophylaxis. Further recommendations depends on the clinical course of the patient DVT prophylaxis: Subcutaneous heparin GI Prophylaxis: Ppi Thank you for consulting us
[2020-08-21 20:16] LABS: Glucose,Whole Blood 141 mg/dL (75-99)
[2020-08-21] MEDS: SENNOSIDES-DOCUSATE SODIUM 1 EACH TAB PO SCH (20:43)
[2020-08-21] MEDS: INSULIN NPH 300 UNIT/3 ML VIAL SQ SCH (20:43)
[2020-08-22 02:46] LABS: Glucose,Whole Blood 120 mg/dL (75-99)
[2020-08-22] MEDS: INSULIN ASPART (NovoLOG) 100 UNIT/ML VIAL SQ SCH ×3 (02:51→11:59)
[2020-08-22 03:48] VITALS: RESP 18
[2020-08-22 06:11] LABS: Glucose,Whole Blood 127 mg/dL (75-99)
[2020-08-22] MEDS: PANTOPRAZOLE 40 MG TABLET PO SCH (06:20)
[2020-08-22] MEDS: INSULN ASP PRT/INSULIN ASPART 100 UNIT/ML 10 ML VIAL SQ SCH (06:30)
--- NOTE | 2020-08-22 07:44 | XR ---
EXAMINATION TYPE: XR chest 1V portable DATE OF EXAM: 08/22/2020 Comparison: 08/21/2020 Clinical History: 65-year-old male Postoperative cardiac surgery Findings: Median sternotomy wires with postoperative clips in the mediastinum. Heart borderline in size. Trace to small effusions persist with bibasilar opacity. Impression: Similar trace to small effusions with adjacent atelectasis and/or consolidation.
[2020-08-22] MEDS: IPRATROPIUM-ALBUTEROL 3 ML NEB INHALATION SCH ×3 (09:00→15:43)
[2020-08-22] MEDS: CLOPIDOGREL 75 MG TAB PO SCH (09:11)
[2020-08-22] MEDS: HEPARIN SODIUM,PORCINE 5,000 UNIT/ML 1 ML VIAL SQ SCH (09:11)
[2020-08-22] MEDS: METOPROLOL TARTRATE 50 MG TAB PO SCH (09:11)
[2020-08-22] MEDS: ASPIRIN 325 MG TAB PO SCH (09:11)
[2020-08-22 09:47] LABS: ALT 348 U/L (4-49); AST 160 U/L (17-59); African American GFR (CKD) >90 (>60 ml/min/1.73 sqM); Albumin 3.4 g/dL (3.5-5.0); Alkaline Phosphatase 97 U/L (38-126); Amylase 34 U/L (30-110); Anion Gap 9 mmol/L; Blood Urea Nitrogen 42 mg/dL (9-20); Calcium 8.4 mg/dL (8.4-10.2); Carbon Dioxide 26 mmol/L (22-30); Chloride 104 mmol/L (98-107); Glucose 137 mg/dL (74-99); Lipase 450 U/L (23-300); Non-African American GFR(CKD) >90 (>60 ml/min/1.73 sqM); Potassium 4.1 mmol/L (3.5-5.1); Sodium 139 mmol/L (137-145); Total Bilirubin 3.1 mg/dL (0.2-1.3); Total Protein 5.8 g/dL (6.3-8.2)
[2020-08-22 09:56] LABS: Anisocytosis Moderate; HCT 25.4 % (39.0-53.0); HGB 8.1 gm/dL (13.0-17.5); Hypochromasia Moderate; MCH 30.8 pg (25.0-35.0); MCHC 31.7 g/dL (31.0-37.0); MCV 97.1 fL (80.0-100.0); Macrocytosis Slight; Mean Platelet Volume 11.4; Platelet Count 200 k/uL (150-450); Poikilocytosis Moderate; RBC 2.62 m/uL (4.30-5.90); RDW 20.5 % (11.5-15.5); WBC 7.3 k/uL (3.8-10.6)
--- NOTE | 2020-08-22 10:27 | P.PN ---
Subjective Progress Note Date: 08/22/20 Principal diagnosis: Left Main coronary artery disease. 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 Mendoza. He is currently sitting up in the recliner in no acute distress on the cardiac stepdown unit. States pain is controlled on current medication regimen, denies shortness of breath. Remains in sinus rhythm with PACs on telemetry, hemodynamically stable. He has been ambulatory in the room in the hallway without difficulty. Anxious to go home today. Objective - Vital Signs Vital signs: Vital Signs Temp 98.7 F 08/22/20 09:06 Pulse 84 08/22/20 09:09 Resp 18 08/22/20 09:06 BP 117/60 08/22/20 09:06 Pulse Ox 94 L 08/22/20 09:06 Intake & Output 08/21/20 08/22/20 08/22/20 18:59 06:59 18:59 Intake Total 430 120 Output Total 300 750 Balance 130 -750 120 Weight 134.1 kg Intake: IV 10 Invasive Line 6 10 Oral 420 120 Output: Urine 300 750 Other: Voiding Method Urinal Urinal Urinal # Voids 1 ABP, PAP, CO, CI - Last Documented Arterial Blood Pressure 123/48 Pulmonary Artery Pressure 38/20 Cardiac Output 5.7 Cardiac Index 2.4 - Constitutional General appearance: Present: cooperative, morbidly obese, no acute distress - Respiratory Details: Lungs sounds diminished bilaterally. Respirations even, nonlabored. Currently on room air with oxygen saturation 96%. Able to achieve 1000 mL on his incentive spirometry. Strong nonproductive cough - Cardiovascular Details: S1, S2 present. Regular rate and rhythm, sinus rhythm with PACs on telemetry. Sternum stable. Palpable peripheral pulses bilaterally. Lower extremity edema present. No calf pain or tenderness noted. Antiembolism stockings, SCDs present. Heart hugger in place with patient demonstrating appropriate use. - Gastrointestinal Gastrointestinal Comment(s): Abdomen soft, nontender, nondistended. Active bowel sounds present 4 quadrants. Tolerating diet. Positive bowel movement yesterday per patient - Genitourinary Genitourinary Comment(s): Continues to void clear, yellow urine - Integumentary Integumentary Comment(s): Skin is warm and dry with evidence of good perfusion. Anterior chest incision well approximated with trace amount of serous drainage from superior and inferior area of sternal incision - Neurologic Neurologic: Present: CNII-XII intact - Musculoskeletal Musculoskeletal: Present: gait normal, strength equal bilaterally - Psychiatric Psychiatric: Present: A&O x's 3, appropriate affect, intact judgment & insight - Allied health notes Allied health notes reviewed: nursing - Labs CBC & Chem 7: 08/22/20 08:55 08/22/20 08:55 Labs: Abnormal Lab Results - Last 24 Hours (Table) 08/21/20 08/21/20 08/21/20 Range/Units : 16:52 20:14 RBC (4.30-5.90) m/uL Hgb (13.0-17.5) gm/dL Hct (39.0-53.0) % RDW (11.5-15.5) % BUN (9-20) mg/dL Glucose (74-99) mg/dL POC Glucose (mg/dL) 132 H 118 H 141 H (75-99) mg/dL Total Bilirubin (0.2-1.3) mg/dL AST (17-59) U/L ALT (4-49) U/L Total Protein (6.3-8.2) g/dL Albumin (3.5-5.0) g/dL Lipase (23-300) U/L 08/22/20 08/22/20 08/22/20 Range/Units 02:45 06:09 08:55 RBC 2.62 L (4.30-5.90) m/uL Hgb 8.1 L (13.0-17.5) gm/dL Hct 25.4 L (39.0-53.0) % RDW 20.5 H (11.5-15.5) % BUN (9-20) mg/dL Glucose (74-99) mg/dL POC Glucose (mg/dL) 120 H 127 H (75-99) mg/dL Total Bilirubin (0.2-1.3) mg/dL AST (17-59) U/L ALT (4-49) U/L Total Protein (6.3-8.2) g/dL Albumin (3.5-5.0) g/dL Lipase (23-300) U/L 08/22/20 Range/Units 08:55 RBC (4.30-5.90) m/uL Hgb (13.0-17.5) gm/dL Hct (39.0-53.0) % RDW (11.5-15.5) % BUN 42 H (9-20) mg/dL Glucose 137 H (74-99) mg/dL POC Glucose (mg/dL) (75-99) mg/dL Total Bilirubin 3.1 H (0.2-1.3) mg/dL AST 160 H (17-59) U/L ALT 348 H (4-49) U/L Total Protein 5.8 L (6.3-8.2) g/dL Albumin 3.4 L (3.5-5.0) g/dL Lipase 450 H (23-300) U/L - Imaging and Cardiology Chest x-ray: report reviewed, image reviewed Assessment and Plan Assessment: 1. Left main coronary artery disease, status post single vessel off-pump CABG, SIMS to the LAD 2. History of coronary artery disease with non-STEMI in April 2020 status post drug-eluting stent placement to the proximal and mid RCA 3. Hypertension 4. History of severe aortic stenosis status post transcatheter aortic valve r eplacement in 2016 5. Syncopal episode in April 2020 secondary to anemia 6. Lifelong nonsmoker with mild restrictive lung disease with preoperative FEV1 70% of predicted 7. Severe pulmonary hypertension 8. 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 Morbid obesity 10. Preoperative chronic anemia and thrombocytopenia 11. Postoperative acute blood loss anemia and thrombocytopenia, expected, status post packed red blood cell transfusion as well as platelet transfusion 12. Postoperative transaminitis Plan: 1. Continue aspirin, Plavix, beta hector therapy. We'll continue to hold statin due to elevated transaminases. May be restarted once transaminases have normalized 2. Encourage incentive spirometry use 10 times every hour while awake. Bronchodilators per pulmonology 3. Increase activity, ambulate as tolerated. PT/OT/cardiac rehab consulted 4. Will monitor daily labs and x-rays. Electrolyte replacement per protocol. 5. GI/DVT prophylaxis 6. Pain control with current medication regimen 7. Insulin management per Dr. Mckeon. Patient is not diabetic, hemoglobin A1c preoperatively 5.7%. 8. Strict accurate intake and output. 9. Daily weight with standup scale, not bed scale 10. Discharge planning in progress. Anticipate discharge to home with home care later this afternoon 11. More recommendations to follow based on patient's progress. Time with Patient: Greater than 30
--- NOTE | 2020-08-22 10:28 | P.PN ---
Subjective Progress Note Date: 08/22/20 Status post CABG 1, SIMS to LAD off pump. Postoperative day #6 This is a 55-year-old white male patient with history of hypertension, hyperlipidemia, severe aortic stenosis status post TAPVR in the 2017, CAD with previous stenting of the RCA, the most recent one performed on 05/14/[address] Landaverde. Patient had been experiencing chest pressure and tightness on and off, and shortness of breath. Had a recent non-ST elevated myocardial infarction and RCA stenting in April 2020. Patient underwent cardiac catheterization on 06/12/2020 which showed distal left main eccentric plaque, calcification, urinalysis was in the range of 60%. His RCA was stented and multiple segments and all statins were open. LAD had mild disease. His echocardiogram from April 2020 showed the EF between 50-55%, normally functioning bioprosthetic aortic valve, mild mitral regurgitation, severe pulmonary hypertension, with mild tricuspid regurgitation, PA pressure of was 63 mmHg. Surgical intervention was recommended, and patient underwent a single- vessel bypass grafting with SIMS to the LAD and this was done off pump. Patient has a history of mediastinal radiation back in 1978 and previous history of ri ght anterolateral thoracotomy to remove benign tumor in the mediastinum. Patient also had abnormality in his liver functions 4 which his statin had been placed on hold. Patient was seen and examined this morning, sitting up in the chair at bedside. He feels well, denies any chest discomfort, his breathing is overall stable. Blood pressure 117/60 with a heart rate of 80, afebrile. 94% on room air. White blood cell count 7.3, hemoglobin 8.1, platelet count 200. Sodium 139, potassium 4.1, BUN 42, creatinine 0.8. AST 160 ALT 348 alk phos 97. Objective - Vital Signs Vital signs: Vital Signs Temp 98.7 F 08/22/20 09:06 Pulse 84 08/22/20 09:09 Resp 18 08/22/20 09:06 BP 117/60 08/22/20 09:06 Pulse Ox 94 L 08/22/20 09:06 Intake & Output 08/21/20 08/22/20 08/22/20 18:59 06:59 18:59 Intake Total 430 120 Output Total 300 750 Balance 130 -750 120 Weight 134.1 kg Intake: IV 10 Invasive Line 6 10 Oral 420 120 Output: Urine 300 750 Other: Voiding Method Urinal Urinal Urinal # Voids 1 ABP, PAP, CO, CI - Last Documented Arterial Blood Pressure 123/48 Pulmonary Artery Pressure 38/20 Cardiac Output 5.7 Cardiac Index 2.4 - Exam PHYSICAL EXAMINATION: GENERAL: 65-year-old gentleman in no acute distress at the time of my examination HEENT: Head is atraumatic, normocephalic. Pupils equal, round. Sclera anicteric. Conjunctiva are clear. Mucous membranes of the mouth are moist. Neck is supple. There is no elevated jugular venous pressure. No carotid bruit is heard. HEART EXAMINATION: Heart S1, S2 normal. No murmur or gallop heard. Sternum is stable. Midline incision is clean and dry well approximated. Heart hugger is in place, patient demonstrating appropriate use. CHEST EXAMINATION: Lungs are clear with fine crackles heard to the bases bilater ally. ABDOMEN: Soft, obese, nontender. Bowel sounds are heard. No organomegaly noted. EXTREMITIES:[ 2+ peripheral pulses with 1+ evidence of peripheral edema , he high NATALIA hose and sequential compression devices in place to bilateral lower extremities. e NEUROLOGIC patient is awake, alert and oriented 3 . . - Labs CBC & Chem 7: 08/22/20 08:55 08/22/20 08:55 Labs: Abnormal Lab Results - Last 24 Hours (Table) 08/21/20 08/21/20 08/21/20 Range/Units : 16:52 20:14 RBC (4.30-5.90) m/uL Hgb (13.0-17.5) gm/dL Hct (39.0-53.0) % RDW (11.5-15.5) % BUN (9-20) mg/dL Glucose (74-99) mg/dL POC Glucose (mg/dL) 132 H 118 H 141 H (75-99) mg/dL Total Bilirubin (0.2-1.3) mg/dL AST (17-59) U/L ALT (4-49) U/L Total Protein (6.3-8.2) g/dL Albumin (3.5-5.0) g/dL Lipase (23-300) U/L 08/22/20 08/22/20 08/22/20 Range/Units 02:45 06:09 08:55 RBC 2.62 L (4.30-5.90) m/uL Hgb 8.1 L (13.0-17.5) gm/dL Hct 25.4 L (39.0-53.0) % RDW 20.5 H (11.5-15.5) % BUN (9-20) mg/dL Glucose (74-99) mg/dL POC Glucose (mg/dL) 120 H 127 H (75-99) mg/dL Total Bilirubin (0.2-1.3) mg/dL AST (17-59) U/L ALT (4-49) U/L Total Protein (6.3-8.2) g/dL Albumin (3.5-5.0) g/dL Lipase (23-300) U/L /30/20 Range/Units 08:55 RBC (4.30-5.90) m/uL Hgb (13.0-17.5) gm/dL Hct (39.0-53.0) % RDW (11.5-15.5) % BUN 42 H (9-20) mg/dL Glucose 137 H (74-99) mg/dL POC Glucose (mg/dL) (75-99) mg/dL Total Bilirubin 3.1 H (0.2-1.3) mg/dL AST 160 H (17-59) U/L ALT 348 H (4-49) U/L Total Protein 5.8 L (6.3-8.2) g/dL Albumin 3.4 L (3.5-5.0) g/dL Lipase 450 H (23-300) U/L Assessment and Plan Plan: Assessment and plan 1. Left main coronary artery disease, status post single vessel off-pump coronary artery bypass grafting surgery, SIMS to the LAD 2. History of coronary artery disease with non-STEMI in April 2020 status post drug-eluting stent placement to the proximal and mid RCA 3. Hypertension 4. History of severe aortic stenosis status post transcatheter aortic valve replacement in 2016 5. Syncopal episode in April 2020 secondary to anemia 6. Lifelong nonsmoker with mild restrictive lung disease with preoperative FEV1 70% of predicted 7. Severe pulmonary hypertension 8. History of Seminoma with excision followed by mediastinal radiation in 1978, status post extensive lysis of radiation caused adhesions 9. Morbid obesity with a BMI of 47.6 kg/m 10. Preoperative chronic anemia and thrombocytopenia 11. Postoperative acute blood loss anemia and thrombocytopenia, expected, status post packed red blood cell transfusion as well as platelet transfusion 12. Postoperative elevation of his transaminitis enzymes, improving Plan From cardiology's perspective, patient's been encouraged on the use of his incentive spirometry. He may be able to be discharged home from our perspective once cleared by cardiothoracic surgery. Follow-up appointment in the office 2 weeks post discharge. DNP note has been reviewed, I agree with a documented findings and plan of care. Patient was seen and examined.
[2020-08-22 11:54] VITALS: BP 114/65; PULSE 75; TEMP 98.9
[2020-08-22 11:59] LABS: Glucose,Whole Blood 122 mg/dL (75-99)
[2020-08-22] MEDS ORDERED: FUROSEMIDE 10 MG/ML 4 ML VIAL IV STA (12:14)
[2020-08-22 13:46] LABS: Band Neutrophils % 1 %; Eosinophils # (M) 0.07 k/uL (0-0.7); Lymphocytes # (M) 1.24 k/uL (1.0-4.8); Monocytes # (M) 0.66 k/uL (0-1.0); Myelocytes # (M) 0.07 k/uL (0); Myelocytes % 1 %; Neutrophils % (M) 73 %; Nucleated Red Blood Cells 0 /100 WBC (0-0); Total Cells Counted 200
[2020-08-22 13:47] LABS: Mixed Population RBC Present; Polychromasia Present; RBC Fragments Present
[2020-08-22 13:48] LABS: Ovalocytes Present
--- NOTE | 2020-08-22 14:17 | P.DS ---
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 Left main coronary artery disease 2. History of non-STEMI in April 2020, status post drug-eluting stent to the proximal and mid RCA 3. Hypertension 4. History of severe aortic stenosis status post transcatheter aortic valve rep lacement in 2016 5. Syncopal episode in April 2020 secondary to anemia 6. Lifelong nonsmoker with mild restrictive lung disease, preoperative FEV1 was 70% of predicted with severe pulmonary hypertension 7. 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 Morbid obesity 9. Preoperative chronic anemia and thrombocytopenia 10. Postoperative acute blood loss anemia and thrombocytopenia, expected, status post transfusion packed red blood cells 11. Postoperative transaminitis without evidence of liver defect on ultrasound, unexpected PRINCIPAL PROCEDURE: 1. Coronary artery bypass grafting 1 with the left internal mammary artery to the left anterior descending artery, off pump 2. Intraoperative transesophageal echocardiogram 3. Extensive lysis of radiation-caused adhesions HISTORY OF PRESENT ILLNESS: This is a 65-year-old gentleman who follows on an outpatient basis with Dr. Mckeon. He had been experiencing symptoms of acute coronary syndrome in April of this year and presented to [facility] emergency room. He was admitted with diagnosis of non-STEMI and underwent heart catheterization with stent placement to the right coronary artery. He was stable upon discharge but continued to have some exertional shortness of breath and occasional chest tightness. He reported to the emergency room again in May and underwent another heart catheterization, right coronary stents were considered patent but he was noted to have intermediate to severe disease involving the distal left main coronary artery by IVUS. The patient was ref erred to Dr. Mendoza from cardiothoracic surgery. He was recommended to undergo single vessel off-pump CABG. The usual perioperative course was discussed in detail with the patient and his family, all risks and benefits were explained, all questions were answered, and consent was obtained to proceed with surgery. The patient was scheduled for surgery at the earliest possible date. HOSPITAL COURSE: The patient was brought to the hospital on 08/16/2020, taken to the preoperative area, prepared in the usual fashion, and subsequently taken to the operating room where Dr. Mendoza performed single vessel CABG. Upon completion of surgery the patient was transferred to the cardiovascular intensive care unit where he was recovered and monitored hemodynamically. He was extubated, all lines, tubes, and drips were discontinued when appropriate, and he was transferred to [facility] cardiac stepdown unit for further monitoring and rehabilitation. His oxygen was titrated down, he continued to work with p hysical and occupational therapy, he was tolerating oral diet, his pain was controlled, and he was ready to be discharged to home with [facility] care on postoperative day #6. He received written and verbal instruction regarding his medications, activity restrictions, signs and symptoms requiring physician notification, and follow-up appointments. He was not discharged on statin medication due to transaminitis, statin will be restarted once liver enzymes have returned to normal. In addition, he had elevation in his lipase which will be monitored outpatient, he was recommended to maintain full liquid diet for a few days. COMPLICATIONS: The patient experienced postoperative acute blood loss anemia and thrombocytopenia as well as transaminitis, the patient received packed red blood cells and statin medication was held. Patient Condition at Discharge: Stable Plan - Discharge Summary Discharge Rx Participant: Yes New Discharge Prescriptions: New Aspirin 325 mg PO DAILY #30 tab Clopidogrel [Plavix] 75 mg PO DAILY #30 tab Pantoprazole [Protonix] 40 mg PO AC-BRKFST #30 tablet.dr Marcum-Docusate Sodium [Senokot-S] 2 each PO HS PRN tab PRN Reason: Constipation Continue Furosemide [Lasix] 40 mg PO DAILY Metoprolol Tartrate [Lopressor] 50 mg PO BID #60 tab Discontinued Atorvastatin Calcium [Lipitor] 80 mg PO HS Aspirin [Adult Low Dose Aspirin EC] 81 mg PO DAILY lisinopriL [Zestril] 2.5 mg PO DAILY Spironolactone [Aldactone] 25 mg PO DAILY #30 tab Ticagrelor [Brilinta] 90 mg PO BID #60 tab Nitroglycerin Sl Tabs [Nitrostat] 0.4 mg SUBLINGUAL Q5M PRN #30 tab PRN Reason: Chest Pain Isosorbide Mononitrate ER [Imdur] 30 mg PO DAILY #30 tab.er.24h Discharge Medication List Furosemide [Lasix] 40 mg PO DAILY 04/13/20 [History] Aspirin 325 mg PO DAILY #30 tab 08/22/20 [Rx] Clopidogrel [Plavix] 75 mg PO DAILY #30 tab 08/22/20 [Rx] Metoprolol Tartrate [Lopressor] 50 mg PO BID #60 tab 08/22/20 [Rx] Pantoprazole [Protonix] 40 mg PO AC-BRKFST #30 tablet.dr 08/22/20 [Rx] Sennosides-Docusate Sodium [Senokot-S] 2 each PO HS PRN tab 08/22/20 [Rx] Follow up Appointment(s)/Referral(s): Adithya Mckeon MD [Primary Care Provider] - 09/05/20 10:50 am Jennifer Recinos NPC [Nurse Practitioner] - 08/26/20 11:15 am (Will be seen in the cardiothoracic surgeon office behind the hospital in [facility] at [address]) Rehab [facility] ,Cardiac [NON-STAFF] - 4 Weeks (You will be called approximately 4-6 weeks after surgery for cardiac rehab evaluation) Markell Arellano MD [STAFF PHYSICIAN] - 09/08/20 9:00 am Prieto Moon DO [Doctor of Osteopathic Medicine] - 10/07/20 10:00 am [facility], [NON-STAFF] - Anjel Mendoza MD [STAFF PHYSICIAN] - 09/12/20 2:00 pm () Ambulatory/Diagnostic Orders: Amylase [LAB.AMB] Time Frame: 3 Days, Location: None Selected Complete Blood Count w/diff [LAB.AMB] Time Frame: 3 Days, Location: None Selected Comprehensive Metabolic Panel [LAB.AMB] Time Frame: 3 Days, Location: None Selected Lipase [LAB.AMB] Location: None Selected Activity/Diet/Wound Care/Special Instructions: DISCHARGE INSTRUCTIONS: 1. No driving for 4 weeks, or until physician gives their ok. 2. The patient should sleep in their own bed, no medical bed needed. 3. Stairs are not an issue. If the bedroom is upstairs, it is advised that the patient go up at night and down in the morning for the first week. Go slowly, using handrail and take 1 step at a time. 4. NATALIA hose are to be worn for 30 days or until physician discontinues. 5. Heart hugger is to be worn 100% of the time until physician discontinues.(except when showering) 6. No lifting, pushing, or pulling more than 10 pounds for 12 weeks. The physician will advise of any restriction changes. 7. The patient is expected to continue the prescribed walking program. 8. Continue pain control per as needed orders. 9. Continue with incentive spirometry and splinting/heart hugger until otherwise directed by the physician. 10. Must shower daily using liquid antibacterial soap and a separate white washcloth for each individual incision. 11. Routine sternal incision care. No powders, lotions, ointments on incisions. No dressings are necessary on incisions unless they are draining. Dermabond tape is to remain on sternal incision until surgeon follow-up. 12. Please call surgeon/CHIEF LIFESTYLE OFFICER for temp greater than 101 F or purulent drainage from incisions. 13. All prescriptions given by surgeon for 30 days. Refills need to be filled through cadastral surveyor/primary care physician. 14. A Red armband has been placed on the patient. It should be worn for 30 days post surgery and will be removed by the cardiac surgeons. If an ER visit is necessary, please make sure the number on the Red armband is called. 15. You have been referred to and are expected to begin Cardiac Rehab in approximately 4-6 weeks. 16. Recommend a full liquid diet for the next 3-4 days HOME HEALTH SERVICES TO PROVIDE: RN SKILLED HOME CARE SERVICES FOR POST-OP SURGICAL PATIENTS WITH THE FOLLOWING: Coronary Artery Bypass Surgery (CABG), Mitral Valve Replaceme nt/Repair ( MVR), Aortic Valve Replacement/Repair (AVR) RN TO CONTINUE EDUCATION FROM ``ROAD TO A HEALTH HEART PATIENT EDUCATION MANUAL (GIVEN TO PATIENT IN THE HOSPITAL) MEDICATION RECONCILIATION WITH EDUCATION NEEDED ON FIRST HOME VISIT EMPHASIZE IMPORTANCE OF WEARING BREAST SUPPORT/HEART HUGGER ENCOURAGE USE OF INCENTIVE SPIROMETER 10 X EVERY HOUR WHILE AWAKE ENCOURAGE UTILIZATION OF LOWER EXTREMITY COMPRESSION STOCKINGS/NATALIA HOSE and ELEVATE LEGS ABOVE LEVEL OF HEART WHILE AT REST. ENCOURAGE AMBULATION 3-5x/day INCREASING TOLERATES, WHILE AVOIDING EXTREMES IN TEMPERATURE FREQUENCY: RN TO OPEN THE PATIENT WITHIN 24 HOURS OF DISCHARGE FROM THE HOSPITAL WITH TELEHEALTH INSTALLED AT [facility], RN TO VISIT 2-3 X A WEEK FOR 4 WEEKS ESTABLISHED BY PATIENT NEEDS. LABORATORY: CBC, CMP, AMYLASE, LIPASE TO BE DRAWN ON THE THIRD DAY HOME, (RAN STAT) FAX RESULTS TO [phone]. TELEHEALTH PARAMETERS: WEIGHT: NOTIFY MD OF WEIGHT GAIN OF 2 LBS IN 24 HOURS OR 5 LBS IN ONE WEEK HR: NOTIFY MD OF HR <55 BPM OR HR>100 BPM BP: NOTIFY MD IF BP <90/55 OR BP>140/100 O2 SAT: NOTIFY MD IF PO2<93% ON ROOM AIR SEND TELEHEALTH REPORT TO CASH VAN SALESPERSON AND CARDIOVASCULAR SURGEON THE FIRST WEEK OF CARE AND THEN BI-WEEKLY. PLEASE ADDITIONALLY COMMUNICATE ANY ABNORMALS AND NEW FINDINGS TO THE SURGEONS OFFICE. For any questions or concerns please call subsea engineer Jennifer @ or Maximo @ Discharge Disposition: HOME WITH HOME HEALTH SERVICES
--- NOTE | 2020-08-22 19:06 | PN ---
PROGRESS NOTE PULMONARY/CRITICAL CARE PROGRESS NOTE: DATE OF SERVICE: August 22, 2020. INTERVAL HISTORY: 65-year-old gentleman with a history of single vessel off pump bypass grafting, SIMS to LAD. He is postop day #6. He also has a history of severe aortic stenosis, pulmonary hypertension, seminoma, status post radiation, postoperative atelectasis, benign essential hypertension, non ST-segment elevation myocardial infarction, and elevated liver enzymes. Currently, the patient is doing reasonably well. The patient states that his breathing is much improved. He is hoping to be discharged in next 24 to 48 hours or so. He denies any chest pain or chest discomfort. He is not coughing or producing any phlegm. There is no fever or chills. PHYSICAL EXAMINATION: VITAL SIGNS: Current vital signs include temperature 98.9. Heart rate 75, respiratory rate 18, blood pressure 114/65, mean 81. Room-air saturations 10.0%. GENERAL: Appears in no acute distress. HEENT: Examination is grossly unremarkable. NECK: Supple. Full range of motion. No adenopathy. Neck veins are flat. CARDIOVASCULAR: Examination reveals regular rhythm and rate. Heart rate 75. S1, S2 normal. No S3 or S4. No murmur noted. PULMONARY examination reveals regular rhythm and rate. A few scattered rhonchi. No wheezes or crackles. ABDOMEN: Soft. Bowel sounds are heard. EXTREMITIES are intact. No cyanosis, clubbing, or edema. SKIN: Without rash. NEUROLOGIC: Examination is brief but nonfocal. LABS: Reviewed. White count 7.3, hemoglobin 8.1, hematocrit 25.4, platelet count 200,000. Sodium, potassium and chloride, CO2 all normal. Anion gap normal. BUN and creatinine were 42 and 0.83. AST 160, ALT is 348. Lipase is 450. Microbiology is currently negative. A chest x-ray from the shows small effusions bilaterally with adjacent consolidation. Current medications are reviewed. ASSESSMENT: 1. Status post single-vessel bypass grafting, SIMS to LAD, postop day #6. 2. Routine postoperative ventilator management. 3. Single-vessel coronary artery disease. 4. History of severe aortic stenosis. 5. History of severe pulmonary hypertension. 6. 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 7. Lifetime nonsmoker. 8. Status post transcatheter aortic valve replacement in 2017. PLAN: The patient is doing well. He has been weaned off oxygen. He continues on an hourly use of the incentive spirometer as well as he is encouraged deep breathe, cough and clear secretions. No additional recommendations are made. Prognosis is guarded. Hopeful discharge in next 24 to 48 hours. MMODL / IJN: [id number] /
--- NOTE | 2020-08-23 22:09 | PN ---
PROGRESS NOTE DATE OF SERVICE: August 22, 2020. CHIEF COMPLAINT: Status post CABG. HISTORY OF PRESENT ILLNESS: This gentleman is doing well. He is not running a fever and he is not short of breath. He has had very little discomfort. It is planned that he will go home today. PHYSICAL EXAMINATION: He is awake and alert. Neurological intact. Color is good. Hydration is good. Breath sounds are heard on both sides and cardiac exam demonstrates sinus rhythm. Abdomen is soft, nontender. Extremities are normal. IMPRESSION: Status post CABG. PLAN: Home today. MMODL / IJN: [id number] /
== END 2020-08-22 16:19 | disposition home health service (06) | DRG 235 ==
LOC: 2ORMAIN 05:38 → 2SICU 13:08 → 3SCARD 08-18 13:16
PROVIDERS: ADMIT Thoracic Surgery (Cardiothoracic Vascular Surgery); ATTEND Thoracic Surgery (Cardiothoracic Vascular Surgery)
PROC: 30243N1 Transfusion of Nonautologous Red Blood Cells into Central Vein, Percutaneous Approach (ICD-10-PCS; 2020-08-16)
PROC: 30243R1 Transfusion of Nonautologous Platelets into Central Vein, Percutaneous Approach (ICD-10-PCS; 2020-08-16)
PROC: 02100Z9 Bypass Coronary Artery, One Artery from Left Internal Mammary, Open Approach (ICD-10-PCS; principal; 2020-08-16 08:00)
PROC: 30243L1 Transfusion of Nonautologous Fresh Plasma into Central Vein, Percutaneous Approach (ICD-10-PCS; 2020-08-16 08:00)
DX: I25.119 Atherosclerotic heart disease of native coronary artery with unspecified angina pectoris (principal); J96.02 Acute respiratory failure with hypercapnia; Z68.42 Body mass index [BMI] 45.0-49.9, adult; D62 Acute posthemorrhagic anemia; J98.11 Atelectasis; I27.22 Pulmonary hypertension due to left heart disease; D69.6 Thrombocytopenia, unspecified; E66.01 Morbid (severe) obesity due to excess calories; Z86.018 Personal history of other benign neoplasm; I10 Essential (primary) hypertension; E78.5 Hyperlipidemia, unspecified; I08.1 Rheumatic disorders of both mitral and tricuspid valves; J98.4 Other disorders of lung; R74.01 Elevation of levels of liver transaminase levels; K80.20 Calculus of gallbladder without cholecystitis without obstruction; I25.2 Old myocardial infarction; Z71.3 Dietary counseling and surveillance; Z79.82 Long term (current) use of aspirin; Z79.899 Other long term (current) drug therapy; Z79.02 Long term (current) use of antithrombotics/antiplatelets; Z95.5 Presence of coronary angioplasty implant and graft; Z95.2 Presence of prosthetic heart valve; Z92.3 Personal history of irradiation; Z87.442 Personal history of urinary calculi; Z82.49 Family history of ischemic heart disease and other diseases of the circulatory system; Z82.5 Family history of asthma and other chronic lower respiratory diseases; Z83.3 Family history of diabetes mellitus; Z80.8 Family history of malignant neoplasm of other organs or systems
CPT/HCPCS: 36415; 71045; 71046; 76705; 80053; 82150; 82248; 82330; 82805; 83605; 83690; 83735; 85025; 85027; 85384; 85520; 85610; 85730; 86850; 86870; 86880; 86891; 86900; 86901; 86902; 86920; 94002; 94640; 94760

== ENCOUNTER → 2020-08-26 | Outpatient (CLI) | payer OTHER ==
[2020-08-26 13:01] LABS: ALT 163 U/L (4-49); AST 60 U/L (17-59); African American GFR (CKD) >90 (>60 ml/min/1.73 sqM); Albumin 3.4 g/dL (3.5-5.0); Albumin/Globulin Ratio 1.3; Alkaline Phosphatase 90 U/L (38-126); Amylase 55 U/L (30-110); Anion Gap 7 mmol/L; Blood Urea Nitrogen 20 mg/dL (9-20); Calcium 8.2 mg/dL (8.4-10.2); Carbon Dioxide 29 mmol/L (22-30); Chloride 102 mmol/L (98-107); Globulin 2.7 g/dL; Glucose 163 mg/dL (74-99); Lipase 596 U/L (23-300); Non-African American GFR(CKD) >90 (>60 ml/min/1.73 sqM); Potassium 3.6 mmol/L (3.5-5.1); Sodium 138 mmol/L (137-145); Total Bilirubin 2.8 mg/dL (0.2-1.3); Total Protein 6.1 g/dL (6.3-8.2)
== END | disposition home or self-care (01) ==
LOC: LABWHC1 12:05
PROVIDERS: ATTEND Nurse Practitioner Acute Care
DX: Z48.812 Encounter for surgical aftercare following surgery on the circulatory system (principal); R74.8 Abnormal levels of other serum enzymes
CPT/HCPCS: 36415; 80053; 82150; 83690